=== PATIENT | female | born 1945 | race Caucasian/White ===

== ENCOUNTER → 2023-07-25 14:19 | Outpatient (REF) | payer MEDICARE, OTHER, SELFPAY | LOC: HWRAD 14:19 | PROVIDERS: ATTENDING PHYSICIAN Internal Medicine Hematology & Oncology; FAMILY PHYSICIAN Physician Assistant | DX: C49.22 Malignant neoplasm of connective and soft tissue of left lower limb, including hip (principal); C78.00 Secondary malignant neoplasm of unspecified lung | CPT/HCPCS: 71250 ==

== ENCOUNTER → 2023-08-01 11:51 | Outpatient (REF) | payer MEDICARE, OTHER, SELFPAY ==
[2023-08-01 13:29] LABS: % Basophils 0.6 % (0-2); % Eosinophils 4.7 % (0-6); % Immature Granulocytes 0.6 % (0-0.5); % Lymphocytes 18.2 % (20.5-51.1); % Monocytes 7.3 % (1.7-9.3); % Neutrophils 68.6 % (42.2-75.2); Absolute Basophils 0.1 10^3/uL (0-0.2); Absolute Eosinophils 0.4 10^3/uL (0-0.7); Absolute Immature Granulocytes 0.1 10^3/uL (0-0.05); Absolute Lymphocytes 1.7 10^3/uL (1.2-3.4); Absolute Monocytes 0.7 10^3/uL (0.1-0.6); Absolute Neutrophils 6.4 10^3/uL (1.4-6.5); Hemoglobin 12.4 g/dL (12.0-16.0); Mean Corp Hgb Conc. 31.8 g/dL (33.0-37.0); Mean Corpuscular Hgb 29.7 pg (27.0-31.0); Mean Corpuscular Volume 93.3 fL (81.0-99.0); Mean Platelet Volume 13.8 fL (7.4-10.4); Nucleated Red Blood Cells % 0 %; Platelet Count 186 10^3/uL (130-400); Red Blood Cell Count 4.18 10^6/uL (4.20-5.40); Red Cell Dist. Width 14.4 % (11.5-14.5); White Blood Cell Count 9.4 10^3/uL (4.8-10.8)
[2023-08-01 13:35] LABS: ALT (SGPT) 18 U/L (0-35); AST (SGOT) 20 U/L (14-36); Albumin 3.5 g/dl (3.5-5.0); Alkaline Phosphatase 116 U/L (38-126); Blood Urea Nitrogen 14 mg/dl (7-17); Calcium 9.4 mg/dl (8.4-10.2); Carbon Dioxide 30 mmol/L (22-30); Chloride 104 mmol/L (98-107); Glucose 109 mg/dl (70-99); Potassium 4.5 mmol/L (3.5-5.1); Sodium 135 mmol/L (135-145); Total Bilirubin 0.3 mg/dl (0.2-1.3); Total Protein 6.2 g/dl (6.3-8.2); eGFR > 60.00
[2023-08-03 15:11] LABS: Magnesium 2.1 mg/dl (1.6-2.3)
== END ==
LOC: REG 11:51
PROVIDERS: ATTENDING PHYSICIAN Internal Medicine Hematology & Oncology; FAMILY PHYSICIAN Physician Assistant
DX: C49.22 Malignant neoplasm of connective and soft tissue of left lower limb, including hip (principal); C78.00 Secondary malignant neoplasm of unspecified lung
CPT/HCPCS: 36415; 80053; 83735; 85025

== ENCOUNTER → 2023-08-08 12:20 | Outpatient (REF) | payer MEDICARE, OTHER, SELFPAY ==
[2023-08-08 13:22] LABS: % Basophils 0.6 % (0-2); % Eosinophils 2.9 % (0-6); % Immature Granulocytes 0.5 % (0-0.5); % Lymphocytes 20.3 % (20.5-51.1); % Monocytes 4.2 % (1.7-9.3); % Neutrophils 71.5 % (42.2-75.2); Absolute Basophils 0.1 10^3/uL (0-0.2); Absolute Eosinophils 0.3 10^3/uL (0-0.7); Absolute Lymphocytes 1.8 10^3/uL (1.2-3.4); Absolute Monocytes 0.4 10^3/uL (0.1-0.6); Absolute Neutrophils 6.2 10^3/uL (1.4-6.5); Hematocrit 37.4 % (37.0-47.0); Hemoglobin 12.3 g/dL (12.0-16.0); Mean Corp Hgb Conc. 32.9 g/dL (33.0-37.0); Mean Corpuscular Hgb 29.5 pg (27.0-31.0); Mean Corpuscular Volume 89.7 fL (81.0-99.0); Mean Platelet Volume 13.2 fL (7.4-10.4); Nucleated Red Blood Cells % 0 %; Platelet Count 181 10^3/uL (130-400); Red Blood Cell Count 4.17 10^6/uL (4.20-5.40); Red Cell Dist. Width 14.6 % (11.5-14.5); White Blood Cell Count 8.6 10^3/uL (4.8-10.8)
[2023-08-08 13:48] LABS: ALT (SGPT) 23 U/L (0-35); AST (SGOT) 29 U/L (14-36); Albumin 3.6 g/dl (3.5-5.0); Alkaline Phosphatase 115 U/L (38-126); Blood Urea Nitrogen 13 mg/dl (7-17); Calcium 9.3 mg/dl (8.4-10.2); Carbon Dioxide 28 mmol/L (22-30); Chloride 103 mmol/L (98-107); Glucose 100 mg/dl (70-99); Potassium 3.9 mmol/L (3.5-5.1); Sodium 134 mmol/L (135-145); Total Bilirubin 0.5 mg/dl (0.2-1.3); Total Protein 6.3 g/dl (6.3-8.2); eGFR > 60.00
== END ==
LOC: REG 12:20
PROVIDERS: ATTENDING PHYSICIAN Internal Medicine Hematology & Oncology
DX: C49.22 Malignant neoplasm of connective and soft tissue of left lower limb, including hip (principal); C78.00 Secondary malignant neoplasm of unspecified lung
CPT/HCPCS: 36415; 80053; 85025; 93005

== ENCOUNTER → 2023-08-15 08:20 | Outpatient (REF) | payer MEDICARE, OTHER, SELFPAY ==
[2023-08-15 09:07] LABS: Hematocrit 35.6 % (37.0-47.0); Hemoglobin 11.8 g/dL (12.0-16.0); Mean Corp Hgb Conc. 33.1 g/dL (33.0-37.0); Mean Corpuscular Hgb 29.6 pg (27.0-31.0); Mean Corpuscular Volume 89.4 fL (81.0-99.0); Mean Platelet Volume 13.3 fL (7.4-10.4); Platelet Count 172 10^3/uL (130-400); Red Blood Cell Count 3.98 10^6/uL (4.20-5.40); Red Cell Dist. Width 15.5 % (11.5-14.5); White Blood Cell Count 35.1 10^3/uL (4.8-10.8)
[2023-08-15 10:40] LABS: Absolute Neutrophils -Man Diff 23.8 10^3/uL (1.4-6.5); Atypical Lymphocytes 1 %; Band Neutrophils 21 % (0-3); Eosinophils 1 % (0-6); Lymphocytes 12 % (20-51); Metamyelocytes 9 % (-); Monocytes 5 % (2-9); Myelocytes 4 % (-); Nucleated Red Blood Cells 1 (-); Platelets Checked Yes; Segmented Neutrophils 47 % (42-75)
[2023-08-15 10:41] LABS: Normal RBC Morphology Yes; Total Cells Counted 100
[2023-08-15 11:27] LABS: ALT (SGPT) 30 U/L (0-35); AST (SGOT) 42 U/L (14-36); Albumin 3.1 g/dl (3.5-5.0); Alkaline Phosphatase 209 U/L (38-126); Blood Urea Nitrogen 11 mg/dl (7-17); Calcium 9.7 mg/dl (8.4-10.2); Carbon Dioxide 29 mmol/L (22-30); Chloride 100 mmol/L (98-107); Glucose 125 mg/dl (70-99); Potassium 3.1 mmol/L (3.5-5.1); Sodium 139 mmol/L (135-145); Total Bilirubin 0.5 mg/dl (0.2-1.3); Total Protein 5.8 g/dl (6.3-8.2); eGFR > 60.00
== END ==
LOC: REG 08:20
PROVIDERS: ATTENDING PHYSICIAN Internal Medicine Hematology & Oncology; FAMILY PHYSICIAN Physician Assistant
DX: C49.22 Malignant neoplasm of connective and soft tissue of left lower limb, including hip (principal); C78.00 Secondary malignant neoplasm of unspecified lung
CPT/HCPCS: 36415; 80053; 85025

== ENCOUNTER → 2023-08-16 10:29 | Outpatient (REF) | payer MEDICARE, OTHER, SELFPAY | LOC: HWRAD 10:29 | PROVIDERS: ATTENDING PHYSICIAN Internal Medicine Hematology & Oncology; FAMILY PHYSICIAN Physician Assistant | DX: I26.99 Other pulmonary embolism without acute cor pulmonale (principal); C49.22 Malignant neoplasm of connective and soft tissue of left lower limb, including hip; C78.00 Secondary malignant neoplasm of unspecified lung | CPT/HCPCS: 71275; Q9967 ==

== ENCOUNTER → 2023-08-22 11:50 | Outpatient (REF) | payer MEDICARE, OTHER, SELFPAY ==
[2023-08-22 12:57] LABS: % Basophils 0.5 % (0-2); % Eosinophils 0.1 % (0-6); % Immature Granulocytes 5.8 % (0-0.5); % Lymphocytes 7.8 % (20.5-51.1); % Monocytes 2.9 % (1.7-9.3); % Neutrophils 82.9 % (42.2-75.2); Absolute Basophils 0.1 10^3/uL (0-0.2); Absolute Immature Granulocytes 1.7 10^3/uL (0-0.05); Absolute Lymphocytes 2.3 10^3/uL (1.2-3.4); Absolute Monocytes 0.8 10^3/uL (0.1-0.6); Absolute Neutrophils 24.3 10^3/uL (1.4-6.5); Hemoglobin 12.1 g/dL (12.0-16.0); Mean Corp Hgb Conc. 33.6 g/dL (33.0-37.0); Mean Corpuscular Hgb 30.6 pg (27.0-31.0); Mean Corpuscular Volume 91.1 fL (81.0-99.0); Nucleated Red Blood Cells % 0.2 %; Red Blood Cell Count 3.95 10^6/uL (4.20-5.40); Red Cell Dist. Width 17.2 % (11.5-14.5); White Blood Cell Count 29.2 10^3/uL (4.8-10.8)
[2023-08-22 13:31] LABS: ALT (SGPT) 21 U/L (0-35); AST (SGOT) 25 U/L (14-36); Albumin 3.7 g/dl (3.5-5.0); Alkaline Phosphatase 199 U/L (38-126); Blood Urea Nitrogen 16 mg/dl (7-17); Calcium 9.6 mg/dl (8.4-10.2); Carbon Dioxide 27 mmol/L (22-30); Chloride 100 mmol/L (98-107); Glucose 93 mg/dl (70-99); Potassium 3.6 mmol/L (3.5-5.1); Sodium 138 mmol/L (135-145); Total Bilirubin 0.3 mg/dl (0.2-1.3); Total Protein 6.4 g/dl (6.3-8.2); eGFR > 60.00
[2023-08-22 13:40] LABS: Mean Platelet Volume 12.8 fL (7.4-10.4); Platelet Count 116 10^3/uL (130-400)
== END ==
LOC: REG 11:50
PROVIDERS: ATTENDING PHYSICIAN Internal Medicine Hematology & Oncology; FAMILY PHYSICIAN Physician Assistant
DX: C49.22 Malignant neoplasm of connective and soft tissue of left lower limb, including hip (principal); C78.00 Secondary malignant neoplasm of unspecified lung
CPT/HCPCS: 36415; 80053; 85025

== ENCOUNTER → 2023-08-29 12:12 | Outpatient (REF) | payer MEDICARE, OTHER, SELFPAY ==
[2023-08-29 13:17] LABS: % Basophils 1.5 % (0-2); % Eosinophils 0.4 % (0-6); % Immature Granulocytes 1.3 % (0-0.5); % Lymphocytes 14.9 % (20.5-51.1); % Monocytes 3.8 % (1.7-9.3); % Neutrophils 78.1 % (42.2-75.2); Absolute Basophils 0.1 10^3/uL (0-0.2); Absolute Immature Granulocytes 0.1 10^3/uL (0-0.05); Absolute Lymphocytes 1.4 10^3/uL (1.2-3.4); Absolute Monocytes 0.4 10^3/uL (0.1-0.6); Absolute Neutrophils 7.2 10^3/uL (1.4-6.5); Hematocrit 34.1 % (37.0-47.0); Hemoglobin 11.1 g/dL (12.0-16.0); Mean Corp Hgb Conc. 32.6 g/dL (33.0-37.0); Mean Corpuscular Hgb 29.6 pg (27.0-31.0); Mean Corpuscular Volume 90.9 fL (81.0-99.0); Mean Platelet Volume 12.6 fL (7.4-10.4); Nucleated Red Blood Cells % 0 %; Platelet Count 356 10^3/uL (130-400); Red Blood Cell Count 3.75 10^6/uL (4.20-5.40); Red Cell Dist. Width 17.3 % (11.5-14.5); White Blood Cell Count 9.3 10^3/uL (4.8-10.8)
[2023-08-29 13:39] LABS: ALT (SGPT) 22 U/L (0-35); AST (SGOT) 27 U/L (14-36); Albumin 3.5 g/dl (3.5-5.0); Alkaline Phosphatase 123 U/L (38-126); Blood Urea Nitrogen 17 mg/dl (7-17); Calcium 9.6 mg/dl (8.4-10.2); Carbon Dioxide 29 mmol/L (22-30); Chloride 104 mmol/L (98-107); Glucose 110 mg/dl (70-99); Potassium 4.4 mmol/L (3.5-5.1); Sodium 136 mmol/L (135-145); Total Bilirubin 0.2 mg/dl (0.2-1.3); eGFR > 60.00
== END ==
LOC: REG 12:12
PROVIDERS: ATTENDING PHYSICIAN Internal Medicine Hematology & Oncology; FAMILY PHYSICIAN Physician Assistant
DX: C49.22 Malignant neoplasm of connective and soft tissue of left lower limb, including hip (principal); C78.00 Secondary malignant neoplasm of unspecified lung
CPT/HCPCS: 36415; 80053; 85025

== ENCOUNTER → 2023-09-05 12:05 | Outpatient (REF) | payer MEDICARE, OTHER, SELFPAY ==
[2023-09-05 14:22] LABS: % Eosinophils 1.4 % (0-6); % Immature Granulocytes 0.6 % (0-0.5); % Lymphocytes 18.3 % (20.5-51.1); % Monocytes 3.9 % (1.7-9.3); % Neutrophils 74.8 % (42.2-75.2); Absolute Basophils 0.1 10^3/uL (0-0.2); Absolute Eosinophils 0.1 10^3/uL (0-0.7); Absolute Immature Granulocytes 0.1 10^3/uL (0-0.05); Absolute Lymphocytes 1.5 10^3/uL (1.2-3.4); Absolute Monocytes 0.3 10^3/uL (0.1-0.6); Absolute Neutrophils 6.2 10^3/uL (1.4-6.5); Hematocrit 34.1 % (37.0-47.0); Hemoglobin 11.1 g/dL (12.0-16.0); Mean Corp Hgb Conc. 32.6 g/dL (33.0-37.0); Mean Corpuscular Hgb 29.8 pg (27.0-31.0); Mean Corpuscular Volume 91.4 fL (81.0-99.0); Mean Platelet Volume 12.7 fL (7.4-10.4); Nucleated Red Blood Cells % 0 %; Platelet Count 304 10^3/uL (130-400); Red Blood Cell Count 3.73 10^6/uL (4.20-5.40); Red Cell Dist. Width 17.2 % (11.5-14.5); White Blood Cell Count 8.3 10^3/uL (4.8-10.8)
[2023-09-05 14:35] LABS: ALT (SGPT) 25 U/L (0-35); AST (SGOT) 24 U/L (14-36); Albumin 3.6 g/dl (3.5-5.0); Alkaline Phosphatase 118 U/L (38-126); Blood Urea Nitrogen 13 mg/dl (7-17); Calcium 9.7 mg/dl (8.4-10.2); Carbon Dioxide 27 mmol/L (22-30); Chloride 103 mmol/L (98-107); Glucose 102 mg/dl (70-99); Sodium 136 mmol/L (135-145); Total Bilirubin 0.3 mg/dl (0.2-1.3); Total Protein 6.2 g/dl (6.3-8.2); eGFR > 60.00
== END ==
LOC: REG 12:05
PROVIDERS: ATTENDING PHYSICIAN Internal Medicine Hematology & Oncology
DX: C49.22 Malignant neoplasm of connective and soft tissue of left lower limb, including hip (principal); C78.00 Secondary malignant neoplasm of unspecified lung
CPT/HCPCS: 36415; 80053; 85025

== ENCOUNTER → 2023-09-13 13:03 | Outpatient (REF) | payer MEDICARE, OTHER, SELFPAY ==
[2023-09-13 14:44] LABS: % Basophils 1.5 % (0-2); % Immature Granulocytes 0.5 % (0-0.5); % Lymphocytes 20.6 % (20.5-51.1); % Monocytes 9.1 % (1.7-9.3); % Neutrophils 67.3 % (42.2-75.2); Absolute Basophils 0.1 10^3/uL (0-0.2); Absolute Eosinophils 0.1 10^3/uL (0-0.7); Absolute Lymphocytes 1.6 10^3/uL (1.2-3.4); Absolute Monocytes 0.7 10^3/uL (0.1-0.6); Absolute Neutrophils 5.4 10^3/uL (1.4-6.5); Hematocrit 36.7 % (37.0-47.0); Hemoglobin 11.8 g/dL (12.0-16.0); Mean Corp Hgb Conc. 32.2 g/dL (33.0-37.0); Mean Corpuscular Hgb 29.4 pg (27.0-31.0); Mean Corpuscular Volume 91.5 fL (81.0-99.0); Nucleated Red Blood Cells % 0 %; Platelet Count 247 10^3/uL (130-400); Red Blood Cell Count 4.01 10^6/uL (4.20-5.40); Red Cell Dist. Width 17.1 % (11.5-14.5)
[2023-09-13 15:19] LABS: ALT (SGPT) 22 U/L (0-35); AST (SGOT) 26 U/L (14-36); Albumin 3.9 g/dl (3.5-5.0); Alkaline Phosphatase 112 U/L (38-126); Blood Urea Nitrogen 14 mg/dl (7-17); Carbon Dioxide 25 mmol/L (22-30); Chloride 104 mmol/L (98-107); Glucose 93 mg/dl (70-99); Iron 71 ug/dl (37-170); Potassium 4.1 mmol/L (3.5-5.1); Sodium 135 mmol/L (135-145); Total Bilirubin 0.3 mg/dl (0.2-1.3); Total Protein 6.5 g/dl (6.3-8.2); eGFR > 60.00
[2023-09-13 15:28] LABS: Percent Saturation 21 % (20-50); Total Iron Binding Capacity 329 ug/dl (265-497)
[2023-09-13 15:44] LABS: TSH Reflex To Free T4 1.72 uIU/ml (0.47-4.68)
[2023-09-13 15:48] LABS: Ferritin 23.8 ng/ml (11.1-264.0)
[2023-09-13 16:19] LABS: Folate > 20.0 ng/ml (2.76-20); Vitamin B12 787 pg/ml (239-931)
== END ==
LOC: REG 13:03
PROVIDERS: ATTENDING PHYSICIAN Internal Medicine Hematology & Oncology; FAMILY PHYSICIAN Physician Assistant
DX: C49.22 Malignant neoplasm of connective and soft tissue of left lower limb, including hip (principal); C78.00 Secondary malignant neoplasm of unspecified lung; R11.2 Nausea with vomiting, unspecified; D51.9 Vitamin B12 deficiency anemia, unspecified; R53.82 Chronic fatigue, unspecified
CPT/HCPCS: 36415; 80053; 82607; 82728; 82746; 83540; 83550; 84443; 85025

== ENCOUNTER → 2023-09-14 12:58 | Outpatient (REF) | payer MEDICARE, OTHER, SELFPAY | LOC: RAD 12:58 | PROVIDERS: ATTENDING PHYSICIAN Internal Medicine Hematology & Oncology; FAMILY PHYSICIAN Physician Assistant | DX: I26.99 Other pulmonary embolism without acute cor pulmonale (principal); C49.22 Malignant neoplasm of connective and soft tissue of left lower limb, including hip; C78.00 Secondary malignant neoplasm of unspecified lung; R11.2 Nausea with vomiting, unspecified | CPT/HCPCS: 71275; Q9967 ==

== ENCOUNTER → 2023-09-20 12:26 | Outpatient (REF) | payer MEDICARE, OTHER, SELFPAY ==
[2023-09-20 13:29] LABS: % Basophils 0.9 % (0-2); % Eosinophils 0.9 % (0-6); % Immature Granulocytes 0.6 % (0-0.5); % Lymphocytes 16.3 % (20.5-51.1); % Monocytes 2.9 % (1.7-9.3); % Neutrophils 78.4 % (42.2-75.2); Absolute Basophils 0.1 10^3/uL (0-0.2); Absolute Eosinophils 0.1 10^3/uL (0-0.7); Absolute Immature Granulocytes 0.1 10^3/uL (0-0.05); Absolute Lymphocytes 1.6 10^3/uL (1.2-3.4); Absolute Monocytes 0.3 10^3/uL (0.1-0.6); Absolute Neutrophils 7.7 10^3/uL (1.4-6.5); Hematocrit 35.1 % (37.0-47.0); Hemoglobin 11.5 g/dL (12.0-16.0); Mean Corp Hgb Conc. 32.8 g/dL (33.0-37.0); Mean Corpuscular Hgb 29.6 pg (27.0-31.0); Mean Corpuscular Volume 90.2 fL (81.0-99.0); Nucleated Red Blood Cells % 0 %; Platelet Count 220 10^3/uL (130-400); Red Blood Cell Count 3.89 10^6/uL (4.20-5.40); Red Cell Dist. Width 16.6 % (11.5-14.5); White Blood Cell Count 9.8 10^3/uL (4.8-10.8)
[2023-09-20 14:07] LABS: ALT (SGPT) 23 U/L (0-35); AST (SGOT) 27 U/L (14-36); Albumin 3.8 g/dl (3.5-5.0); Alkaline Phosphatase 93 U/L (38-126); Blood Urea Nitrogen 14 mg/dl (7-17); Calcium 10.2 mg/dl (8.4-10.2); Carbon Dioxide 28 mmol/L (22-30); Chloride 103 mmol/L (98-107); Glucose 117 mg/dl (70-99); Potassium 4.1 mmol/L (3.5-5.1); Sodium 135 mmol/L (135-145); Total Bilirubin 0.4 mg/dl (0.2-1.3); Total Protein 6.3 g/dl (6.3-8.2); eGFR > 60.00
== END ==
LOC: REG 12:26
PROVIDERS: ATTENDING PHYSICIAN Internal Medicine Hematology & Oncology
DX: C49.22 Malignant neoplasm of connective and soft tissue of left lower limb, including hip (principal); C78.00 Secondary malignant neoplasm of unspecified lung
CPT/HCPCS: 36415; 80053; 85025

== ENCOUNTER → 2023-09-28 09:55 | Outpatient (REF) | payer MEDICARE, OTHER, SELFPAY | LOC: RAD 09:55 | PROVIDERS: ATTENDING PHYSICIAN Internal Medicine Hematology & Oncology; FAMILY PHYSICIAN Physician Assistant | DX: C49.22 Malignant neoplasm of connective and soft tissue of left lower limb, including hip (principal); C78.00 Secondary malignant neoplasm of unspecified lung; R11.2 Nausea with vomiting, unspecified | CPT/HCPCS: 71260; 74177; Q9967 ==

== ENCOUNTER → 2023-09-29 13:45 | Outpatient (REF) | payer MEDICARE, OTHER, SELFPAY | LOC: RAD 13:45 | PROVIDERS: ATTENDING PHYSICIAN Internal Medicine Hematology & Oncology; FAMILY PHYSICIAN Physician Assistant | DX: C49.22 Malignant neoplasm of connective and soft tissue of left lower limb, including hip (principal); C78.00 Secondary malignant neoplasm of unspecified lung; R11.2 Nausea with vomiting, unspecified | CPT/HCPCS: 73701; Q9967 ==

== ENCOUNTER → 2023-10-03 15:54 | Outpatient (REF) | payer MEDICARE, OTHER, SELFPAY ==
[2023-10-03 16:52] LABS: % Immature Granulocytes 0.6 % (0-0.5); % Lymphocytes 23.1 % (20.5-51.1); % Monocytes 7.9 % (1.7-9.3); % Neutrophils 66.4 % (42.2-75.2); Absolute Basophils 0.1 10^3/uL (0-0.2); Absolute Eosinophils 0.1 10^3/uL (0-0.7); Absolute Lymphocytes 1.6 10^3/uL (1.2-3.4); Absolute Monocytes 0.5 10^3/uL (0.1-0.6); Absolute Neutrophils 4.5 10^3/uL (1.4-6.5); Hematocrit 35.6 % (37.0-47.0); Hemoglobin 11.4 g/dL (12.0-16.0); Mean Corpuscular Hgb 29.2 pg (27.0-31.0); Mean Platelet Volume 12.5 fL (7.4-10.4); Nucleated Red Blood Cells % 0 %; Platelet Count 277 10^3/uL (130-400); Red Blood Cell Count 3.91 10^6/uL (4.20-5.40); Red Cell Dist. Width 17.1 % (11.5-14.5); White Blood Cell Count 6.7 10^3/uL (4.8-10.8)
== END ==
LOC: REG 15:54
PROVIDERS: ATTENDING PHYSICIAN Internal Medicine Hematology & Oncology; FAMILY PHYSICIAN Physician Assistant
DX: C49.22 Malignant neoplasm of connective and soft tissue of left lower limb, including hip (principal); C78.00 Secondary malignant neoplasm of unspecified lung
CPT/HCPCS: 36415; 85025

== ENCOUNTER → 2023-10-05 15:11 | Outpatient (REF) | payer MEDICARE, OTHER, SELFPAY ==
[2023-10-05 15:42] LABS: ALT (SGPT) 24 U/L (0-35); AST (SGOT) 26 U/L (14-36); Albumin 3.8 g/dl (3.5-5.0); Alkaline Phosphatase 106 U/L (38-126); Blood Urea Nitrogen 14 mg/dl (7-17); Calcium 9.9 mg/dl (8.4-10.2); Carbon Dioxide 29 mmol/L (22-30); Chloride 104 mmol/L (98-107); Glucose 90 mg/dl (70-99); Magnesium 2.1 mg/dl (1.6-2.3); Potassium 4.3 mmol/L (3.5-5.1); Sodium 135 mmol/L (135-145); Total Bilirubin 0.2 mg/dl (0.2-1.3); Total Protein 6.5 g/dl (6.3-8.2); eGFR > 60.00
== END ==
LOC: OIDL 15:11
PROVIDERS: ATTENDING PHYSICIAN Nurse Practitioner Adult Health
DX: C49.22 Malignant neoplasm of connective and soft tissue of left lower limb, including hip (principal)
CPT/HCPCS: 80053; 83735

== ENCOUNTER → 2023-10-11 12:52 | Outpatient (REF) | payer MEDICARE, OTHER, SELFPAY ==
[2023-10-11 14:12] LABS: % Eosinophils 0.4 % (0-6); % Lymphocytes 17.5 % (20.5-51.1); % Monocytes 2.5 % (1.7-9.3); % Neutrophils 77.6 % (42.2-75.2); Absolute Basophils 0.1 10^3/uL (0-0.2); Absolute Immature Granulocytes 0.1 10^3/uL (0-0.05); Absolute Lymphocytes 1.7 10^3/uL (1.2-3.4); Absolute Monocytes 0.3 10^3/uL (0.1-0.6); Absolute Neutrophils 7.7 10^3/uL (1.4-6.5); Hematocrit 36.3 % (37.0-47.0); Mean Corp Hgb Conc. 33.1 g/dL (33.0-37.0); Mean Corpuscular Hgb 29.9 pg (27.0-31.0); Mean Corpuscular Volume 90.3 fL (81.0-99.0); Mean Platelet Volume 13.2 fL (7.4-10.4); Nucleated Red Blood Cells % 0 %; Platelet Count 232 10^3/uL (130-400); Red Blood Cell Count 4.02 10^6/uL (4.20-5.40); Red Cell Dist. Width 16.5 % (11.5-14.5); White Blood Cell Count 9.9 10^3/uL (4.8-10.8)
[2023-10-11 14:44] LABS: ALT (SGPT) 27 U/L (0-35); AST (SGOT) 29 U/L (14-36); Albumin 4.1 g/dl (3.5-5.0); Alkaline Phosphatase 108 U/L (38-126); Blood Urea Nitrogen 12 mg/dl (7-17); Carbon Dioxide 28 mmol/L (22-30); Chloride 103 mmol/L (98-107); Glucose 94 mg/dl (70-99); Potassium 3.8 mmol/L (3.5-5.1); Sodium 135 mmol/L (135-145); Total Bilirubin 0.3 mg/dl (0.2-1.3); Total Protein 6.7 g/dl (6.3-8.2); eGFR > 60.00
== END ==
LOC: REG 12:52
PROVIDERS: ATTENDING PHYSICIAN Nurse Practitioner Adult Health; FAMILY PHYSICIAN Internal Medicine Hematology & Oncology
DX: C49.22 Malignant neoplasm of connective and soft tissue of left lower limb, including hip (principal); C78.00 Secondary malignant neoplasm of unspecified lung; R11.2 Nausea with vomiting, unspecified
CPT/HCPCS: 36415; 80053; 85025; 93005

== ENCOUNTER → 2023-10-17 14:52 | Outpatient (REF) | payer MEDICARE, OTHER, SELFPAY ==
[2023-10-17 15:38] LABS: % Basophils 1.3 % (0-2); % Eosinophils 1.3 % (0-6); % Immature Granulocytes 0.3 % (0-0.5); % Monocytes 3.3 % (1.7-9.3); % Neutrophils 70.8 % (42.2-75.2); Absolute Basophils 0.1 10^3/uL (0-0.2); Absolute Eosinophils 0.1 10^3/uL (0-0.7); Absolute Lymphocytes 1.4 10^3/uL (1.2-3.4); Absolute Monocytes 0.2 10^3/uL (0.1-0.6); Absolute Neutrophils 4.3 10^3/uL (1.4-6.5); Hematocrit 34.7 % (37.0-47.0); Hemoglobin 11.3 g/dL (12.0-16.0); Mean Corp Hgb Conc. 32.6 g/dL (33.0-37.0); Mean Corpuscular Hgb 29.6 pg (27.0-31.0); Mean Corpuscular Volume 90.8 fL (81.0-99.0); Mean Platelet Volume 13.3 fL (7.4-10.4); Nucleated Red Blood Cells % 0 %; Platelet Count 201 10^3/uL (130-400); Red Blood Cell Count 3.82 10^6/uL (4.20-5.40); Red Cell Dist. Width 16.9 % (11.5-14.5)
[2023-10-17 16:10] LABS: ALT (SGPT) 36 U/L (0-35); AST (SGOT) 36 U/L (14-36); Albumin 3.6 g/dl (3.5-5.0); Alkaline Phosphatase 90 U/L (38-126); Blood Urea Nitrogen 17 mg/dl (7-17); Calcium 10.1 mg/dl (8.4-10.2); Carbon Dioxide 30 mmol/L (22-30); Chloride 102 mmol/L (98-107); Glucose 117 mg/dl (70-99); Potassium 3.9 mmol/L (3.5-5.1); Sodium 135 mmol/L (135-145); Total Bilirubin 0.3 mg/dl (0.2-1.3); Total Protein 6.1 g/dl (6.3-8.2); eGFR > 60.00
== END ==
LOC: REG 14:52
PROVIDERS: ATTENDING PHYSICIAN Internal Medicine Hematology & Oncology; FAMILY PHYSICIAN Physician Assistant
DX: C49.22 Malignant neoplasm of connective and soft tissue of left lower limb, including hip (principal); C78.00 Secondary malignant neoplasm of unspecified lung; R11.2 Nausea with vomiting, unspecified
CPT/HCPCS: 36415; 80053; 85025

== ENCOUNTER → 2023-10-25 11:57 | Outpatient (REF) | payer MEDICARE, OTHER, SELFPAY ==
[2023-10-25 13:23] LABS: % Basophils 0.8 % (0-2); % Eosinophils 0.9 % (0-6); % Immature Granulocytes 0.5 % (0-0.5); % Monocytes 7.8 % (1.7-9.3); Absolute Basophils 0.1 10^3/uL (0-0.2); Absolute Eosinophils 0.1 10^3/uL (0-0.7); Absolute Lymphocytes 1.5 10^3/uL (1.2-3.4); Absolute Monocytes 0.6 10^3/uL (0.1-0.6); Absolute Neutrophils 5.5 10^3/uL (1.4-6.5); Hematocrit 36.3 % (37.0-47.0); Hemoglobin 11.8 g/dL (12.0-16.0); Mean Corp Hgb Conc. 32.5 g/dL (33.0-37.0); Mean Corpuscular Hgb 29.3 pg (27.0-31.0); Mean Corpuscular Volume 90.1 fL (81.0-99.0); Mean Platelet Volume 13.1 fL (7.4-10.4); Nucleated Red Blood Cells % 0 %; Platelet Count 256 10^3/uL (130-400); Red Blood Cell Count 4.03 10^6/uL (4.20-5.40); Red Cell Dist. Width 17.2 % (11.5-14.5); White Blood Cell Count 7.7 10^3/uL (4.8-10.8)
[2023-10-25 13:36] LABS: ALT (SGPT) 25 U/L (0-35); AST (SGOT) 28 U/L (14-36); Albumin 3.9 g/dl (3.5-5.0); Alkaline Phosphatase 108 U/L (38-126); Blood Urea Nitrogen 14 mg/dl (7-17); Calcium 10.1 mg/dl (8.4-10.2); Carbon Dioxide 24 mmol/L (22-30); Chloride 105 mmol/L (98-107); Glucose 97 mg/dl (70-99); Sodium 136 mmol/L (135-145); Total Bilirubin 0.3 mg/dl (0.2-1.3); Total Protein 6.5 g/dl (6.3-8.2); eGFR > 60.00
== END ==
LOC: REG 11:57
PROVIDERS: ATTENDING PHYSICIAN Internal Medicine Hematology & Oncology; FAMILY PHYSICIAN Physician Assistant
DX: C49.22 Malignant neoplasm of connective and soft tissue of left lower limb, including hip (principal); C78.00 Secondary malignant neoplasm of unspecified lung
CPT/HCPCS: 36415; 80053; 85025

== ENCOUNTER → 2023-11-01 13:02 | Outpatient (REF) | payer MEDICARE, OTHER, SELFPAY ==
[2023-11-01 14:01] LABS: % Eosinophils 0.4 % (0-6); % Lymphocytes 16.6 % (20.5-51.1); % Monocytes 2.9 % (1.7-9.3); % Neutrophils 77.1 % (42.2-75.2); Absolute Basophils 0.1 10^3/uL (0-0.2); Absolute Immature Granulocytes 0.2 10^3/uL (0-0.05); Absolute Lymphocytes 1.5 10^3/uL (1.2-3.4); Absolute Monocytes 0.3 10^3/uL (0.1-0.6); Absolute Neutrophils 7.1 10^3/uL (1.4-6.5); Hematocrit 36.7 % (37.0-47.0); Hemoglobin 11.4 g/dL (12.0-16.0); Mean Corp Hgb Conc. 31.1 g/dL (33.0-37.0); Mean Corpuscular Hgb 28.6 pg (27.0-31.0); Mean Platelet Volume 13.3 fL (7.4-10.4); Nucleated Red Blood Cells % 0 %; Platelet Count 227 10^3/uL (130-400); Red Blood Cell Count 3.99 10^6/uL (4.20-5.40); Red Cell Dist. Width 16.9 % (11.5-14.5); White Blood Cell Count 9.2 10^3/uL (4.8-10.8)
[2023-11-01 14:35] LABS: ALT (SGPT) 26 U/L (0-35); AST (SGOT) 29 U/L (14-36); Albumin 3.5 g/dl (3.5-5.0); Alkaline Phosphatase 95 U/L (38-126); Blood Urea Nitrogen 13 mg/dl (7-17); Calcium 9.7 mg/dl (8.4-10.2); Carbon Dioxide 27 mmol/L (22-30); Chloride 105 mmol/L (98-107); Glucose 116 mg/dl (70-99); Potassium 3.8 mmol/L (3.5-5.1); Sodium 139 mmol/L (135-145); Total Bilirubin 0.2 mg/dl (0.2-1.3); eGFR > 60.00
== END ==
LOC: REG 13:02
PROVIDERS: ATTENDING PHYSICIAN Internal Medicine Hematology & Oncology; FAMILY PHYSICIAN Physician Assistant
DX: C49.22 Malignant neoplasm of connective and soft tissue of left lower limb, including hip (principal); C78.00 Secondary malignant neoplasm of unspecified lung
CPT/HCPCS: 36415; 80053; 85025

== ENCOUNTER → 2023-11-08 11:52 | Outpatient (REF) | payer MEDICARE, OTHER, SELFPAY ==
[2023-11-08 13:17] LABS: % Basophils 1.3 % (0-2); % Eosinophils 1.1 % (0-6); % Immature Granulocytes 1.1 % (0-0.5); % Lymphocytes 26.7 % (20.5-51.1); % Monocytes 4.8 % (1.7-9.3); Absolute Basophils 0.1 10^3/uL (0-0.2); Absolute Eosinophils 0.1 10^3/uL (0-0.7); Absolute Immature Granulocytes 0.1 10^3/uL (0-0.05); Absolute Lymphocytes 1.5 10^3/uL (1.2-3.4); Absolute Monocytes 0.3 10^3/uL (0.1-0.6); Absolute Neutrophils 3.6 10^3/uL (1.4-6.5); Hematocrit 35.6 % (37.0-47.0); Hemoglobin 11.1 g/dL (12.0-16.0); Mean Corp Hgb Conc. 31.2 g/dL (33.0-37.0); Mean Corpuscular Hgb 29.2 pg (27.0-31.0); Mean Corpuscular Volume 93.7 fL (81.0-99.0); Mean Platelet Volume 13.4 fL (7.4-10.4); Nucleated Red Blood Cells % 0 %; Platelet Count 226 10^3/uL (130-400); Red Cell Dist. Width 17.2 % (11.5-14.5); White Blood Cell Count 5.5 10^3/uL (4.8-10.8)
[2023-11-08 15:13] LABS: ALT (SGPT) 25 U/L (0-35); AST (SGOT) 27 U/L (14-36); Albumin 3.5 g/dl (3.5-5.0); Alkaline Phosphatase 82 U/L (38-126); Blood Urea Nitrogen 13 mg/dl (7-17); Calcium 9.7 mg/dl (8.4-10.2); Carbon Dioxide 26 mmol/L (22-30); Chloride 105 mmol/L (98-107); Glucose 91 mg/dl (70-99); Potassium 4.1 mmol/L (3.5-5.1); Sodium 137 mmol/L (135-145); Total Bilirubin 0.3 mg/dl (0.2-1.3); Total Protein 5.9 g/dl (6.3-8.2); eGFR > 60.00
== END ==
LOC: REG 11:52
PROVIDERS: ATTENDING PHYSICIAN Internal Medicine Hematology & Oncology; FAMILY PHYSICIAN Physician Assistant
DX: C49.22 Malignant neoplasm of connective and soft tissue of left lower limb, including hip (principal); C78.00 Secondary malignant neoplasm of unspecified lung
CPT/HCPCS: 36415; 80053; 85025

== ENCOUNTER → 2023-11-10 12:26 | Outpatient (REF) | payer MEDICARE, OTHER, SELFPAY | LOC: RAD 12:26 | PROVIDERS: ATTENDING PHYSICIAN Internal Medicine Hematology & Oncology; FAMILY PHYSICIAN Physician Assistant | DX: R11.2 Nausea with vomiting, unspecified (principal); C78.00 Secondary malignant neoplasm of unspecified lung; C49.22 Malignant neoplasm of connective and soft tissue of left lower limb, including hip | CPT/HCPCS: 71260; 73701; 74177; Q9967 ==

== ENCOUNTER → 2023-11-15 10:40 | Outpatient (REF) | payer MEDICARE, OTHER, SELFPAY ==
[2023-11-15 12:48] LABS: % Eosinophils 0.5 % (0-6); % Immature Granulocytes 0.5 % (0-0.5); % Lymphocytes 20.7 % (20.5-51.1); % Monocytes 8.3 % (1.7-9.3); Absolute Basophils 0.1 10^3/uL (0-0.2); Absolute Lymphocytes 1.6 10^3/uL (1.2-3.4); Absolute Monocytes 0.7 10^3/uL (0.1-0.6); Absolute Neutrophils 5.4 10^3/uL (1.4-6.5); Hematocrit 38.9 % (37.0-47.0); Hemoglobin 12.4 g/dL (12.0-16.0); Mean Corp Hgb Conc. 31.9 g/dL (33.0-37.0); Mean Corpuscular Hgb 28.6 pg (27.0-31.0); Mean Corpuscular Volume 89.8 fL (81.0-99.0); Mean Platelet Volume 12.4 fL (7.4-10.4); Nucleated Red Blood Cells % 0 %; Platelet Count 271 10^3/uL (130-400); Red Blood Cell Count 4.33 10^6/uL (4.20-5.40); Red Cell Dist. Width 17.4 % (11.5-14.5); White Blood Cell Count 7.8 10^3/uL (4.8-10.8)
[2023-11-15 13:59] LABS: ALT (SGPT) 24 U/L (0-35); AST (SGOT) 27 U/L (14-36); Albumin 4.2 g/dl (3.5-5.0); Alkaline Phosphatase 113 U/L (38-126); Blood Urea Nitrogen 13 mg/dl (7-17); Calcium 10.3 mg/dl (8.4-10.2); Carbon Dioxide 21 mmol/L (22-30); Chloride 106 mmol/L (98-107); Glucose 106 mg/dl (70-99); Potassium 4.3 mmol/L (3.5-5.1); Sodium 138 mmol/L (135-145); Total Bilirubin 0.4 mg/dl (0.2-1.3); Total Protein 6.9 g/dl (6.3-8.2); eGFR > 60.00
== END ==
LOC: REG 10:40
PROVIDERS: ATTENDING PHYSICIAN Internal Medicine Hematology & Oncology
DX: C49.22 Malignant neoplasm of connective and soft tissue of left lower limb, including hip (principal); C78.00 Secondary malignant neoplasm of unspecified lung
CPT/HCPCS: 36415; 80053; 85025

== ENCOUNTER → 2023-11-22 12:04 | Outpatient (REF) | payer MEDICARE, OTHER, SELFPAY ==
[2023-11-22 13:12] LABS: % Basophils 0.9 % (0-2); % Eosinophils 1.1 % (0-6); % Immature Granulocytes 0.5 % (0-0.5); % Lymphocytes 15.8 % (20.5-51.1); % Monocytes 5.9 % (1.7-9.3); % Neutrophils 75.8 % (42.2-75.2); Absolute Basophils 0.1 10^3/uL (0-0.2); Absolute Eosinophils 0.1 10^3/uL (0-0.7); Absolute Immature Granulocytes 0.1 10^3/uL (0-0.05); Absolute Lymphocytes 1.6 10^3/uL (1.2-3.4); Absolute Monocytes 0.6 10^3/uL (0.1-0.6); Absolute Neutrophils 7.7 10^3/uL (1.4-6.5); Hematocrit 38.9 % (37.0-47.0); Hemoglobin 12.1 g/dL (12.0-16.0); Mean Corp Hgb Conc. 31.1 g/dL (33.0-37.0); Mean Corpuscular Hgb 28.4 pg (27.0-31.0); Mean Corpuscular Volume 91.3 fL (81.0-99.0); Mean Platelet Volume 13.7 fL (7.4-10.4); Nucleated Red Blood Cells % 0 %; Platelet Count 226 10^3/uL (130-400); Red Blood Cell Count 4.26 10^6/uL (4.20-5.40); Red Cell Dist. Width 17.3 % (11.5-14.5); White Blood Cell Count 10.1 10^3/uL (4.8-10.8)
[2023-11-22 13:39] LABS: ALT (SGPT) 18 U/L (0-35); AST (SGOT) 23 U/L (14-36); Albumin 3.8 g/dl (3.5-5.0); Alkaline Phosphatase 112 U/L (38-126); Blood Urea Nitrogen 16 mg/dl (7-17); Carbon Dioxide 26 mmol/L (22-30); Chloride 105 mmol/L (98-107); Glucose 97 mg/dl (70-99); Potassium 4.3 mmol/L (3.5-5.1); Sodium 138 mmol/L (135-145); Total Bilirubin 0.3 mg/dl (0.2-1.3); Total Protein 6.5 g/dl (6.3-8.2); eGFR > 60.00
== END ==
LOC: REG 12:04
PROVIDERS: ATTENDING PHYSICIAN Internal Medicine Hematology & Oncology; FAMILY PHYSICIAN Physician Assistant
DX: C49.22 Malignant neoplasm of connective and soft tissue of left lower limb, including hip (principal); C78.00 Secondary malignant neoplasm of unspecified lung
CPT/HCPCS: 36415; 80053; 85025

== ENCOUNTER → 2023-11-29 11:37 | Outpatient (REF) | payer MEDICARE, OTHER, SELFPAY ==
[2023-11-29 12:33] LABS: % Basophils 0.7 % (0-2); % Eosinophils 1.9 % (0-6); % Immature Granulocytes 0.3 % (0-0.5); % Lymphocytes 15.9 % (20.5-51.1); % Monocytes 4.5 % (1.7-9.3); % Neutrophils 76.7 % (42.2-75.2); Absolute Basophils 0.1 10^3/uL (0-0.2); Absolute Eosinophils 0.1 10^3/uL (0-0.7); Absolute Lymphocytes 1.2 10^3/uL (1.2-3.4); Absolute Monocytes 0.3 10^3/uL (0.1-0.6); Absolute Neutrophils 5.7 10^3/uL (1.4-6.5); Hematocrit 35.3 % (37.0-47.0); Hemoglobin 11.7 g/dL (12.0-16.0); Mean Corp Hgb Conc. 33.1 g/dL (33.0-37.0); Mean Corpuscular Hgb 29.2 pg (27.0-31.0); Mean Platelet Volume 13.6 fL (7.4-10.4); Nucleated Red Blood Cells % 0 %; Platelet Count 189 10^3/uL (130-400); Red Blood Cell Count 4.01 10^6/uL (4.20-5.40); Red Cell Dist. Width 17.1 % (11.5-14.5); White Blood Cell Count 7.5 10^3/uL (4.8-10.8)
[2023-11-29 13:31] LABS: ALT (SGPT) 44 U/L (0-35); AST (SGOT) 58 U/L (14-36); Albumin 3.5 g/dl (3.5-5.0); Alkaline Phosphatase 131 U/L (38-126); Blood Urea Nitrogen 13 mg/dl (7-17); Calcium 9.9 mg/dl (8.4-10.2); Carbon Dioxide 28 mmol/L (22-30); Chloride 103 mmol/L (98-107); Glucose 114 mg/dl (70-99); Potassium 3.8 mmol/L (3.5-5.1); Sodium 138 mmol/L (135-145); Total Bilirubin 0.3 mg/dl (0.2-1.3); Total Protein 6.4 g/dl (6.3-8.2); eGFR > 60.00
== END ==
LOC: REG 11:37
PROVIDERS: ATTENDING PHYSICIAN Internal Medicine Hematology & Oncology; FAMILY PHYSICIAN Physician Assistant
DX: C49.22 Malignant neoplasm of connective and soft tissue of left lower limb, including hip (principal); C78.00 Secondary malignant neoplasm of unspecified lung
CPT/HCPCS: 36415; 80053; 85025

== ENCOUNTER → 2023-12-06 13:30 | Outpatient (REF) | payer MEDICARE, OTHER, SELFPAY ==
[2023-12-06 14:40] LABS: % Basophils 0.6 % (0-2); % Eosinophils 2.8 % (0-6); % Immature Granulocytes 0.4 % (0-0.5); % Lymphocytes 18.8 % (20.5-51.1); % Neutrophils 70.4 % (42.2-75.2); Absolute Basophils 0.1 10^3/uL (0-0.2); Absolute Eosinophils 0.2 10^3/uL (0-0.7); Absolute Lymphocytes 1.5 10^3/uL (1.2-3.4); Absolute Monocytes 0.6 10^3/uL (0.1-0.6); Absolute Neutrophils 5.5 10^3/uL (1.4-6.5); Hematocrit 35.4 % (37.0-47.0); Hemoglobin 11.4 g/dL (12.0-16.0); Mean Corp Hgb Conc. 32.2 g/dL (33.0-37.0); Mean Corpuscular Volume 90.1 fL (81.0-99.0); Mean Platelet Volume 12.7 fL (7.4-10.4); Nucleated Red Blood Cells % 0 %; Platelet Count 257 10^3/uL (130-400); Red Blood Cell Count 3.93 10^6/uL (4.20-5.40); Red Cell Dist. Width 18.1 % (11.5-14.5); White Blood Cell Count 7.8 10^3/uL (4.8-10.8)
[2023-12-06 14:58] LABS: ALT (SGPT) 57 U/L (0-35); AST (SGOT) 49 U/L (14-36); Albumin 3.7 g/dl (3.5-5.0); Alkaline Phosphatase 118 U/L (38-126); Blood Urea Nitrogen 19 mg/dl (7-17); Calcium 10.4 mg/dl (8.4-10.2); Carbon Dioxide 27 mmol/L (22-30); Chloride 103 mmol/L (98-107); Glucose 118 mg/dl (70-99); Potassium 4.1 mmol/L (3.5-5.1); Sodium 137 mmol/L (135-145); Total Bilirubin 0.3 mg/dl (0.2-1.3); Total Protein 6.3 g/dl (6.3-8.2); eGFR > 60.00
== END ==
LOC: REG 13:30
PROVIDERS: ATTENDING PHYSICIAN Internal Medicine Hematology & Oncology; FAMILY PHYSICIAN Physician Assistant
DX: C49.22 Malignant neoplasm of connective and soft tissue of left lower limb, including hip (principal); C78.00 Secondary malignant neoplasm of unspecified lung
CPT/HCPCS: 36415; 80053; 85025

== ENCOUNTER → 2023-12-13 11:47 | Outpatient (REF) | payer MEDICARE, OTHER, SELFPAY ==
[2023-12-13 12:27] LABS: % Basophils 0.9 % (0-2); % Eosinophils 2.5 % (0-6); % Immature Granulocytes 0.2 % (0-0.5); % Lymphocytes 18.3 % (20.5-51.1); % Monocytes 8.1 % (1.7-9.3); Absolute Basophils 0.1 10^3/uL (0-0.2); Absolute Eosinophils 0.2 10^3/uL (0-0.7); Absolute Lymphocytes 1.5 10^3/uL (1.2-3.4); Absolute Monocytes 0.7 10^3/uL (0.1-0.6); Absolute Neutrophils 5.7 10^3/uL (1.4-6.5); Hematocrit 38.9 % (37.0-47.0); Hemoglobin 12.3 g/dL (12.0-16.0); Mean Corp Hgb Conc. 31.6 g/dL (33.0-37.0); Mean Corpuscular Hgb 28.9 pg (27.0-31.0); Mean Corpuscular Volume 91.5 fL (81.0-99.0); Mean Platelet Volume 12.6 fL (7.4-10.4); Nucleated Red Blood Cells % 0 %; Platelet Count 315 10^3/uL (130-400); Red Blood Cell Count 4.25 10^6/uL (4.20-5.40); Red Cell Dist. Width 18.6 % (11.5-14.5); White Blood Cell Count 8.1 10^3/uL (4.8-10.8)
[2023-12-13 12:57] LABS: ALT (SGPT) 29 U/L (0-35); AST (SGOT) 28 U/L (14-36); Albumin 4.1 g/dl (3.5-5.0); Alkaline Phosphatase 131 U/L (38-126); Blood Urea Nitrogen 13 mg/dl (7-17); Calcium 10.6 mg/dl (8.4-10.2); Carbon Dioxide 25 mmol/L (22-30); Chloride 106 mmol/L (98-107); Glucose 103 mg/dl (70-99); Potassium 4.1 mmol/L (3.5-5.1); Sodium 136 mmol/L (135-145); Total Bilirubin 0.4 mg/dl (0.2-1.3); Total Protein 6.7 g/dl (6.3-8.2); eGFR > 60.00
== END ==
LOC: REG 11:47
PROVIDERS: ATTENDING PHYSICIAN Internal Medicine Hematology & Oncology; FAMILY PHYSICIAN Physician Assistant
DX: C49.22 Malignant neoplasm of connective and soft tissue of left lower limb, including hip (principal); C78.00 Secondary malignant neoplasm of unspecified lung
CPT/HCPCS: 36415; 80053; 85025

== ENCOUNTER → 2023-12-20 14:10 | Outpatient (REF) | payer MEDICARE, OTHER, SELFPAY ==
[2023-12-20 15:28] LABS: % Basophils 0.6 % (0-2); % Eosinophils 0.6 % (0-6); % Immature Granulocytes 0.4 % (0-0.5); % Lymphocytes 10.2 % (20.5-51.1); % Monocytes 4.6 % (1.7-9.3); % Neutrophils 83.6 % (42.2-75.2); Absolute Basophils 0.1 10^3/uL (0-0.2); Absolute Eosinophils 0.1 10^3/uL (0-0.7); Absolute Lymphocytes 1.1 10^3/uL (1.2-3.4); Absolute Monocytes 0.5 10^3/uL (0.1-0.6); Hematocrit 39.7 % (37.0-47.0); Hemoglobin 12.6 g/dL (12.0-16.0); Mean Corp Hgb Conc. 31.7 g/dL (33.0-37.0); Mean Corpuscular Volume 91.5 fL (81.0-99.0); Nucleated Red Blood Cells % 0 %; Platelet Count 209 10^3/uL (130-400); Red Blood Cell Count 4.34 10^6/uL (4.20-5.40); White Blood Cell Count 10.8 10^3/uL (4.8-10.8)
[2023-12-20 16:07] LABS: ALT (SGPT) 27 U/L (0-35); AST (SGOT) 32 U/L (14-36); Albumin 4.1 g/dl (3.5-5.0); Alkaline Phosphatase 113 U/L (38-126); Blood Urea Nitrogen 18 mg/dl (7-17); Calcium 10.4 mg/dl (8.4-10.2); Carbon Dioxide 26 mmol/L (22-30); Chloride 103 mmol/L (98-107); Glucose 109 mg/dl (70-99); Potassium 4.1 mmol/L (3.5-5.1); Sodium 136 mmol/L (135-145); Total Bilirubin 0.4 mg/dl (0.2-1.3); Total Protein 6.8 g/dl (6.3-8.2); eGFR > 60.00
== END ==
LOC: REG 14:10
PROVIDERS: ATTENDING PHYSICIAN Internal Medicine Hematology & Oncology; FAMILY PHYSICIAN Physician Assistant
DX: C49.22 Malignant neoplasm of connective and soft tissue of left lower limb, including hip (principal); C78.00 Secondary malignant neoplasm of unspecified lung
CPT/HCPCS: 36415; 80053; 85025

== ENCOUNTER → 2023-12-26 13:07 | Outpatient (REF) | payer MEDICARE, OTHER, SELFPAY ==
[2023-12-26 14:39] LABS: % Basophils 0.2 % (0-2); % Eosinophils 0.1 % (0-6); % Immature Granulocytes 0.4 % (0-0.5); % Lymphocytes 7.9 % (20.5-51.1); % Neutrophils 90.4 % (42.2-75.2); Absolute Immature Granulocytes 0.1 10^3/uL (0-0.05); Absolute Lymphocytes 1.1 10^3/uL (1.2-3.4); Absolute Monocytes 0.1 10^3/uL (0.1-0.6); Absolute Neutrophils 12.1 10^3/uL (1.4-6.5); Hematocrit 37.1 % (37.0-47.0); Hemoglobin 12.1 g/dL (12.0-16.0); Mean Corp Hgb Conc. 32.6 g/dL (33.0-37.0); Mean Corpuscular Hgb 28.9 pg (27.0-31.0); Mean Corpuscular Volume 88.5 fL (81.0-99.0); Nucleated Red Blood Cells % 0 %; Platelet Count 87 10^3/uL (130-400); Red Blood Cell Count 4.19 10^6/uL (4.20-5.40); Red Cell Dist. Width 17.8 % (11.5-14.5); White Blood Cell Count 13.4 10^3/uL (4.8-10.8)
[2023-12-26 15:03] LABS: ALT (SGPT) 35 U/L (0-35); AST (SGOT) 34 U/L (14-36); Alkaline Phosphatase 122 U/L (38-126); Blood Urea Nitrogen 15 mg/dl (7-17); Calcium 10.2 mg/dl (8.4-10.2); Carbon Dioxide 28 mmol/L (22-30); Chloride 100 mmol/L (98-107); Glucose 110 mg/dl (70-99); Potassium 4.1 mmol/L (3.5-5.1); Sodium 135 mmol/L (135-145); Total Bilirubin 0.5 mg/dl (0.2-1.3); Total Protein 6.6 g/dl (6.3-8.2); eGFR > 60.00
== END ==
LOC: REG 13:07
PROVIDERS: ATTENDING PHYSICIAN Internal Medicine Hematology & Oncology; FAMILY PHYSICIAN Physician Assistant
DX: C49.22 Malignant neoplasm of connective and soft tissue of left lower limb, including hip (principal); C78.00 Secondary malignant neoplasm of unspecified lung
CPT/HCPCS: 36415; 80053; 85025

== ENCOUNTER → 2024-01-03 12:18 | Outpatient (REF) | payer MEDICARE, OTHER, SELFPAY ==
[2024-01-03 13:23] LABS: % Basophils 0.2 % (0-2); % Eosinophils 0.5 % (0-6); % Immature Granulocytes 0.5 % (0-0.5); % Lymphocytes 7.3 % (20.5-51.1); % Monocytes 3.5 % (1.7-9.3); Absolute Eosinophils 0.1 10^3/uL (0-0.7); Absolute Immature Granulocytes 0.1 10^3/uL (0-0.05); Absolute Lymphocytes 0.9 10^3/uL (1.2-3.4); Absolute Monocytes 0.5 10^3/uL (0.1-0.6); Absolute Neutrophils 11.3 10^3/uL (1.4-6.5); Hematocrit 36.6 % (37.0-47.0); Hemoglobin 11.9 g/dL (12.0-16.0); Mean Corp Hgb Conc. 32.5 g/dL (33.0-37.0); Mean Corpuscular Hgb 28.7 pg (27.0-31.0); Mean Corpuscular Volume 88.2 fL (81.0-99.0); Nucleated Red Blood Cells % 0 %; Red Blood Cell Count 4.15 10^6/uL (4.20-5.40); White Blood Cell Count 12.9 10^3/uL (4.8-10.8)
[2024-01-03 13:26] LABS: Mean Platelet Volume 12.7 fL (7.4-10.4); Platelet Count 175 10^3/uL (130-400)
[2024-01-03 14:07] LABS: ALT (SGPT) 26 U/L (0-35); AST (SGOT) 27 U/L (14-36); Albumin 3.8 g/dl (3.5-5.0); Alkaline Phosphatase 140 U/L (38-126); Blood Urea Nitrogen 16 mg/dl (7-17); Calcium 10.2 mg/dl (8.4-10.2); Carbon Dioxide 25 mmol/L (22-30); Chloride 102 mmol/L (98-107); Glucose 108 mg/dl (70-99); Potassium 4.2 mmol/L (3.5-5.1); Sodium 135 mmol/L (135-145); Total Bilirubin 0.3 mg/dl (0.2-1.3); Total Protein 6.5 g/dl (6.3-8.2); eGFR > 60.00
== END ==
LOC: REG 12:18
PROVIDERS: ATTENDING PHYSICIAN Internal Medicine Hematology & Oncology; REFERRING PHYSICIAN Physician Assistant
DX: C49.22 Malignant neoplasm of connective and soft tissue of left lower limb, including hip (principal); C78.00 Secondary malignant neoplasm of unspecified lung
CPT/HCPCS: 36415; 80053; 85025

== ENCOUNTER → 2024-01-09 14:17 | Outpatient (REF) | payer MEDICARE, OTHER, SELFPAY ==
[2024-01-09 16:24] LABS: % Basophils 0.2 % (0-2); % Eosinophils 0.2 % (0-6); % Immature Granulocytes 0.6 % (0-0.5); Absolute Immature Granulocytes 0.1 10^3/uL (0-0.05); Absolute Lymphocytes 0.7 10^3/uL (1.2-3.4); Absolute Monocytes 0.1 10^3/uL (0.1-0.6); Absolute Neutrophils 8.5 10^3/uL (1.4-6.5); Hemoglobin 11.6 g/dL (12.0-16.0); Mean Corp Hgb Conc. 33.1 g/dL (33.0-37.0); Mean Corpuscular Hgb 30.1 pg (27.0-31.0); Mean Corpuscular Volume 90.9 fL (81.0-99.0); Mean Platelet Volume 12.6 fL (7.4-10.4); Nucleated Red Blood Cells % 0 %; Platelet Count 259 10^3/uL (130-400); Red Blood Cell Count 3.85 10^6/uL (4.20-5.40); Red Cell Dist. Width 18.7 % (11.5-14.5); White Blood Cell Count 9.4 10^3/uL (4.8-10.8)
[2024-01-09 16:37] LABS: ALT (SGPT) 38 U/L (0-35); AST (SGOT) 33 U/L (14-36); Albumin 3.7 g/dl (3.5-5.0); Alkaline Phosphatase 122 U/L (38-126); Blood Urea Nitrogen 18 mg/dl (7-17); Calcium 10.2 mg/dl (8.4-10.2); Carbon Dioxide 28 mmol/L (22-30); Chloride 100 mmol/L (98-107); Glucose 130 mg/dl (70-99); Potassium 4.2 mmol/L (3.5-5.1); Sodium 134 mmol/L (135-145); Total Bilirubin 0.3 mg/dl (0.2-1.3); Total Protein 6.3 g/dl (6.3-8.2); eGFR > 60.00
== END ==
LOC: RAD 14:17
PROVIDERS: ATTENDING PHYSICIAN Nurse Practitioner Adult Health; FAMILY PHYSICIAN Physician Assistant; REFERRING PHYSICIAN Internal Medicine Hematology & Oncology
DX: C49.22 Malignant neoplasm of connective and soft tissue of left lower limb, including hip (principal); C78.00 Secondary malignant neoplasm of unspecified lung; R11.2 Nausea with vomiting, unspecified; I26.99 Other pulmonary embolism without acute cor pulmonale
CPT/HCPCS: 36415; 80053; 85025; 93971

== ENCOUNTER → 2024-01-31 13:34 | Outpatient (REF) | payer MEDICARE, OTHER, SELFPAY ==
[2024-01-31 14:36] LABS: % Basophils 0.7 % (0-2); % Eosinophils 2.3 % (0-6); % Immature Granulocytes 0.4 % (0-0.5); % Lymphocytes 16.7 % (20.5-51.1); % Monocytes 7.6 % (1.7-9.3); % Neutrophils 72.3 % (42.2-75.2); Absolute Basophils 0.1 10^3/uL (0-0.2); Absolute Eosinophils 0.2 10^3/uL (0-0.7); Absolute Lymphocytes 1.4 10^3/uL (1.2-3.4); Absolute Monocytes 0.7 10^3/uL (0.1-0.6); Absolute Neutrophils 6.2 10^3/uL (1.4-6.5); Hematocrit 34.4 % (37.0-47.0); Hemoglobin 11.2 g/dL (12.0-16.0); Mean Corp Hgb Conc. 32.6 g/dL (33.0-37.0); Mean Corpuscular Hgb 29.6 pg (27.0-31.0); Mean Corpuscular Volume 90.8 fL (81.0-99.0); Mean Platelet Volume 13.3 fL (7.4-10.4); Nucleated Red Blood Cells % 0 %; Platelet Count 209 10^3/uL (130-400); Red Blood Cell Count 3.79 10^6/uL (4.20-5.40); Red Cell Dist. Width 20.6 % (11.5-14.5); White Blood Cell Count 8.5 10^3/uL (4.8-10.8)
[2024-01-31 15:33] LABS: ALT (SGPT) 26 U/L (0-35); AST (SGOT) 26 U/L (14-36); Albumin 3.8 g/dl (3.5-5.0); Alkaline Phosphatase 123 U/L (38-126); Blood Urea Nitrogen 13 mg/dl (7-17); Calcium 10.4 mg/dl (8.4-10.2); Carbon Dioxide 27 mmol/L (22-30); Chloride 100 mmol/L (98-107); Glucose 92 mg/dl (70-99); Potassium 4.1 mmol/L (3.5-5.1); Sodium 134 mmol/L (135-145); Total Bilirubin 0.3 mg/dl (0.2-1.3); Total Protein 6.3 g/dl (6.3-8.2); eGFR > 60.00
== END ==
LOC: REG 13:34
PROVIDERS: ATTENDING PHYSICIAN Internal Medicine Hematology & Oncology; FAMILY PHYSICIAN Physician Assistant
DX: C49.22 Malignant neoplasm of connective and soft tissue of left lower limb, including hip (principal); C78.00 Secondary malignant neoplasm of unspecified lung; R11.2 Nausea with vomiting, unspecified
CPT/HCPCS: 36415; 80053; 85025

== ENCOUNTER → 2024-02-06 15:25 | Outpatient (REF) | payer MEDICARE, OTHER, SELFPAY ==
[2024-02-06 17:10] LABS: % Basophils 0.2 % (0-2); % Eosinophils 0.1 % (0-6); % Immature Granulocytes 0.6 % (0-0.5); % Lymphocytes 6.9 % (20.5-51.1); % Monocytes 1.5 % (1.7-9.3); % Neutrophils 90.7 % (42.2-75.2); Absolute Immature Granulocytes 0.1 10^3/uL (0-0.05); Absolute Lymphocytes 0.6 10^3/uL (1.2-3.4); Absolute Monocytes 0.1 10^3/uL (0.1-0.6); Absolute Neutrophils 7.4 10^3/uL (1.4-6.5); Hematocrit 34.3 % (37.0-47.0); Hemoglobin 11.3 g/dL (12.0-16.0); Mean Corp Hgb Conc. 32.9 g/dL (33.0-37.0); Mean Corpuscular Hgb 29.9 pg (27.0-31.0); Mean Corpuscular Volume 90.7 fL (81.0-99.0); Mean Platelet Volume 12.9 fL (7.4-10.4); Nucleated Red Blood Cells % 0.2 %; Platelet Count 228 10^3/uL (130-400); Red Blood Cell Count 3.78 10^6/uL (4.20-5.40); Red Cell Dist. Width 19.7 % (11.5-14.5); White Blood Cell Count 8.1 10^3/uL (4.8-10.8)
[2024-02-06 17:29] LABS: ALT (SGPT) 25 U/L (0-35); AST (SGOT) 30 U/L (14-36); Albumin 3.7 g/dl (3.5-5.0); Alkaline Phosphatase 112 U/L (38-126); Blood Urea Nitrogen 18 mg/dl (7-17); Calcium 10.5 mg/dl (8.4-10.2); Glucose 127 mg/dl (70-99); Total Bilirubin 0.3 mg/dl (0.2-1.3); Total Protein 6.3 g/dl (6.3-8.2)
[2024-02-06 17:47] LABS: Carbon Dioxide 27 mmol/L (22-30); Chloride 99 mmol/L (98-107); Potassium 4.2 mmol/L (3.5-5.1); Sodium 134 mmol/L (135-145); eGFR > 60.00
== END ==
LOC: REG 15:25
PROVIDERS: ATTENDING PHYSICIAN Internal Medicine Hematology & Oncology; FAMILY PHYSICIAN Physician Assistant
DX: C49.22 Malignant neoplasm of connective and soft tissue of left lower limb, including hip (principal); C78.00 Secondary malignant neoplasm of unspecified lung; R11.2 Nausea with vomiting, unspecified
CPT/HCPCS: 36415; 80053; 85025

== ENCOUNTER 2024-02-14 16:41 | Inpatient (IN) | payer MEDICARE, OTHER, SELFPAY ==
--- NOTE | 2024-02-14 11:42 | VATNOTE ---
Pt's port accessed in outpatient lab for lab draw, pt states she is going to ER after OP lab. Biopatch applied and pt escorted to ED registration. Triage nurse made aware of pt's central access.
[2024-02-14 11:48] VITALS: BP 132/98
[2024-02-14 12:59] VITALS: BMI 37.7
--- NOTE | 2024-02-14 13:10 | EDRN ---
Received patient on stretcher with c/o increased pain and swelling of her left leg. Patient with known DVT in her left leg. Patient is on Eliquis and denies missing any doses of her Eliquis. Denies c/o SOB and chest pain.
--- NOTE | 2024-02-14 14:55 | ED.GENMED ---
History of Present Illness
General
Chief Complaint: DVT/Possible Blood Clot
Source: patient
Exam Limitations: none
Time Seen by Provider: 02/14/24 13:31
Nursing documentation reviewed up to this point in time: agreed with
History of Present Illness
History of Present Illness:
Patient to ED with complaint of left thigh pain. States she had an US on 01/10 which showed an extensive occlusive DVT of left femoral thru calf veins. Common femoral vein was patent. SHe was placed on Eliquis and reports compliance iwth
medication. Over the past week she has noted increasing pain to her left thigh. Sent to ED today for repeat US. 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 Follow with [facility]. States her current treatment is chemo every other
week. She is due for her next treatment on . Had outpatient labs here today Denies any chestpain/pressure. Reports chronic mild MILLS, unchanged/
Past History
Past History
ED Past Medical History: Cancer (spindle cell carcinoma), HTN, Hypercholesterolemia, Valvular disease (Mitral regurgitation, deviated septum) and Other (Congenital sick sinus syndrome, low back pain)
ED Past Surgical History: Appendectomy, Cardiac (Pacemaker), Gynecological (History of hysterectomy in 2002 lumpectomy of the breast 1963 and tubal ligation in 1983), Tonsilectomy and Other (Deviated septum surgery in 1985, pacemaker placed)
Social History
Tobacco: Non-smoker
Alcohol: None
Personal:
Living: with family
Employment: Retired
Family History
Family History: CAD (Mother with late onset coronary artery disease/CABG and CVA.); Negative Early CAD
Review of Systems
Review of Systems
Allergies reviewed?: Yes
All Other Systems: ROS reviewed and negative except as documented in HPI and ROS
Constitutional: Reports no symptoms
EENT: Reports no symptoms
Respiratory: Reports no symptoms
Cardiac: Reports no symptoms
ABD/GI: Reports no symptoms
: Reports no symptoms
Musculoskeletal: Reports other (left thigh pain)
Skin: Reports no symptoms
Neurological: Reports no symptoms
Psychiatric: Reports no symptoms
Phy Exam
General Physical Exam
General Presentation: well appearing and no apparent distress
General age: appears stated age
General Skin: warm and dry
General Habitus: normal
Cardiovascular Exam
Cardiovascular Exam: regular rate/rhythm
Pulmonary Exam
Pulmonary Exam: lungs clear and no respiratory distress
Gastrointestinal Exam
Gastrointestinal Exam: non tender and soft
Musculoskeletal Exam
Musculoskeletal Exam: full ROM, neuro vasc intact and other (Pain and swelling to left thigh)
Skin Exam
Skin Exam: normal color, warm/dry and no rash
Psychiatric Exam
Psychiatric Exam: normal mood/affect
Course
Orders/Labs/Results
Orders:
Orders
02/14/24 Breakfast
Regular
At Your Request: Limited Participation
02/14/24 11:55
Periph Venous Lwr Ext Left US [US Periph Venous LOWER Ext LT] Urgent
Comment: known DVT - on Eliquis
Reason For Exam: increasing pain and swelling
02/14/24 14:38
Heparin 7,500 units IV NOW STA
Nursing to Place Non Medication Order As Directed
Physician Order: PTT 6 hours after initial start of Heparin infusion
Above order entered?: Yes
02/14/24 14:45
Heparin 42531 Units/250 ml 25,000 units in 250 ml IV PER PROTOCOL
Weight to be used for heparin protocol in kilograms (kg):: 93.3
Protocol:: DVT/PE
PTT Goal Range to be used:: PTT 73 to 111 seconds
Order type:: Initial
INITIAL Infusion Dose (UNITS/KG/hr) & then follow protocol:: 18 units/kg/hr
Infusion Dose in UNITS/hr & then follow protocol (UNITS/hr):: 1,700
INFUSION RATE in mL/hr & then follow protocol (mL/hr):: 17
For DVT/PE algorithm, re-bolus for low PTT?: Yes
PTT less than or equal to 64 seconds:: Re-bolus 80 units/kg (max 10,000units). Increase by 400 units/hr
(+ 4mL/hr)
PTT 64.1 to 72.9 seconds:: Re-bolus 40 units/kg (max 5,000 units). Increase by 200 units/hr
(+ 2mL/hr)
PTT 73 to 111 seconds:: Target Range. No change in rate.
PTT 111.1 to 130.9 seconds:: Decrease rate by 200 units/hr (- 2 mL/hr)
PTT 131 to 199.9 seconds:: HOLD for 1 hr. Then decrease by 300 units/hr (- 3mL/hr)
PTT greater than or equal to 200 seconds:: HOLD for 2 hrs & Notify Provider. Then decrease by 400 units/hr
(- 4mL/hr)
Lab follow-up:: Each change, PTT q6h until 2 consecutive are therapeutic. Then
PTT daily.
02/14/24 15:18
PTT Urgent
Comment: Obtain baseline before beginning heparin infusion if not already collected
Prothrombin Time Urgent
02/14/24 15:22
Heparin 7,500 units IV PRN PRN
02/14/24 15:23
Heparin 3,700 units IV PRN PRN
02/14/24 16:00
Admit/Transfer Patient As Directed
Co-Sign Provider:
Level of Care: Inpatient admission
Assign to:: Telemetry
Physician / Group: Huber Hodges
Diagnosis: LLE DVT
Reason for Telemetry: Arrhythmia
Date to Stop Telemetry: 02/17/24
Time to Stop Telemetry: 11:00
Reason for Hospitalization: heparin drip
Expected length of stay greater than two midnights?: Yes
ELOS- Estimated Length of Stay in days: 3
I certify the patient meets the requirements for IP care: Yes
ONCOLOGY CONSULT Routine
Consulting Provider: Zoya Grayson
Was physician already notified: Yes
Vascular Surgery Consult Routine
Consulting Provider: Braulio Mccray III
Was physician already notified: Yes
02/14/24 16:01
PRN Pain Medication Management As Directed
May give lesser potent ordered pain med per pt: Yes
preference::
Protocol:: Medication orders for pain may be administered in a
manner that supports deferring to patient preference
when the pt is:
- Requesting an ordered lesser potent pain medication.
Least to most potent pain medications are defined
as: acetaminophen < NSAID < tramadol < opioids
(morphine, oxycodone, hydromorphone).
- Requesting a lesser dose of the same medication IF
ORDERED.
- Requesting a less intrusive route of administration
if both routes are prescribed by the provider (PO <
IV).
02/14/24 16:04
Code Status As Directed
Resuscitation Status: Full Code
02/14/24 16:49
Oxycodone [Roxicodone] 10 mg PO Q4HPRN PRN
Oxycodone [Roxicodone] 5 mg PO Q4HPRN PRN
02/14/24 18:19
Acetaminophen [Tylenol] 650 mg PO Q6HPRN PRN
Ondansetron Injectable [Zofran] 4 mg IV Q6HPRN PRN
02/14/24 18:19
Case Management Consult Once
Case Management Consult: Discharge Planning
Comment: Pricing for Lovenox 100mg SC Q12h
Heparin Protocol- PTT Orders As Directed
PTT per Heparin protocol: -Obtain CBC and baseline PTT - if not already collected.
-Obtain PTT 6 hours from start of infusion. Then, every 6 hours until 2 consecutive
PTT's are therapeutic. Then, PTT Daily.
-With each rate change, obtain PTT every 6 hours until 2 consecutive PTT's are
therapeutic. Then, PTT Daily.
Notify MD As Directed
Notify physician if: PTT is greater than or equal to 200.
Vital Signs As Directed
Frequency: Per unit guidelines
02/14/24 20:00
Docusate Sodium [Colace] 100 mg PO BID
Oxybutynin Chloride [Ditropan] 5 mg PO BID
Polyethylene Glycol Powder [Miralax] 17 grams PO BID
Sennosides [Senokot] 17.2 mg PO BID
02/14/24 22:00
Amlodipine [Norvasc] 5 mg PO HS
Olmesartan Medoxomil [Benicar] 40 mg PO HS
Pantoprazole [Protonix] 40 mg PO HS
Sertraline HCl [Zoloft] 50 mg PO HS
02/14/24 22:16
PTT Urgent
02/15/24 07:22
Basic Metabolic Panel IN AM
Complete Blood Count/No Diff IN AM
02/15/24 08:00
Dexamethasone [Decadron] 2 mg PO DAILY
02/16/24 06:00
Complete Blood Count/No Diff Q2D
Comment: notify provider: Platelet count < 130,000 or decrease by 50% from baseline
02/17/24 11:00
DC Protocol for Telemetry ONCE
02/18/24 06:00
Complete Blood Count/No Diff Q2D
Comment: notify provider: Platelet count < 130,000 or decrease by 50% from baseline
02/20/24 06:00
Complete Blood Count/No Diff Q2D
Comment: notify provider: Platelet count < 130,000 or decrease by 50% from baseline
02/22/24 06:00
Complete Blood Count/No Diff Q2D
Comment: notify provider: Platelet count < 130,000 or decrease by 50% from baseline
02/24/24 06:00
Complete Blood Count/No Diff Q2D
Comment: notify provider: Platelet count < 130,000 or decrease by 50% from baseline
02/26/24 06:00
Complete Blood Count/No Diff Q2D
Comment: notify provider: Platelet count < 130,000 or decrease by 50% from baseline
02/28/24 06:00
Complete Blood Count/No Diff Q2D
Comment: notify provider: Platelet count < 130,000 or decrease by 50% from baseline
03/01/24 06:00
Complete Blood Count/No Diff Q2D
Comment: notify provider: Platelet count < 130,000 or decrease by 50% from baseline
Abnormal Lab Results
02/14/24
15:18
PT 16.6 H Sec
(11.4-14.6)
APTT 109.1 H Sec
(23.4-35.0)
Vital Signs
Initial and Last Documented VS:
Initial Vital Signs
Temp Pulse Resp BP Pulse Ox
98.1 F 84 20 132/98 93
02/14/24 11:48 02/14/24 11:48 02/14/24 11:48 02/14/24 11:48 02/14/24 11:48
Last Documented Vital Signs
Temp Pulse Resp BP Pulse Ox
98.2 F 78 16 141/62 95
02/15/24 15:00 02/15/24 15:00 02/15/24 15:00 02/15/24 15:00 02/15/24 15:00
*Radiology
Radiology exam reviewed: radiology read reviewed
*Critical Care Note
Total Time (30-74mins, 75-104mins- exclusive of procedures): Not Applicable
Update Note
Update Note:
Increasing left thigh pain and swellingRepeat US today reveals now patent left popliteal vein however despite compliance with Eliqui BID new occlusive thrombus left common femoral and visualized profunda femoris vein now seen. Occlusive thrombus
left peroneal vein. Case discussed with Dr. Grayson and will admit to hospitalist.
ED Attending Note
-
Portions of this chart may have been created with voice recognition software.� Occasional wrong word or��sound alike� substitutions may have occurred due to the inherent limitations of voice recognition software.
Discharge Plan
Departure
Patient Disposition: Admit
Date of Disposition: 02/14/24
Time of Disposition: 15:05
Presentation/result/management discussed w/ accepting MD/DO: Hospitalist
Condition: Fair
Covid-19: Not Applicable
Discharge Problem:
DVT of lower extremity (deep venous thrombosis)
Interventions
Interventions:
*General Assessment Last Done: 02/14/24 12:59
*Neglect/Abuse Screening Last Done: 02/14/24 12:59
ED- Fall Risk Assessment Last Done: 02/14/24 12:59
*Nursing Disposition Last Done: 02/14/24 18:15
ED- Cardiac Assessment Last Done: 02/14/24 12:59
ED- Pulmonary Assessment Last Done: 02/14/24 12:59
ED-Peripheral Vascular Assessment Last Done: 02/14/24 12:59
ED-Skin Assessment Last Done: 02/14/24 12:59
Discharge Date and Time
Discharge Date/Time: 02/14/24 18:10
--- NOTE | 2024-02-14 15:28 | HPS.HSE ---
Addendum entered and electronically signed by Huber Hodges MD 02/14/24 16:29:
78-year-old female with a past medical history of spindle cell carcinoma status post resection currently on chemo, recently diagnosed left proximal DVT on Eliquis, and benign essential hypertension presents with worsening left thigh/groin pain for 3
weeks despite taking her Eliquis twice a day. Left lower extremity ultrasound shows new occlusive thrombus in the left common femoral vein. She has a mass in the left groin from her spindle cell carcinoma, likely causing compression.
Hold Eliquis, treat with IV heparin drip, consult vascular surgery, consult oncology.
Patient also reports constipation. Will order aggressive bowel regimen.
I have personally seen and examined the patient, and agree with the plan of care as documented by Nicol Richardson PA-C.
Advance care planning discussed, patient is a full code.
All other issues as outlined by the advanced care practitioner.
Original Note:
Family Physician
-
Family Physician: Nadia Liu
Chief Complaint
-
Persistent Left Lower Ext Pain and Swelling
History of Present Illness
Pt is a 78 yo F with PMH spindle cell sarcoma p/w LLE pain x 5 weeks. Pt underwent resection and radiation of L popliteal mass in 2021. However, a quarter-sized mass located on L medial thigh appeared in late 2022. Pt receives chemotherapy per Dr.
[place] every other week with last dose 2 weeks ago (due for treatment on 02/15). Chemotherapy has been inconsistent d/t adverse effects. 5 weeks ago she was started on Eliquis for a LLE DVT. Over the last week she has developed increased pain in
her left thigh and was instructed to report to ED for further evaluation and treatment. Ultrasound in the emergency department shows new occlusive thrombus in the left common femoral vein. Patient reports compliance with Eliquis. Hospitalist group
was asked to evaluate the patient for admission to the hospital.
Medical History
Past Medical History
Past Medical History: Reports Other
Additional Past Medical History:
Spindle Cell Sarcoma
Essential Hypertension
GERD
Anxiety/Depression
Overactive Bladder
Symptomatic Bradycardia s/p Permanent Pacemaker
Past Surgical History: Reports Other
Additional Past Surgical History:
Left Lower Ext Sarcoma Resection
Appendectomy
Hysterectomy
Left Breast Lumpectomy
Left Knee Meniscus
Social History
Tobacco: Non-smoker
Alcohol: None
Family History
Family History: Not pertinent
Allergies / Home Medications
Allergies reflects when Allergies were last updated in [facility].
Home Medications with original date entered in [facility]
Allergy/Medication List:
Allergies
Allergy/AdvReac Type Severity Reaction Status Date / Time
doxorubicin [From Doxil] Allergy Unknown Verified 02/14/24 11:50
erythromycin base Allergy Nausea Verified 02/14/24 11:49
vitamin E (d-alpha Allergy Hives Verified 02/14/24 11:49
tocopherol)
[vitamin E]
Home Medications
sertraline 50 mg tablet 50 mg PO HS 03/18/11
amlodipine 5 mg tablet 5 mg PO HS 12/29/21
olmesartan 40 mg tablet 40 mg PO HS 11/12/22
oxybutynin chloride 10 mg tablet,extended release 24 hr 10 mg PO HS 11/12/22
acetaminophen 325 mg tablet (Tylenol) 650 mg PO Q6HPRN PRN mild pain 02/14/24
apixaban 5 mg tablet (Eliquis) 5 mg PO BID 02/14/24
dexamethasone 2 mg tablet 2 mg PO DAILY 02/14/24
docusate sodium 100 mg capsule (Colace) 100 mg PO DAILYPRN PRN constipation 02/14/24
omeprazole 20 mg tablet,delayed release 20 mg PO HS 02/14/24
oxycodone 5 mg tablet 5 mg PO Q6HPRN PRN severe pains 02/14/24
polyethylene glycol 3350 17 gram oral powder packet (Miralax) 17 g PO DAILYPRN PRN constipation 02/14/24
sennosides 8.6 mg tablet (senna) 8.6 mg PO DAILYPRN PRN constipation 02/14/24
Review of Systems
-
A 12 point ROS was completed and negative except as noted: Yes
Constitutional: Denies Fever or Chills
Respiratory: Denies Cough or Trouble Breathing
Cardiac: Denies Chest Pain or Palpitations
Abdomen/GI: Reports Constipated; Denies Abdominal Pain, Nausea or Vomiting
Physical Exam
Vital Signs
Vital Signs
Temp Pulse Resp BP Pulse Ox
98.1 F 84 20 132/98 93
02/14/24 11:48 02/14/24 11:48 02/14/24 11:48 02/14/24 11:48 02/14/24 11:48
Physical Exam
General: Comfortable and Conversant
HEENT: Anicteric and Moist mucous membranes
Respiratory: Clear and Non Labored Respirations
Cardiac: S1/S2 and Regular Rhythm
GI: Soft and Non Tender
Rectal: Deferred by Provider
Musculoskeletal: No Clubbing, No Cyanosis, Edema, Left Lower Extremity and Other (Quarter sized mass noted on inner left thigh which is non-tender to palpation)
Skin: Warm, Dry and Other (Mild erythema left medical thigh )
Neuro: Awake, Alert, Oriented and Nonfocal/grossly intact
Laboratory Results
-
Laboratory Tests
02/14/24
11:14
WBC 10.8
Hgb 12.0
Hct 35.3 L
Plt Count 221
Left Lower Extremity Peripheral Vascular Ultrasound:
Occlusive thrombus is seen within the left common femoral vein which is new from previous ultrasound of January 09, 2024.
Data Reviewed
-
Ultrasound: Report Reviewed by me
Lab Data: Labs Reviewed by me
Old Records: Reviewed
Impression/Plan
-
Persistent/Worsening Left Lower Extremity DVT, failed outpatient Eliquis, also suspect vein compression due to left thigh sarcoma
-Consult Hematology and Vascular Surgery
-Continue heparin drip
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
-Currently receives chemotherapy every other week
-Last treatment ~Feb 01
Essential Hypertension
-Continue amlodipine and olmesartan
GERD
-Continue Protonix
Anxiety/Depression
-Continue sertraline
Overactive Bladder
-Cotinue Oxybutynin
Hx Symptomatic Bradycardia s/p Permanent Pacemaker
Code Status: Full Code
[2024-02-14 15:40] LABS: INR 1.36; PT 16.6 Sec (11.4-14.6)
[2024-02-14 15:42] LABS: APTT 109.1 Sec (23.4-35.0)
[2024-02-14] MEDS: HEPARIN 7500 UNITS IV (15:47)
[2024-02-14] MEDS: HEPARIN 25000 UNITS/250 ML IV (15:56)
[2024-02-14 16:00] VITALS: BP 142/73
[2024-02-14] MEDS: ROXICODONE 10 MG PO ×2 (16:59→21:00)
--- NOTE | 2024-02-14 18:12 | EDRN ---
Patient taken to room 4171- on stretcher with Heparin drip infusing at 1700 units/HR on monitor. Patient stated that the pain in her left leg is beginning to improve.
--- NOTE | 2024-02-14 18:30 | PTCARENOTE ---
pt arrives at 1820. stand by assistance provided to get to hospital bed. pt with R chest wall port accessed with heparin infusing at 1700 units an hour without issue. Pt aaox3 with stable vitals. dinner ordered, oriented to unit, placed on units
auger operator. pt with no pressing concerns at the moment. Gina RN at bedside with pt working on admission. care plan continues to be followed.
--- NOTE | 2024-02-14 18:31 | W.PN.UPDATE ---
Update Note
Progress Note Update
Contacted by emergency room. Left lower extremity DVT diagnosed in December. Started on anticoagulation. Now consulted for worsening/progression of left lower extremity DVT while on anticoagulation-now with common femoral vein involvement not present
on venous duplex in December. History of left lower extremity sarcoma with known groin mass. I have asked that they obtain updated cross-sectional imaging with CT venogram of the abdomen, pelvis and left lower extremity to the knee so that we can
evaluate for the presence of any iliac vein involvement and more thoroughly evaluate the groin for possible compressive effect given history of cancer and left groin mass adjacent to the common femoral vein seen on prior imaging.
We will council back to leave any additional recommendations based on imaging
Anticoagulation
Hematology/oncology consult
Call with any questions or concerns
Braulio Mccray III, MD
[facility] Vascular Surgery
[phone] (ndqr)
[2024-02-14 18:40] VITALS: BP 158/69; BMI 34.9
[2024-02-14] MEDS: ZOLOFT 50 MG PO (21:00)
[2024-02-14] MEDS: NORVASC 5 MG PO (21:00)
[2024-02-14] MEDS: BENICAR 40 MG PO (21:00)
[2024-02-14] MEDS: PROTONIX 40 MG PO (21:00)
[2024-02-14] MEDS: COLACE 100 MG PO (21:01)
[2024-02-14] MEDS: MIRALAX 17 GRAMS PO (21:01)
[2024-02-14] MEDS: SENOKOT 17.2 MG PO (21:01)
[2024-02-14] MEDS: DITROPAN 5 MG PO (21:01)
[2024-02-14] MEDS: NSS 500 IV (21:10)
[2024-02-14 22:50] VITALS: BP 144/64
[2024-02-14 23:02] LABS: APTT > 200 Sec (23.4-35.0)
[2024-02-15 03:45] VITALS: BP 123/59
[2024-02-15] MEDS: ROXICODONE 10 MG PO (05:55)
--- NOTE | 2024-02-15 07:25 | CON.ONC ---
Impression
Impression
Left Lower Extremity DVT, failed outpatient Eliquis, also suspect vein compression due to left thigh sarcoma
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
Plan
Plan
Patient was transitioned from Eliquis to IV heparin as inpatient because of malignancy related venous obstruction and progressive DVT in the left lower extremity.
Unfortunately, there may not be any anticoagulation that is effective in this scenario because of the mass itself causing vascular blockage.
Patient was evaluated by vascular surgery and a CT venogram of the abdomen/pelvis and lower extremity was ordered. Await head imaging to assess vascular patency.
With that said, because she was on Eliquis and had worsening swelling and worsening documentation of DVT by Doppler ultrasound, patient was started on IV heparin and I think a reasonable option would be to transition her to Lovenox 1 mg/kg SQ Q12 as
an alternative to outpatient anticoagulation therapy. I have not started that yet awaiting the above imaging.
Regarding treatment of her spindle cell sarcoma, she may require a fourth line systemic therapy as presumably gemcitabine has not been effective in controlling her disease with a new palpable mass and progressive thrombosis.
She has follow-up with Dr. Grayson on 02/[address] Grayson will review oncologic treatment plans.
Patient History
History of Present Illness
CC: Persistent Left Lower Ext Pain and Swelling
HPI: 78 yo F currently being treated for a left thigh spindle cell sarcoma initially diagnosed 11/23/2021. Patient was initially treated with surgical resection at [facility] and has had a variety of local treatments including radiation and
has been on palliative chemotherapy with Doxil (stopped 2*intolerance), [place]aven (stopped secondary to disease progression), and has been on gemcitabine since 11/23/2023. Patient was diagnosed 5 weeks ago with a left lower extremity DVT and started on
Eliquis anticoagulation. Patient presents now with increasing pain in her left thigh and Doppler ultrasound in the emergency is a for new occlusive thrombus in left common femoral vein. Patient describes compliance with Eliquis. Patient was
admitted for Eliquis failure and started on IV heparin drip. She denies chest pain or shortness of breath. Her leg swelling has been painful and she notices a new small lesion about 2 cm in her medial left thigh. This presumably represents a new
area of sarcoma progressing on gemcitabine.
Past-Medical/Surgical History
Past Medical History:
Spindle Cell Sarcoma
Essential Hypertension
GERD
Anxiety/Depression
Overactive Bladder
Symptomatic Bradycardia s/p Permanent Pacemaker
Left lower extremity DVT, 01/09/2024
Past Surgical History:
Left Lower Ext Sarcoma Resection, 2021
Appendectomy
Hysterectomy
Left Breast Lumpectomy
Left Knee Meniscus
Social History
Patient denies ever using tobacco.
Current alcohol user. Patient reports an average of <1 drinks per week.
Denies any illicit drug use.
Patient has not had any occupational exposure.
Marital Status: Patient is with 4 children.
Family History: sister - colon cancer
Patient Medication
�Medication �Instructions �Recorded �Confirmed �Last Taken �Type
sertraline 50 mg tablet 50 mg PO HS 03/18/11 02/14/24 02/13/24 History
amlodipine 5 mg tablet 5 mg PO HS 12/29/21 02/14/24 02/13/24 History
olmesartan 40 mg tablet 40 mg PO HS 11/12/22 02/14/24 02/13/24 History
oxybutynin chloride 10 mg 10 mg PO HS 11/12/22 02/14/24 02/13/24 History
tablet,extended release 24 hr
acetaminophen 325 mg tablet 650 mg PO Q6HPRN PRN mild pain 02/14/24 02/14/24 02/13/24 History
(Tylenol)
apixaban 5 mg tablet (Eliquis) 5 mg PO BID 02/14/24 02/14/24 02/14/24 History
dexamethasone 2 mg tablet 2 mg PO DAILY 02/14/24 02/14/24 02/14/24 History
docusate sodium 100 mg capsule 100 mg PO DAILYPRN PRN constipation 02/14/24 02/14/24 02/13/24 History
(Colace)
omeprazole 20 mg tablet,delayed 20 mg PO HS 02/14/24 02/14/24 02/13/24 History
release
oxycodone 5 mg tablet 5 mg PO Q6HPRN PRN severe pains 02/14/24 02/14/24 02/14/24 History
polyethylene glycol 3350 17 gram 17 g PO DAILYPRN PRN constipation 02/14/24 02/14/24 02/13/24 History
oral powder packet (Miralax)
sennosides 8.6 mg tablet (senna) 8.6 mg PO DAILYPRN PRN constipation 02/14/24 02/14/24 02/13/24 History
Active Medications
Generic Name Dose Route Start Last Admin
Trade Name Freq PRN Reason Stop Dose Admin
Acetaminophen 650 mg 02/14/24 18:19
Acetaminophen 325 Mg Tablet PO 03/13/24 18:18
Q6HPRN PRN
mild pain
Amlodipine Besylate 5 mg 02/14/24 22:00 02/14/24 21:00
Amlodipine 5 Mg Tablet PO 03/13/24 21:59 5 mg
HS MIKALA Administration
Dexamethasone 2 mg 02/15/24 08:00
Dexamethasone 2 Mg Tablet PO 03/14/24 07:59
DAILY MIKALA
Docusate Sodium 100 mg 02/14/24 20:00 02/14/24 21:01
Docusate Sodium 100 Mg Capsule PO 03/13/24 19:59 100 mg
BID MIKALA Administration
Heparin Sodium 7,500 units 02/14/24 15:22
Heparin 80 Units/Kg Iv Rebolus IV 03/13/24 15:21
PRN PRN
PTT < OR = 64 seconds
Heparin Sodium 3,700 units 02/14/24 15:23
Heparin 40 Units/Kg Iv Rebolus IV 03/13/24 15:22
PRN PRN
PTT = 64.1 to 72.9 seconds
Heparin Sodium 25,000 units in 250 mls @ 0 mls/hr 02/14/24 14:45 02/14/24 15:56
Heparin 88836 Units/250 Ml IV 250 mls
PER PROTOCOL MIKALA Administration
Protocol
Per Protocol
Sodium Chloride 500 mls @ 10 mls/hr 02/14/24 21:00 02/14/24 21:10
Nss IV 500 mls
.Q24H MIKALA Administration
Olmesartan 40 mg 02/14/24 22:00 02/14/24 21:00
Olmesartan 20 Mg Tablet PO 03/13/24 21:59 40 mg
HS MIKALA Administration
Ondansetron HCl 4 mg 02/14/24 18:19
Ondansetron 4 Mg/2 Ml Vial IV 03/13/24 18:18
Q6HPRN PRN
NAUSEA/VOMITING
Oxybutynin Chloride 5 mg 02/14/24 20:00 02/14/24 21:01
Oxybutynin 5 Mg Tablet PO 03/13/24 19:59 5 mg
BID MIKALA Administration
Oxycodone HCl 5 mg 02/14/24 16:49
Oxycodone 5 Mg Regular Release Tablet PO 02/28/24 16:48
Q4HPRN PRN
moderate pain
Oxycodone HCl 10 mg 02/14/24 16:49 02/15/24 05:55
Oxycodone 10 Mg Regular Release Tablet PO 02/28/24 16:48 10 mg
Q4HPRN PRN Administration
severe pain
Pantoprazole Sodium 40 mg 02/14/24 22:00 02/14/24 21:00
Pantoprazole 40 Mg Delayed Release Tablet PO 03/13/24 21:59 40 mg
HS MIKALA Administration
Polyethylene Glycol 17 grams 02/14/24 20:00 02/14/24 21:01
Polyethylene Glycol Powder 17 Grams Packet PO 03/13/24 19:59 17 grams
BID MIKALA Administration
Sennosides 17.2 mg 02/14/24 20:00 02/14/24 21:01
Sennosides (Senokot) 8.6 Mg Tablet PO 03/13/24 19:59 17.2 mg
BID MIKALA Administration
Sertraline HCl 50 mg 02/14/24 22:00 02/14/24 21:00
Sertraline 50 Mg Tablet PO 03/13/24 21:59 50 mg
HS MIKALA Administration
Sodium Chloride 0 flush 02/14/24 17:00
Sodium Chloride 0.9% (Flush) Syringe IV 03/13/24 16:59
PER PROTOCOL MIKALA
Physical Exam
-
General: Well Developed, Well Nourished and No Apparent Distress
HEENT: Negative Jaundice
Cardiology: Normal Sinus Rhythm, S1 and S2
Pulmonary: Clear
GI: Soft
Musculoskeletal: Edema, Left Lower Extrem and Other (2 cm left medial thigh mass)
Neurology: Non Focal
Psych: Calm
Vital Signs
Vital Signs
Temp Pulse Resp BP Pulse Ox
98.3 F 83 18 123/59 93
02/15/24 03:45 02/15/24 03:45 02/15/24 03:45 02/15/24 03:45 02/15/24 03:45
[2024-02-15 07:44] LABS: APTT 91.2 Sec (23.4-35.0); Hematocrit 34.1 % (37.0-47.0); Hemoglobin 11.2 g/dL (12.0-16.0); Mean Corp Hgb Conc. 32.8 g/dL (33.0-37.0); Mean Corpuscular Hgb 30.4 pg (27.0-31.0); Mean Corpuscular Volume 92.4 fL (81.0-99.0); Mean Platelet Volume 12.2 fL (7.4-10.4); Platelet Count 213 10^3/uL (130-400); Red Blood Cell Count 3.69 10^6/uL (4.20-5.40); Red Cell Dist. Width 19.4 % (11.5-14.5); White Blood Cell Count 8.9 10^3/uL (4.8-10.8)
[2024-02-15 07:55] VITALS: BP 155/78
[2024-02-15] MEDS: MIRALAX 17 GRAMS PO ×2 (08:24→20:14)
[2024-02-15] MEDS: SENOKOT 17.2 MG PO ×2 (08:27→20:11)
[2024-02-15] MEDS: DITROPAN 5 MG PO ×2 (08:27→20:11)
[2024-02-15] MEDS: COLACE 100 MG PO ×2 (08:28→20:10)
[2024-02-15] MEDS: DECADRON 2 MG PO (08:28)
[2024-02-15 08:39] LABS: Blood Urea Nitrogen 12 mg/dl (7-17); Calcium 10.1 mg/dl (8.4-10.2); Carbon Dioxide 27 mmol/L (22-30); Chloride 104 mmol/L (98-107); Estimated Creatinine Clearance 86 ml/min; Glucose 94 mg/dl (70-99); Potassium 4.1 mmol/L (3.5-5.1); Sodium 141 mmol/L (135-145); eGFR > 60.00
--- NOTE | 2024-02-15 09:13 | W.PN.HOSP.TC ---
Today's Communication/Plan
-
Transition to subcu Lovenox, therapeutic dose
Assessment / Plan
Assessment / Plan
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
for 3 weeks despite taking her Eliquis twice a day. Left lower extremity ultrasound shows new occlusive thrombus in the left common femoral vein. She has a mass in the left groin from her spindle cell carcinoma, likely causing compression.
Persistent/Worsening Left Lower Extremity DVT, failed outpatient Eliquis, also suspect vein compression due to left thigh sarcoma
-Appreciate vascular surgery input, no vascular intervention can be done
-Appreciate hematology input
-Change IV heparin drip to therapeutic subcu Lovenox
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
-Currently receives chemotherapy every other week
-Last treatment ~Feb 01
Constipation
-Increase laxatives
Essential Hypertension
-Continue amlodipine and olmesartan
GERD
-Continue Protonix
Anxiety/Depression
-Continue sertraline
Overactive Bladder
-Cotinue Oxybutynin
Hx Symptomatic Bradycardia s/p Permanent Pacemaker
DVT prophylaxis�IV heparin drip changing to therapeutic subcu Lovenox
Full code
Total time spent to see the patient on the floor, examine the patient, review data and lab results, discuss treatment plan with patient, nursing staff around 50 minutes.
Physical Exam
General: Obese, no acute distress
HEENT: Normocephalic, Atraumatic, EOMI, MMM
Respiratory: Clear to Auscultation bilaterally
Cardiac: Normal S1/S2, Regular Rate and Rhythm
GI: Soft, Nontender, Nondistended, Normal Bowel Sounds
Extremities: No Clubbing, Cyanosis
Severe left lower extremity edema
Anticipated Discharge: Within 24 hours
Subjective/Interval History
-
Date of Service: February 15, 2024
Continues to have severe left thigh and groin pain. No fever, no vomiting.
Objective Data
-
Labs:
Laboratory Results
02/14/24 02/15/24 02/15/24
22:16 07:22 14:20
WBC 8.9
Hgb 11.2 L
Hct 34.1 L
Plt Count 213
APTT > 200 H* 91.2 H Pending
Sodium 141
Potassium 4.1
Chloride 104
Carbon Dioxide 27
BUN 12
Creatinine 0.6
Glucose 94
Calcium 10.1
Vital Signs:
Vital Signs
Temp Pulse Resp BP Pulse Ox
97.6 F 77 20 155/78 93
02/15/24 07:55 02/15/24 07:55 02/15/24 07:55 02/15/24 07:55 02/15/24 03:45
I&O
02/14/24 02/15/24 02/16/24
06:59 06:59 06:59
Intake Total 480 / 480
Balance 480 / 480
[2024-02-15 11:00] VITALS: BP 121/63
[2024-02-15] MEDS: HEPARIN 25000 UNITS/250 ML IV (11:12)
[2024-02-15] MEDS: DILAUDID 1 MG IV (11:45)
--- NOTE | 2024-02-15 14:08 | W.PN.UPDATE ---
Update Note
Progress Note Update
Seen and evaluated. 78-year-old female with history of spindle cell sarcoma in the left thigh s/p resection a couple years ago and also adjuvant radiation therapy. Now asked to evaluate regarding concern for left lower extremity DVT. She had
diagnosis of DVT 01/09/2024. There was concern on the current scan dated 02/14/2024 that there was progression to the left common femoral vein thrombus. Patient notes swelling in her left thigh and calf. Pain and discomfort as a result. She is not
currently wrapped with any compressive dressings. On exam/she is awake and alert. She is in no acute distress. Breathing is unlabored. Left thigh and calf with moderate edema. Compartments remain soft however. Foot is warm. No phlegmasia.
Easily palpable pedal pulses bilaterally.
CT scan images reviewed.
Plan/ Patient has compression of her common femoral vein and femoral vein from large sarcomatous mass. Nothing really can offer from a vascular surgical perspective (stenting these veins would result in compression of the stents). The management
here is treatment of the compressive tumor. Would aggressively wrap her left lower extremity from foot to thigh with elastic bandages to help diminish swelling. I will sign off. Please call with questions.
--- NOTE | 2024-02-15 14:44 | CM ---
CM received consult for cost of Lovenox, 100mg SC Q12h, per ambulatory orders, cost for 30 days is $170.34
Patient seen bedside, initial assessment completed. Patient resides in a two story home, one step to enter, with her cat. Patient has a walker and cane at home, reports [facility] in past, denies SNF history. Patient confirms PCP Nadia Liu, pharmacy
[facility] in [place], confirms prescription coverage. CM discussed cost of Lovenox, patient reports she is not able to afford that, TT to Hospitalist with update. Patient denies food, housing/utility, transportation insecurities at home. CM will
continue to follow for all discharge planning needs.
Plan; home no needs, watch for VN needs.
[2024-02-15 15:00] VITALS: BP 141/62
[2024-02-15 15:16] LABS: APTT 88.7 Sec (23.4-35.0)
--- NOTE | 2024-02-15 16:09 | CON.VAS ---
Consultation
Consultation Request
Performing Provider: Felipe
Reason for Consultation: DVT
Medical History
-
Chief Complaint: DVT
History of Present Illness:
78-year-old female with history of spindle cell sarcoma in the left thigh s/p resection a couple years ago and also adjuvant radiation therapy. Now asked to evaluate regarding concern for left lower extremity DVT. She had diagnosis of DVT
01/09/2024. There was concern on the current scan dated 02/14/2024 that there was progression to the left common femoral vein thrombus. Patient notes swelling in her left thigh and calf. Pain and discomfort as a result. She is not currently
wrapped with any compressive dressings. On exam/she is awake and alert. She is in no acute distress. Breathing is unlabored. Left thigh and calf with moderate edema. Compartments remain soft however. Foot is warm. No phlegmasia. Easily
palpable pedal pulses bilaterally.
CT scan images reviewed.
Past Medical History
Past Medical History: Other (Spindle Cell Sarcoma, Essential Hypertension, GERD, Anxiety/Depression, Overactive Bladder, Symptomatic Bradycardia s/p Permanent Pacemaker)
Past Surgical History: Other (Left Lower Ext Sarcoma Resection, Appendectomy, Hysterectomy, Left Breast Lumpectomy, Left Knee Meniscus)
Social History
Tobacco: Non-Smoker
Alcohol: None
Family History
Family History: Reviewed & Not Pertinent
Allergies / Home Medications
Allergy/AdvReac Type Severity Reaction Status Date / Time
doxorubicin [From Doxil] Allergy Unknown Verified 02/14/24 11:50
erythromycin base Allergy Nausea Verified 02/14/24 11:49
vitamin E (d-alpha Allergy Hives Verified 02/14/24 11:49
tocopherol)
[vitamin E]
�Medication �Instructions �Recorded �Confirmed �Type
sertraline 50 mg tablet 50 mg PO HS 03/18/11 02/14/24 History
amlodipine 5 mg tablet 5 mg PO HS 12/29/21 02/14/24 History
olmesartan 40 mg tablet 40 mg PO HS 11/12/22 02/14/24 History
oxybutynin chloride 10 mg 10 mg PO HS 11/12/22 02/14/24 History
tablet,extended release 24 hr
acetaminophen 325 mg tablet 650 mg PO Q6HPRN PRN mild pain 02/14/24 02/14/24 History
(Tylenol)
apixaban 5 mg tablet (Eliquis) 5 mg PO BID 02/14/24 02/14/24 History
dexamethasone 2 mg tablet 2 mg PO DAILY 02/14/24 02/14/24 History
docusate sodium 100 mg capsule 100 mg PO DAILYPRN PRN constipation 02/14/24 02/14/24 History
(Colace)
omeprazole 20 mg tablet,delayed 20 mg PO HS 02/14/24 02/14/24 History
release
oxycodone 5 mg tablet 5 mg PO Q6HPRN PRN severe pains 02/14/24 02/14/24 History
polyethylene glycol 3350 17 gram 17 g PO DAILYPRN PRN constipation 02/14/24 02/14/24 History
oral powder packet (Miralax)
sennosides 8.6 mg tablet (senna) 8.6 mg PO DAILYPRN PRN constipation 02/14/24 02/14/24 History
Review of Systems
-
History Source: Patient
All other systems: Negative unless noted
Constitutional: Reports No Symptoms
EENT: Reports No Symptoms
Respiratory: Reports No Symptoms
Abdomen/GI: Reports No Symptoms
: Reports No Symptoms
Musculoskeletal: Reports Muscle Pain, Muscle Stiffness and Edema
Neurological: Reports No Symptoms
Endocrine: Reports No Symptoms
Physical Exam
Vital Signs
Temp Pulse Resp BP Pulse Ox
98.2 F 78 16 141/62 95
02/15/24 15:00 02/15/24 15:00 02/15/24 15:00 02/15/24 15:00 02/15/24 15:00
Lab Results
02/15/24 07:22
02/15/24 07:22
Physical Exam
General: No Apparent Distress
HEENT: Normocephalic and Atraumatic
Respiratory: Non Labored Respirations
Cardiac: Negative JVD
GI: Soft and Non Tender
Musculoskeletal: No Clubbing, No Cyanosis and Edema (Compartments soft)
Skin: Warm
Neuro: Awake, Alert and Oriented
Psych: Calm
Pulses: Bilateral Femoral: +2, Bilateral Popliteal: +2 and Bilateral Dorsalis Pedis: +2
Assessment / Plan
-
Plan/ Patient has compression of her common femoral vein and femoral vein from large sarcomatous mass. Nothing really can offer from a vascular surgical perspective (stenting these veins would result in compression of the stents). The management
here is treatment of the compressive tumor. Would aggressively wrap her left lower extremity from foot to thigh with elastic bandages to help diminish swelling. I will sign off. Please call with questions.
[2024-02-15] MEDS: ROXICODONE 15 MG PO (16:14)
[2024-02-15] MEDS: DUPHALAC/CHRONULAC 20 GRAMS PO ×2 (16:14→20:11)
[2024-02-15 19:49] VITALS: BP 157/80
[2024-02-15] MEDS: LOVENOX 90 MG SC (20:11)
--- NOTE | 2024-02-15 22:00 | FALL ---
Description of Fall:
Pt found on floor by RN and tech. Pt found to be sitting on her bottom. Pt states she was trying to put her jacket on and 'tripped'. Pt AAOX3, ambulatory at baseline. Pt helped up off the floor into chair. Pt did not hit head, feel dizzy or loose
consciousness at the time of fall. BP 160/81, HR 95, Temp 98.1, O2 96%. DATA SUPPORT ANALYST (Jonelle Flores) contacted about fall. Jonelle Flores NP at bedside and made aware of anticoagulation meds perviously administered by this RN.
Injuries Noted:
Pt complains of right wrist/hand pain, as well as right knee pain.
Action Taken:
Bed alarm applied.
Name of Provider Notified: Jonelle Flores NP
[2024-02-15 22:17] VITALS: BP 160/81
--- NOTE | 2024-02-15 22:40 | W.PN.UPDATE ---
Update Note
Progress Note Update
RN notified SANDBLASTER SUPERVISOR, patient noted to be sitting on the floor. Patient seen and evaluated. Patient is AAOX3. Stated She was trying to put the jacket on and lost balance, but she gently sat down on the floor holding onto the bed. Reported she used her
Right hand and right knee to help support to get up and is little tender. Denies hitting her head. no cuts, bruises or swelling noted. stable vitals at present.
[2024-02-15] MEDS: NSS IV (23:08)
[2024-02-15] MEDS: BENICAR 40 MG PO (23:23)
[2024-02-15] MEDS: PROTONIX 40 MG PO (23:24)
[2024-02-15] MEDS: NORVASC 5 MG PO (23:24)
[2024-02-15] MEDS: ZOLOFT 50 MG PO (23:24)
[2024-02-16 03:49] VITALS: BP 143/88
[2024-02-16 07:00] VITALS: BP 170/84
[2024-02-16 08:18] LABS: Hematocrit 36.1 % (37.0-47.0); Hemoglobin 11.9 g/dL (12.0-16.0); Mean Corpuscular Hgb 30.7 pg (27.0-31.0); Mean Platelet Volume 12.5 fL (7.4-10.4); Platelet Count 251 10^3/uL (130-400); Red Blood Cell Count 3.88 10^6/uL (4.20-5.40); Red Cell Dist. Width 19.8 % (11.5-14.5); White Blood Cell Count 11.7 10^3/uL (4.8-10.8)
[2024-02-16] MEDS: COLACE PO ×2 (08:46→20:30)
[2024-02-16] MEDS: MIRALAX PO (08:48)
[2024-02-16] MEDS: ROXICODONE 10 MG PO ×3 (08:49→23:40)
[2024-02-16] MEDS: DITROPAN 5 MG PO ×2 (08:49→20:24)
[2024-02-16] MEDS: DECADRON 2 MG PO (08:50)
[2024-02-16] MEDS: LOVENOX 90 MG SC ×2 (08:52→20:22)
[2024-02-16] MEDS: DUPHALAC/CHRONULAC PO (08:57)
[2024-02-16] MEDS: SENOKOT PO (08:57)
--- NOTE | 2024-02-16 10:29 | VNURNOTE ---
Home health liaison met with patient and daughter to discuss resuming VN services. Patient is agreeable. Referral sent through [facility]
[2024-02-16 11:00] VITALS: BP 115/52
--- NOTE | 2024-02-16 11:53 | W.PN.ONC2 ---
Today's Communication / Plan
-
Therapeutic enoxaparin at discharge
Close Outpatient follow-up with Dr. Grayson upon discharge
Impression
Impression
Left Lower Extremity DVT, failed outpatient Eliquis, also suspect vein compression due to left thigh sarcoma
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
Plan
Plan
Patient was transitioned from Eliquis to IV heparin as inpatient because of malignancy related venous obstruction and progressive DVT in the left lower extremity.
Unfortunately, there may not be any anticoagulation that is effective in this scenario because of the mass itself causing vascular blockage.
Patient was evaluated by vascular surgery -no role for vascular intervention
transition to Lovenox 1 mg/kg SQ Q12 as an alternative to outpatient anticoagulation therapy
Regarding treatment of her spindle cell sarcoma, she may require a fourth line systemic therapy as presumably gemcitabine has not been effective in controlling her disease with a new palpable mass and progressive thrombosis.
She has follow-up with Dr. Grayson on 02/[address] Grayson will review oncologic treatment plans.
Subjective/Objective
Chief Complaint
No new complaints
Subjective
Loss of balance requiring patient to sit on the floor overnight. Denies injury
Vital Signs:
Vital Signs
Temp Pulse Resp BP Pulse Ox
97.7 F 94 18 170/84 95
02/16/24 07:00 02/16/24 07:00 02/16/24 07:00 02/16/24 07:00 02/16/24 07:00
Lab Results:
Laboratory Data
WBC 11.7 10^3/uL (4.8-10.8) H 02/16/24 08:10
Hgb 11.9 g/dL (12.0-16.0) L 02/16/24 08:10
Plt Count 251 10^3/uL (130-400) 02/16/24 08:10
PT 16.6 Sec (11.4-14.6) H 02/14/24 15:18
INR 1.36 02/14/24 15:18
APTT 88.7 Sec (23.4-35.0) H 02/15/24 14:47
eGFR > 60.00 02/15/24 07:22
Physical Exam
General: No Apparent Distress
HEENT: Normocephalic and Atraumatic, anicteric
Respiratory: Non Labored Respirations
Cardiac: S1, S2
GI: Soft and Non Tender
Neuro: Awake, Alert and Oriented
Psych: Calm
Review of Systems
Review of Systems
Review of systems notable for subjective, otherwise negative
--- NOTE | 2024-02-16 12:45 | CM ---
CM placed call to patients pharmacy, unable to provide cost of Lovenox unless script sent over, pharmacist provided CM with prescription information on file as not on file in Hospital (ID# [id number], Group# [id number], PCM: [id number], BIN: [id number]) [facility] [employer] phone: [phone]. Placed call to [facility], informed cost of medication through prescription plan is $170.34.
Patient seen bedside with daughter, discussed cost of Lovenox ($170), patient and daughter agreeable to discharge on mediation, TT to Hospitalist and nurse with update. IMM reviewed, signed, placed in chart. Patient reports she is [facility] with [facility],
update to [facility] nurse on patient discharge plan. CM will continue to follow for all discharge planning needs.
Plan; home with [facility].
--- NOTE | 2024-02-16 14:22 | W.PN.HOSP.TC ---
Today's Communication/Plan
-
Discharge tomorrow
Assessment / Plan
Assessment / Plan
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
for 3 weeks despite taking her Eliquis twice a day. Left lower extremity ultrasound shows new occlusive thrombus in the left common femoral vein. She has a mass in the left groin from her spindle cell carcinoma, likely causing compression.
Persistent/Worsening Left Lower Extremity DVT, failed outpatient Eliquis, also suspect vein compression due to left thigh sarcoma
-Appreciate vascular surgery input, no vascular intervention can be done
-Appreciate hematology input
-Status post IV heparin drip, continue therapeutic subcu Lovenox
-Lovenox teaching today, plan for discharge tomorrow
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
-Currently receives chemotherapy every other week
-Last treatment ~Feb 01
Constipation
-Resolved on laxatives
Essential Hypertension
-Continue amlodipine and olmesartan
GERD
-Continue Protonix
Anxiety/Depression
-Continue sertraline
Overactive Bladder
-Cotinue Oxybutynin
Hx Symptomatic Bradycardia s/p Permanent Pacemaker
DVT prophylaxis� therapeutic subcu Lovenox
Full code
Total time spent to see the patient on the floor, examine the patient, review data and lab results, discuss treatment plan with patient, nursing staff around 51 minutes.
Physical Exam
General: Obese, no acute distress
HEENT: Normocephalic, Atraumatic, EOMI, MMM
Respiratory: Clear to Auscultation bilaterally
Cardiac: Normal S1/S2, Regular Rate and Rhythm
GI: Soft, Nontender, Nondistended, Normal Bowel Sounds
Extremities: No Clubbing, Cyanosis
Severe left lower extremity edema
Anticipated Discharge: Within 24 hours
Subjective/Interval History
-
Date of Service: February 16, 2024
Overnight events noted. Patient had a fall, denies head injury. She has had multiple bowel movements. No fever. No vomiting.
Objective Data
-
Labs:
Laboratory Results
02/16/24
08:10
WBC 11.7 H
Hgb 11.9 L
Hct 36.1 L
Plt Count 251
Vital Signs:
Vital Signs
Temp Pulse Resp BP Pulse Ox
98.0 F 84 18 115/52 92
02/16/24 11:00 02/16/24 11:00 02/16/24 11:00 02/16/24 11:00 02/16/24 11:00
I&O
02/15/24 02/16/24 02/17/24
06:59 06:59 06:59
Intake Total 480 / 480
Balance 480 / 480
[2024-02-16 15:41] VITALS: BP 124/61
[2024-02-16 19:30] VITALS: BP 172/80
--- NOTE | 2024-02-16 20:45 | PTCARENOTE ---
Provided pt with verbal education and demonstration on proper SQ Lovenox administration, including site prep and alteration. Pt verbally expressed understanding. Pt agrees to try and administer Lovenox herself during next scheduled dose.
[2024-02-16] MEDS: NORVASC 5 MG PO (23:33)
[2024-02-16] MEDS: BENICAR 40 MG PO (23:33)
[2024-02-16] MEDS: ZOLOFT 50 MG PO (23:35)
[2024-02-16] MEDS: PROTONIX 40 MG PO (23:35)
[2024-02-16 23:49] VITALS: BP 155/74
[2024-02-17 03:30] VITALS: BP 154/67
[2024-02-17 07:35] VITALS: BP 136/59
--- NOTE | 2024-02-17 07:55 | VNURNOTE ---
Chart reviewed. Patient is current with [facility] nursing and PT. CM aware. Resumption referral in [facility].
--- NOTE | 2024-02-17 08:33 | W.PN.HOSP.TC ---
Today's Communication/Plan
-
Discharge today
Assessment / Plan
Assessment / Plan
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
for 3 weeks despite taking her Eliquis twice a day. Left lower extremity ultrasound shows new occlusive thrombus in the left common femoral vein. She has a mass in the left groin from her spindle cell carcinoma, likely causing compression.
Persistent/Worsening Left Lower Extremity DVT, failed outpatient Eliquis, also suspect vein compression due to left thigh sarcoma
-Appreciate vascular surgery input, no vascular intervention can be done
-Appreciate hematology input
-Status post IV heparin drip, continue therapeutic subcu Lovenox
-Patient has been provided Lovenox teaching, medically stable for discharge on therapeutic Lovenox
-Follow-up with oncology/Dr. Grayson in the office 02/28
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
-Currently receives chemotherapy every other week
-Last treatment ~Feb 01
-Chest CT obtained today to determine staging for next steps in outpatient therapy
Constipation
-Resolved on laxatives
Essential Hypertension
-Continue amlodipine and olmesartan
GERD
-Continue Protonix
Anxiety/Depression
-Continue sertraline
Overactive Bladder
-Cotinue Oxybutynin
Hx Symptomatic Bradycardia s/p Permanent Pacemaker
DVT prophylaxis� therapeutic subcu Lovenox
Full code
Physical Exam
General: Obese, no acute distress
HEENT: Normocephalic, Atraumatic, EOMI, MMM
Respiratory: Clear to Auscultation bilaterally
Cardiac: Normal S1/S2, Regular Rate and Rhythm
GI: Soft, Nontender, Nondistended, Normal Bowel Sounds
Extremities: No Clubbing, Cyanosis
Severe left lower extremity edema
Anticipated Discharge: Today
Subjective/Interval History
-
Date of Service: February 17, 2024
Patient continues to have left lower extremity pain. No fever, no vomiting.
Objective Data
-
Vital Signs:
Vital Signs
Temp Pulse Resp BP Pulse Ox
97.8 F 72 17 136/59 94
02/17/24 07:35 02/17/24 07:35 02/17/24 07:35 02/17/24 07:35 02/17/24 07:35
I&O
02/16/24 02/17/24 02/18/24
06:59 06:59 06:59
Intake Total 800 / 800
Balance 800 / 800
--- NOTE | 2024-02-17 08:51 | W.PN.ONC2 ---
Today's Communication / Plan
-
CT chest to complete staging to determine next steps in OP therapy
Therapeutic enoxaparin
Close OP follow up will be arranged upon discharge
Impression
Impression
Left Lower Extremity DVT, failed outpatient Eliquis, also suspect vein compression due to left thigh sarcoma
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
Plan
Plan
Eliquis failure in the setting of compressive component to LLE related to disease.
Unfortunately, there may not be any anticoagulation that is effective in this scenario because of the mass itself causing vascular blockage.
Patient was evaluated by vascular surgery -no role for vascular intervention
Lovenox 1 mg/kg SQ Q12 as an alternative to outpatient anticoagulation therapy
Regarding treatment of her spindle cell sarcoma, she may require a fourth line systemic therapy as presumably gemcitabine has not been effective in controlling her disease with a new palpable mass and progressive thrombosis.
>50% of visit was spent on education, counseling, and coordination of care
Subjective/Objective
Chief Complaint
denies bleeding
Subjective
no new complaints
Vital Signs:
Vital Signs
Temp Pulse Resp BP Pulse Ox
97.8 F 72 17 136/59 94
02/17/24 07:35 02/17/24 07:35 02/17/24 07:35 02/17/24 07:35 02/17/24 07:35
Lab Results:
Laboratory Data
WBC 11.7 10^3/uL (4.8-10.8) H 02/16/24 08:10
Hgb 11.9 g/dL (12.0-16.0) L 02/16/24 08:10
Plt Count 251 10^3/uL (130-400) 02/16/24 08:10
PT 16.6 Sec (11.4-14.6) H 02/14/24 15:18
INR 1.36 02/14/24 15:18
APTT 88.7 Sec (23.4-35.0) H 02/15/24 14:47
eGFR > 60.00 02/15/24 07:22
Physical Exam
General: No Apparent Distress
HEENT: Normocephalic and Atraumatic, anicteric
Respiratory: Non Labored Respirations
Cardiac: S1, S2
GI: Soft and Non Tender
Neuro: Awake, Alert and Oriented
Psych: Calm
Review of Systems
Review of Systems
ROS notable for subjective, otherwise negative
Orders
Orders
Orders From Last 24 Hours
02/17/24 08:50
CT Chest With Iv Contrast Routine
CT Lower Ext W/iv Cont Lt Routine
[2024-02-17] MEDS: LOVENOX 90 MG SC (08:53)
[2024-02-17] MEDS: DITROPAN 5 MG PO (08:53)
[2024-02-17] MEDS: DECADRON 2 MG PO (08:53)
[2024-02-17] MEDS: COLACE PO (08:56)
[2024-02-17] MEDS: ROXICODONE 10 MG PO ×2 (09:04→13:39)
[2024-02-17 11:15] VITALS: BP 129/77
--- NOTE | 2024-02-17 11:28 | W.DCSUMMARY ---
Discharge Summary
Discharge Data
Date of Admission: 02/14/24
Date of Discharge: 02/17/24
-
Pending Results: No
Hospital Course
Discharge diagnosis:
Persistent/Worsening Left Lower Extremity deep vein thrombosis, failed outpatient Eliquis
Probable left thigh vein compression due to left thigh sarcoma
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
Constipation
Benign essential hypertension
Gastroesophageal reflux disease
Anxiety/depression
Overactive bladder
History of symptomatic bradycardia status post pacemaker
Consults: Oncology, vascular surgery
CT abd/pelvis:
1). There is compression and encasement of the left common femoral and superficial femoral veins at the left groin but no thrombus in these vessels.
2). 18 cm known malignancy in the posterior medial left thigh is increased in size when compared with the prior study
3). There is a new 4 cm low-density soft tissue mass consistent with malignancy in the posterolateral left thigh
4). 3 cm low-density mass in the subcutaneous tissues of the anteromedial left thigh consistent with malignancy is increased in size when compared with the prior study
5). 6 cm lobulated low-density mass in the left inguinal region encasing the superficial femoral and common femoral veins is increased in size when compared with the prior study.
6). Presumed metastasis at the right lung base have slightly increased in size when compared with the prior study
7). Cholelithiasis
8). 13 cm stable cystic mass in the posterior pelvis
9). Multilevel lumbar degenerative disc disease
Chest CT:
Several bilateral pulmonary nodules,suspicious for metastatic disease again seen, many of which are slightly smaller in size/volume.
Hospital course:
78-year-old female with a past medical history of spindle cell carcinoma status post resection currently on chemo, recently diagnosed left proximal DVT on Eliquis, and benign essential hypertension was admitted for worsening proximal left lower
extremity DVT despite taking her Eliquis twice a day. Patient was treated with IV heparin drip. She was seen in conjunction with vascular surgery. Patient's spindle cell carcinoma of the left thigh is causing compression on her proximal left
lower extremity veins. No vascular intervention was able to be done. She was transitioned from IV heparin drip to therapeutic Lovenox.
Patient was seen in conjunction with oncology. Unfortunately, there may not be any anticoagulation that is effective in this scenario because of the mass itself is causing vascular blockage. Oncology recommends discharge on therapeutic Lovenox.
Lovenox teaching was provided. Patient's multiple conditions have been optimized. She needs to follow-up with her usual oncologist, Dr. Grayson, in the office on 02/29/2024, and her primary care doctor in 1 week.
Disposition: Home with home care
Discharge planning: Required 40 minutes
Discharge Plan
-
Patient Disposition: Home with Home Care
Discharge Diagnosis/Procedures: Worsening left lower extremity deep vein thrombosis failing Eliquis, spindle cell sarcoma of the left thigh
Condition: Fair
Diet: Regular
Activity: As tolerated
Activity Restrictions/Additional Instructions:
Please keep your appointment with your oncologist/Dr. Grayson, and follow-up with your primary care doctor in 1 week.
Referrals:
Nadia iLu PA-C [Family Provider] - in one week
Zoya Grayson MD [Active] - in two weeks
Prescriptions:
New
enoxaparin 100 mg/mL Syringe
90 mg SC Q12H 30 Days Qty: 60 0RF
Continued
sertraline 50 MG tablet
50 mg PO HS
amlodipine 5 mg Tablet
5 mg PO HS
oxybutynin chloride 10 mg Tablet Extended Release 24hr
10 mg PO HS
olmesartan 40 mg Tablet
40 mg PO HS
acetaminophen [Tylenol] 325 mg Tablet
650 mg PO Q6HPRN PRN (Reason: mild pain)
dexamethasone 2 mg Tablet
2 mg PO DAILY
oxycodone 5 mg Tablet
5 mg PO Q6HPRN PRN (Reason: severe pains)
omeprazole 20 mg Tablet,Delayed Release (Dr/Ec)
20 mg PO HS
Changed
sennosides [senna] 8.6 mg Tablet
8.6 mg PO DAILY Qty: 0 0RF
polyethylene glycol 3350 [Miralax] 17 gram Powder In Packet
17 g PO DAILY Qty: 0 0RF
docusate sodium [Colace] 100 mg Capsule
100 mg PO DAILY Qty: 0 0RF
Discontinued
Eliquis 5 mg Tablet
5 mg PO BID
Discharge Orders:
Discharge Patient (As Directed); Ordered 02/17/24
Ordered By: Huber Hodges
Discharge Date and Time
Discharge Date/Time: 02/17/24 14:56
Print Language: JAPANESE
--- NOTE | 2024-02-17 14:33 | CM ---
CM reviewed chart, patient for discharge today. CM will update [facility] on discharge status. CM will continue to follow for all discharge planning needs.
Plan; home with [facility]
== END 2024-02-17 14:56 | disposition home health service (06) | DRG 543 ==
LOC: 4 WEST ACU 16:41
PROVIDERS: Nurse Practitioner; Physician Assistant Medical; ADMITTING PHYSICIAN Family Medicine; EMERGENCY PHYSICIAN Emergency Medicine; FAMILY PHYSICIAN Physician Assistant; OTHER PHYSICIAN Internal Medicine Hematology & Oncology; OTHER PHYSICIAN Surgery Vascular Surgery
DX: C49.22 Malignant neoplasm of connective and soft tissue of left lower limb, including hip (principal); I82.412 Acute embolism and thrombosis of left femoral vein; K59.00 Constipation, unspecified; I10 Essential (primary) hypertension; K21.9 Gastro-esophageal reflux disease without esophagitis; F41.9 Anxiety disorder, unspecified; F32.A Depression, unspecified; N32.81 Overactive bladder
CPT/HCPCS: 36415; 71260; 74177; 80048; 85025; 85027; 85610; 85730; 93971; 96374; 96376; 99285; Q9967

== ENCOUNTER → 2024-02-23 13:39 | Outpatient (REF) | payer MEDICARE, OTHER, SELFPAY ==
[2024-02-23 12:13] LABS: % Basophils 0.7 % (0-2); % Eosinophils 2.2 % (0-6); % Immature Granulocytes 0.6 % (0-0.5); % Lymphocytes 9.3 % (20.5-51.1); % Monocytes 6.4 % (1.7-9.3); % Neutrophils 80.8 % (42.2-75.2); Absolute Basophils 0.1 10^3/uL (0-0.2); Absolute Eosinophils 0.2 10^3/uL (0-0.7); Absolute Immature Granulocytes 0.1 10^3/uL (0-0.05); Absolute Lymphocytes 0.9 10^3/uL (1.2-3.4); Absolute Monocytes 0.6 10^3/uL (0.1-0.6); Absolute Neutrophils 7.8 10^3/uL (1.4-6.5); Mean Corp Hgb Conc. 31.6 g/dL (33.0-37.0); Mean Corpuscular Hgb 30.2 pg (27.0-31.0); Mean Corpuscular Volume 95.5 fL (81.0-99.0); Mean Platelet Volume 13.2 fL (7.4-10.4); Platelet Count 270 10^3/uL (130-400); Red Blood Cell Count 3.98 10^6/uL (4.20-5.40); Red Cell Dist. Width 19.2 % (11.5-14.5); White Blood Cell Count 9.6 10^3/uL (4.8-10.8)
[2024-02-23 12:45] LABS: ALT (SGPT) 29 U/L (0-35); AST (SGOT) 28 U/L (14-36); Albumin 3.7 g/dl (3.5-5.0); Alkaline Phosphatase 128 U/L (38-126); Blood Urea Nitrogen 15 mg/dl (7-17); Calcium 10.2 mg/dl (8.4-10.2); Carbon Dioxide 27 mmol/L (22-30); Chloride 101 mmol/L (98-107); Glucose 115 mg/dl (70-99); Sodium 139 mmol/L (135-145); Total Bilirubin 0.4 mg/dl (0.2-1.3); Total Protein 6.2 g/dl (6.3-8.2); eGFR > 60.00
== END ==
LOC: OIDL 13:39
PROVIDERS: ATTENDING PHYSICIAN Internal Medicine Hematology & Oncology
DX: C49.22 Malignant neoplasm of connective and soft tissue of left lower limb, including hip (principal)
CPT/HCPCS: 80053; 85025

== ENCOUNTER 2024-04-28 15:28 | Inpatient (IN) | payer MEDICARE, OTHER, SELFPAY ==
[2024-04-28] VITALS (8 sets, daily range): BP systolic 141–171; BP diastolic 62–87; BMI 35.6; BMI 36.1
--- NOTE | 2024-04-28 12:55 | ED.GENMED ---
History of Present Illness
General
Chief Complaint: Breathing Problem
Source: patient
Exam Limitations: none
Time Seen by Provider: 04/28/24 12:53
Nursing documentation reviewed up to this point in time: agreed with
History of Present Illness
History of Present Illness:
The patient is a very pleasant 78-year-old female with a past medical history of left lower extremity sarcoma with extensive venous thrombosis of left lower extremity. Patient reports that she had been on Eliquis, then switched to subcutaneous
Lovenox, and again, is currently just on Eliquis. Patient presents with acute right-sided pain in her chest and back. Patient reports she noticed the pain about 3 days ago. Patient reports that she became short of breath yesterday. Patient
reports that the pain and shortness of breath have been constant since then. The pain is worse when she pushes against her right breast as well as when she takes a deep breath. Patient denies fever. She reports ongoing cough. The patient arrives
with a pulse ox of 88% on room air. Patient reports this is unusual, as she does not normally use oxygen.
Past History
Past History
ED Past Medical History: Cancer (spindle cell carcinoma of left lower extremity), HTN, Hypercholesterolemia, Valvular disease (Mitral regurgitation, deviated septum) and Other (Congenital sick sinus syndrome, low back pain, DVT left lower extremity)
ED Past Surgical History: Appendectomy, Cardiac (Pacemaker), Gynecological (History of hysterectomy in 2002 lumpectomy of the breast 1963 and tubal ligation in 1983), Tonsilectomy and Other (Deviated septum surgery in 1985, pacemaker placed)
Social History
Tobacco: Non-smoker
Alcohol: None
Drug: None
Personal:
Living: with family
Employment: Retired
Family History
Family History: CAD (Mother with late onset coronary artery disease/CABG and CVA.); Negative Early CAD
Review of Systems
Review of Systems
Allergies reviewed?: Yes
All Other Systems: ROS reviewed and negative except as documented in HPI and ROS
Constitutional: Reports fatigue
EENT: Reports no symptoms
Respiratory: Reports cough and trouble breathing
Cardiac: Reports no symptoms
ABD/GI: Reports no symptoms
: Reports no symptoms
Musculoskeletal: Reports muscle stiffness, edema (Ongoing edema and pain of left lower extremity) and back pain
Skin: Reports no symptoms
Neurological: Reports no symptoms
Endocrine: Reports no symptoms
Hematologic/Lymphatic: Reports no symptoms
Psychiatric: Reports no symptoms
Phy Exam
Physical Exam
Physical Exam:
Physical Exam
General: Patient appears mildly tachypneic and pale
Neck: supple.
Heart: s1/s2 regular rate and rhythm, no murmur. equal radial pulses.
Lungs: Decreased breath sounds bilaterally with expiratory wheeze that is mild. Mild tachypnea
Abdomen: normal bowel sounds. not tender. no CVAT
Neuro: alert and oriented. no focal neurological deficits
Skin: no rash
Psychiatric: well kept. interactive and cooperative
Extremities: Very firm and tender tender left lower extremity on palpation. Mild diffuse erythema of left lower leg. Cap refill of bilateral feet and toes.
Scores
Heart Failure Risk
Heart Failure Risk Score: Not Applicable
Course
Orders/Labs/Results
Orders:
Orders
04/28/24 12:53
EKG [Electrocardiogram (*1)] Urgent
Reason for Study: Shortness of Breath
EKG- Treatment ONCE
04/28/24 12:56
Complete Blood Count/With Diff Urgent
Comprehensive Metabolic Panel Urgent
PTT Urgent
Prothrombin Time Urgent
04/28/24 13:09
CT Chest Pe Study Urgent
Comment:
Reason For Exam: R sided CP
04/28/24 14:53
Morphine Sulfate 4 mg IV NOW STA
Abnormal Lab Results
04/28/24
12:56
RBC 3.79 L 10^6/uL
(4.20-5.40)
Hgb 11.6 L g/dL
(12.0-16.0)
Hct 35.4 L %
(37.0-47.0)
MCHC 32.8 L g/dL
(33.0-37.0)
RDW 15.0 H %
(11.5-14.5)
MPV 12.5 H fL
(7.4-10.4)
Absolute Lymphs (auto) 0.9 L 10^3/uL
(1.2-3.4)
Absolute Monos (auto) 0.7 H 10^3/uL
(0.1-0.6)
Neutrophils % 78.5 H %
(42.2-75.2)
Lymphocytes % 11.0 L %
(20.5-51.1)
Carbon Dioxide 31 H mmol/L
(22-30)
BUN 6 L mg/dl
(7-17)
Glucose 110 H mg/dl
(70-99)
04/28/24 12:56
04/28/24 12:56
Vital Signs
Initial and Last Documented VS:
Initial Vital Signs
Pulse Resp Pulse Ox
89 62 97
04/28/24 12:45 04/28/24 12:45 04/28/24 12:45
Last Documented Vital Signs
Temp Pulse Resp BP Pulse Ox
97.6 F 89 22 164/64 96
04/28/24 12:46 04/28/24 14:30 04/28/24 14:30 04/28/24 14:09 04/28/24 14:30
MDM/Problems Addressed
Differential Diagnosis Includes:
Acute pulmonary embolism, pneumonia, pleural effusion
MDM/Problems Addressed:
Patient presents with acute right sided chest and back pain
Chronic conditions affecting care: Cancer
Acute Exacerbation and/or Progression of Chronic Illness: Cancer
*Radiology
Radiology exam reviewed: radiology read reviewed
*Pulse Oximetry
Patient hypoxic: yes
Comment: 88% on room air
*EKG
Interpreted by ED Provider?: Yes
Interpretation: normal
Comparison EKG: no changes
Rate: normal
Rhythm: sinus
Jackson: normal axis
Interval: normal interval
QRS Pattern: normal QRS
Ischemia: no ischemia
*[facility] Interpretation
Rate: normal
Interpretation: normal
Rhythm: sinus
*Critical Care Note
Total Time (30-74mins, 75-104mins- exclusive of procedures): 32 min
comment:
32 minutes critical care given to patient including reviewing her CT as well as its report, reviewing her lab work, EKG, reviewing her previous hospital records and counseling the patient and her family
Data Reviewed
Review of Other/Old Records Reveals: Progress Notes (Oncology progress note reviewed from 01/2024 discussing that patient has ongoing thrombosis of left lower extremity due to compressive nature of sarcoma in left lower extremity and that patient was
transition from Eliquis to Lovenox.)
Source: patient and family (Daughter who is at the bedside)
ED Attending Note
-
Portions of this chart may have been created with voice recognition software.� Occasional wrong word or��sound alike� substitutions may have occurred due to the inherent limitations of voice recognition software.
Discharge Plan
Departure
Patient Disposition: Admit
Date of Disposition: 04/28/24
Time of Disposition: 13:48
Admit to: Med/Surg
Presentation/result/management discussed w/ accepting MD/DO: Hospitalist
Patient with high blood pressure during this ER visit?: Yes
Condition: Fair
Covid-19: Not Applicable
Discharge Problem:
Acute large right pleural effusion, Acute hypoxic respiratory failure
Prescriptions:
No Action
sertraline 50 MG tablet
50 mg PO HS
Patient Comments:
04/29/24- patient on a taper dose to start 75mg daily then 100mg daily but has not started
amlodipine 5 mg Tablet
5 mg PO HS
oxybutynin chloride 10 mg Tablet Extended Release 24hr
10 mg PO HS
olmesartan 40 mg Tablet
40 mg PO HS
oxycodone 5 mg Tablet
5 mg PO Q6HPRN PRN (Reason: break though pains)
sennosides [senna] 8.6 mg Tablet
8.6 mg PO DAILY Qty: 0 0RF
polyethylene glycol 3350 [Miralax] 17 gram Powder In Packet
17 g PO DAILY Qty: 0 0RF
docusate sodium [Colace] 100 mg Capsule
100 mg PO DAILY Qty: 0 0RF
Eliquis 5 mg Tablet
5 mg PO BID
morphine 15 mg Tablet Extended Release
15 mg PO G89PPLH PRN (Reason: severe pain)
gabapentin 300 mg Capsule
600 mg PO HS
ondansetron HCl [Zofran] 8 mg Tablet
8 mg PO Q8HPRN PRN (Reason: nausea)
Referrals:
Nadia Liu PA-C [Family Provider] -
Interventions
Interventions:
*Risk Screen - Suicide Last Done: 04/28/24 13:01
*General Assessment Last Done: 04/28/24 13:01
*Neglect/Abuse Screening Last Done: 04/28/24 13:01
*ED COVID-19 Vaccine History Last Done: 04/28/24 13:01
ED- Cardiac Assessment Last Done: 04/28/24 13:10
Discharge Date and Time
Print Language: CITIZEN OF [place]
[2024-04-28 13:07] LABS: % Basophils 0.6 % (0-2); % Eosinophils 1.1 % (0-6); % Immature Granulocytes 0.3 % (0-0.5); % Monocytes 8.5 % (1.7-9.3); % Neutrophils 78.5 % (42.2-75.2); Absolute Basophils 0.1 10^3/uL (0-0.2); Absolute Eosinophils 0.1 10^3/uL (0-0.7); Absolute Lymphocytes 0.9 10^3/uL (1.2-3.4); Absolute Monocytes 0.7 10^3/uL (0.1-0.6); Absolute Neutrophils 6.2 10^3/uL (1.4-6.5); Hematocrit 35.4 % (37.0-47.0); Hemoglobin 11.6 g/dL (12.0-16.0); Mean Corp Hgb Conc. 32.8 g/dL (33.0-37.0); Mean Corpuscular Hgb 30.6 pg (27.0-31.0); Mean Corpuscular Volume 93.4 fL (81.0-99.0); Mean Platelet Volume 12.5 fL (7.4-10.4); Nucleated Red Blood Cells % 0 %; Platelet Count 200 10^3/uL (130-400); Red Blood Cell Count 3.79 10^6/uL (4.20-5.40); White Blood Cell Count 7.9 10^3/uL (4.8-10.8)
[2024-04-28 13:17] LABS: APTT 32.1 Sec (23.4-35.0); INR 1.09; PT 14.4 Sec (11.4-14.6)
[2024-04-28 13:22] LABS: ALT (SGPT) 12 U/L (0-35); AST (SGOT) 17 U/L (14-36); Albumin 3.6 g/dl (3.5-5.0); Alkaline Phosphatase 115 U/L (38-126); Blood Urea Nitrogen 6 mg/dl (7-17); Calcium 10.1 mg/dl (8.4-10.2); Carbon Dioxide 31 mmol/L (22-30); Chloride 101 mmol/L (98-107); Estimated Creatinine Clearance 87 ml/min; Glucose 110 mg/dl (70-99); Potassium 3.6 mmol/L (3.5-5.1); Sodium 139 mmol/L (135-145); Total Bilirubin 0.3 mg/dl (0.2-1.3); Total Protein 6.3 g/dl (6.3-8.2); eGFR > 60.00
[2024-04-28] MEDS: MORPHINE SULFATE 4 MG IV (15:07)
--- NOTE | 2024-04-28 15:11 | HPS.HSE ---
Family Physician
-
Family Physician: Nadia Liu
Chief Complaint
-
POx as low as 88 on RA, SoB, Rt sided CP
History of Present Illness
HPI
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
- noticed the pain about 3 days ago
- associated short of breath
- the pain and shortness of breath have been constant since then.
- worse when she pushes against her right breast as well as when she takes a deep breath.
- on going cough
- POx on arrival 88% on RA
- Not on home O2
ROS
denies fever
Medical History
Past Medical History
Past Medical History: Reports Other
Additional Past Medical History:
Spindle Cell Sarcoma
Essential Hypertension
GERD
Anxiety/Depression
Overactive Bladder
Symptomatic Bradycardia s/p Permanent Pacemaker
Past Surgical History: Reports Other
Additional Past Surgical History:
Left Lower Ext Sarcoma Resection
Appendectomy
Hysterectomy
Left Breast Lumpectomy
Left Knee Meniscus
Social History
Tobacco: Non-smoker
Alcohol: None
Family History
Family History: Not pertinent
Allergies / Home Medications
Allergies reflects when Allergies were last updated in [employer].
Home Medications with original date entered in [employer]
Allergy/Medication List:
Allergies
Allergy/AdvReac Type Severity Reaction Status Date / Time
doxorubicin [From Doxil] Allergy Unknown Verified 02/14/24 11:50
erythromycin base Allergy Nausea Verified 02/14/24 11:49
vitamin E (d-alpha Allergy Hives Verified 02/14/24 11:49
tocopherol)
[vitamin E]
Home Medications
sertraline 50 mg tablet 50 mg PO HS 03/18/11
amlodipine 5 mg tablet 5 mg PO HS 12/29/21
olmesartan 40 mg tablet 40 mg PO HS 11/12/22
oxybutynin chloride 10 mg tablet,extended release 24 hr 10 mg PO HS 11/12/22
acetaminophen 325 mg tablet (Tylenol) 650 mg PO Q6HPRN PRN mild pain 02/14/24
apixaban 5 mg tablet (Eliquis) 5 mg PO BID 02/14/24
dexamethasone 2 mg tablet 2 mg PO DAILY 02/14/24
docusate sodium 100 mg capsule (Colace) 100 mg PO DAILYPRN PRN constipation 02/14/24
omeprazole 20 mg tablet,delayed release 20 mg PO HS 02/14/24
oxycodone 5 mg tablet 5 mg PO Q6HPRN PRN severe pains 02/14/24
polyethylene glycol 3350 17 gram oral powder packet (Miralax) 17 g PO DAILYPRN PRN constipation 02/14/24
sennosides 8.6 mg tablet (senna) 8.6 mg PO DAILYPRN PRN constipation 02/14/24
Review of Systems
-
A 12 point ROS was completed and negative except as noted: Yes
Constitutional: Denies Fever or Chills
EENT: Reports No Symptoms
Respiratory: Reports Cough and Trouble Breathing
Cardiac: Reports Chest Pain (Rt sided )
Abdomen/GI: Reports Constipated; Denies Abdominal Pain, Nausea or Vomiting
: Reports No Symptoms
Musculoskeletal: Reports No Symptoms
Skin: Reports No Symptoms
Neurological: Reports No Symptoms
Endocrine: Reports No Symptoms
Hematologic/Lymphatic: Reports No Symptoms
Psych: Reports No Symptoms
Physical Exam
Vital Signs
Vital Signs
Temp Pulse Resp BP Pulse Ox
97.6 F 89 22 164/64 96
04/28/24 12:46 04/28/24 14:30 04/28/24 14:30 04/28/24 14:09 04/28/24 14:30
Physical Exam
General: Comfortable and Conversant
HEENT: Anicteric and Moist mucous membranes
Respiratory: Clear and Non Labored Respirations
Cardiac: S1/S2 and Regular Rhythm
GI: Soft and Non Tender
Rectal: Deferred by Provider
Musculoskeletal: No Clubbing, No Cyanosis, Edema, Left Lower Extremity and Other (Quarter sized mass noted on inner left thigh which is non-tender to palpation)
Skin: Warm, Dry and Other (Mild erythema left medical thigh )
Neuro: Awake, Alert, Oriented and Nonfocal/grossly intact
Psych: Calm
Laboratory Results
-
04/28/24 12:56
04/28/24 12:56
Laboratory Results
PT 14.4 Sec (11.4-14.6) 04/28/24 12:56
INR 1.09 04/28/24 12:56
APTT 32.1 Sec (23.4-35.0) 04/28/24 12:56
Total Bilirubin 0.3 mg/dl (0.2-1.3) 04/28/24 12:56
AST 17 U/L (14-36) 04/28/24 12:56
ALT 12 U/L (0-35) 04/28/24 12:56
Alkaline Phosphatase 115 U/L (38-126) 04/28/24 12:56
Data Reviewed
-
CT Scan: Report Reviewed by me
Medical Tests (Nuc Med, Echo, EKG etc): Report Reviewed by me
Lab Data: Labs Reviewed by me
Old Records: Reviewed
Impression/Plan
-
Reviewed VS: Afebrile RR mid 20s POX 98 on 2L HR 90 BP 165/65
Laboratory Tests
02/23/24 04/28/24
11:43 12:56
WBC 7.9
Hgb 12.0 11.6 L
Carbon Dioxide 27 31 H
BUN 6 L
eGFR > 60.00
CTC PE study
1. No CTA evidence for an acute pulmonary thromboembolism.
2. New large malignant right pleural effusion with a large amount of malignant pleural metastatic disease with greatest involvement of the apex, base, and medial aspect of the right hemithorax. Significant progression compared to the chest CT from
02/17/2024.
3. Right anterior pericardial metastatic lymphadenopathy.
Last hospitalist admission:
Date of Admission: 02/14/24 - Date of Discharge: 02/17/24
DC DXs
Persistent/Worsening Left Lower Extremity deep vein thrombosis, failed outpatient Eliquis
Probable left thigh vein compression due to left thigh sarcoma
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
Constipation
Benign essential hypertension
Gastroesophageal reflux disease
Anxiety/depression
Overactive bladder
HX symptomatic bradycardia status post pacemaker
ASSESSMENT & PLAN
New large symptomatic malignant Rt. pleural effusion with acute hypoxic RI on 2 L NC O2
Significant progression of malignant pleural metastatic disease the right hemithorax
NEG CTC for acute PTE
Right anterior pericardial metastatic LAD
- IR consulted evaluation Rt sided thoracentesis - Dxtic and Rxtic
Persistent/Worsening Left Lower Extremity DVT
- Of note: Unfortunately, there may not be any AC that is effective in this scenario because of the mass itself causing vascular blockage.
- Per vascular surgery consult on last admission - no vascular intervention can be done
- on Eliquis per DC summary as of 02/17/24 and confirmed by patient
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 Grayson)
Per oncologic consultation on last admission in January:
- Currently receives chemotherapy every other week: -Last treatment Feb 01
- Regarding treatment of her spindle cell sarcoma further fourth line systemic therapy as presumably gemcitabine has not been effective in controlling her disease with a new palpable mass and progressive thrombosis.
- Oncologist consulted
Constipation
- c/w [employer]
Essential Hypertension
- c/w amlodipine and olmesartan
Anxiety/Depression
- c/w sertraline
Overactive Bladder
- c/w Oxybutynin
Hx Symptomatic Bradycardia s/p Permanent Pacemaker
DVT Px:
Code: Full
IP TLM
[2024-04-28 18:11] LABS: LDH 204 U/L (120-246)
--- NOTE | 2024-04-28 18:11 | PTCARENOTE ---
Received pt from ER via stretcher, accompanied by ER staff. Pt AAO x3, COSTA , weak; unable to stand to transfer to bed; pt assisted to bed with staff x3. VSS. Telemetry:NSR. Pt with (+) edema BLE. On nc 2 lpm- pulse ox 96%, pt with (+)
MILLS/orthopnea; c/o 'ribs feel tight' with deep breath. Abd obese, soft, non-tender; matt PO. Incont urine; pt requesting Purewick catheter d/t SOB/'I can't stand'. Proper use of Purewick explained to pt; Pt encouraged to attempt use of BSC with
assistance/bedpan. Afebrile; warm and dry; Lt lower leg reddened. Resting in bed at present, no c/o. Will continue to monitor.
[2024-04-28] MEDS: ELIQUIS 5 MG PO (19:39)
[2024-04-28] MEDS: ROXICODONE 5 MG PO (19:39)
[2024-04-28] MEDS: DITROPAN 5 MG PO (19:41)
[2024-04-28 21:08] LABS: Hematocrit 33.8 % (37.0-47.0)
[2024-04-28] MEDS: BENICAR 40 MG PO (21:13)
[2024-04-28] MEDS: NEURONTIN 600 MG PO (21:13)
[2024-04-28] MEDS: MS CONTIN (EXTENDED RELEASE) 15 MG PO (21:13)
[2024-04-28] MEDS: NORVASC 5 MG PO (21:14)
[2024-04-28] MEDS: ZOLOFT 50 MG PO (21:14)
[2024-04-29] VITALS (8 sets, daily range): BP systolic 75–154; BP diastolic 56–72; BMI 34.6
[2024-04-29 04:58] LABS: Hematocrit 33.7 % (37.0-47.0); Hemoglobin 10.7 g/dL (12.0-16.0); Mean Corp Hgb Conc. 31.8 g/dL (33.0-37.0); Mean Corpuscular Hgb 30.1 pg (27.0-31.0); Mean Corpuscular Volume 94.7 fL (81.0-99.0); Mean Platelet Volume 12.3 fL (7.4-10.4); Platelet Count 197 10^3/uL (130-400); Red Blood Cell Count 3.56 10^6/uL (4.20-5.40); Red Cell Dist. Width 15.3 % (11.5-14.5); White Blood Cell Count 6.9 10^3/uL (4.8-10.8)
[2024-04-29 05:19] LABS: Blood Urea Nitrogen 6 mg/dl (7-17); Calcium 9.6 mg/dl (8.4-10.2); Carbon Dioxide 31 mmol/L (22-30); Chloride 103 mmol/L (98-107); Estimated Creatinine Clearance 88 ml/min; Glucose 108 mg/dl (70-99); Sodium 140 mmol/L (135-145); eGFR > 60.00
--- NOTE | 2024-04-29 08:00 | W.PN.HOSP.TC ---
Addendum entered and electronically signed by Sol Bar MD 04/29/24 13:19:
I saw and evaluated the patient independently. I reviewed the resident�s note and agree with findings and plan as documented by Dr. Reagan.
GENERAL: well developed, well nourished, obese female in no apparent distress
HEENT:NC/AT O2 NC in place (does not wear at home)
HEART: regular rate and rhythm, +S1, +S2
LUNGS : clear to auscultation bilaterally
ABDOM: soft, nontender, nondistended, + bowel sounds
EXT: no cyanosis, clubbing--left leg swollen compared to right--firm area/nodule left upper inner thigh
NEUROLOGIC: grossly intact
New large symptomatic right pleural effusion causing acute hypoxemic respiratory insufficiency requiring supplemental O2-- CT showed right pleural effusion, negative for acute PTE-- Also showed significant progression of malignant pleural metastatic
disease of R hemithorax, right anterior pericardial metastatic lymphadenopathy-- S/p R thoracentesis 04/29- removal of 1050mL straw colored fluid. Labs, cytology, culture pending--review of d/c summary from last admission indicates metastatic
disease (pt either in denial or doesn't know)
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 Grayson)--on 4th line treatment--await onc
Persistent/Worsening Left Lower Extremity DVT --was discharged on SQ lovenox last admission--now on Eliquis- Of note: Unfortunately, there may not be any AC that is effective in this scenario because of the mass itself causing vascular blockage- Per
vascular surgery consult on last admission - no vascular intervention can be done
Chronic anemia, likely anemia of chronic disease- Hgb 11.6 on admission, appears at baseline- No signs of acute blood loss or ongoing bleeding/bruising
Constipation- Continue home bowel regimen
Essential Hypertension- Continue home amlodipine and olmesartan
Anxiety/Depression- Continue home sertraline
Overactive Bladder- Continue home Oxybutynin
Hx Symptomatic Bradycardia s/p Permanent Pacemaker
Code status: full (confirmed with patient 04/29)
DVT proph-- Eliquis BID
Original Note:
Today's Communication/Plan
-
s/p thoracentesis today- labs/cytology/culture pending; oncology consulted
Assessment / Plan
Assessment / Plan
78yo F with PMH spindle cell sarcoma, persistent LLE DVT, htn, anxiety/depression who presented to ED 04/28/24 for right 'rib pain' and shortness of breath.
New large symptomatic right pleural effusion
Hypoxemic respiratory insufficiency requiring supplemental O2 at 2L NC
- CT showed right pleural effusion, negative for acute PTE. 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
- S/p R thoracentesis 04/29- removal of 1050mL straw colored fluid. Labs, cytology, culture pending.
- Symptomatic improvement s/p thoracentesis
- Patient unaware of possible metastatic pleural involvement, though she does know her lungs are closely monitored given her existing cancer. Await cytology results and consider deferring discussion of diagnosis/prognosis to oncology. Oncology
consulted.
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 Grayson)
Per oncologic consultation on last admission in January:
- Currently receives chemotherapy every other week: -Last treatment Feb 01
- Regarding treatment of her spindle cell sarcoma further fourth line systemic therapy as presumably gemcitabine has not been effective in controlling her disease with a new palpable mass and progressive thrombosis.
- Oncologist consulted
Persistent/Worsening Left Lower Extremity DVT
- Of note: Unfortunately, there may not be any AC that is effective in this scenario because of the mass itself causing vascular blockage.
- Per vascular surgery consult on last admission - no vascular intervention can be done
- Continue eliquis BID
Chronic anemia, likely anemia of chronic disease
- Hgb 11.6 on admission, appears at baseline
- No signs of acute blood loss or ongoing bleeding/bruising
Constipation
- Continue home bowel regimen
Essential Hypertension
- Continue home amlodipine and olmesartan
Anxiety/Depression
- Continue home sertraline
Overactive Bladder
- Continue home Oxybutynin
Hx Symptomatic Bradycardia s/p Permanent Pacemaker
Code status: full (confirmed with patient 04/29)
Has living will, advanced directive at home. CM consulted. Says her 4 children would be MCM if needed.
VTE ppx: Eliquis BID
Diet: 2g Na, cholesterol lowering
Dispo planning: TBD
Anticipated Discharge: > 48 hours
Subjective/Interval History
-
Date of Service: April 29, 2024
No acute events overnight. Continues to report 'right rib pain' that is worse with moving and deep breaths, improved with morphine and oxycodone. Endorses shortness of breath, left leg swelling and tenderness. Denies lightheadedness, dizziness,
chest pain/pressure, nausea, vomiting, abdominal pain, diarrhea. Reports chronic constipation, last BM yesterday AM, no black or bloody stools. Tolerating PO diet. Has not ambulated yet today.
Objective Data
-
Labs:
Laboratory Results
04/28/24 04/29/24
20:59 04:28
WBC 6.9
Hgb 10.7 L
Hct 33.8 L 33.7 L
Plt Count 197
Sodium 140
Potassium 4.0
Chloride 103
Carbon Dioxide 31 H
BUN 6 L
Creatinine 0.6
Glucose 108 H
Calcium 9.6
Vital Signs:
Vital Signs
Temp Pulse Resp BP Pulse Ox
98.4 F 71 16 132/64 91
04/29/24 03:55 04/29/24 03:55 04/29/24 03:55 04/29/24 03:55 04/29/24 03:55
I&O
04/28/24 04/29/24 04/30/24
06:59 06:59 06:59
Intake Total 480 / 480
Balance 480 / 480
Review of Systems
-
History Source: Patient (see subjective)
Physical Exam
-
General: Well Developed, Well Nourished, No Apparent Distress, Comfortable, Conversant and Obese
HEENT: Normocephalic, Atraumatic and Anicteric
Respiratory: Clear to Auscultation (left), Non Labored Respirations and Decreased Breath Sounds (right)
Cardiac: Regular Rhythm and S1/S2
GI: Soft, Nontender, Nondistended and Normal Bowel Sounds
Musculoskeletal: Edema, Left Lower Extrem (L lower leg 2+ pitting edema, L thigh palpable mass and warm/tender secondary to DVT)
Skin: Warm, Dry and Other (no trauma or visible deformity to R ribs in area of pain)
Neuro: Awake, Alert, Oriented, AO x 3 and Nonfocal/Grossly Intact
Psych: Calm and Intact Judgement/Insight
Data Reviewed
-
CT Scan: Image personally visualized and interpreted and Report Reviewed by me
Labs: Labs Reviewed by me
[2024-04-29] MEDS: ROXICODONE 5 MG PO ×3 (08:43→22:37)
[2024-04-29] MEDS: DITROPAN 5 MG PO ×2 (08:45→20:11)
[2024-04-29] MEDS: ELIQUIS 5 MG PO ×2 (08:45→20:11)
[2024-04-29] MEDS: COLACE 100 MG PO (08:45)
[2024-04-29] MEDS: MIRALAX 17 GRAMS PO (08:45)
[2024-04-29] MEDS: SENOKOT 8.6 MG PO (08:45)
[2024-04-29] MEDS: MS CONTIN (EXTENDED RELEASE) 15 MG PO ×2 (09:13→20:13)
--- NOTE | 2024-04-29 09:40 | CON.ONC ---
Impression
Impression
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
Plan
Plan
eleanor malignant pleural effusion-- thoracentesis with consideration early for palliative pleural catheter drainage given chemorefractory state-- completion radiation therapy as outpatient when stable for progression of left thigh mass and
consideration of vascular stent if no response--- Follow-up during hospitalization
Patient History
History of Present Illness
New R lower chesrt/flank pain
78-year-old white female with history of left lower extremity spindle cell sarcoma diagnosed 12/29/2021 subsequently underwent excision revealing a dedifferentiated liposarcoma salvage Doxil chemotherapy initiated July 26, 2023 based on his
recommendation though she developed severe allergic reaction and was switched to Eribulin/Gemcitabine with subsequent surveillance scans noting slow progression of both the pulmonary as well as her recurrent leg sarcoma.
Notes progressive pleuritic type chest pain occurring over the prior 72 hours note uncontrolled by her immediate release to her chronic analgesia she uses for leg prompting evaluation in the ER for which a CT scan noted a large right pleural
effusion with Grace of her multiple pleural-based apical and mid lower lobe lesions from prior imaging She normally does not use oxygen though supplemental oxygen was initiated as room air pulse oximetry measured oxygen saturation 88%.
Past-Medical/Surgical History
RUTH; sick sinus syndrome status postcardiac pacemaker placement; essential hypertension;
Patient Medication
�Medication �Instructions �Recorded �Confirmed �Last Taken �Type
sertraline 50 mg tablet 50 mg PO HS 03/18/11 04/28/24 04/27/24 22:00 History
50 mg
amlodipine 5 mg tablet 5 mg PO HS 12/29/21 04/28/24 04/27/24 22:00 History
olmesartan 40 mg tablet 40 mg PO HS 11/12/22 04/28/24 04/27/24 22:00 History
oxybutynin chloride 10 mg 10 mg PO HS 11/12/22 04/28/24 04/27/24 22:00 History
tablet,extended release 24 hr
oxycodone 5 mg tablet 5 mg PO Q6HPRN PRN break though 02/14/24 04/28/24 02/14/24 History
pains
docusate sodium 100 mg capsule 100 mg PO DAILY #0 caps 02/17/24 04/28/24 04/27/24 11:00 Rx
(Colace)
polyethylene glycol 3350 17 gram 17 g PO DAILY #0 ea 02/17/24 04/28/24 02/13/24 Rx
oral powder packet (Miralax)
sennosides 8.6 mg tablet (senna) 8.6 mg PO DAILY #0 tabs 02/17/24 04/28/24 04/27/24 08:00 Rx
apixaban 5 mg tablet (Eliquis) 5 mg PO BID 04/28/24 04/28/24 04/27/24 19:00 History
gabapentin 300 mg capsule 600 mg PO HS 04/28/24 04/28/24 04/27/24 22:00 History
morphine 15 mg tablet,extended 15 mg PO [id number] PRN severe pain 04/28/24 04/28/24 3 Days Ago History
release ~04/25/24
ondansetron HCl 8 mg tablet 8 mg PO Q8HPRN PRN nausea 04/28/24 04/28/24 Unknown History
Active Medications
Generic Name Dose Route Start Last Admin
Trade Name Freq PRN Reason Stop Dose Admin
Amlodipine Besylate 5 mg 04/28/24 22:00 04/28/24 21:14
Amlodipine 5 Mg Tablet PO 05/26/24 21:59 5 mg
HS MIKALA Administration
Apixaban 5 mg 04/28/24 20:00 04/29/24 08:45
Apixaban (Eliquis) 5 Mg Tablet PO 05/26/24 19:59 5 mg
BID MIKALA Administration
Bisacodyl 10 mg 04/28/24 16:25
Bisacodyl 10 Mg Rectal Suppository RECTAL 05/26/24 16:24
[id number] PRN
constipation
Docusate Sodium 100 mg 04/29/24 08:00 04/29/24 08:45
Docusate Sodium 100 Mg Capsule PO 05/27/24 07:59 100 mg
DAILY MIKALA Administration
Gabapentin 600 mg 04/28/24 22:00 04/28/24 21:13
Gabapentin 300 Mg Capsule PO 05/26/24 21:59 600 mg
HS MIKALA Administration
Heparin Sodium (Porcine) 500 unit 04/29/24 08:00
Heparin Flush Pf (100 Unit/Ml) 5 Ml Syringe IV 05/27/24 07:59
PER PROTOCOL MIKALA
Morphine Sulfate 15 mg 04/28/24 18:00 04/29/24 09:13
Morphine 15 Mg Extended Release Tablet PO 05/12/24 17:59 15 mg
[id number] PRN Administration
severe pain
Olmesartan 40 mg 04/28/24 22:00 04/28/24 21:13
Olmesartan 20 Mg Tablet PO 05/26/24 21:59 40 mg
HS MIKALA Administration
Ondansetron HCl 8 mg 04/28/24 16:47
Ondansetron 4 Mg Tablet PO 05/26/24 16:46
Q8HPRN PRN
nausea
Oxybutynin Chloride 5 mg 04/28/24 20:00 04/29/24 08:45
Oxybutynin 5 Mg Tablet PO 05/26/24 19:59 5 mg
BID MIKALA Administration
Oxycodone HCl 5 mg 04/28/24 16:25 04/29/24 08:43
Oxycodone 5 Mg Regular Release Tablet PO 05/12/24 16:24 5 mg
Q6HPRN PRN Administration
break though pains
Polyethylene Glycol 17 grams 04/29/24 08:00 04/29/24 08:45
Polyethylene Glycol Powder 17 Grams Packet PO 05/27/24 07:59 17 grams
DAILY MIKALA Administration
Senna/Docusate Sodium 1 tablet 04/28/24 16:25
Docusate W/Senna (Misa-Colace) Tablet PO 05/26/24 16:24
BIDPRN PRN
constipation
Sennosides 8.6 mg 04/29/24 08:00 04/29/24 08:45
Sennosides (Senokot) 8.6 Mg Tablet PO 05/27/24 07:59 8.6 mg
DAILY MIKALA Administration
Sertraline HCl 50 mg 04/28/24 22:00 04/28/24 21:14
Sertraline 50 Mg Tablet PO 05/26/24 21:59 50 mg
HS MIKALA Administration
Sodium Chloride 0 flush 04/28/24 17:00
Sodium Chloride 0.9% (Flush) Syringe IV 05/26/24 16:59
PER PROTOCOL MIKALA
Review of Systems
-
History Source: Patient
All Other Systems: Reviewed and Negative (Other than as per HPI)
Physical Exam
-
General: Comfortable and Appears Chronically Ill
HEENT: Moist Mucous Membranes
Cardiology: Normal Sinus Rhythm
Pulmonary: Rhonchi
GI: Soft and Normal Bowel Sounds
Musculoskeletal: Edema, Left Lower Extrem (Approximately twice the size of the right lower extremity)
Neurology: Non Focal
Psych: Calm and Intact Judgement/Insight
Labs
Lab Results
WBC 6.9 10^3/uL (4.8-10.8) 04/29/24 04:28
RBC 3.56 10^6/uL (4.20-5.40) L 04/29/24 04:28
Hgb 10.7 g/dL (12.0-16.0) L 04/29/24 04:28
Hct 33.7 % (37.0-47.0) L 04/29/24 04:28
MCV 94.7 fL (81.0-99.0) 04/29/24 04:28
MCH 30.1 pg (27.0-31.0) 04/29/24 04:28
MCHC 31.8 g/dL (33.0-37.0) L 04/29/24 04:28
RDW 15.3 % (11.5-14.5) H 04/29/24 04:28
Plt Count 197 10^3/uL (130-400) 04/29/24 04:28
MPV 12.3 fL (7.4-10.4) H 04/29/24 04:28
Abs Immat Gran (auto) 0.0 10^3/uL (0-0.05) 04/28/24 12:56
Absolute Neuts (auto) 6.2 10^3/uL (1.4-6.5) 04/28/24 12:56
Absolute Lymphs (auto) 0.9 10^3/uL (1.2-3.4) L 04/28/24 12:56
Absolute Monos (auto) 0.7 10^3/uL (0.1-0.6) H 04/28/24 12:56
Absolute Eos (auto) 0.1 10^3/uL (0-0.7) 04/28/24 12:56
Absolute Basos (auto) 0.1 10^3/uL (0-0.2) 04/28/24 12:56
Immature Gran % 0.3 % (0-0.5) 04/28/24 12:56
Neutrophils % 78.5 % (42.2-75.2) H 04/28/24 12:56
Lymphocytes % 11.0 % (20.5-51.1) L 04/28/24 12:56
Monocytes % 8.5 % (1.7-9.3) 04/28/24 12:56
Eosinophils % 1.1 % (0-6) 04/28/24 12:56
Basophils % 0.6 % (0-2) 04/28/24 12:56
Creatinine 0.6 mg/dL (0.6-1.0) 04/29/24 04:28
Vital Signs
Vital Signs
Temp Pulse Resp BP Pulse Ox
98.8 F 78 20 137/62 93
04/29/24 07:55 04/29/24 07:55 04/29/24 07:55 04/29/24 07:55 04/29/24 07:55
[2024-04-29 11:06] LABS: Body Fluid pH 7.45
[2024-04-29 11:25] LABS: Body Fluid Amylase < 30 U/L; Body Fluid Glucose 115 mg/dl; Body Fluid LDH 115 U/L; Body Fluid Protein 3.6 g/dl; Body Fluid Triglycerides 35 mg/dl
[2024-04-29 11:39] LABS: Body Fluid WBC 506 /CUMM
[2024-04-29 11:40] LABS: Body Fluid Mononuclear 80.8 %; Body Fluid Polymorphonuclear 19.2 %
[2024-04-29 11:59] LABS: Body Fluid Second Tech AP
--- NOTE | 2024-04-29 12:33 | PTCARENOTE ---
Patient returned from right sided thoracentesis - vital signs stable. States she has no SOB or other symptoms. Patient states pain in right flank area and back is better. No bleeding from site.
--- NOTE | 2024-04-29 14:16 | CM ---
Addendum entered by Loyda Krishnan 04/29/24 14:17:
AD info provided to pt.
Original Note:
CM following re: d/c planning.
CM met with pt and adult children at bedside.
Pt reports she resides alone.
She uses a walker, has raised toilet seats and hospital bed.
She is current with [facility].
Her PCP is Nadia MURCIA) and pharmacy is [facility] [place].
Pt plans to return home and agrees to resume services with [facility].
[2024-04-29] MEDS: BENICAR 40 MG PO (20:11)
[2024-04-29] MEDS: NORVASC 5 MG PO (20:11)
[2024-04-29] MEDS: NEURONTIN 600 MG PO (20:11)
[2024-04-29] MEDS: ZOLOFT 50 MG PO (20:12)
[2024-04-30 03:52] VITALS: BP 123/55
[2024-04-30 06:00] VITALS: BMI 34.6
[2024-04-30 07:15] VITALS: BP 129/52
--- NOTE | 2024-04-30 07:53 | W.PN.HOSP.TC ---
Today's Communication/Plan
-
repeat imaging to assess pleural effusion reaccumulation; cytology and culture pending; oncology following
Assessment / Plan
Assessment / Plan
78yo F with PMH spindle cell sarcoma, persistent LLE DVT, htn, anxiety/depression who presented to ED 04/28/24 for right 'rib pain' and shortness of breath.
New large symptomatic right pleural effusion
Hypoxemic respiratory insufficiency requiring supplemental O2 at 2L NC
- CT showed right pleural effusion, negative for acute PTE. 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
- S/p R thoracentesis 04/29- removal of 1050mL straw colored fluid. Cytology, culture pending.
- Pleural prot/serum prot > 0.5 --> exudative pleural effusion
- Temporary symptomatic improvement s/p thoracentesis ... though symptoms returned within 24 hours.
- Oncology consulted, appreciate recs- considering palliative pleural cath. Based on my discussion with patient, she is unaware of possible metastatic pleural involvement on CT imaging, though she does know her lungs are closely monitored given her
existing cancer and knows we are awaiting cytology results from thoracentesis. Defer discussion of diagnosis/prognosis to oncology.
- Given return of symptoms, consider repeat chest imaging to assess for fluid reaccumulation.
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
Persistent/Worsening Left Lower Extremity DVT
- Oncology following, appreciate recs. Previously was on chemotherapy, now completing radiation therapy outpatient for LLE mass.
- Of note: Unfortunately, there may not be any AC that is effective in this scenario because of the mass itself causing vascular blockage.
- Per vascular surgery consult on last admission - no vascular intervention can be done
- Continue eliquis BID
Chronic anemia, likely anemia of chronic disease
- Hgb 11.6 on admission, appears at baseline
- No signs of acute blood loss or ongoing bleeding/bruising
Constipation
- Continue home bowel regimen
Essential Hypertension
- Continue home amlodipine and olmesartan
Anxiety/Depression
- Continue home sertraline
Overactive Bladder
- Continue home Oxybutynin
Hx Symptomatic Bradycardia s/p Permanent Pacemaker
Code status: full (confirmed with patient 04/29)
Has living will, advanced directive at home. CM consulted. Says her 4 children would be MCM if needed.
VTE ppx: Eliquis BID
Diet: 2g Na, cholesterol lowering
Dispo planning: TBD
Anticipated Discharge: > 48 hours
Subjective/Interval History
-
Date of Service: April 30, 2024
No acute events overnight. Her 'right rib pain' was improved yesterday following thoracentesis and removal of 1050mL of fluid; however her pain has returned today. It is worse with moving and taking deep breaths, slightly improved with morphine.
Reports her legs are the same- baseline for several months has been left leg swelling and tenderness. Denies lightheadedness, dizziness, chest pain, nausea, vomiting, abdominal pain, diarrhea, constipation. Last BM 2 days ago, no black or bloody
stools. Tolerating PO diet.
Objective Data
-
Labs:
Laboratory Results
04/29/24 04:28
04/29/24 04:28
PT 14.4 Sec (11.4-14.6) 04/28/24 12:56
INR 1.09 04/28/24 12:56
APTT 32.1 Sec (23.4-35.0) 04/28/24 12:56
AST 17 U/L (14-36) 04/28/24 12:56
ALT 12 U/L (0-35) 04/28/24 12:56
Microbiology Results - Entire Visit
04/29/24 10:43 Pleural Fluid Gram Stain - Preliminary
Other lab results - Last 24 hours
04/29/24 Range/Units
10:43
Fluid pH 7.45
Fluid WBC 506 /CUMM
Fluid Mononuclear Cell 80.8 %
Fl Polymorphonucl Cell 19.2 %
Fluid Other Cells Not Reportable
Fluid Diff Path Review Not Reportable
Fluid Glucose 115 mg/dl
Fluid Total Protein 3.6 g/dl
Fluid LDH 115 U/L
Fluid Amylase < 30 U/L
Fluid Triglycerides 35 mg/dl
Vital Signs:
Vital Signs
Temp Pulse Resp BP Pulse Ox
98.6 F 88 20 123/55 92
04/30/24 03:52 04/30/24 03:52 04/30/24 03:52 04/30/24 03:52 04/30/24 03:52
I&O
04/29/24 04/30/24 05/01/24
06:59 06:59 06:59
Intake Total 480 / 480 1080 / 1080
Balance 480 / 480 1080 / 1080
Review of Systems
-
History Source: Patient (see subjective)
Physical Exam
-
General: Well Developed, Well Nourished, No Apparent Distress, Comfortable, Conversant and Obese
HEENT: Normocephalic, Atraumatic, Anicteric and Oxygen (2L NC)
Respiratory: Clear to Auscultation (left), Non Labored Respirations and Decreased Breath Sounds (right)
Cardiac: Regular Rhythm and S1/S2
GI: Soft, Nontender, Nondistended and Normal Bowel Sounds
Musculoskeletal: Edema, Left Lower Extrem (L lower leg 2+ pitting edema, L thigh palpable mass and warm/tender secondary to DVT)
Skin: Warm, Dry and Other (no trauma or visible deformity to R ribs in area of pain)
Neuro: Awake, Alert, Oriented, AO x 3 and Nonfocal/Grossly Intact
Psych: Calm and Intact Judgement/Insight
Data Reviewed
-
CT Scan: Image personally visualized and interpreted and Report Reviewed by me
Labs: Labs Reviewed by me
[2024-04-30] MEDS: MIRALAX 17 GRAMS PO (08:17)
[2024-04-30] MEDS: ELIQUIS 5 MG PO ×2 (08:18→20:09)
[2024-04-30] MEDS: SENOKOT 8.6 MG PO (08:18)
[2024-04-30] MEDS: COLACE 100 MG PO (08:18)
[2024-04-30] MEDS: MS CONTIN (EXTENDED RELEASE) 15 MG PO (08:19)
[2024-04-30] MEDS: DITROPAN 5 MG PO ×2 (08:19→20:08)
--- NOTE | 2024-04-30 09:13 | VNURNOTE ---
Chart reviewed. Patient is current with [facility] nursing, PT, OT. Will continue to follow hospital course and DC plans.
--- NOTE | 2024-04-30 10:57 | W.PN.ONC ---
Today's Communication / Plan
-
She is having a little more pain today than she did prior to the thoracentesis. I have increased her MS Contin, as well as the interval for her oxycodone. We did discuss a possible Pleurx catheter, she does not wish to make a decision regarding
that at this point.
Impression
Impression
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
Plan
Plan
eleanor malignant pleural effusion-- thoracentesis with consideration early for palliative pleural catheter drainage given chemorefractory state-- completion radiation therapy as outpatient when stable for progression of left thigh mass and
consideration of vascular stent if no response--- Follow-up during hospitalization
Subjective/Objective
Subjective/Objective
A little more pain today than yesterday. Otherwise no new complaints.
Physical examination is unchanged.
Vital Signs:
Vital Signs
Temp Pulse Resp BP Pulse Ox
99.2 F 82 20 129/52 92
04/30/24 07:15 04/30/24 07:15 04/30/24 07:15 04/30/24 07:15 04/30/24 08:15
Lab Results:
Laboratory Data
WBC 6.9 10^3/uL (4.8-10.8) 04/29/24 04:28
Hgb 10.7 g/dL (12.0-16.0) L 04/29/24 04:28
Plt Count 197 10^3/uL (130-400) 04/29/24 04:28
PT 14.4 Sec (11.4-14.6) 04/28/24 12:56
INR 1.09 04/28/24 12:56
APTT 32.1 Sec (23.4-35.0) 04/28/24 12:56
eGFR > 60.00 04/29/24 04:28
Orders
Orders
Orders From Last 24 Hours
04/30/24 10:57
Morphine Sulfate Extended Rel. [Ms Contin (Extended Release)] 30 mg PO Q12
04/30/24 10:57
Oxycodone [Roxicodone] 5 mg PO Q4HPRN PRN
[2024-04-30 11:28] VITALS: BP 137/48
--- NOTE | 2024-04-30 11:59 | W.PN.UPDATE ---
Update Note
Progress Note Update
I saw and evaluated the patient. I reviewed the resident�s note and agree with findings and plan as documented in the resident�s note.
Patient complains of right-sided posterior chest pain and shortness of breath.
Gen: NAD, AAOx3.
Eyes: EOMI, PERRLA, no scleral icterus.
Neck: supple.
CV: RRR, +S1/S2, no m/r/g.
Resp: Decreased breath sounds in the right base, no rales, wheezes, or rhonchi.
Abd: +BS, soft, NT, ND
Skin: No rashes.
Neuro: CN 2-12 intact, non-focal.
Psych: Normal mood and affect.
Acute hypoxemic respiratory insufficiency due to new large symptomatic right pleural effusion:
-currently on 2L NC O2
-CT chest showed right pleural effusion, no acute PTE. 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
-s/p R thoracentesis 04/29 with removal of 1050cc of exudative fluid. Cytology, culture pending.
-temporary symptomatic improvement s/p thoracentesis, though symptoms returned within 24 hours.
-onc following, defer discussion of diagnosis/prognosis to oncology.
-Given return of symptoms, repeat CT chest
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
Persistent/Worsening Left Lower Extremity DVT
-Onc following
-Previously was on chemotherapy, now completing radiation therapy outpatient for LLE mass
-Of note: Unfortunately, there may not be any AC that is effective in this scenario because of the mass itself causing vascular blockage.
-Per vascular surgery consult on last admission, no vascular intervention can be done
-Continue Eliquis
Other problems:
Anemia of chronic disease, trend Hb
Constipation: cont bowel regimen
Essential Hypertension: cont Norvasc/ARB
Anxiety/Depression: cont sertraline
Obesity due to excess calories
Overactive Bladder: Oxybutynin
h/o Symptomatic Bradycardia s/p Permanent Pacemaker
FULL/Eliquis
--- NOTE | 2024-04-30 13:05 | CM ---
Patient seen at bedside. Patient stated that she has had [facility] in the past and would like them again. CM will continue to follow for discharge planning needs.
Plan home with [facility] vs SNF
[2024-04-30] MEDS: ROXICODONE 5 MG PO (15:26)
[2024-04-30 15:39] VITALS: BP 120/48
[2024-04-30 19:50] VITALS: BP 118/55
[2024-04-30] MEDS: BENICAR 40 MG PO (20:08)
[2024-04-30] MEDS: MS CONTIN (EXTENDED RELEASE) 30 MG PO (20:08)
[2024-04-30] MEDS: NEURONTIN 600 MG PO (20:08)
[2024-04-30] MEDS: ZOLOFT 50 MG PO (20:09)
[2024-04-30] MEDS: NORVASC 5 MG PO (20:09)
[2024-04-30 23:55] VITALS: BP 99/53
[2024-05-01 03:50] VITALS: BP 109/44
[2024-05-01] MEDS: ROXICODONE 5 MG PO (03:58)
[2024-05-01 05:32] LABS: Hematocrit 33.5 % (37.0-47.0); Hemoglobin 10.6 g/dL (12.0-16.0); Mean Corp Hgb Conc. 31.6 g/dL (33.0-37.0); Mean Corpuscular Hgb 30.7 pg (27.0-31.0); Mean Corpuscular Volume 97.1 fL (81.0-99.0); Mean Platelet Volume 12.5 fL (7.4-10.4); Platelet Count 190 10^3/uL (130-400); Red Blood Cell Count 3.45 10^6/uL (4.20-5.40); Red Cell Dist. Width 15.2 % (11.5-14.5)
[2024-05-01 06:00] VITALS: BMI 34.6
[2024-05-01 06:01] LABS: Blood Urea Nitrogen 14 mg/dl (7-17); Calcium 9.7 mg/dl (8.4-10.2); Carbon Dioxide 30 mmol/L (22-30); Chloride 96 mmol/L (98-107); Estimated Creatinine Clearance 74 ml/min; Glucose 113 mg/dl (70-99); Potassium 4.5 mmol/L (3.5-5.1); Sodium 133 mmol/L (135-145); eGFR > 60.00
[2024-05-01 07:45] VITALS: BP 97/66
--- NOTE | 2024-05-01 08:36 | W.PN.HOSP.TC ---
Today's Communication/Plan
-
adjust morphine dose; cytology and culture pending; oncology following
Assessment / Plan
Assessment / Plan
78yo F with PMH spindle cell sarcoma, persistent LLE DVT, htn, anxiety/depression who presented to ED 04/28/24 for right 'rib pain' and shortness of breath.
New large symptomatic right pleural effusion
Hypoxemic respiratory insufficiency requiring supplemental O2 at 2L [place]
- CT showed right pleural effusion, negative for acute PTE. 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
- S/p R thoracentesis 04/29- removal of 1050mL straw colored fluid. Cytology, culture pending.
- Pleural prot/serum prot > 0.5 --> exudative pleural effusion
- Temporary symptomatic improvement s/p thoracentesis ... though symptoms returned within 24 hours.
- Oncology consulted, appreciate recs- considering palliative pleural cath. Based on my discussion with patient, she is unaware of possible metastatic pleural involvement on CT imaging, though she does know her lungs are closely monitored given her
existing cancer and knows we are awaiting cytology results from thoracentesis. Defer discussion of diagnosis/prognosis to oncology.
- Repeat chest CT 04/30 showed presence of pleural effusion though improved from admission
- Pain adequately controlled. Reviewed with nursing. Due to concern for weakness/lethargy after 30mg morphine, will decrease dose to 15mg. Discussed with patient that dose is being decreased and if she is in pain, she should use call dave for prn.
She is agreeable.
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
Persistent/Worsening Left Lower Extremity DVT
- Oncology following, appreciate recs. Previously was on chemotherapy, now completing radiation therapy outpatient for LLE mass.
- Of note: Unfortunately, there may not be any AC that is effective in this scenario because of the mass itself causing vascular blockage.
- Per vascular surgery consult on last admission - no vascular intervention can be done
- Continue eliquis BID
Chronic anemia, likely anemia of chronic disease
- Hgb 11.6 on admission, appears at baseline
- No signs of acute blood loss or ongoing bleeding/bruising
Constipation
- Continue home bowel regimen
- No BM this hospitalization- will add dulcolax suppository today
Essential Hypertension- Continue home amlodipine and olmesartan
Anxiety/Depression- Continue home sertraline
Overactive Bladder- Continue home Oxybutynin
Hx Symptomatic Bradycardia s/p Permanent Pacemaker
Code status: full (confirmed with patient 04/29)
Has living will, advanced directive at home. CM consulted. Says her 4 children would be MCM if needed.
VTE ppx: Eliquis BID
Diet: 2g Na, cholesterol lowering
Dispo planning: TBD, pending PT/OT eval
Anticipated Discharge: 24 - 48 hours
Subjective/Interval History
-
Date of Service: May 01, 2024
No acute events overnight. Continues to report 'right rib pain.' No other complaints. Denies lightheadedness, dizziness, chest pain, shortness of breath, nausea, vomiting, abdominal pain, diarrhea, constipation. Tolerating PO diet. Has been OOB to
bedside commode, felt very weak.
Objective Data
-
Labs:
Laboratory Results
05/01/24
05:09
WBC 8.0
Hgb 10.6 L
Hct 33.5 L
Plt Count 190
Sodium 133 L
Potassium 4.5
Chloride 96 L
Carbon Dioxide 30
BUN 14
Creatinine 0.7
Glucose 113 H
Calcium 9.7
04/29/24 10:43 Pleural Fluid Body Fluid Culture - Preliminary
No Growth After 18-24 Hours
04/29/24 10:43 Pleural Fluid Gram Stain - Preliminary
Vital Signs:
Vital Signs
Temp Pulse Resp BP Pulse Ox
97.7 F 75 18 97/66 91
05/01/24 07:45 05/01/24 07:45 05/01/24 07:45 05/01/24 07:45 05/01/24 07:45
I&O
04/30/24 05/01/24 05/02/24
06:59 06:59 06:59
Intake Total 1080 / 1080 960 / 960
Balance 1080 / 1080 960 / 960
Review of Systems
-
History Source: Patient (see subjective)
Physical Exam
-
General: Well Developed, Well Nourished, No Apparent Distress, Comfortable, Conversant and Obese
HEENT: Normocephalic, Atraumatic, Anicteric and Oxygen (2L NC)
Respiratory: Clear to Auscultation and Non Labored Respirations
Cardiac: Regular Rhythm and S1/S2
GI: Soft, Nontender, Nondistended and Normal Bowel Sounds
Musculoskeletal: Edema, Left Lower Extrem (L lower leg 2+ pitting edema, L thigh palpable mass and warm/tender secondary to DVT)
Skin: Warm and Dry
Neuro: Awake, Alert, Oriented, AO x 3 and Nonfocal/Grossly Intact
Psych: Calm and Intact Judgement/Insight
Data Reviewed
-
CT Scan: Image personally visualized and interpreted and Report Reviewed by me
Labs: Labs Reviewed by me
[2024-05-01] MEDS: MIRALAX 17 GRAMS PO (09:24)
[2024-05-01] MEDS: DITROPAN 5 MG PO ×2 (09:24→19:43)
[2024-05-01] MEDS: ELIQUIS 5 MG PO ×2 (09:24→19:43)
[2024-05-01] MEDS: SENOKOT 8.6 MG PO (09:24)
[2024-05-01] MEDS: COLACE 100 MG PO (09:24)
[2024-05-01] MEDS: DULCOLAX 10 MG RECTAL (09:26)
[2024-05-01] MEDS: MS CONTIN (EXTENDED RELEASE) PO (09:29)
[2024-05-01] MEDS: MS CONTIN (EXTENDED RELEASE) 15 MG PO ×2 (09:30→19:43)
--- NOTE | 2024-05-01 10:22 | CM ---
Patient seen at bedside. Patient on 1 liter O2 at this time. Per [facility] patient is for new patient visit with Palliative care. CM will continue to follow for discharge planning needs.
Plan; home with [facility]; watch for home O2 and functional needs.
--- NOTE | 2024-05-01 10:29 | W.PN.UPDATE ---
Update Note
Progress Note Update
I saw and evaluated the patient. I reviewed the resident�s note and agree with findings and plan as documented in the resident�s note.
Patient complains of right-sided lateral and posterior chest pain. Denies shortness of breath.
Gen: remains NAD, AAOx3.
Eyes: EOMI, PERRLA, no scleral icterus.
Neck: supple.
CV: remains RRR, +S1/S2, no m/r/g.
Resp: CTAB anteriorly, no rales, wheezes, or rhonchi.
Abd: +BS, soft, NT, ND
Skin: No rashes.
Neuro: CN 2-12 intact, non-focal.
Psych: Normal mood and affect.
CT chest 04/30/24: Improved moderate right pleural effusion. Pleural-based right-sided pulmonary masses suggestive of metastatic disease. Stable. Mild right lower lobe consolidation probably atelectasis. Pneumonia not excluded. Improved.
Acute hypoxemic respiratory insufficiency due to new large symptomatic right pleural effusion:
-currently on 2L [place] O2
-initial CT chest showed right pleural effusion, no acute PTE. 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
-s/p R thoracentesis 04/29 with removal of 1050cc of exudative fluid. Cytology pending, culture NGTD.
-temporary symptomatic improvement s/p thoracentesis, though symptoms returned within 24 hours.
-repeat CT chest above, R pleural effusion not worsened.
-pain control
-onc following, defer discussion of diagnosis/prognosis to oncology.
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
Persistent/Worsening Left Lower Extremity DVT
-Onc following
-Previously was on chemotherapy, now completing radiation therapy outpatient for LLE mass
-Of note: Unfortunately, there may not be any AC that is effective in this scenario because of the mass itself causing vascular blockage.
-Per vascular surgery consult on last admission, no vascular intervention can be done
-Continue Eliquis
Other problems:
Anemia of chronic disease, trend Hb
Constipation: cont bowel regimen
Essential Hypertension: cont Norvasc with holding parameters, stop Olmesartan
Anxiety/Depression: cont sertraline
Obesity due to excess calories
Overactive Bladder: Oxybutynin
h/o Symptomatic Bradycardia s/p Permanent Pacemaker
Hyponatremia, mild
FULL/Eliquis
--- NOTE | 2024-05-01 11:01 | W.PN.ONC ---
Today's Communication / Plan
-
cytology pending s/p thoracentesis, most certainly malignant
supplemental O2
pain mgmt, opioids were increased 04/30/24
Bowel regimen
Discussed goals of care - wants to continue cancer treatment
Resume palliative RT after discharge
Oral Votrient (oral targeted therapy) to start once she completes radiation
Impression
Impression
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
lung mets, pleural effusion, s/p thoracentesis [id number], 04/29/24
Pain
Plan
Plan
cytology pending s/p thoracentesis, most certainly malignant
supplemental O2
pain mgmt, opioids were increased 04/30/24
Bowel regimen - senna, colace, miralax
Discussed goals of care - wants to continue cancer treatment
Resume palliative RT after discharge
Oral Votrient (oral targeted therapy) to start once she completes radiation
Subjective/Objective
Subjective/Objective
c/o discomfort in right chest, feels increased pain meds helping slightly
c/o constipation, prune juice on breakfast tray remains untouched
Vital Signs:
Vital Signs
Temp Pulse Resp BP Pulse Ox
97.7 F 75 18 97/66 91
05/01/24 07:45 05/01/24 07:45 05/01/24 07:45 05/01/24 07:45 05/01/24 08:50
Lab Results:
Laboratory Data
WBC 8.0 10^3/uL (4.8-10.8) 05/01/24 05:09
Hgb 10.6 g/dL (12.0-16.0) L 05/01/24 05:09
Plt Count 190 10^3/uL (130-400) 05/01/24 05:09
PT 14.4 Sec (11.4-14.6) 04/28/24 12:56
INR 1.09 04/28/24 12:56
APTT 32.1 Sec (23.4-35.0) 04/28/24 12:56
eGFR > 60.00 05/01/24 05:09
[2024-05-01 11:42] VITALS: BP 95/44
[2024-05-01 15:07] VITALS: BP 120/50
[2024-05-01 15:33] VITALS: BP 119/52; BP 120/50; PULSE 80; PULSE 82; O2SAT 94
[2024-05-01] MEDS: NEURONTIN 600 MG PO (19:43)
[2024-05-01] MEDS: NORVASC 5 MG PO (19:43)
[2024-05-01] MEDS: ZOLOFT 50 MG PO (19:43)
[2024-05-01 23:00] VITALS: BP 120/65
[2024-05-02] VITALS (7 sets, daily range): BP systolic 91–149; BP diastolic 51–77; PULSE 94–95; O2SAT 85–92; BMI 34.2
[2024-05-02 06:31] LABS: Hematocrit 33.2 % (37.0-47.0); Hemoglobin 10.4 g/dL (12.0-16.0); Mean Corp Hgb Conc. 31.3 g/dL (33.0-37.0); Mean Corpuscular Hgb 29.8 pg (27.0-31.0); Mean Corpuscular Volume 95.1 fL (81.0-99.0); Mean Platelet Volume 12.8 fL (7.4-10.4); Platelet Count 194 10^3/uL (130-400); Red Blood Cell Count 3.49 10^6/uL (4.20-5.40)
[2024-05-02 06:50] LABS: Blood Urea Nitrogen 21 mg/dl (7-17); Carbon Dioxide 31 mmol/L (22-30); Chloride 94 mmol/L (98-107); Estimated Creatinine Clearance 57 ml/min; Glucose 112 mg/dl (70-99); Potassium 4.9 mmol/L (3.5-5.1); Sodium 131 mmol/L (135-145); eGFR > 60.00
[2024-05-02] MEDS: LIDOCAINE 4% PATCH 1 PATCH TOPICAL (08:27)
[2024-05-02] MEDS: MS CONTIN (EXTENDED RELEASE) 15 MG PO ×2 (08:28→21:36)
[2024-05-02] MEDS: COLACE 100 MG PO (08:28)
[2024-05-02] MEDS: ELIQUIS 5 MG PO ×2 (08:28→21:35)
[2024-05-02] MEDS: DITROPAN 5 MG PO ×2 (08:28→21:35)
[2024-05-02] MEDS: MIRALAX 17 GRAMS PO (08:28)
[2024-05-02] MEDS: SENOKOT 8.6 MG PO (08:29)
[2024-05-02] MEDS: ROXICODONE 5 MG PO (08:33)
--- NOTE | 2024-05-02 09:38 | W.PN.HOSP.TC ---
Today's Communication/Plan
-
cytology and culture pending; oncology following; O2 eval
Assessment / Plan
Assessment / Plan
78yo F with PMH spindle cell sarcoma, persistent LLE DVT, htn, anxiety/depression who presented to ED 04/28/24 for right 'rib pain' and shortness of breath.
New large symptomatic right pleural effusion
Hypoxemic respiratory insufficiency requiring supplemental O2 at 2L NC
- CT showed right pleural effusion, negative for acute PTE. 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
- S/p R thoracentesis 04/29- removal of 1050mL straw colored fluid. Cytology pending. Culture: NG at 48h, final results pending.
- Pleural prot/serum prot > 0.5 --> exudative pleural effusion
- Temporary symptomatic improvement s/p thoracentesis ... though symptoms returned within 24 hours.
- Oncology consulted, appreciate recs- considering palliative pleural cath. Defer discussion of diagnosis/prognosis to oncology. Patient desires continuing cancer treatment outpatient.
- Repeat chest CT 04/30 showed presence of pleural effusion though improved from admission
- Pain adequately controlled. Continnue morphine ER 15mg. Discussed with patient that dose is being decreased and if she is in pain, she should use call dave for prn.
- Still requiring oxygen at 2L NC. Home O2 eval
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
Persistent/Worsening Left Lower Extremity DVT
- Oncology following, appreciate recs. Previously was on chemotherapy, now completing radiation therapy outpatient for LLE mass.
- Of note: Unfortunately, there may not be any AC that is effective in this scenario because of the mass itself causing vascular blockage.
- Per vascular surgery consult on last admission - no vascular intervention can be done
- Continue eliquis BID
Chronic anemia, likely anemia of chronic disease
- Hgb 11.6 on admission, appears at baseline
- No signs of acute blood loss or ongoing bleeding/bruising
Constipation
- Continue home bowel regimen
- No BM this hospitalization- will add M/M enema today
Essential Hypertension
- Continue home amlodipine with hold parameters; hold olmesartan
Anxiety/Depression- Continue home sertraline
Overactive Bladder- Continue home Oxybutynin
Hx Symptomatic Bradycardia s/p Permanent Pacemaker
Obesity due to excess calories
Hyponatremia mild
Code status: full (confirmed with patient 04/29)
Has living will, advanced directive at home. CM consulted. Says her 4 children would be MCM if needed.
VTE ppx: Eliquis BID
Diet: 2g Na, cholesterol lowering
Dispo planning: SNF, CM following
Anticipated Discharge: 24 - 48 hours
Subjective/Interval History
-
Date of Service: May 02, 2024
No acute events overnight. Continues to report right side/rib pain. Pain well controlled throughout day yesterday despite lowering dose of morphine from 30 to 15. Complaining of constipation. Denies lightheadedness, dizziness, chest pain, shortness
of breath, nausea. Tolerating PO diet. OOB to bathroom, feels weak.
Objective Data
-
Labs:
Laboratory Results
05/02/24
05:59
WBC 9.0
Hgb 10.4 L
Hct 33.2 L
Plt Count 194
Sodium 131 L
Potassium 4.9
Chloride 94 L
Carbon Dioxide 31 H
BUN 21 H
Creatinine 0.9
Glucose 112 H
Calcium 10.0
04/29/24 10:43 Pleural Fluid Body Fluid Culture - Preliminary
No Growth After 48 Hours
04/29/24 10:43 Pleural Fluid Gram Stain - Preliminary
Vital Signs:
Vital Signs
Temp Pulse Resp BP Pulse Ox
98 F 80 16 91/60 95
05/02/24 07:35 05/02/24 07:35 05/02/24 07:35 05/02/24 07:35 05/02/24 07:35
I&O
05/01/24 05/02/24 05/03/24
06:59 06:59 06:59
Intake Total 960 / 960 840 / 840
Balance 960 / 960 840 / 840
Review of Systems
-
History Source: Patient (see subjective)
Physical Exam
-
General: Well Developed, Well Nourished, No Apparent Distress, Comfortable, Conversant and Obese
HEENT: Normocephalic, Atraumatic, Anicteric and Oxygen (2L NC)
Respiratory: Clear to Auscultation and Non Labored Respirations
Cardiac: Regular Rhythm and S1/S2
GI: Soft, Nontender, Nondistended and Normal Bowel Sounds
Musculoskeletal: Edema, Left Lower Extrem (L lower leg 2+ pitting edema, L thigh palpable mass and warm/tender secondary to DVT)
Skin: Warm and Dry
Neuro: Awake, Alert, Oriented, AO x 3 and Nonfocal/Grossly Intact
Psych: Calm and Intact Judgement/Insight
Data Reviewed
-
CT Scan: Image personally visualized and interpreted and Report Reviewed by me
Labs: Labs Reviewed by me
--- NOTE | 2024-05-02 10:57 | W.PN.UPDATE ---
Update Note
Progress Note Update
I saw and evaluated the patient. I reviewed the resident�s note and agree with findings and plan as documented in the resident�s note.
Currently denies shortness of breath.
Gen: Continues to remain NAD, AAOx3.
Eyes: EOMI, PERRLA, no scleral icterus.
Neck: supple.
CV: Continues to remain RRR, +S1/S2, no m/r/g.
Resp: CTAB anteriorly, no rales, wheezes, or rhonchi.
Abd: +BS, soft, NT, ND
Skin: No rashes.
Neuro: CN 2-12 intact, non-focal.
Psych: Normal mood and affect.
CT chest 04/30/24: Improved moderate right pleural effusion. Pleural-based right-sided pulmonary masses suggestive of metastatic disease. Stable. Mild right lower lobe consolidation probably atelectasis. Pneumonia not excluded. Improved.
Acute hypoxemic respiratory insufficiency due to new large symptomatic right pleural effusion:
-currently on 2L NC O2
-initial CT chest showed right pleural effusion, no acute PTE. 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
-s/p R thoracentesis 04/29 with removal of 1050cc of exudative fluid. Cytology pending, culture NGTD.
-temporary symptomatic improvement s/p thoracentesis, though symptoms returned within 24 hours.
-repeat CT chest above, R pleural effusion not worsened.
-pain control
-onc following, appreciate goals of care conversation. Patient wants to continue cancer directed therapy at this time. Patient to have palliative radiation therapy after discharge followed by oral Votrient.
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
Persistent/Worsening Left Lower Extremity DVT
-Onc following
-Previously was on chemotherapy, now completing radiation therapy outpatient for LLE mass
-Of note: Unfortunately, there may not be any AC that is effective in this scenario because of the mass itself causing vascular blockage.
-Per vascular surgery consult on last admission, no vascular intervention can be done
-Continue Eliquis
Essential Hypertension:
-Olmesartan/Norvasc now stopped with hypotension
-Reports of varying blood pressures depending on which arm the blood pressure check. Will check manual blood pressures and if the pressures are different between the 2 upper extremities patient will need a CTA chest abdomen and pelvis
-If hypotension persists will also check echocardiogram
Other problems:
Anemia of chronic disease, trend Hb
Constipation: cont bowel regimen
Anxiety/Depression: cont sertraline
Obesity due to excess calories
Overactive Bladder: Oxybutynin
h/o Symptomatic Bradycardia s/p Permanent Pacemaker
Hyponatremia, mild
FULL/Eliquis
--- NOTE | 2024-05-02 11:09 | W.CON.PAL ---
Consultation
-
Date/Time Consultation Requested: 05/02/24
Date/Time Consultation Performed: 05/02/24
Requesting Provider: Cassie
Performing Provider: Becca Paris
Reason for Consult: Goals of Care Discussion
Reason for Admission
Illness Course/HPI
78 year old F with history of left lower extremity spindle cell sarcoma diagnosed 12/29/2021 s/p excision. Pathology + for dedifferentiated liposarcoma. Found this year to have recurrence of sarcoma as well as mets to pleura/lungs s/p salvage chemo
07/26/2023. Subsequent surveillance scans noting slow progression of both pulmonary mets as well as her sarcoma.
Admitted with complaints of progressive pleuritic type chest pain x3 days uncontrolled by her pain medications. Upon admission, CT scan with large right pleural effusion with new [address] also showed significant progression of malignant
pleural metastatic disease of R hemithorax and right anterior pericardial metastatic lymphadenopathy. Underwent thoracentesis 04/29 with relief of pain. Previously dx with vascular compression due to LLE mass, known DVT and imaging this admission
shows persistent/worsening of DVT. Per vascular, AC would not be effective for this.
Oncology following - considering palliative pleural drain placement. Patient wishes to continue with her oncology treatment, currently undergoing radiation to LLE mass with plans to start targeted oral therapy thereafter.
Pain per chart review seems well managed with MS Contin 15mg BID and 5mg oxycodone PRN.
Was planned to see outpatient palliative on Tuesday after discharge, now planned for SNF and family requesting consult inpatient.
Pain & Symptom Assessment
[place] Symptom Scale 0=none, 10=worst
Pain: 0
Drowsy: 2
Shortness of Breath: 2
Objective Data
-
Objective Data:
Vital Signs
Temp Pulse Resp BP Pulse Ox
98 F 80 16 91/60 95
05/02/24 07:35 05/02/24 07:35 05/02/24 07:35 05/02/24 07:35 05/02/24 07:35
Laboratory Results
05/02/24 05:59
05/02/24 05:59
PT 14.4 Sec (11.4-14.6) 04/28/24 12:56
INR 1.09 04/28/24 12:56
APTT 32.1 Sec (23.4-35.0) 04/28/24 12:56
Total Protein Cancelled 04/28/24 16:25
Albumin 3.6 g/dl (3.5-5.0) 04/28/24 12:56
Palliative Performance Scale
Palliative Performance Scale:
PPS Level Ambulation Activity & Evidence of Disease Self Care Intake Conscious Level
100% Full Normal Activity & Work; Full Intake Full
No Evidence of Disease
90% Full Normal Activity & Work; Full Normal Full
Some Evidence of Disease
80% Full Normal Activity with Effort Full Normal or Full
Some Evidence of Disease Reduced
70% Reduced Unable Normal Job/Work Full Normal or Full
Significant Disease Reduced
60% Reduced Unable Hobby/Housework Occasional Normal or Full or Confusion
Significant Disease Assistance Reduced
50% Mainly Sit/Lie Unable to do Any Work Considerable Normal or Full or Confusion
Extensive Disease Assistance Req'd Reduced
40% Mainly in Bed Unable to do Most Activity Mainly Assistance Normal or Full or Drowsy;
Extensive Disease Reduced +/- Confusion
30% Totally Bed Unable to do Any Activity Total Care Normal or Full or Drowsy;
Bound Extensive Disease Reduced +/- Confusion
20% Totally Bed Bound Unable to do Any Activity Total Care Minimal to Full or Drowsy;
Extensive Disease Sips +/- Confusion
10% Totally Bed Bound Unable to do Any Activity Total Care Mouth Care Drowsy or Coma;
Extensive Disease Only +/- Confusion
0%
PPS Score Level:
Palliative Performance Score Response
Palliative Performance Score Response: 60%
Physical Exam
-
General: Comfortable, Conversant and Appears Chronically Ill
HEENT: Normocephalic
Respiratory: Clear to Auscultation
Cardiac: Regular Rhythm
Peripheral Vascular: No Edema
GI: Soft, Nondistended and Normal Bowel Sounds
Skin: Warm
Neuro: Awake and Alert
Psych: Confused
Assessment / Plan
-
Assessment/Plan:
78 year old F with spindle cell sarcoma LLE with recurrence and mets to lung/pleura admitted with pleuritic chest pain and found to have large pleural effusion, likely malignant.
- planned to see palliative as an outpatient on Tuesday but now planning for SNF so family requested consult
- patient seen at bedside with no family present. Appears slightly confused. Denies complaints, states pain is well controlled on current regimen.
- confirmed that she plans to continue with LLE radiation and then oral targeted therapy afterwards.
- prior to hospital was living alone, states her children stepped up to help with things around the house etc but was independent with ADLs, i ADLs.
- spoke with daughter Cassia as she was the daughter who called our office this AM to request inpatient consult. Many questions about next steps. Discussed plan foe SNF and hopeful eventual transfer back home. She is aware that family should call us
when she gets back home so we can follow up outpatient with her. Family frustrated feeling like they arent getting any answers to anything and they cant be in the hospital with patient all the time. They are aware she wishes to continue with
treatment but also understand she has terminal cancer that is growing and is now having set backs due to hospitalization. Discussed hospice as an option at any time, and explained if she does end up bouncing back to the hospital from rehab that it
would be a continued conversation about next steps. Currently plan is to finish 6 more sessions of radiation likely after SNF, then start oral targeter therapy pending how she does in the coming weeks.
- family has our contact info and will let us know when patient gets home from SNF or if she comes back to the hospital
- pain is well controlled on current regimen, would continue.
Care Reviewed
Data Reviewed
Radiology procedure: Image Reviewed
Medical Tests: I reviewed
Reviewed with: Patient, Family and Physician
--- NOTE | 2024-05-02 11:21 | CM ---
Patient seen at bedside and patient confirmed she wanted to go to a SNF. CM sent referrals to local SNF options via all scripts and await responses. CM spoke with patient daughter at her request and confirmed above. Patient daughter will look at
[email or web address] and await responses re available beds. CM will continue to follow for discharge planning needs.
Plan; SNF referrals sent; pending responses
--- NOTE | 2024-05-02 14:24 | PTCARENOTE ---
Addendum entered by Deborah Kimball RN 05/02/24 17:30:
Small amount of liquid stool from enema. Patient given dulcolax suppository.
Original Note:
Patient given Miralax, Sennakot and Colace this am without result. Patient states she has not had a BM since 04/28. Milk and molasses enema given - awaiting results from enema.
[2024-05-02] MEDS: DULCOLAX 10 MG RECTAL (17:26)
[2024-05-02] MEDS: ZOLOFT 50 MG PO (21:35)
[2024-05-02] MEDS: DESENEX/MITRAZOL/ZEASORB 1 APPLIC TOPICAL (21:35)
[2024-05-02] MEDS: NEURONTIN 600 MG PO (21:35)
[2024-05-03 06:06] LABS: Hematocrit 31.7 % (37.0-47.0); Hemoglobin 10.3 g/dL (12.0-16.0); Mean Corp Hgb Conc. 32.5 g/dL (33.0-37.0); Mean Corpuscular Hgb 30.5 pg (27.0-31.0); Mean Corpuscular Volume 93.8 fL (81.0-99.0); Mean Platelet Volume 12.8 fL (7.4-10.4); Platelet Count 194 10^3/uL (130-400); Red Blood Cell Count 3.38 10^6/uL (4.20-5.40); Red Cell Dist. Width 14.9 % (11.5-14.5); White Blood Cell Count 10.3 10^3/uL (4.8-10.8)
[2024-05-03 06:19] VITALS: BP 126/60
--- NOTE | 2024-05-03 06:22 | PTCARENOTE ---
Patient sating high 80's - low 90's on 3LNC with HOB elevated and patient encouraged to deep breathe in through nose and out through mouth. Patient complains of mild SOB. Oxygen increased to 5LNC, sating 94%. Patient states feeling a little better.
Will continue to monitor.
[2024-05-03 06:28] LABS: Blood Urea Nitrogen 19 mg/dl (7-17); Carbon Dioxide 31 mmol/L (22-30); Chloride 93 mmol/L (98-107); Estimated Creatinine Clearance 64 ml/min; Glucose 119 mg/dl (70-99); Potassium 5.2 mmol/L (3.5-5.1); Sodium 130 mmol/L (135-145); eGFR > 60.00
[2024-05-03 07:35] VITALS: BP 121/51
[2024-05-03] MEDS: DESENEX/MITRAZOL/ZEASORB 1 APPLIC TOPICAL ×2 (09:49→21:14)
[2024-05-03] MEDS: DITROPAN 5 MG PO ×2 (09:49→21:14)
[2024-05-03] MEDS: ELIQUIS 5 MG PO ×2 (09:49→21:14)
[2024-05-03] MEDS: SENOKOT 8.6 MG PO (09:49)
[2024-05-03] MEDS: COLACE 100 MG PO (09:49)
[2024-05-03] MEDS: MIRALAX 17 GRAMS PO (09:57)
[2024-05-03] MEDS: LIDOCAINE 4% PATCH 1 PATCH TOPICAL (09:57)
--- NOTE | 2024-05-03 10:04 | W.PN.ONC2 ---
Today's Communication / Plan
-
f/u thora cytology
continue pain regimen
bowel regimen
OP follow up with Dr. Grayson 05/23 and radiation oncology upon discharge
Impression
Impression
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
lung mets, pleural effusion, s/p thoracentesis [id number], 04/29/24
Pain
Plan
Plan
cytology pending s/p thoracentesis, most certainly malignant
supplemental O2
pain mgmt, opioids were increased 04/30/24
Bowel regimen - senna, colace, miralax
Goals restorative to continue cancer treatments
Resume palliative RT after discharge
Oral Votrient (oral targeted therapy) to start once she completes radiation
Subjective/Objective
Subjective
off unit -not seen or examined
chart reviewed
Vital Signs:
Vital Signs
Temp Pulse Resp BP Pulse Ox
98.1 F 94 20 121/51 93
05/03/24 07:35 05/03/24 07:35 05/03/24 07:35 05/03/24 07:35 05/03/24 07:35
Lab Results:
Laboratory Data
WBC 10.3 10^3/uL (4.8-10.8) 05/03/24 05:49
Hgb 10.3 g/dL (12.0-16.0) L 05/03/24 05:49
Plt Count 194 10^3/uL (130-400) 05/03/24 05:49
PT 14.4 Sec (11.4-14.6) 04/28/24 12:56
INR 1.09 04/28/24 12:56
APTT 32.1 Sec (23.4-35.0) 04/28/24 12:56
eGFR > 60.00 05/03/24 05:49
--- NOTE | 2024-05-03 10:20 | PTCARENOTE ---
"patient sleepy this am, can barely keep eyes open unless constantly talking to her. remains on O2 at 5l/min nasal cannula. vitals noted. mortgage sales manager in to see patient and told nurse she was not like this yesterday. Dr Matthews and Dr Gan"Tez(resident) made aware. Dr Matthews in to see patient and orders noted for Pulmonary consult and CXR. plan of care on going."
--- NOTE | 2024-05-03 10:24 | W.PN.HOSP.TC ---
Today's Communication/Plan
-
chest xray, consult pulm
Assessment / Plan
Assessment / Plan
78yo F with PMH spindle cell sarcoma, persistent LLE DVT, htn, anxiety/depression who presented to ED 04/28/24 for right 'rib pain' and shortness of breath.
New large symptomatic right pleural effusion
Hypoxemic respiratory insufficiency requiring supplemental O2 at 2L NC
- CT showed right pleural effusion, negative for acute PTE. 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
- S/p R thoracentesis 04/29- removal of 1050mL straw colored fluid. Cytology pending. Culture: NG at 72h, final results pending.
- Pleural prot/serum prot > 0.5 --> exudative pleural effusion
- Temporary symptomatic improvement s/p thoracentesis ... though symptoms returned within 24 hours.
- Oncology consulted, appreciate recs- considering palliative pleural cath. Defer discussion of diagnosis/prognosis to oncology. Patient desires continuing cancer treatment outpatient.
- Repeat chest CT 04/30 showed presence of pleural effusion though improved from admission
- Pain adequately controlled. Continue morphine ER 15mg standing, and oxycodone 5mg prn for breakthrough. Continue lidocaine patch.
- Still requiring oxygen- increased to 5L this AM. Will get chest xray, consult pulmonology.
- Given history of chemotherapy agents, echo obtained 05/02- LVEF 65-70%, stage 1 diastolic dysfunction, mild-mod TR
- Patient was scheduled to have new patient appointment with palliative tomorrow; however, she is planning to be discharged to SNF not home. Palliative consulted inpatient, appreciate recs. Patient to follow up with oncology and palliative care
outpatient.
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
Persistent/Worsening Left Lower Extremity DVT
- Oncology following, appreciate recs. Previously was on chemotherapy, now completing radiation therapy outpatient for LLE mass.
- Of note: Unfortunately, there may not be any AC that is effective in this scenario because of the mass itself causing vascular blockage.
- Per vascular surgery consult on last admission - no vascular intervention can be done
- Continue eliquis BID
Chronic anemia, likely anemia of chronic disease
- Hgb 11.6 on admission, appears at baseline
- No signs of acute blood loss or ongoing bleeding/bruising
Constipation- resolved
- Continue bowel regimen
Essential Hypertension
- Home omlesartan and amlodipine held, BPs normotensive.
Anxiety/Depression- Continue home sertraline
Overactive Bladder- Continue home Oxybutynin
Hx Symptomatic Bradycardia s/p Permanent Pacemaker
Obesity due to excess calories
Hyponatremia mild
Code status: full (confirmed with patient 04/29)
Has living will, advanced directive at home. CM consulted. Says her 4 children would be MCM if needed.
VTE ppx: Eliquis BID
Diet: 2g Na, cholesterol lowering
Dispo planning: SNF, CM following
Anticipated Discharge: 24 - 48 hours
Subjective/Interval History
-
Date of Service: May 03, 2024
No acute events overnight. This AM up to 5L NC. When I saw her, she was sleeping comfortably easily awoken with verbal stimuli. Says her rib pain and shortness of breath are a little better. Complains of ache in neck from sleep position. Denies
headaches, lightheadedness, dizziness, chest pain, shortness of breath, nausea, vomiting, diarrhea, constipation. Last BM yesterday, no black or bloody stools. Tolerating PO. OOB with assistance.
Objective Data
-
Labs:
Laboratory Results
05/03/24
05:49
WBC 10.3
Hgb 10.3 L
Hct 31.7 L
Plt Count 194
Sodium 130 L
Potassium 5.2 H
Chloride 93 L
Carbon Dioxide 31 H
BUN 19 H
Creatinine 0.8
Glucose 119 H
Calcium 10.0
Vital Signs:
Vital Signs
Temp Pulse Resp BP Pulse Ox
98.1 F 94 20 121/51 93
05/03/24 07:35 05/03/24 07:35 05/03/24 07:35 05/03/24 07:35 05/03/24 07:35
I&O
05/02/24 05/03/24 05/04/24
06:59 06:59 06:59
Intake Total 840 / 840 480 / 480
Balance 840 / 840 480 / 480
Review of Systems
-
History Source: Patient (see subjective)
Physical Exam
-
General: Well Developed, Well Nourished, No Apparent Distress, Comfortable, Conversant and Obese
HEENT: Normocephalic, Atraumatic, Anicteric and Oxygen (5L NC)
Respiratory: Clear to Auscultation (anterior lung johnson) and Non Labored Respirations
Cardiac: Regular Rhythm and S1/S2
GI: Soft, Nontender, Nondistended and Normal Bowel Sounds
Musculoskeletal: Edema, Left Lower Extrem (L lower leg 2+ pitting edema, L thigh palpable mass and warm/tender secondary to DVT)
Skin: Warm and Dry
Neuro: Awake, Alert, Oriented, AO x 3 and Nonfocal/Grossly Intact
Psych: Calm and Intact Judgement/Insight
Data Reviewed
-
CT Scan: Image personally visualized and interpreted and Report Reviewed by me
Medical Tests (Nuc Med, Echo etc): Report Reviewed by me
Labs: Labs Reviewed by me
--- NOTE | 2024-05-03 10:39 | W.PN.UPDATE ---
Update Note
Progress Note Update
I saw and evaluated the patient. I reviewed the resident�s note and agree with findings and plan as documented in the resident�s note.
At the time of my exam the patient was awake but she was chewing on food. Did not offer any new complaints. Nursing had concerns about decreased level of consciousness/alertness this morning.
Gen: NAD, Awake and alert, NCAT
Eyes: EOMI, PERRLA, no scleral icterus.
Neck: supple.
CV: remains RRR, +S1/S2, no m/r/g.
Resp: remains CTAB anteriorly, no rales, wheezes, or rhonchi.
Abd: +BS, soft, NT, ND
Skin: No rashes.
Neuro: CN 2-12 intact, non-focal.
Psych: Normal mood and affect.
CT chest 04/30/24: Improved moderate right pleural effusion. Pleural-based right-sided pulmonary masses suggestive of metastatic disease. Stable. Mild right lower lobe consolidation probably atelectasis. Pneumonia not excluded. Improved.
Echo: Normal LV size and function with no regional wall motion abnormalities.
LVEF is 65-70% by visual estimation.
Stage I diastolic dysfunction suggestive of abnormal relaxation.
Normal right ventricular size and function.
Mild to moderate tricuspid regurgitation.
Estimated pulmonary artery pressure of 47 mmHg, assuming a right atrial
pressure of 3 mmHg.
Compared to prior from 02/03/2023, there is new mild to moderate TR and elevated
estimated PASP of 47 mmHg, previously top normal.
Acute hypoxemic respiratory insufficiency due to new large symptomatic right pleural effusion:
-currently on 5L NC O2 (up from 2L NC O2 prior)
-initial CT chest showed right pleural effusion, no acute PE. 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
-s/p R thoracentesis 04/29 with removal of 1050cc of exudative fluid. Cytology pending, culture NGTD.
-temporary symptomatic improvement s/p thoracentesis, though symptoms returned within 24 hours.
-repeat CT chest above, R pleural effusion not worsened.
-hold narcotic this AM with likely acute toxic encephalopathy due to narcotics
-c/s pulm
-check CXR and VBG
-Echo above, notable for worsening pulm HTN
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
Persistent/Worsening Left Lower Extremity DVT
-Onc following
-Previously was on chemotherapy, now completing radiation therapy outpatient for LLE mass
-Of note: Unfortunately, there may not be any AC that is effective in this scenario because of the mass itself causing vascular blockage.
-Per vascular surgery consult on last admission, no vascular intervention can be done
-Continue Eliquis
-onc following, appreciate goals of care conversation. Patient wants to continue cancer directed therapy at this time. Patient to have palliative radiation therapy after discharge followed by oral Votrient.
Essential Hypertension:
-Olmesartan/Norvasc now stopped with hypotension
-note, manual blood pressures in both arms on 05/02/24 were similar
Other problems:
Anemia of chronic disease, trend Hb
Constipation: cont bowel regimen
Anxiety/Depression: cont sertraline
Obesity due to excess calories
Overactive Bladder: Oxybutynin
h/o Symptomatic Bradycardia s/p Permanent Pacemaker
Hyponatremia, mild
Hyperkalemia: start Lokelma
FULL/Eliquis
Total time spent on today's encounter was 50 minutes which included time spent in counseling the patient/family regarding diagnosis and treatment plan as listed above, goals of care, and symptom management. Case was discussed with nursing staff,
specialists, and care coordinators/case management. All labs and imaging personally reviewed by me. Remainder the time spent in detailed review of previous records, lab data, imaging, and other medical provider documentation.
[2024-05-03 11:00] LABS: Venous Blood Gas B.E. 3.3 mmol/L (-4 to +4); Venous Blood Gas HCO3 30.7 mmol/L (22-27); Venous Blood Gas O2 Sat % 96.2 %; Venous Blood Gas pCO2 61 mmHg (35-48); Venous Blood Gas pH 7.31 (7.32-7.43); Venous Blood Gas pO2 70 mmHg (30-50)
[2024-05-03] MEDS: MS CONTIN (EXTENDED RELEASE) PO (11:05)
--- NOTE | 2024-05-03 11:59 | CON.PUL ---
Consultation
Consultation Request
Date/Time Consultation Requested: 05/03/2024-12 noon
Date/Time Consultation Performed: 05/03/2020 4-12 noon
Requesting Provider: Hospitalist
Performing Provider: Dr. Schroeder
Reason for Consultation: pleural effusion
Medical History
-
Chief Complaint: Shortness of breath
History of Present Illness:
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
status post drainage-pulmonary consulted for pleural effusion 05/03/2024.. Nursing reports somnolence. The patient is easily arousable. Atrovent questions appropriately. Improved after thoracentesis, however, complains of shortness of breath, no
chest pain, pleurisy, chest congestion, productive cough, abdominal pain, nausea, or weakness.
Past Medical History
Past Medical History: None (Left lower extremity spindle cell sarcoma 12/2021 excision/chemotherapy. Metastatic disease to lungs, pleura. Hypertension. GERD. Depression. Bradycardia/permanent pacemaker. Appendectomy. Hysterectomy. Left breast
lumpectomy. Left knee meniscus surgery.)
Social History
Tobacco: Non-smoker
Alcohol: None
Living: With Family
Occupational Exposures: No known asbestos exposure
Environmental Exposures: No known tuberculosis exposure
Family History
Family History: Reviewed & Not Pertinent
Allergies / Home Medications
Allergies
Allergy/AdvReac Type Severity Reaction Status Date / Time
doxorubicin [From Doxil] Allergy Unknown Verified 02/14/24 11:50
erythromycin base Allergy Nausea Verified 02/14/24 11:49
vitamin E (d-alpha Allergy Hives Verified 02/14/24 11:49
tocopherol)
[vitamin E]
Home Medications
�Medication �Instructions �Recorded �Confirmed �Last Taken �Type
sertraline 50 mg tablet 50 mg PO HS Depression 03/18/11 04/28/24 04/27/24 22:00 History
50 mg
amlodipine 5 mg tablet 5 mg PO HS Blood Pressure 12/29/21 04/28/24 04/27/24 22:00 History
olmesartan 40 mg tablet 40 mg PO HS Blood Pressure 11/12/22 04/28/24 04/27/24 22:00 History
oxybutynin chloride 10 mg 10 mg PO HS Urinary Issue 11/12/22 04/28/24 04/27/24 22:00 History
tablet,extended release 24 hr
oxycodone 5 mg tablet 5 mg PO Q6HPRN PRN break though 02/14/24 04/28/24 02/14/24 History
pains
docusate sodium 100 mg capsule 100 mg PO DAILY #0 caps 02/17/24 04/28/24 04/27/24 11:00 Rx
(Colace)
polyethylene glycol 3350 17 gram 17 g PO DAILY #0 ea 02/17/24 04/28/24 02/13/24 Rx
oral powder packet (Miralax)
sennosides 8.6 mg tablet (senna) 8.6 mg PO DAILY #0 tabs 02/17/24 04/28/24 04/27/24 08:00 Rx
apixaban 5 mg tablet (Eliquis) 5 mg PO BID Blood Clot 04/28/24 04/28/24 04/27/24 19:00 History
Prevention/Tx
gabapentin 300 mg capsule 600 mg PO HS Neurological Condition 04/28/24 04/28/24 04/27/24 22:00 History
morphine 15 mg tablet,extended 15 mg PO [id number] PRN severe pain 04/28/24 04/28/24 3 Days Ago History
release ~04/25/24
ondansetron HCl 8 mg tablet 8 mg PO Q8HPRN PRN nausea 04/28/24 04/28/24 Unknown History
Review of Systems
-
Unable to Obtain full review of systems at this time due to: Other (Per HPI)
Vitals / Labs / Diagnostic Testing
Vital Signs
Temp Pulse Resp BP Pulse Ox
98.1 F 94 20 121/51 93
05/03/24 07:35 05/03/24 07:35 05/03/24 07:35 05/03/24 07:35 05/03/24 07:35
Lab Data
05/03/24 05:49
05/03/24 05:49
Microbiology
04/29/24 10:43 Pleural Fluid Body Fluid Culture - Final
No Growth After 72 Hours
04/29/24 10:43 Pleural Fluid Gram Stain - Final
Diagnostic Testing:
Physical Exam
-
Exam:
Well-nourished and well-developed in no apparent distress
HEENT-atraumatic, normocephalic
Neck-supple, no JVD, no bruit
Heart-regular rate and rhythm-no murmurs, rubs or gallops
Chest with diminished breath sounds on the right as well as left base with few crackles
Abdomen-soft, nontender, nondistended, no hepatosplenomegaly
Extremities-no cyanosis, clubbing, trace lower extremity edema
Integument-intact, no rashes, lesions or ecchymosis
Neurology-alert and oriented, nonfocal motor and sensory exam
Assessment
-
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
status post drainage-pulmonary consulted for pleural effusion 05/03/2024.
Right pleural effusion-large and symptomatic
Status post thoracentesis 04/29/24--1 L straw-colored fluid, cytology pending
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
Hypercapnia
[id number]-nhgzkeofot 10.3
Hyponatremia
Hyperglycemia
Conditions present prior to admission:
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
Metastatic disease to lungs, pleura.
Hypertension.
GERD.
Depression.
Bradycardia/permanent pacemaker.
Appendectomy. Hysterectomy. Left breast lumpectomy. Left knee meniscus surgery.
Plan
Respiratory decompensation, likely due to fairly rapidly reaccumulating malignant pleural effusion.
Supplement oxygen as needed.
VBG with evidence for hypercapnia-nursing reports some somnolence.
BiPAP as needed.
Nebulizers if needed.
Aspiration precautions
Fairly rapid reaccumulation of pleural fluid
Recommend chest tube and eventual pleurodesis or conversion to Pleurx catheter I then Dr. Schroeder contacted interventional radiology place consult.
Follow hemoglobin.
Transfuse if needed
Oncology following-correspondence reviewed.
DVT prophylaxis-on Eliquis
Nutrition
Bedside range of motion/physical therapy
Reviewed with nursing, and primary team
Diagnostic data:
Chest x-ray 04/29/2024-no pneumothorax following right thoracentesis
CT chest 02/17/2024-severe bilateral pulmonary nodules suspicious for metastatic disease
CT chest 04/28/2024-no evidence for pulm embolism, new large malignant right pleural effusion with large amount of malignant pleural metastatic disease
CT chest 04/30/2024-improved moderate right pleural effusion, pleural-based right-sided pulmonary mass suggesting metastatic disease, mild right lower lobe consolidation
Thoracentesis 04/29/24--1050 mL straw-colored pleural fluid
Echocardiogram 05/02/2024-EF 65-70%, PA systolic 47
Data Reviewed
-
EKG: Report reviewed by me
Radiology: Image personally visualized and interpreted and Report reviewed by me
CT Scan: Image personally visualized and interpreted and Report reviewed by me
Ultrasound: Report reviewed by me
Medical Tests (Nuc Med, Echo etc): Report reviewed by me
Labs: Labs reviewed by me
Old Records: Reviewed
Total Time Spent with Patient (in minutes): 65
[2024-05-03 14:00] VITALS: BP 115/55; BP_SYST 89
--- NOTE | 2024-05-03 14:58 | CM ---
Patient seen at bedside earlier today sleepier than yesterday, nursing updated. Patient accepted to several SNF options but patient not medically appropriate at this time for transfer. Per nursing she updated patient daughter of above. CM will
continue to follow for discharge planning needs.
Plan; SNF pending medical treatment plan
[2024-05-03 15:40] VITALS: BP 147/60
--- NOTE | 2024-05-03 16:21 | PTCARENOTE ---
received from [facility], transferred to bed. Right Chest tube to drainage bridge toll collector with serosanguineous fluid, connected to suction at -20 cm. dressing dry and intact, vitals noted. POX 93% on 5liters. daughter at bedside. plan of care ongoing.
[2024-05-03] MEDS: LOKELMA 10 GRAM PO ×2 (17:25→21:14)
[2024-05-03] MEDS: ZOLOFT 50 MG PO (21:14)
[2024-05-03] MEDS: NEURONTIN 600 MG PO (21:14)
[2024-05-03] MEDS: OFIRMEV 100 IV (22:46)
[2024-05-03 23:19] VITALS: BP 149/66
[2024-05-04] MEDS: LOKELMA 10 GRAM PO ×3 (06:16→18:40)
[2024-05-04 07:36] LABS: Hematocrit 34.6 % (37.0-47.0); Hemoglobin 10.9 g/dL (12.0-16.0); Mean Corp Hgb Conc. 31.5 g/dL (33.0-37.0); Mean Corpuscular Hgb 30.4 pg (27.0-31.0); Mean Corpuscular Volume 96.6 fL (81.0-99.0); Mean Platelet Volume 13.3 fL (7.4-10.4); Platelet Count 201 10^3/uL (130-400); Red Blood Cell Count 3.58 10^6/uL (4.20-5.40); Red Cell Dist. Width 14.6 % (11.5-14.5); White Blood Cell Count 8.5 10^3/uL (4.8-10.8)
[2024-05-04 07:45] VITALS: BP 128/58
[2024-05-04 08:33] LABS: Blood Urea Nitrogen 13 mg/dl (7-17); Carbon Dioxide 29 mmol/L (22-30); Chloride 97 mmol/L (98-107); Estimated Creatinine Clearance 86 ml/min; Glucose 104 mg/dl (70-99); Potassium 4.7 mmol/L (3.5-5.1); Sodium 132 mmol/L (135-145); eGFR > 60.00
--- NOTE | 2024-05-04 08:58 | W.PN.HOSP.TC ---
Today's Communication/Plan
-
await pulm recs; reassess for discharge to SNF when appropriate
Assessment / Plan
Assessment / Plan
78yo F with PMH spindle cell sarcoma, persistent LLE DVT, htn, anxiety/depression who presented to ED 04/28/24 for right 'rib pain' and shortness of breath.
New large symptomatic right pleural effusion
Hypoxemic respiratory insufficiency requiring supplemental O2 at 2L NC
- CT showed right pleural effusion, negative for acute PTE. 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
- S/p R thoracentesis 04/29- removal of 1050mL straw colored fluid. Cytology pending. Culture: no growth after 72 hours (final result)
- Pleural prot/serum prot > 0.5 --> exudative pleural effusion. Suspect malignant effusion.
- Temporary symptomatic improvement s/p thoracentesis ... though symptoms returned within 24 hours.
- Oncology consulted, appreciate recs. Defer discussion of diagnosis/prognosis to oncology. Patient desires continuing cancer treatment outpatient- she will discuss with oncologist at next appointment regarding options. She is aware discharge to SNF
may delay appointment/treatment.
- Repeat chest CT 04/30 showed presence of pleural effusion though improved from admission
- Oxygen requirements increased to 5L 05/03.
- Pulm and IR consulted, appreciate recs. S/p chest tube insertion 05/03- 1325 mL output so far (125mL since 1800 yesterday). Defer to pulm on duration of chest tube.
- Given history of chemotherapy agents, echo obtained 05/02- LVEF 65-70%, stage 1 diastolic dysfunction, mild-mod TR
- Palliative consulted inpatient, appreciate recs. Patient to follow up with oncology and palliative care outpatient.
- Pain adequately controlled. Morphine ER 15mg and oxycodone 5mg held yesterday given concerns for sedation. Continue lidocaine patch, add standing tylenol.
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
Persistent/Worsening Left Lower Extremity DVT
- Oncology following, appreciate recs. Previously was on chemotherapy, now completing radiation therapy outpatient for LLE mass.
- Of note: Unfortunately, there may not be any AC that is effective in this scenario because of the mass itself causing vascular blockage.
- Per vascular surgery consult on last admission - no vascular intervention can be done
- Continue eliquis BID
Chronic anemia, likely anemia of chronic disease
- Hgb 11.6 on admission, appears at baseline
- No signs of acute blood loss or ongoing bleeding/bruising
Constipation- resolved
- Continue bowel regimen
Essential Hypertension
- Home omlesartan and amlodipine held, BPs normotensive.
Anxiety/Depression- Continue home sertraline
Overactive Bladder- Continue home Oxybutynin
Hx Symptomatic Bradycardia s/p Permanent Pacemaker
Obesity due to excess calories
Hyponatremia mild
Code status: full (confirmed with patient 04/29)
Has living will, advanced directive at home. CM consulted. Says her 4 children would be MCM if needed.
VTE ppx: Eliquis BID
Diet: 2g Na, cholesterol lowering
Dispo planning: SNF, CM following
Anticipated Discharge: 24 - 48 hours
Subjective/Interval History
-
Date of Service: May 04, 2024
No acute events overnight. Says she is tired. Reports right sided rib pain, slightly improved compared to yesterday. Denies lightheadedness, dizziness, chest pain, shortness of breath, nausea, vomiting, abdominal pain, diarrhea, constipation. Last
BM 05/02, no black or bloody stool. Tolerating PO diet. OOB with assistance.
Objective Data
-
Labs:
Laboratory Results
05/04/24
06:31
WBC 8.5
Hgb 10.9 L
Hct 34.6 L
Plt Count 201
Sodium 132 L
Potassium 4.7
Chloride 97 L
Carbon Dioxide 29
BUN 13
Creatinine 0.6
Glucose 104 H
Calcium 10.0
Vital Signs:
Vital Signs
Temp Pulse Resp BP Pulse Ox
97.9 F 85 20 128/58 94
05/04/24 07:45 05/04/24 07:45 05/04/24 07:45 05/04/24 07:45 05/04/24 07:45
I&O
05/03/24 05/04/24 05/05/24
06:59 06:59 06:59
Intake Total 480 / 480 240 / 240
Output Total 1300 / 1300
Balance 480 / 480 -1060 / -1060
Review of Systems
-
History Source: Patient (see subjective)
Physical Exam
-
General: Well Developed, Well Nourished, No Apparent Distress, Comfortable, Conversant and Obese
HEENT: Normocephalic, Atraumatic, Anicteric and Oxygen (5L NC)
Respiratory: Clear to Auscultation (anterior lung johnson), Non Labored Respirations and Chest Tubes (bloody/straw colored fluid; 1325mL total (125mL from 1800 yesterday to 0800 today))
Cardiac: Regular Rhythm and S1/S2
GI: Soft, Nontender, Nondistended and Normal Bowel Sounds
Musculoskeletal: Edema, Left Lower Extrem (L lower leg 2+ pitting edema, L thigh palpable mass and warm/tender secondary to DVT)
Skin: Warm and Dry
Neuro: Awake, Alert, Oriented (oriented to person, knows she is in hospital unsure which one, knows season/month/year) and Nonfocal/Grossly Intact
Psych: Calm and Intact Judgement/Insight
Data Reviewed
-
Diagnostic Radiology: Image personally visualized and interpreted and Report Reviewed by me
CT Scan: Image personally visualized and interpreted and Report Reviewed by me
Medical Tests (Nuc Med, Echo etc): Report Reviewed by me
Labs: Labs Reviewed by me
--- NOTE | 2024-05-04 09:39 | W.PN.ONC2 ---
Today's Communication / Plan
-
f/u thora cytology
continue pain regimen
bowel regimen
Daughter at bedside provided with updates
OP follow up with Dr. Grayson 05/23 and radiation oncology upon discharge
Impression
Impression
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
lung mets, pleural effusion, s/p thoracentesis [id number], 04/29/24
Pain
Plan
Plan
cytology pending s/p thoracentesis, chest tube
supplemental O2
pain mgmt, opioids were increased 04/30/24
Bowel regimen - senna, colace, miralax
Goals restorative to continue cancer treatments
Resume palliative RT after discharge
Oral Votrient (oral targeted therapy) to start once she completes radiation
Subjective/Objective
Subjective
no new complaints
Vital Signs:
Vital Signs
Temp Pulse Resp BP Pulse Ox
97.9 F 85 20 128/58 94
05/04/24 07:45 05/04/24 07:45 05/04/24 07:45 05/04/24 07:45 05/04/24 07:45
Lab Results:
Laboratory Data
WBC 8.5 10^3/uL (4.8-10.8) 05/04/24 06:31
Hgb 10.9 g/dL (12.0-16.0) L 05/04/24 06:31
Plt Count 201 10^3/uL (130-400) 05/04/24 06:31
PT 14.4 Sec (11.4-14.6) 04/28/24 12:56
INR 1.09 04/28/24 12:56
APTT 32.1 Sec (23.4-35.0) 04/28/24 12:56
eGFR > 60.00 05/04/24 06:31
[2024-05-04] MEDS: COLACE PO (09:45)
--- NOTE | 2024-05-04 10:05 | W.PN.UPDATE ---
Update Note
Progress Note Update
I saw and evaluated the patient. I reviewed the resident�s note and agree with findings and plan as documented in the resident�s note.
No new complaints.
Gen: NAD, Awake and alert, NCAT
Eyes: EOMI, PERRLA, no scleral icterus.
Neck: supple.
CV: Continues to remain RRR, +S1/S2, no m/r/g.
Resp: Continues to CTAB anteriorly, no rales, wheezes, or rhonchi.
Skin: No rashes.
Neuro: Remains CN 2-12 intact, non-focal.
Psych: Normal mood and affect.
CT chest 04/30/24: Improved moderate right pleural effusion. Pleural-based right-sided pulmonary masses suggestive of metastatic disease. Stable. Mild right lower lobe consolidation probably atelectasis. Pneumonia not excluded. Improved.
Echo: Normal LV size and function with no regional wall motion abnormalities.
LVEF is 65-70% by visual estimation.
Stage I diastolic dysfunction suggestive of abnormal relaxation.
Normal right ventricular size and function.
Mild to moderate tricuspid regurgitation.
Estimated pulmonary artery pressure of 47 mmHg, assuming a right atrial
pressure of 3 mmHg.
Compared to prior from 02/03/2023, there is new mild to moderate TR and elevated
estimated PASP of 47 mmHg, previously top normal.
Acute hypoxemic respiratory failure due to new large symptomatic right pleural effusion:
-initial CT chest showed right pleural effusion, no acute PE. 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
-s/p R thoracentesis 04/29 with removal of 1050cc of exudative fluid. Cytology pending, culture NGTD.
-temporary symptomatic improvement s/p thoracentesis, though symptoms returned within 24 hours.
-repeat CT chest 04/30/24 above, R pleural effusion not worsened.
-Echo above, notable for worsening pulm HTN
-on 05/03/24 pt with worsening hypoxemia (was requiring 5L NC O2). CXR showed Large right pleural effusion, significantly increased in volume compared with the previous examination. Chest tube placed 05/03/24.
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
Persistent/Worsening Left Lower Extremity DVT
-Onc following
-Previously was on chemotherapy, now completing radiation therapy outpatient for LLE mass
-Of note: Unfortunately, there may not be any AC that is effective in this scenario because of the mass itself causing vascular blockage.
-Per vascular surgery consult on last admission, no vascular intervention can be done
-Continue Eliquis
-onc following, appreciate goals of care conversation. Patient wants to continue cancer directed therapy at this time. Patient to have palliative radiation therapy after discharge followed by oral Votrient.
Acute toxic encephalopathy:
-Continue to hold long-acting morphine
Essential Hypertension:
-Olmesartan/Norvasc now stopped with prior hypotension
-note, manual blood pressures in both arms on 05/02/24 were similar
Other problems:
Anemia of chronic disease: Hb stable
Constipation: cont bowel regimen
Anxiety/Depression: cont sertraline
Obesity due to excess calories
Overactive Bladder: Oxybutynin
h/o Symptomatic Bradycardia s/p Permanent Pacemaker
Hyponatremia, mild
Hyperkalemia: resolved with Lokelma
Patient's son and daughter updated at bedside.
FULL/Eliquis
Total time spent on today's encounter was 51 minutes which included time spent in counseling the patient/family regarding diagnosis and treatment plan as listed above, goals of care, and symptom management. Case was discussed with nursing staff,
specialists, and care coordinators/case management. All labs and imaging personally reviewed by me. Remainder the time spent in detailed review of previous records, lab data, imaging, and other medical provider documentation.
--- NOTE | 2024-05-04 10:12 | W.PN.PUL.V3 ---
Today's Communication / Plan
-
.
Monitor chest tube output.
Likely convert to Pleurx catheter.
Pleural fluid cytology pending.
BiPAP as needed
Assessment
-
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
status post drainage-pulmonary consulted for pleural effusion 05/03/2024.
Right pleural effusion-large and symptomatic
Status post thoracentesis 04/29/24--1 L straw-colored fluid, cytology pending
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
Hypercapnia
Ylxatf-hzvqkezzkq-wxrntcifap 10.3
Hyponatremia
Hyperglycemia
Conditions present prior to admission:
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
Metastatic disease to lungs, pleura.
Hypertension.
GERD.
Depression.
Bradycardia/permanent pacemaker.
Appendectomy. Hysterectomy. Left breast lumpectomy. Left knee meniscus surgery.
Plan
Respiratory decompensation, likely due to fairly rapidly reaccumulating malignant pleural effusion.
Supplement oxygen as needed.
VBG with evidence for hypercapnia-nursing reports some somnolence.
BiPAP as needed-has not needed yet
Nebulizers if needed.
Aspiration precautions.
Follow chest x-ray
Fairly rapid reaccumulation of pleural fluid
Chest tube placed 05/03/24-
Monitor chest tube output-drained 1300 mL
Pleural fluid cytology pending
Follow chest x-ray.
Complete drainage.
Suspect malignant and would benefit from Pleurx catheter
Follow hemoglobin.
Transfuse if needed
Oncology following-correspondence reviewed-outpatient follow-up with Dr. Grayson
DVT prophylaxis-on Eliquis
Nutrition
Bedside range of motion/physical therapy
Reviewed with nursing, and primary team
Diagnostic data:
Chest x-ray 04/29/2024-no pneumothorax following right thoracentesis
CT chest 02/17/2024-severe bilateral pulmonary nodules suspicious for metastatic disease
CT chest 04/28/2024-no evidence for pulm embolism, new large malignant right pleural effusion with large amount of malignant pleural metastatic disease
CT chest 04/30/2024-improved moderate right pleural effusion, pleural-based right-sided pulmonary mass suggesting metastatic disease, mild right lower lobe consolidation
Thoracentesis 04/29/24--1050 mL straw-colored pleural fluid
Echocardiogram 05/02/2024-EF 65-70%, PA systolic 47
Subjective Data
-
Date of Service:
Date of Service: May 04, 2024
Chief Complaint: Pulmonary Follow Up and Dyspnea Follow Up
Subjective:
. No increased respiratory distress
Review of Systems
General: Other ( per HPI)
Objective Data
Data Reviewed
Vital Signs / I&O:
Vital Signs
Temp Pulse Resp BP Pulse Ox
97.9 F 85 20 128/58 94
05/04/24 07:45 05/04/24 07:45 05/04/24 07:45 05/04/24 07:45 05/04/24 07:45
Intake and Output
05/03/24 05/04/24 05/05/24
06:59 06:59 06:59
Intake Total 480 / 480 240 / 240
Output Total 1300 / 1300
Balance 480 / 480 -1060 / -1060
SaO2: 94
Nasal Cannula flow liters per minute: 5
Physical Exam
General: Respiratory Distress (n) and Comfortable
HEENT: Anicteric and Moist Mucous Membranes
Cardiovascular: Regular Rhythm
Respiratory: Crackles, Rhonchi, Non-Labored Respirations, Accessory Resp Muscle Use (n) and Stridor
GI: Soft, Non Distended and Non Tender
Neurology: Awake, Alert and No Motor Deficits
Skin: Warm, Good Color, Cyanosis (n) and Jaundice (n)
Labs/Micro/Reports
Lab Data
05/04/24 06:31
05/04/24 06:31
Microbiology
04/29/24 10:43 Pleural Fluid Body Fluid Culture - Final
No Growth After 72 Hours
04/29/24 10:43 Pleural Fluid Gram Stain - Final
[2024-05-04] MEDS: MIRALAX PO (10:19)
[2024-05-04] MEDS: SENOKOT PO (10:22)
[2024-05-04] MEDS: DITROPAN 5 MG PO ×2 (10:22→21:16)
[2024-05-04] MEDS: ELIQUIS 5 MG PO ×2 (10:22→21:16)
[2024-05-04] MEDS: DESENEX/MITRAZOL/ZEASORB 1 APPLIC TOPICAL ×2 (10:23→21:14)
[2024-05-04] MEDS: LIDOCAINE 4% PATCH 1 PATCH TOPICAL (10:23)
[2024-05-04] MEDS: TYLENOL 650 MG PO ×3 (10:44→23:45)
--- NOTE | 2024-05-04 11:20 | CM ---
Addendum entered by Connie Blake 05/04/24 12:00:
Patient daughter asking about notary, reviewed with her recommendation from Andrea that patient use someone who is more familiar with patient situation and family planning to call friend who is a notary. CM will continue to follow for discharge
planning needs.
Original Note:
Patient seen at bedside with therapy also present. Patient now with chest tube. Per physician patient not for discharge at this time. Patient for SNF placement when medically appropriate, SNF options to be reviewed by daughter Leydi and updated
clinical referral will be needed. CM will continue to follow for discharge planning needs.
Plan; SNF when medically appropriate; palliative care has been consulted.
[2024-05-04 11:36] VITALS: BP 138/66; PULSE 88; PULSE 89; O2SAT 93; O2SAT 94
[2024-05-04 12:53] VITALS: BMI 34.2
[2024-05-04] MEDS: TYLENOL PO ×2 (13:08→21:16)
--- NOTE | 2024-05-04 13:08 | W.PN.PAL2 ---
Today's Communication
-
chest tube placed yesterday for respiratory distress 2/2 reaccumulating pleural effusion, pain meds on hold 2/2 delirium
Assessment / Plan
-
Assessment/Plan:
78 year old F with recurrent/metastatic liposarcoma of LLE on treatment.
- with recurrent effusion and chest tube placed overnight. Pulm following with plans for possible pleurodesis vs pleurx drain placement.
- patient still wishes to continue with cancer treatment, family understands prognosis.
- monitor progress through the weekend - may need to revisit goals depending on medical status. Very appropriate for hospice.
Reason for Admission
Illness Course/HPI
78 year old F with history of left lower extremity spindle cell sarcoma diagnosed 12/29/2021 s/p excision. Pathology + for dedifferentiated liposarcoma. Found this year to have recurrence of sarcoma as well as mets to pleura/lungs s/p salvage chemo
07/26/2023. Subsequent surveillance scans noting slow progression of both pulmonary mets as well as her sarcoma.
Admitted with complaints of progressive pleuritic type chest pain x3 days uncontrolled by her pain medications. Upon admission, CT scan with large right pleural effusion with new [address] also showed significant progression of malignant
pleural metastatic disease of R hemithorax and right anterior pericardial metastatic lymphadenopathy. Underwent thoracentesis 04/29 with relief of pain. Previously dx with vascular compression due to LLE mass, known DVT and imaging this admission
shows persistent/worsening of DVT. Per vascular, AC would not be effective for this.
Oncology following - considering palliative pleural drain placement. Patient wishes to continue with her oncology treatment, currently undergoing radiation to LLE mass with plans to start targeted oral therapy thereafter.
Objective Data
-
Objective Data:
Vital Signs
Temp Pulse Resp BP Pulse Ox
97.9 F 85 20 128/58 94
05/04/24 07:45 05/04/24 07:45 05/04/24 07:45 05/04/24 07:45 05/04/24 10:12
Laboratory Results
05/04/24 06:31
05/04/24 06:31
PT 14.4 Sec (11.4-14.6) 04/28/24 12:56
INR 1.09 04/28/24 12:56
APTT 32.1 Sec (23.4-35.0) 04/28/24 12:56
Total Protein Cancelled 04/28/24 16:25
Albumin 3.6 g/dl (3.5-5.0) 04/28/24 12:56
Palliative Performance Scale
Palliative Performance Scale:
PPS Level Ambulation Activity & Evidence of Disease Self Care Intake Conscious Level
100% Full Normal Activity & Work; Full Intake Full
No Evidence of Disease
90% Full Normal Activity & Work; Full Normal Full
Some Evidence of Disease
80% Full Normal Activity with Effort Full Normal or Full
Some Evidence of Disease Reduced
70% Reduced Unable Normal Job/Work Full Normal or Full
Significant Disease Reduced
60% Reduced Unable Hobby/Housework Occasional Normal or Full or Confusion
Significant Disease Assistance Reduced
50% Mainly Sit/Lie Unable to do Any Work Considerable Normal or Full or Confusion
Extensive Disease Assistance Req'd Reduced
40% Mainly in Bed Unable to do Most Activity Mainly Assistance Normal or Full or Drowsy;
Extensive Disease Reduced +/- Confusion
30% Totally Bed Unable to do Any Activity Total Care Normal or Full or Drowsy;
Bound Extensive Disease Reduced +/- Confusion
20% Totally Bed Bound Unable to do Any Activity Total Care Minimal to Full or Drowsy;
Extensive Disease Sips +/- Confusion
10% Totally Bed Bound Unable to do Any Activity Total Care Mouth Care Drowsy or Coma;
Extensive Disease Only +/- Confusion
0%
PPS Score Level:
Physical Exam
-
General: Comfortable and Appears Chronically Ill
HEENT: Normocephalic
Respiratory: Clear to Auscultation and Other (chest tube in place)
Care Reviewed
Data Reviewed
Radiology procedure: Image Reviewed
Medical Tests: I reviewed
Reviewed with: Patient
[2024-05-04] MEDS: ROXICODONE 5 MG PO (14:43)
[2024-05-04 15:24] VITALS: BP 147/57
[2024-05-04] MEDS: NEURONTIN 600 MG PO (21:15)
[2024-05-04] MEDS: ZOLOFT 50 MG PO (21:16)
[2024-05-04 23:38] VITALS: BP 154/67
[2024-05-05] MEDS: TYLENOL 650 MG PO ×3 (05:35→21:37)
[2024-05-05] MEDS: LOKELMA 10 GRAM PO (05:35)
[2024-05-05 06:00] VITALS: BMI 34.0
[2024-05-05 06:16] LABS: Hematocrit 31.9 % (37.0-47.0); Hemoglobin 10.6 g/dL (12.0-16.0); Mean Corp Hgb Conc. 33.2 g/dL (33.0-37.0); Mean Corpuscular Hgb 30.7 pg (27.0-31.0); Mean Corpuscular Volume 92.5 fL (81.0-99.0); Mean Platelet Volume 12.3 fL (7.4-10.4); Platelet Count 215 10^3/uL (130-400); Red Blood Cell Count 3.45 10^6/uL (4.20-5.40); Red Cell Dist. Width 14.6 % (11.5-14.5); White Blood Cell Count 8.6 10^3/uL (4.8-10.8)
[2024-05-05 07:40] VITALS: BP 155/81
[2024-05-05 07:54] LABS: Blood Urea Nitrogen 10 mg/dl (7-17); Calcium 10.1 mg/dl (8.4-10.2); Carbon Dioxide 30 mmol/L (22-30); Chloride 98 mmol/L (98-107); Estimated Creatinine Clearance 85 ml/min; Glucose 113 mg/dl (70-99); Sodium 135 mmol/L (135-145); eGFR > 60.00
--- NOTE | 2024-05-05 08:52 | W.PN.HOSP.TC ---
Today's Communication/Plan
-
see bold
Assessment / Plan
Assessment / Plan
Gen: NAD, Awake and alert, NCAT
Eyes: EOMI, PERRLA, no scleral icterus.
Neck: supple.
CV: RRR, +S1/S2, no m/r/g.
Resp: CTAB anteriorly, no rales, wheezes, or rhonchi.
Skin: No rashes.
Neuro: CN 2-12 intact, non-focal.
Psych: Normal mood and affect.
CT chest 04/30/24: Improved moderate right pleural effusion. Pleural-based right-sided pulmonary masses suggestive of metastatic disease. Stable. Mild right lower lobe consolidation probably atelectasis. Pneumonia not excluded. Improved.
Echo: Normal LV size and function with no regional wall motion abnormalities.
LVEF is 65-70% by visual estimation.
Stage I diastolic dysfunction suggestive of abnormal relaxation.
Normal right ventricular size and function.
Mild to moderate tricuspid regurgitation.
Estimated pulmonary artery pressure of 47 mmHg, assuming a right atrial
pressure of 3 mmHg.
Compared to prior from 02/03/2023, there is new mild to moderate TR and elevated
estimated PASP of 47 mmHg, previously top normal.
Acute hypoxemic respiratory failure due to new large symptomatic right pleural effusion:
-initial CT chest showed right pleural effusion, no acute PE. 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
-s/p R thoracentesis 04/29 with removal of 1050cc of exudative fluid. Cytology pending, culture NGTD.
-temporary symptomatic improvement s/p thoracentesis, though symptoms returned within 24 hours.
-repeat CT chest 04/30/24 above, R pleural effusion not worsened.
-Echo above, notable for worsening pulm HTN
-on 05/03/24 pt with worsening hypoxemia (was requiring 5L NC O2). CXR showed Large right pleural effusion, significantly increased in volume compared with the previous examination. Chest tube placed 05/03/24. 50cc output overnight.
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
Persistent/Worsening Left Lower Extremity DVT
-Onc following
-Previously was on chemotherapy, now completing radiation therapy outpatient for LLE mass
-Of note: Unfortunately, there may not be any AC that is effective in this scenario because of the mass itself causing vascular blockage.
-Per vascular surgery consult on last admission, no vascular intervention can be done
-Continue Eliquis
-onc following, appreciate goals of care conversation. Patient wants to continue cancer directed therapy at this time. Patient to have palliative radiation therapy after discharge followed by oral Votrient.
-seen by palliative care
Acute toxic encephalopathy:
-was likely due to long-acting morphine which was stopped, now resolved
-will try short acting IV morphine for pain control today.
Essential Hypertension:
-Olmesartan/Norvasc now stopped with prior hypotension
-note, manual blood pressures in both arms on 05/02/24 were similar
Other problems:
Anemia of chronic disease: Hb stable
Constipation: cont bowel regimen
Anxiety/Depression: cont sertraline
Obesity due to excess calories
Overactive Bladder: Oxybutynin
h/o Symptomatic Bradycardia s/p Permanent Pacemaker
Hyponatremia, mild
Hyperkalemia: resolved with Lokelma
FULL/Eliquis
Anticipated Discharge: > 48 hours
Subjective/Interval History
-
Date of Service: May 05, 2024
Denies shortness of breath. Complains of right lower rib pain.
Objective Data
-
Labs:
Laboratory Results
05/05/24
06:09
WBC 8.6
Hgb 10.6 L
Hct 31.9 L
Plt Count 215
Sodium 135
Potassium 4.0
Chloride 98
Carbon Dioxide 30
BUN 10
Creatinine 0.5 L
Glucose 113 H
Calcium 10.1
Vital Signs:
Vital Signs
Temp Pulse Resp BP Pulse Ox
98.2 F 90 16 154/67 94
05/04/24 23:38 05/04/24 23:38 05/04/24 23:38 05/04/24 23:38 05/04/24 23:38
I&O
05/04/24 05/05/24 05/06/24
06:59 06:59 06:59
Intake Total 240 / 240 840 / 840
Output Total 1300 / 1300 140 / 140
Balance -1060 / -1060 700 / 700
--- NOTE | 2024-05-05 09:10 | W.PN.PUL3 ---
Today's Communication / Plan
-
Monitor chest tube output and keep at negative suction at [id number]
Urgent CXR to assess right hemithorax - if right-sided opacification still ongoing then check CT chest tomorrow morning
Follow-up pleural fluid cytology + culture
Likely will benefit from Pleurx catheter
BiPAP as needed
Re-check VBG tomorrow AM to assess stability of pH nand pCO2
Pulmonary service will continue to follow along while she remains hospitalized
Assessment
-
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
status post drainage-pulmonary consulted for pleural effusion 05/03/2024.
Impression:
Right pleural effusion-large and symptomatic
Status post thoracentesis 04/29/24--1 L straw-colored fluid, cytology pending; Cx show NGTD
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
Acute on chronic respiratory failure
Wrurac-auscjsfhex-smfgdousoi 10.3
Hyponatremia
Hyperglycemia
Conditions present prior to admission:
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
Metastatic disease to lungs, pleura.
Hypertension.
GERD.
Depression.
Bradycardia/permanent pacemaker.
Appendectomy. Hysterectomy. Left breast lumpectomy. Left knee meniscus surgery.
Plan
Respiratory decompensation, likely due to fairly rapidly reaccumulating malignant pleural effusion.
Supplement oxygen to keep SpO2 >90-94%
VBG with evidence for hypercapnia-nursing reports some somnolence, however none today (05/05/2024)
BiPAP as needed-has not needed yet
Nebulizers if needed.
Aspiration precautions.
Follow chest x-ray --> re-check CXR today (05/05) given chest tube has stopped draining --> will likely need CT chest to assess position of chest tube tip
Check AM VBG to assess stability of pCO2 and pH
Fairly rapid reaccumulation of pleural fluid
Chest tube placed 05/03/24-
Monitor chest tube output ---> output stopped this AM (05/05), and I went to bedside with the RN and I clamped the chest tube, and then stripped the tubing connected to the Pleur-evac, clearing the chest tube tubing however there still was no
drainage once I reconnected everything to suction. Recheck CXR now and if opacification is still ongoing with right hemithorax then check CT chest tomorrow morning
Pleural fluid cytology pending
Follow up pleural fluid Cx (NGTD)
Suspect malignant and would benefit from Pleurx catheter
Follow hemoglobin.
Transfuse if needed to keep Hb>7
Oncology following-correspondence reviewed-outpatient follow-up with Dr. Grayson
DVT prophylaxis-on Eliquis
Nutrition
Bedside range of motion/physical therapy
Reviewed with nursing, and primary team
Pulmonary service will continue to follow along
Diagnostic data:
Chest x-ray 04/29/2024-no pneumothorax following right thoracentesis
CT chest 02/17/2024-severe bilateral pulmonary nodules suspicious for metastatic disease
CT chest 04/28/2024-no evidence for pulm embolism, new large malignant right pleural effusion with large amount of malignant pleural metastatic disease
CT chest 04/30/2024-improved moderate right pleural effusion, pleural-based right-sided pulmonary mass suggesting metastatic disease, mild right lower lobe consolidation
Thoracentesis 04/29/24--1050 mL straw-colored pleural fluid
Echocardiogram 05/02/2024-EF 65-70%, PA systolic 47
Total time spent today was 36 minutes for this encounter. Time includes reviewing laboratory test/imaging results, reviewing pertinent medical records, obtaining and reviewing medical history, performing an appropriate exam, ordering medications,
tests and procedures. Time also includes documentation of this encounter, coordinating patient care and communicating with other healthcare professionals. Total time does not include separately billed tests performed on this date of service.
Subjective Data
-
Date of Service:
Date of Service: May 05, 2024
Chief Complaint: Pulmonary Follow Up and Dyspnea Follow Up
Subjective:
Patient was seen and evaluated today at bedside. Chest tube has not been draining today. Currently on 5 L/min saturating 96%. She denies shortness of breath, chest pain, nausea, fevers or chills. I spoke with her son, Rd Waddell, and answered
all of his questions.
Review of Systems
General: Other (Negative unless mentioned above)
Objective Data
Data Reviewed
Vital Signs / I&O / Oxygen:
Vital Signs
Temp Pulse Resp BP Pulse Ox
97.9 F 91 16 155/81 92
05/05/24 07:40 05/05/24 07:40 05/05/24 07:40 05/05/24 07:40 05/05/24 09:40
Intake and Output
05/04/24 05/05/24 05/06/24
06:59 06:59 06:59
Intake Total 240 / 240 840 / 840
Output Total 1300 / 1300 140 / 140
Balance -1060 / -1060 700 / 700
SaO2 92
Nasal Cannula flow liters per 5
minute
Physical Exam
General: Respiratory Distress (n), Comfortable, Chills (negative) and Sweats (negative)
HEENT: Normocephalic, Anicteric and Moist Mucous Membranes
Cardiovascular: S1-S2 and Peripheral Edema (negative)
Respiratory: Wheeze (negative), Crackles (Right lower lobe-right middle lung field), Rhonchi (negative), Non-Labored Respirations, Accessory Resp Muscle Use (n), Stridor and Chest Tube (right posterior hemithorax)
GI: Soft, Non Distended and Non Tender
Neurology: Awake, Alert and Tremors (negative)
Skin: Warm, Dry, Cyanosis (n) and Jaundice (n)
Labs/Micro/Reports
Lab Data
05/05/24 06:09
05/05/24 06:09
Microbiology
04/29/24 10:43 Pleural Fluid Body Fluid Culture - Final
No Growth After 72 Hours
04/29/24 10:43 Pleural Fluid Gram Stain - Final
[2024-05-05] MEDS: COLACE 100 MG PO (09:40)
[2024-05-05] MEDS: ELIQUIS 5 MG PO ×2 (09:40→21:37)
[2024-05-05] MEDS: SENOKOT 8.6 MG PO (09:40)
[2024-05-05] MEDS: DITROPAN 5 MG PO ×2 (09:40→21:37)
[2024-05-05] MEDS: LIDOCAINE 4% PATCH 1 PATCH TOPICAL (09:40)
[2024-05-05] MEDS: MIRALAX PO (09:41)
[2024-05-05] MEDS: DESENEX/MITRAZOL/ZEASORB 1 APPLIC TOPICAL ×2 (09:41→21:38)
[2024-05-05] MEDS: MORPHINE SULFATE 2 MG IV ×2 (10:28→16:37)
[2024-05-05 15:30] VITALS: BP 149/60
[2024-05-05] MEDS: TYLENOL PO (17:37)
[2024-05-05] MEDS: ZOLOFT 50 MG PO (21:37)
[2024-05-05] MEDS: NEURONTIN 600 MG PO (21:37)
[2024-05-05 23:45] VITALS: BP 171/84
[2024-05-06 02:19] VITALS: BP 164/77
[2024-05-06] MEDS: MORPHINE SULFATE 2 MG IV ×5 (03:09→22:20)
[2024-05-06] MEDS: TYLENOL 650 MG PO ×2 (05:36→13:12)
[2024-05-06 06:06] LABS: Venous Blood Gas B.E. 7.9 mmol/L (-4 to +4); Venous Blood Gas HCO3 33.7 mmol/L (22-27); Venous Blood Gas pCO2 52 mmHg (35-48); Venous Blood Gas pH 7.42 (7.32-7.43); Venous Blood Gas pO2 97 mmHg (30-50)
[2024-05-06 07:40] VITALS: BP 170/83
[2024-05-06] MEDS: LIDOCAINE 4% PATCH 1 PATCH TOPICAL (08:22)
[2024-05-06] MEDS: DITROPAN 5 MG PO ×2 (08:26→20:58)
[2024-05-06] MEDS: COLACE 100 MG PO (08:26)
[2024-05-06] MEDS: ELIQUIS 5 MG PO ×2 (08:26→20:57)
[2024-05-06] MEDS: SENOKOT 8.6 MG PO (08:26)
[2024-05-06] MEDS: DESENEX/MITRAZOL/ZEASORB 1 APPLIC TOPICAL ×2 (08:28→20:58)
[2024-05-06] MEDS: MIRALAX PO (08:28)
--- NOTE | 2024-05-06 09:42 | W.PN.PUL3 ---
Today's Communication / Plan
-
Start tpA/dornase instillation today
Monitor chest tube output and keep at negative suction at [id number]
Follow-up pleural fluid cytology + culture
Likely will benefit from Pleurx catheter
BiPAP as needed
Pulmonary service will continue to follow along while she remains hospitalized
Assessment
-
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
status post drainage-pulmonary consulted for pleural effusion 05/03/2024.
Impression:
Right pleural effusion-large and symptomatic
Status post thoracentesis 04/29/24--1 L straw-colored fluid, cytology pending; Cx show NGTD
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
Acute on chronic respiratory failure
Jfdvuj-tlildwbgug-glqqljeaiq 10.3
Hyponatremia
Hyperglycemia
Conditions present prior to admission:
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
Metastatic disease to lungs, pleura.
Hypertension.
GERD.
Depression.
Bradycardia/permanent pacemaker.
Appendectomy. Hysterectomy. Left breast lumpectomy. Left knee meniscus surgery.
Plan
Respiratory decompensation, likely due to fairly rapidly reaccumulating malignant pleural effusion.
Supplement oxygen to keep SpO2 >90-94%
VBG with evidence for hypercapnia-nursing reports some somnolence, however not somnolence since 05/05/2024
BiPAP as needed-has not needed yet
Nebulizers if needed.
Aspiration precautions.
Follow chest x-ray --> re-check CXR on 05/05/2024 given chest tube has stopped draining --> CT chest obtained today (05/06/2024) showing increased size of moderate right-sided pleural effusion with appropriately positioned right-sided chest tube
within the posterior pleural space with prominent pleural nodules which likely represent pleural metastasis
ABG checked morning of 05/06/2024 showing stable hypercapnia with pH 7.42, pCO2 52
Fairly rapid reaccumulation of pleural fluid
Chest tube placed 05/03/24
Monitor chest tube output ---> output stopped AM of 05/05, and Dr. Ruiz went to bedside with the RN and clamped the chest tube, and then stripped the tubing connected to the Pleur-evac, clearing the chest tube tubing however there still was no
drainage once I reconnected everything to suction. CT chest on 05/06/2024 shows appropriately positioned chest tube
I discussed the CT chest findings and the absence of chest tube output with interventional radiology and we have agreed to start tpA/dornase --> will give 2 doses today and then will likely continue for total of 6 doses unless chest tube output
dramatically improves
Pleural fluid cytology pending
Follow up pleural fluid Cx (NGTD)
Suspect malignant and would benefit from Pleurx catheter
Follow hemoglobin.
Transfuse if needed to keep Hb>7
Oncology following-correspondence reviewed-outpatient follow-up with Dr. Grayson
DVT prophylaxis-on Eliquis
Nutrition
Bedside range of motion/physical therapy
Reviewed with nursing, and primary team
Pulmonary service will continue to follow along
Diagnostic data:
Chest x-ray 04/29/2024-no pneumothorax following right thoracentesis
CT chest 02/17/2024-severe bilateral pulmonary nodules suspicious for metastatic disease
CT chest 04/28/2024-no evidence for pulm embolism, new large malignant right pleural effusion with large amount of malignant pleural metastatic disease
CT chest 04/30/2024-improved moderate right pleural effusion, pleural-based right-sided pulmonary mass suggesting metastatic disease, mild right lower lobe consolidation
CT Chest 05/06/2024:
There is slightly increased size of the moderate right-sided pleural effusion when compared with prior CT chest. The right-sided chest tube appears to be situated within the posterior pleural space. There is associated tear total collapse of the
right lower lobe with right middle and right upper lobe atelectasis. There are numerous prominent pleural nodules which are unchanged and appearance and likely represent pleural metastasis.
Thoracentesis 04/29/24--1050 mL straw-colored pleural fluid
Echocardiogram 05/02/2024-EF 65-70%, PA systolic 47
Total time spent today was 38 minutes for this encounter. Time includes reviewing laboratory test/imaging results, reviewing pertinent medical records, obtaining and reviewing medical history, performing an appropriate exam, ordering medications,
tests and procedures. Time also includes documentation of this encounter, coordinating patient care and communicating with other healthcare professionals. Total time does not include separately billed tests performed on this date of service.
Subjective Data
-
Date of Service:
Date of Service: May 06, 2024
Chief Complaint: Pulmonary Follow Up and Dyspnea Follow Up
Subjective:
Patient was seen and evaluated today at bedside. Currently on 5 L/min. Chest tube still not draining, with 5 cc drained last 24 hours. Patient has no chest pain, SOB at rest, nausea, vomiting, fevers or chills.
Review of Systems
General: Other (Negative unless mentioned above)
Objective Data
Data Reviewed
Vital Signs / I&O / Oxygen:
Vital Signs
Temp Pulse Resp BP Pulse Ox
98.3 F 84 20 170/83 93
05/06/24 07:40 05/06/24 07:40 05/06/24 07:40 05/06/24 07:40 05/06/24 07:40
Intake and Output
05/05/24 05/06/24 05/07/24
06:59 06:59 06:59
Intake Total 840 / 840 900 / 900
Output Total 140 / 140 5 / 5
Balance 700 / 700 895 / 895
SaO2 93
Nasal Cannula flow liters per 5
minute
Physical Exam
General: Respiratory Distress (n), Comfortable, Chills (negative) and Sweats (negative)
HEENT: Normocephalic, Anicteric and Moist Mucous Membranes
Cardiovascular: S1-S2 and Peripheral Edema (negative)
Respiratory: Wheeze (negative), Crackles (Right lower lobe-right middle lung field), Rhonchi (negative), Non-Labored Respirations, Accessory Resp Muscle Use (n), Stridor (negative) and Chest Tube (right posterior hemithorax with no air leak)
GI: Soft, Non Distended, Non Tender and Normal Bowel Sounds
Neurology: Awake, Alert and Tremors (negative)
Skin: Warm, Dry, Cyanosis (n) and Jaundice (n)
Labs/Micro/Reports
Lab Data
05/05/24 06:09
05/05/24 06:09
--- NOTE | 2024-05-06 10:39 | W.PN.HOSP.TC ---
Today's Communication/Plan
-
see bold
Assessment / Plan
Assessment / Plan
Gen: Remains NAD, Awake and alert, NCAT
Eyes: EOMI, PERRLA, no scleral icterus.
Neck: supple.
CV: Remains RRR, +S1/S2, no m/r/g.
Resp: Remains CTAB anteriorly, no rales, wheezes, or rhonchi.
Skin: No rashes.
Neuro: CN 2-12 intact, non-focal.
Psych: Normal mood and affect.
CT chest 04/30/24: Improved moderate right pleural effusion. Pleural-based right-sided pulmonary masses suggestive of metastatic disease. Stable. Mild right lower lobe consolidation probably atelectasis. Pneumonia not excluded. Improved.
CT chest 05/06/24AM: There is slightly increased size of the moderate right-sided pleural effusion when compared with prior CT chest. The right-sided chest tube appears to be situated within the posterior pleural space. There is associated near
total collapse of the right lower lobe with right middle and right upper lobe atelectasis. There are numerous prominent pleural nodules which are unchanged and appearance and likely represent pleural metastasis.
Echo: Normal LV size and function with no regional wall motion abnormalities.
LVEF is 65-70% by visual estimation.
Stage I diastolic dysfunction suggestive of abnormal relaxation.
Normal right ventricular size and function.
Mild to moderate tricuspid regurgitation.
Estimated pulmonary artery pressure of 47 mmHg, assuming a right atrial
pressure of 3 mmHg.
Compared to prior from 02/03/2023, there is new mild to moderate TR and elevated
estimated PASP of 47 mmHg, previously top normal.
Acute hypoxemic respiratory failure due to new large symptomatic right pleural effusion:
-initial CT chest showed right pleural effusion, no acute PE. 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
-s/p R thoracentesis 04/29 with removal of 1050cc of exudative fluid. Cytology pending, culture NGTD.
-temporary symptomatic improvement s/p thoracentesis, though symptoms returned within 24 hours.
-repeat CT chest 04/30/24 above, R pleural effusion not worsened.
-Echo above, notable for worsening pulm HTN
-on 05/03/24 pt with worsening hypoxemia (was requiring 5L NC O2). CXR showed Large right pleural effusion, significantly increased in volume compared with the previous examination. Chest tube placed 05/03/24.
-CT chest 05/06/24AM above
-As per discussion with pulmonary chest tube stopped draining and there is blood in the chest tube. Will receive tPA/dornase today
-currently on 5L NC O2
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
Persistent/Worsening Left Lower Extremity DVT
-Onc following
-Previously was on chemotherapy, now completing radiation therapy outpatient for LLE mass
-Of note: Unfortunately, there may not be any AC that is effective in this scenario because of the mass itself causing vascular blockage.
-Per vascular surgery consult on last admission, no vascular intervention can be done
-Continue Eliquis
-onc following, appreciate goals of care conversation. Patient wants to continue cancer directed therapy at this time. Patient to have palliative radiation therapy after discharge followed by oral Votrient.
-seen by palliative care
Acute toxic encephalopathy:
-was likely due to long-acting morphine which was stopped, now resolved
-cont short acting IV morphine for pain control today.
Essential Hypertension:
-Olmesartan/Norvasc now stopped with prior hypotension
-note, manual blood pressures in both arms on 05/02/24 were similar
Other problems:
Anemia of chronic disease: Hb stable
Constipation: cont bowel regimen
Anxiety/Depression: cont sertraline
Obesity due to excess calories
Overactive Bladder: Oxybutynin
h/o Symptomatic Bradycardia s/p Permanent Pacemaker
Hyponatremia, mild
Hyperkalemia: resolved with Lokelma
Two of the pt's daughter's updated at bedside.
FULL/Eliquis
Patient's prognosis is extremely poor and she is hospice appropriate.
Anticipated Discharge: > 48 hours
Subjective/Interval History
-
Date of Service: May 06, 2024
No new complaints.
Objective Data
-
Vital Signs:
Vital Signs
Temp Pulse Resp BP Pulse Ox
98.3 F 84 20 170/83 93
05/06/24 07:40 05/06/24 07:40 05/06/24 07:40 05/06/24 07:40 05/06/24 07:40
I&O
05/05/24 05/06/24 05/07/24
06:59 06:59 06:59
Intake Total 840 / 840 900 / 900
Output Total 140 / 140 5 / 5
Balance 700 / 700 895 / 895
--- NOTE | 2024-05-06 11:55 | W.SUR.POST ---
Surgical Immediate Post Op
Note
Date of procedure: 05/06/2024
Pre Op Diagnosis: Loculated pleural effusion
Post Op Diagnosis: Same as above
Procedure Performed: tPA/dornase chest tube lytic instillation
Primary Surgeon/proceduralist: Dr. Ruiz
Secondary Surgeons: N/A
Anesthesia: N/A
Estimated Blood Loss: N/A
Fluids: N/A
Drains/Shunts: N/A
Specimens/Cultures: N/A
Doppler/Duplex/Angio (Y/N): N/A
Complications: No immediate complications
Operative Findings: Date of Procedure:
Operative Findings: After verbal consent obtained, patient was positioned into recumbent position so that I could access the chest tube. Chest tube was clamped, and sterile technique was employed including: hand washing, sterile gloves, mask and
gown. Chest tube tubing was disconnected so that I could access opening, and normal saline 0.9% was flushed into chest tube without resistance. 10mg of tPA and 5mg of dornase were instilled without incident, and flushed with 10cc of NS 0.9% after
each instillation. Alcohol wipes were used to wipe down the catheter tips and the chest tube tubing site before and after each instillation to maximize sterility. Chest tube was then clamped and is to remain off suction for 120 minutes, at which
point the chest tube should be unclamped and then placed back onto suction at -[id number] (unless specified otherwise by provider). Bedside RN assisted with procedure. Patient tolerated procedure without any immediate complications, and I answered
all of her questions.
[2024-05-06] MEDS: NSS 25 ML INTRAPLEUR ×2 (12:30→18:52)
[2024-05-06] MEDS: PULMOZYME 50 MG INTRAPLEUR ×2 (12:30→18:51)
[2024-05-06] MEDS: PULMOZYME 50 ML INTRAPLEUR ×2 (12:30→18:51)
[2024-05-06] MEDS: CATHFLO/ACTIVASE 50 ML INTRAPLEUR ×2 (12:31→18:51)
[2024-05-06] MEDS: CATHFLO/ACTIVASE 50 MG INTRAPLEUR ×2 (12:31→18:51)
--- NOTE | 2024-05-06 13:37 | W.PN.ONC ---
Today's Communication / Plan
-
chest tube - management as per pulmonary
DVT - vascular compression - eliquis
cont supportive care
Impression
Impression
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
lung mets, pleural effusion, s/p thoracentesis [id number], 04/29/24 - w/ reaccumulation - chest tube placed 05/03
Pain
Plan
Plan
cytology pending s/p thoracentesis
chest tube as per pulmonary
DVT - on eliquis
supplemental O2
pain mgmt, opioids were increased 04/30/24
Bowel regimen - senna, colace, miralax
Goals restorative to continue cancer treatments
Resume palliative RT after discharge
Oral Votrient (oral targeted therapy) to start once she completes radiation
Subjective/Objective
Subjective/Objective
denies SOB at rest, denies pain
Vital Signs:
Vital Signs
Temp Pulse Resp BP Pulse Ox
98.3 F 84 20 170/83 93
05/06/24 07:40 05/06/24 07:40 05/06/24 07:40 05/06/24 07:40 05/06/24 09:30
Lab Results:
Laboratory Data
WBC 8.6 10^3/uL (4.8-10.8) 05/05/24 06:09
Hgb 10.6 g/dL (12.0-16.0) L 05/05/24 06:09
Plt Count 215 10^3/uL (130-400) 05/05/24 06:09
PT 14.4 Sec (11.4-14.6) 04/28/24 12:56
INR 1.09 04/28/24 12:56
APTT 32.1 Sec (23.4-35.0) 04/28/24 12:56
eGFR > 60.00 05/05/24 06:09
[2024-05-06 15:34] VITALS: BP 162/79
[2024-05-06] MEDS: TYLENOL PO (17:53)
--- NOTE | 2024-05-06 19:05 | W.SUR.POST ---
Surgical Immediate Post Op
Note
Date of procedure: 05/06/2024
Pre Op Diagnosis: Loculated pleural effusion
Post Op Diagnosis: Same as above
Procedure Performed: tPA/dornase chest tube lytic instillation
Medications instilled: 10mg tPA + 5mg dornase
Primary Surgeon/proceduralist: Dr. Ruiz
Secondary Surgeons: N/A
Anesthesia: N/A
Estimated Blood Loss: N/A
Fluids: N/A
Drains/Shunts: N/A
Specimens/Cultures: N/A
Doppler/Duplex/Angio (Y/N): N/A
Complications: No immediate complications
Operative Findings: Date of Procedure:
Operative Findings: After verbal consent obtained, patient was positioned into recumbent position so that I could access the chest tube. Chest tube was clamped, and sterile technique was employed including: hand washing, sterile gloves, mask and
gown. Chest tube tubing was disconnected so that I could access opening, and normal saline 0.9% was flushed into chest tube without resistance. 10mg of tPA and 5mg of dornase were instilled without incident, and flushed with 10cc of NS 0.9% after
each instillation. Alcohol wipes were used to wipe down the catheter tips and the chest tube tubing site before and after each instillation to maximize sterility. Chest tube was then clamped and is to remain off suction for 120 minutes, at which
point the chest tube should be unclamped and then placed back onto suction at -[id number] (unless specified otherwise by provider). Bedside RN assisted with procedure. Patient tolerated procedure without any immediate complications, and I answered
all of her questions.
[2024-05-06] MEDS: NEURONTIN 600 MG PO (20:57)
[2024-05-06] MEDS: ZOLOFT 50 MG PO (20:57)
--- NOTE | 2024-05-06 21:30 | PTCARENOTE ---
Chest Tube unclamped and reconnected to -20cm suction as per order. Chest tube site is clean and covered with gauze and ABD. No crepitus noted. Chest tube is draining bloody fluid with a noted total of 250cc 25minutes into reconnection to suction.
Dr Ruiz notified of the color and amount of drainage. Will continue to monitor and notify Dr Ruiz if output increases to >500 in 4 hours.
[2024-05-06 23:32] VITALS: BP 153/74
--- NOTE | 2024-05-07 00:42 | PTCARENOTE ---
Chest tube drained a total of 550cc bloody drainage. Dr Ruiz notified. Pt denies any chest pain or shortness of breath. Will continue to closely monitor for any complaints of chest/shoulder pain and shortness of breath. Will continue to keep
Chest Tube at -20cm suction as per Dr Ruiz.
[2024-05-07] MEDS: TYLENOL PO (01:07)
[2024-05-07] MEDS: TYLENOL 650 MG PO ×3 (05:17→17:48)
[2024-05-07 07:30] VITALS: BP 154/84
[2024-05-07] MEDS: LIDOCAINE 4% PATCH 1 PATCH TOPICAL (08:34)
[2024-05-07] MEDS: MORPHINE SULFATE 2 MG IV ×3 (08:35→21:20)
[2024-05-07] MEDS: DITROPAN 5 MG PO ×2 (08:35→21:18)
[2024-05-07] MEDS: SENOKOT 8.6 MG PO (08:35)
[2024-05-07] MEDS: ELIQUIS 5 MG PO ×2 (08:35→21:19)
[2024-05-07] MEDS: MIRALAX 17 GRAMS PO (08:35)
[2024-05-07] MEDS: COLACE 100 MG PO (08:35)
[2024-05-07] MEDS: DESENEX/MITRAZOL/ZEASORB 1 APPLIC TOPICAL ×2 (08:36→21:17)
--- NOTE | 2024-05-07 09:26 | W.PN.PUL3 ---
Today's Communication / Plan
-
s/p lytic therapy with 750 output overnight, continue drainage
Repeat CXR improving but not completely resolved
Encouraged OOB to increase output
Eventually if output is not improving, may consider change of tube to tunneled ASEPT
Hold off on further lytics
Wean o2 as tolerated
Assessment
-
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
status post drainage-pulmonary consulted for pleural effusion 05/03/2024.
Impression:
Right pleural effusion-large and symptomatic
Status post thoracentesis 04/29/24--1 L straw-colored fluid, cytology pending; Cx show NGTD
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
Acute on chronic respiratory failure
Lehujw-pzohdxjecg-hthdlwtpex 10.3
Hyponatremia
Hyperglycemia
Conditions present prior to admission:
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
Metastatic disease to lungs, pleura.
Hypertension.
GERD.
Depression.
Bradycardia/permanent pacemaker.
Appendectomy. Hysterectomy. Left breast lumpectomy. Left knee meniscus surgery.
Plan
Respiratory decompensation, likely due to fairly rapidly reaccumulating malignant pleural effusion.
Supplement oxygen to keep SpO2 >90-94%
Maintained on 5 L but could wean this down
VBG with evidence for hypercapnia-nursing reports some somnolence, however not somnolence since 05/05/2024
BiPAP as needed-has not needed yet
Nebulizers if needed.
Aspiration precautions.
Follow chest x-ray --> re-check CXR on 05/05/2024 given chest tube has stopped draining --> CT chest obtained today (05/06/2024) showing increased size of moderate right-sided pleural effusion with appropriately positioned right-sided chest tube
within the posterior pleural space with prominent pleural nodules which likely represent pleural metastasis
ABG checked morning of 05/06/2024 showing stable hypercapnia with pH 7.42, pCO2 52
Fairly rapid reaccumulation of pleural fluid
Chest tube placed 05/03/24
Monitor chest tube output ---> output stopped AM of 05/05, and Dr. Ruiz went to bedside with the RN and clamped the chest tube, and then stripped the tubing connected to the Pleur-evac, clearing the chest tube tubing however there still was no
drainage once I reconnected everything to suction. CT chest on 05/06/2024 shows appropriately positioned chest tube
I discussed the CT chest findings and the absence of chest tube output with interventional radiology and we have agreed to start tpA/dornase
S/P Lytic therapy placement 05/06 x 2, 750 output noted in past 24 hours, continue to monitor
Can hold off on additional doses for now, if her output diminishes further
Repeat CXR appears improved
Pleural fluid cytology 04/30 negative
Pleural fluid Cx--NG >72 hours
Follow hemoglobin.
Transfuse if needed to keep Hb>7
Oncology following-correspondence reviewed-outpatient follow-up with Dr. Grayson
DVT prophylaxis-on Eliquis
Nutrition
Bedside range of motion/physical therapy
Reviewed with nursing, and primary team
OOB important for continued drainage
Pulmonary service will continue to follow along
Diagnostic data:
Chest x-ray 04/29/2024-no pneumothorax following right thoracentesis
CT chest 02/17/2024-severe bilateral pulmonary nodules suspicious for metastatic disease
CT chest 04/28/2024-no evidence for pulm embolism, new large malignant right pleural effusion with large amount of malignant pleural metastatic disease
CT chest 04/30/2024-improved moderate right pleural effusion, pleural-based right-sided pulmonary mass suggesting metastatic disease, mild right lower lobe consolidation
CT Chest 05/06/2024: There is slightly increased size of the moderate right-sided pleural effusion when compared with prior CT chest. The right-sided chest tube appears to be situated within the posterior pleural space. There is associated tear
total collapse of the right lower lobe with right middle and right upper lobe atelectasis. There are numerous prominent pleural nodules which are unchanged and appearance and likely represent pleural metastasis.
Thoracentesis 04/29/24--1050 mL straw-colored pleural fluid
Echocardiogram 05/02/2024-EF 65-70%, PA systolic 47
-----
Total time spent today was 51 minutes for this encounter. Time includes reviewing laboratory test/imaging results, reviewing pertinent medical records, obtaining and reviewing medical history, performing an appropriate exam, ordering medications,
tests and procedures. Time also includes documentation of this encounter, coordinating patient care and communicating with other healthcare professionals. Total time does not include separately billed tests performed on this date of service.
Subjective Data
-
Date of Service:
Date of Service: May 07, 2024
Chief Complaint: Pulmonary Follow Up and Dyspnea Follow Up
Subjective:
No new events ON
Remains on supplemental o2, laying in bed
Chest tube to suction
Objective Data
Data Reviewed
Vital Signs / I&O / Oxygen:
Vital Signs
Temp Pulse Resp BP Pulse Ox
98.1 F 89 18 153/74 96
05/06/24 23:32 05/06/24 23:32 05/06/24 23:32 05/06/24 23:32 05/06/24 23:32
Intake and Output
05/06/24 05/07/24 05/08/24
06:59 06:59 06:59
Intake Total 900 / 900 900 / 900
Output Total 5 / 5 750 / 750
Balance 895 / 895 150 / 150
SaO2 96
Nasal Cannula flow liters per 5
minute
Physical Exam
General: Respiratory Distress (n), Comfortable, Chills (negative) and Sweats (negative)
HEENT: Normocephalic, Anicteric and Moist Mucous Membranes
Cardiovascular: S1-S2, Regular Rhythm and Peripheral Edema (negative)
Respiratory: Wheeze (negative), Crackles (Right lower lobe-right middle lung field), Rhonchi (negative), Non-Labored Respirations, Accessory Resp Muscle Use (n), Stridor (negative) and Chest Tube (right posterior hemithorax with no air leak)
GI: Soft, Non Distended, Non Tender and Normal Bowel Sounds
Neurology: Awake, Alert, Oriented, No Motor Deficits and Tremors (negative)
Skin: Warm, Dry, Cyanosis (n) and Jaundice (n)
Labs/Micro/Reports
Lab Data
05/05/24 06:09
05/05/24 06:09
[2024-05-07] MEDS: ZOFRAN 4 MG IV (09:27)
[2024-05-07] MEDS: CATHFLO/ACTIVASE INTRAPLEUR ×4 (12:17→17:33)
[2024-05-07] MEDS: PULMOZYME INTRAPLEUR ×4 (12:18→17:34)
[2024-05-07] MEDS: NSS INTRAPLEUR ×2 (12:18→17:34)
--- NOTE | 2024-05-07 12:39 | W.PN.ONC ---
Today's Communication / Plan
-
Continue current management. Pain seems reasonably well-controlled when she takes her medications. Eventual resumption of radiation therapy.
Impression
Impression
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
lung mets, pleural effusion, s/p thoracentesis [id number], 04/29/24 - w/ reaccumulation - chest tube placed 05/03
Pain
Plan
Plan
cytology pending s/p thoracentesis
chest tube as per pulmonary
DVT - on eliquis
supplemental O2
pain mgmt, opioids were increased 04/30/24
Bowel regimen - senna, colace, miralax
Goals restorative to continue cancer treatments
Resume palliative RT after discharge
Oral Votrient (oral targeted therapy) to start once she completes radiation
Subjective/Objective
Subjective/Objective
She is somewhat discouraged. She remains weak. She is having some discomfort at the chest tube site.
Vital Signs:
Vital Signs
Temp Pulse Resp BP Pulse Ox
98.1 F 89 18 153/74 96
05/06/24 23:32 05/06/24 23:32 05/06/24 23:32 05/06/24 23:32 05/07/24 09:00
Lab Results:
Laboratory Data
WBC 8.6 10^3/uL (4.8-10.8) 05/05/24 06:09
Hgb 10.6 g/dL (12.0-16.0) L 05/05/24 06:09
Plt Count 215 10^3/uL (130-400) 05/05/24 06:09
PT 14.4 Sec (11.4-14.6) 04/28/24 12:56
INR 1.09 04/28/24 12:56
APTT 32.1 Sec (23.4-35.0) 04/28/24 12:56
eGFR > 60.00 05/05/24 06:09
--- NOTE | 2024-05-07 15:12 | CM ---
Patient seen at bedside with physicians. physician to review options and CM will update SNF if patient and family confirm plan.
[2024-05-07 15:25] VITALS: BP 148/72
[2024-05-07 16:01] VITALS: BP 156/74; PULSE 82; O2SAT 97
--- NOTE | 2024-05-07 16:05 | W.PN.HOSP.TC ---
Addendum entered and electronically signed by Sol Bar MD 05/07/24 17:25:
I saw and evaluated the patient independently. I reviewed the resident�s note and agree with findings and plan as documented by Dr. Christensen.
GENERAL: well developed, well nourished, female in no apparent distress--seems weaker and frailer than when I last saw her on 04/29/24
HEENT: NC/AT--still requiring 5L O2 NC
HEART: regular rate and rhythm, +S1, +S2
LUNGS : decreased BS on right--chest tube with bloody drainage
ABDOM: soft, nontender, nondistended, + bowel sounds
EXT: no cyanosis, clubbing-- left leg with 2-3+ LE edema
NEUROLOGIC: subdued but grossly intact
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
thoracentesis 04/29- removal of 1050mL straw colored fluid, negative for cytology--recurrence requiring chest tube 05/03 with lytic therapy 05/06 --will need PleurX/Asept cath at d/c but concern re: need for lytic therapy, afraid tube may clog
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 Grayson)--on 4th line treatment--apprec onc--pt wants continued therapy to treat (Palliative care indicating the same)--pt much weaker and
will need therapy prior but cannot get at SNF....started hospice conversation with patient as she is on 4th line therapy AND no intervention possible for DVT in left leg due to compression by mass.....plan is for palliative XRT (also can't get at
SNF) followed by oral Votrient
Persistent/Worsening Left Lower Extremity DVT --was discharged on SQ lovenox last admission--now on Eliquis- Of note: Unfortunately, there may not be any AC that is effective in this scenario because of the mass itself causing vascular blockage- Per
vascular surgery consult on last admission - no vascular intervention can be done
Chronic anemia, likely anemia of chronic disease- Hgb 11.6 on admission, appears at baseline- No signs of acute blood loss or ongoing bleeding/bruising
Constipation- Continue home bowel regimen, would increase given chronic pain meds
Essential Hypertension- Continue home amlodipine and olmesartan with parameters
Anxiety/Depression- Continue home sertraline
Overactive Bladder- Continue home Oxybutynin
Hx Symptomatic Bradycardia s/p Permanent Pacemaker
Code status: full (confirmed with patient 04/29)--would strongly consider DNR as if she gets intubated, likely will not come off ventilator....
DVT proph-- Eliquis BID
Original Note:
Today's Communication/Plan
-
Encouraged OOB to increase output in chest tube
Wean oxygen as tolerated
Pulm and oncology continue to follow
Assessment / Plan
Assessment / Plan
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
status post drainage, chest tube in place since 05/03.
CT chest 04/30/24: Improved moderate right pleural effusion. Pleural-based right-sided pulmonary masses suggestive of metastatic disease. Stable. Mild right lower lobe consolidation probably atelectasis. Pneumonia not excluded. Improved.
CT chest 05/06/24AM: There is slightly increased size of the moderate right-sided pleural effusion when compared with prior CT chest. The right-sided chest tube appears to be situated within the posterior pleural space. There is associated near
total collapse of the right lower lobe with right middle and right upper lobe atelectasis. There are numerous prominent pleural nodules which are unchanged and appearance and likely represent pleural metastasis.
#Acute hypoxemic respiratory failure due to large symptomatic right pleural effusion:
-initial CT chest showed right pleural effusion, no acute PE. 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
-s/p R thoracentesis 04/29 with removal of 1050cc of exudative fluid.culture NGTD.
-temporary symptomatic improvement s/p thoracentesis, though symptoms returned within 24 hours.
-repeat CT chest 04/30/24 above, R pleural effusion not worsened.
-Echonotable for worsening pulm HTN
-on 05/03/24 pt with worsening hypoxemia (was requiring 5L NC O2). CXR showed Large right pleural effusion, significantly increased in volume compared with the previous examination. Chest tube placed 05/03/24.
-CT chest 05/06/24AM above
-chest tube stopped draining and there was blood in the chest tube. received tPA/dornase on 05/06/24 (750 output overnight)
-currently on 5L NC O2-keep SpO2> 90
-Cytology: Negative for malignant cells.
Benign mesothelial cells and macrophages in a background of lymphocytes and red blood cells
-OOB important for continued drainage
-Briefly discussed hospice
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
Persistent/Worsening Left Lower Extremity DVT
-Onc following-plan to resume radiation therapy
-Oral Votrient (oral targeted therapy) to start once she completes radiation
-Of note: Unfortunately, there may not be any AC that is effective in this scenario because of the mass itself causing vascular blockage.
-Per vascular surgery consult on last admission, no vascular intervention can be done
-Continue Eliquis
Patient wants to continue cancer directed therapy at this time. Patient to have palliative radiation therapy after discharge followed by oral Votrient.
#Acute toxic encephalopathy:
-was likely due to long-acting morphine which was stopped, now resolved
-cont short acting IV morphine for pain control-
-oxycodone 5 mg every 6 as needed for moderate pain
Essential Hypertension:
-Olmesartan/Norvasc previously stopped with prior hypotension
- will get updated BMP before restarting
Other problems:
Anemia of chronic disease: Hb stable
Constipation: cont bowel regimen
Anxiety/Depression: cont sertraline
Obesity due to excess calories
Overactive Bladder: Oxybutynin
h/o Symptomatic Bradycardia s/p Permanent Pacemaker
Hyponatremia, mild
Hyperkalemia: resolved with Lokelma
FULL/Eliquis
Anticipated Discharge: > 48 hours
Subjective/Interval History
-
Date of Service: May 07, 2024
Interval history: Pain at the chest tube site. Nausea, unable to take p.o. Zofran.
Objective Data
-
Labs:
Laboratory Results
05/07/24
14:50
WBC Pending
Hgb Pending
Hct Pending
Plt Count Pending
Vital Signs:
Vital Signs
Temp Pulse Resp BP Pulse Ox
98.4 F 85 20 148/72 97
05/07/24 15:25 05/07/24 15:25 05/07/24 15:25 05/07/24 15:25 05/07/24 15:25
I&O
05/06/24 05/07/24 05/08/24
06:59 06:59 06:59
Intake Total 900 / 900 900 / 900
Output Total 5 / 5 750 / 750
Balance 895 / 895 150 / 150
Review of Systems
-
History Source: Patient
Abdomen/GI: Reports Abdominal Pain (Near the chest tube site)
Physical Exam
-
General: Comfortable
HEENT: Moist Mucous Membranes
Respiratory: Crackles (Right), Non Labored Respirations and Chest Tubes (Right)
Cardiac: Regular Rhythm
GI: Soft and Nondistended
Skin: Warm and Dry
Neuro: Awake, Alert and Oriented
Psych: Calm
Data Reviewed
-
Diagnostic Radiology: Image personally visualized and interpreted, Discussed with Physician and Discussed with Patient
Labs: Labs Reviewed by me, Discussed with Physician and Discussed with Patient
--- NOTE | 2024-05-07 16:26 | W.PN.PAL2 ---
Today's Communication
-
Palliative care follow up , total floor time 40 mins, call to son yoni as well.
Connie reports that she continues to have pain, although overall it appears that she does get reasonable relief with the morphine. Her total daily morphine equivalent is roughly the same as her prior MScontin 15 BID (total 30mg oral morphine dose),
but with less confusion. She has been constipated, and has nausea today. TPA to pleural cath was effective.
Patient and her son's goals are treatment oriented. She would need snf rehab and then initiation of oncology treatments. They plan to check with her sarcoma specialist dannie. son reports they have the new medicaiton pill bottles at home, just need
permission to start taking from oncologist.
Recommend: adding oral oxycodone 5mg q6 hours PRN for oral pain control, keep iv as backup i fnausea. Increase bowel regimen.
Assessment / Plan
-
Assessment/Plan:
Goals: treatment oriented
Bowels: no bm in 3 days. increase senna/add miralax
nausea: zofran prn
pain: add oxycodone 5mg PRN to trial
Reason for Admission
Illness Course/HPI
78 year old F with history of left lower extremity spindle cell sarcoma diagnosed 12/29/2021 s/p excision. Pathology + for dedifferentiated liposarcoma. Found this year to have recurrence of sarcoma as well as mets to pleura/lungs s/p salvage chemo
07/26/2023. Subsequent surveillance scans noting slow progression of both pulmonary mets as well as her sarcoma.
Admitted with complaints of progressive pleuritic type chest pain x3 days uncontrolled by her pain medications. Upon admission, CT scan with large right pleural effusion with new [address] also showed significant progression of malignant
pleural metastatic disease of R hemithorax and right anterior pericardial metastatic lymphadenopathy. Underwent thoracentesis 04/29 with relief of pain. Previously dx with vascular compression due to LLE mass, known DVT and imaging this admission
shows persistent/worsening of DVT. Per vascular, AC would not be effective for this.
Oncology following - considering palliative pleural drain placement. Patient wishes to continue with her oncology treatment, currently undergoing radiation to LLE mass with plans to start targeted oral therapy thereafter.
Goals of Care Discussion
-
Patient able to participate in discussion at time of visit: Yes
Patient Goals
patients goals are treatment oriented
Pain & Symptom Assessment
[place] Symptom Scale 0=none, 10=worst
Pain: 10
-
Pain severe at present, but per chart review has had good response to morphine IV typically with 50% reduction in pain.
Objective Data
-
Objective Data:
Vital Signs
Temp Pulse Resp BP Pulse Ox
98.4 F 85 20 148/72 97
05/07/24 15:25 05/07/24 15:25 05/07/24 15:25 05/07/24 15:25 05/07/24 15:25
Laboratory Results
05/05/24 06:09
PT 14.4 Sec (11.4-14.6) 04/28/24 12:56
INR 1.09 04/28/24 12:56
APTT 32.1 Sec (23.4-35.0) 04/28/24 12:56
Total Protein Cancelled 04/28/24 16:25
Albumin 3.6 g/dl (3.5-5.0) 04/28/24 12:56
Palliative Performance Scale
Palliative Performance Scale:
PPS Level Ambulation Activity & Evidence of Disease Self Care Intake Conscious Level
100% Full Normal Activity & Work; Full Intake Full
No Evidence of Disease
90% Full Normal Activity & Work; Full Normal Full
Some Evidence of Disease
80% Full Normal Activity with Effort Full Normal or Full
Some Evidence of Disease Reduced
70% Reduced Unable Normal Job/Work Full Normal or Full
Significant Disease Reduced
60% Reduced Unable Hobby/Housework Occasional Normal or Full or Confusion
Significant Disease Assistance Reduced
50% Mainly Sit/Lie Unable to do Any Work Considerable Normal or Full or Confusion
Extensive Disease Assistance Req'd Reduced
40% Mainly in Bed Unable to do Most Activity Mainly Assistance Normal or Full or Drowsy;
Extensive Disease Reduced +/- Confusion
30% Totally Bed Unable to do Any Activity Total Care Normal or Full or Drowsy;
Bound Extensive Disease Reduced +/- Confusion
20% Totally Bed Bound Unable to do Any Activity Total Care Minimal to Full or Drowsy;
Extensive Disease Sips +/- Confusion
10% Totally Bed Bound Unable to do Any Activity Total Care Mouth Care Drowsy or Coma;
Extensive Disease Only +/- Confusion
0%
PPS Score Level:
Physical Exam
-
General: Well Developed, Well Nourished and No Apparent Distress
Neuro: Awake and Alert
Psych: Calm
[2024-05-07 17:57] LABS: % Basophils 0.5 % (0-2); % Eosinophils 2.7 % (0-6); % Immature Granulocytes 0.3 % (0-0.5); % Lymphocytes 8.1 % (20.5-51.1); % Monocytes 7.5 % (1.7-9.3); % Neutrophils 80.9 % (42.2-75.2); Absolute Eosinophils 0.2 10^3/uL (0-0.7); Absolute Lymphocytes 0.7 10^3/uL (1.2-3.4); Absolute Monocytes 0.7 10^3/uL (0.1-0.6); Absolute Neutrophils 7.1 10^3/uL (1.4-6.5); Hematocrit 35.5 % (37.0-47.0); Hemoglobin 11.2 g/dL (12.0-16.0); Mean Corp Hgb Conc. 31.5 g/dL (33.0-37.0); Mean Corpuscular Hgb 29.7 pg (27.0-31.0); Mean Corpuscular Volume 94.2 fL (81.0-99.0); Mean Platelet Volume 11.9 fL (7.4-10.4); Nucleated Red Blood Cells % 0 %; Platelet Count 274 10^3/uL (130-400); Red Blood Cell Count 3.77 10^6/uL (4.20-5.40); Red Cell Dist. Width 14.8 % (11.5-14.5); White Blood Cell Count 8.8 10^3/uL (4.8-10.8)
[2024-05-07 18:02] LABS: Blood Urea Nitrogen 12 mg/dl (7-17); Calcium 9.9 mg/dl (8.4-10.2); Carbon Dioxide 34 mmol/L (22-30); Chloride 92 mmol/L (98-107); Estimated Creatinine Clearance 85 ml/min; Glucose 127 mg/dl (70-99); Potassium 3.8 mmol/L (3.5-5.1); Sodium 131 mmol/L (135-145); eGFR > 60.00
[2024-05-07] MEDS: NEURONTIN 600 MG PO (21:18)
[2024-05-07] MEDS: ZOLOFT 50 MG PO (21:18)
[2024-05-07 23:49] VITALS: BP 166/73
[2024-05-08] MEDS: TYLENOL 650 MG PO ×4 (00:44→17:15)
[2024-05-08 04:18] LABS: % Basophils 0.6 % (0-2); % Eosinophils 4.7 % (0-6); % Immature Granulocytes 0.4 % (0-0.5); % Lymphocytes 8.7 % (20.5-51.1); % Monocytes 6.2 % (1.7-9.3); % Neutrophils 79.4 % (42.2-75.2); Absolute Basophils 0.1 10^3/uL (0-0.2); Absolute Eosinophils 0.4 10^3/uL (0-0.7); Absolute Lymphocytes 0.7 10^3/uL (1.2-3.4); Absolute Monocytes 0.5 10^3/uL (0.1-0.6); Absolute Neutrophils 6.7 10^3/uL (1.4-6.5); Hematocrit 33.8 % (37.0-47.0); Hemoglobin 10.8 g/dL (12.0-16.0); Mean Corpuscular Hgb 30.3 pg (27.0-31.0); Mean Corpuscular Volume 94.9 fL (81.0-99.0); Mean Platelet Volume 11.6 fL (7.4-10.4); Nucleated Red Blood Cells % 0 %; Platelet Count 277 10^3/uL (130-400); Red Blood Cell Count 3.56 10^6/uL (4.20-5.40); Red Cell Dist. Width 14.7 % (11.5-14.5); White Blood Cell Count 8.4 10^3/uL (4.8-10.8)
[2024-05-08 05:55] LABS: Blood Urea Nitrogen 10 mg/dl (7-17); Calcium 9.6 mg/dl (8.4-10.2); Carbon Dioxide 33 mmol/L (22-30); Chloride 96 mmol/L (98-107); Estimated Creatinine Clearance 85 ml/min; Glucose 118 mg/dl (70-99); Potassium 4.1 mmol/L (3.5-5.1); Sodium 134 mmol/L (135-145); eGFR > 60.00
[2024-05-08 07:45] VITALS: BP 144/74
--- NOTE | 2024-05-08 09:16 | W.PN.PUL3 ---
Today's Communication / Plan
-
Repeat CXR today seems persistent if not worsened, certainly not improving
Remains on 5L, unable to wean further
Consideration for repositioning of chest tube w/ w/o lytic trial again, case discussed with IR
Reviewed with patient importance of postural drainage/body repositions to encouraged more drainage
Could transition chest tube to ASEPT eventually
Pall care following, also may be reasonable to discuss GOC if not improving
Assessment
-
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
status post drainage-pulmonary consulted for pleural effusion 05/03/2024.
Impression:
Right pleural effusion-large and symptomatic
Status post thoracentesis 04/29/24--1 L straw-colored fluid, cytology pending; Cx show NGTD
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
Acute on chronic respiratory failure
[id number] 10.3
Hyponatremia
Hyperglycemia
Conditions present prior to admission:
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
Metastatic disease to lungs, pleura.
Hypertension.
GERD.
Depression.
Bradycardia/permanent pacemaker.
Appendectomy. Hysterectomy. Left breast lumpectomy. Left knee meniscus surgery.
Plan
Respiratory decompensation, likely due to fairly rapidly reaccumulating malignant pleural effusion.
Supplement oxygen to keep SpO2 >90-94%
Maintained on 5 L but could wean this down
VBG with evidence for hypercapnia-nursing reports some somnolence, however not somnolence since 05/05/2024
ABG checked morning of 05/06/2024 showing stable hypercapnia with pH 7.42, pCO2 52
BiPAP as needed-has not needed yet
Nebulizers if needed.
Aspiration precautions.
Recurrent pleural fluid, presumed malignant but cyto negative
Chest tube placed 05/03/24
Pleural fluid cytology 04/30 negative
Pleural fluid Cx--NG >72 hours
Monitor chest tube output ---> output stopped AM of 05/05, CT chest on 05/06/2024 shows appropriately positioned chest tube
S/P Lytic therapy placement 05/06 x 2, 750 output noted in past 24 hours, continue to monitor
Can hold off on additional doses for now, if her output diminishes further
Repeat CXR appears improved
Follow chest x-ray --> re-check CXR on 05/08 seems worsened with new opacities
Consideration for repeat lytic vs tube repositioning, discussed case with IR
If no benefit, may consider changing out chest tube for ASEPT to drain at home
Follow hemoglobin.
Transfuse if needed to keep Hb>7
Oncology following-correspondence reviewed-outpatient follow-up with Dr. Grayson
DVT prophylaxis-on Eliquis
Nutrition
Bedside range of motion/physical therapy
PT/OT ongoing
Reviewed with nursing, and primary team
Pall care following as well
Would not be unreasonable to begin [facility] discussions if this does not improve
Diagnostic data:
Chest x-ray 04/29/2024-no pneumothorax following right thoracentesis
CT chest 02/17/2024-severe bilateral pulmonary nodules suspicious for metastatic disease
CT chest 04/28/2024-no evidence for pulm embolism, new large malignant right pleural effusion with large amount of malignant pleural metastatic disease
CT chest 04/30/2024-improved moderate right pleural effusion, pleural-based right-sided pulmonary mass suggesting metastatic disease, mild right lower lobe consolidation
CT Chest 05/06/2024: There is slightly increased size of the moderate right-sided pleural effusion when compared with prior CT chest. The right-sided chest tube appears to be situated within the posterior pleural space. There is associated tear
total collapse of the right lower lobe with right middle and right upper lobe atelectasis. There are numerous prominent pleural nodules which are unchanged and appearance and likely represent pleural metastasis.
Thoracentesis 04/29/24--1050 mL straw-colored pleural fluid
Echocardiogram 05/02/2024-EF 65-70%, PA systolic 47
-----
Total time spent today was 51 minutes for this encounter. Time includes reviewing laboratory test/imaging results, reviewing pertinent medical records, obtaining and reviewing medical history, performing an appropriate exam, ordering medications,
tests and procedures. Time also includes documentation of this encounter, coordinating patient care and communicating with other healthcare professionals. Total time does not include separately billed tests performed on this date of service.
Subjective Data
-
Date of Service:
Date of Service: May 08, 2024
Chief Complaint: Pulmonary Follow Up and Dyspnea Follow Up
Subjective:
No new complaints, remains unchanged without significant improvement
Remains on 5L NC
Objective Data
Data Reviewed
Vital Signs / I&O / Oxygen:
Vital Signs
Temp Pulse Resp BP Pulse Ox
98.2 F 88 20 144/74 93
05/08/24 07:45 05/08/24 07:45 05/08/24 07:45 05/08/24 07:45 05/08/24 07:45
Intake and Output
05/07/24 05/08/24 05/09/24
06:59 06:59 06:59
Intake Total 900 / 900 480 / 480
Output Total 750 / 750 25 / 25
Balance 150 / 150 455 / 455
SaO2 93
Nasal Cannula flow liters per 5
minute
Physical Exam
General: Respiratory Distress (n), Comfortable, Chills (negative) and Sweats (negative)
HEENT: Normocephalic, Anicteric and Moist Mucous Membranes
Cardiovascular: S1-S2, Regular Rhythm and Peripheral Edema (negative)
Respiratory: Wheeze (negative), Crackles (L sided), Rhonchi (negative), Non-Labored Respirations, Accessory Resp Muscle Use (n), Stridor (negative), Chest Tube (right posterior hemithorax with no air leak) and Other (absent BS on R base to midlung
field)
GI: Soft, Non Distended, Non Tender and Normal Bowel Sounds
Neurology: Awake, Alert, Oriented, No Motor Deficits and Tremors (negative)
Skin: Warm, Dry, Cyanosis (n) and Jaundice (n)
Labs/Micro/Reports
Lab Data
05/08/24 03:58
05/08/24 03:58
[2024-05-08] MEDS: MORPHINE SULFATE 2 MG IV ×2 (09:33→20:16)
[2024-05-08] MEDS: DITROPAN 5 MG PO ×2 (09:34→20:17)
[2024-05-08] MEDS: SENOKOT 8.6 MG PO ×2 (09:34→20:17)
[2024-05-08] MEDS: ELIQUIS 5 MG PO ×2 (09:34→20:18)
[2024-05-08] MEDS: COLACE 100 MG PO (09:34)
[2024-05-08] MEDS: DESENEX/MITRAZOL/ZEASORB 1 APPLIC TOPICAL ×2 (09:35→20:19)
[2024-05-08] MEDS: LIDOCAINE 4% PATCH TOPICAL (09:35)
[2024-05-08] MEDS: MIRALAX 17 GRAMS PO (09:35)
--- NOTE | 2024-05-08 10:54 | W.PN.ONC ---
Today's Communication / Plan
-
Will start Votrient (oral TKI) in hopes of cancer control
RT to resume after discharge if able
Impression
Impression
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
lung mets, pleural effusion, s/p thoracentesis [id number], 04/29/24 - w/ reaccumulation - chest tube placed 05/03
Pain
Plan
Plan
04/30/24 cytology negative
Chest tube mgmt per pulmonary
Original plan was to initiate Votrient after radiation, but with repeated treatment delays, discussed starting Votrient now (studies have shown it's safe to combine Votrient w/ radiation)
She will have her family bring Votrient in from home, order entered
Votrient can cause HTN, electrolye abnormalities, diarrhea, nausea/vomiting, cytopenia, LFT elevations, fatigue, headache, myalgias, cough - will monitor
DVT - on eliquis
supplemental O2
pain mgmt, opioids were increased 04/30/24
Bowel regimen - senna, colace, miralax
Goals restorative to continue cancer treatments
Resume palliative RT after discharge
Subjective/Objective
Subjective/Objective
No new complaints, frustrated by length of stay
Vital Signs:
Vital Signs
Temp Pulse Resp BP Pulse Ox
98.2 F 88 20 144/74 93
05/08/24 07:45 05/08/24 07:45 05/08/24 07:45 05/08/24 07:45 05/08/24 09:30
Lab Results:
Laboratory Data
WBC 8.4 10^3/uL (4.8-10.8) 05/08/24 03:58
Hgb 10.8 g/dL (12.0-16.0) L 05/08/24 03:58
Plt Count 277 10^3/uL (130-400) 05/08/24 03:58
PT 14.4 Sec (11.4-14.6) 04/28/24 12:56
INR 1.09 04/28/24 12:56
APTT 32.1 Sec (23.4-35.0) 04/28/24 12:56
eGFR > 60.00 05/08/24 03:58
--- NOTE | 2024-05-08 11:56 | W.PN.PAL2 ---
Today's Communication
-
Palliative Care follow up visit 10:20-10:50 goals of care conversation
Patient sitting up in chair today, appears comfortable, pain better controlled today. denies nasuea. constipation present, has bowel medications ordered.
Chest tube plan tbd.
Goals: treatment oriented, remains full code. agreeable to outpatient palliative care. she reports she understands that treatments are not-curative, and there will be at time when she needs to focus on comfort, and she is preparing her children for
this as well.
Assessment / Plan
-
Assessment/Plan:
Recommend using oral pain medications more than IV as clinically improving.
plan for chest tube tbd
goals are treatment oriented
agreeable to outpatient palliative care
Reason for Admission
Illness Course/HPI
78 year old F with history of left lower extremity spindle cell sarcoma diagnosed 12/29/2021 s/p excision. Pathology + for dedifferentiated liposarcoma. Found this year to have recurrence of sarcoma as well as mets to pleura/lungs s/p salvage chemo
07/26/2023. Subsequent surveillance scans noting slow progression of both pulmonary mets as well as her sarcoma.
Admitted with complaints of progressive pleuritic type chest pain x3 days uncontrolled by her pain medications. Upon admission, CT scan with large right pleural effusion with new [address] also showed significant progression of malignant
pleural metastatic disease of R hemithorax and right anterior pericardial metastatic lymphadenopathy. Underwent thoracentesis 04/29 with relief of pain. Previously dx with vascular compression due to LLE mass, known DVT and imaging this admission
shows persistent/worsening of DVT. Per vascular, AC would not be effective for this.
Oncology following - considering palliative pleural drain placement. Patient wishes to continue with her oncology treatment, currently undergoing radiation to LLE mass with plans to start targeted oral therapy thereafter.
Goals of Care Discussion
-
Patient able to participate in discussion at time of visit: Yes
Patient Goals
Goals: treatment oriented.
Code status: would want CPR, would not want prolonged intubation. if this happens, reports children are aware she would want to transition to focus soley on comfort.
Pain & Symptom Assessment
-
mild-mod pain symptoms at catheter site.
no nausea today
bowels - no bm.
able to get into chair and do light walking around bed.
Objective Data
-
Objective Data:
Vital Signs
Temp Pulse Resp BP Pulse Ox
98.2 F 88 20 144/74 93
05/08/24 07:45 05/08/24 07:45 05/08/24 07:45 05/08/24 07:45 05/08/24 09:30
Laboratory Results
05/08/24 03:58
05/08/24 03:58
PT 14.4 Sec (11.4-14.6) 04/28/24 12:56
INR 1.09 04/28/24 12:56
APTT 32.1 Sec (23.4-35.0) 04/28/24 12:56
Total Protein Cancelled 04/28/24 16:25
Albumin 3.6 g/dl (3.5-5.0) 04/28/24 12:56
Palliative Performance Scale
Palliative Performance Scale:
PPS Level Ambulation Activity & Evidence of Disease Self Care Intake Conscious Level
100% Full Normal Activity & Work; Full Intake Full
No Evidence of Disease
90% Full Normal Activity & Work; Full Normal Full
Some Evidence of Disease
80% Full Normal Activity with Effort Full Normal or Full
Some Evidence of Disease Reduced
70% Reduced Unable Normal Job/Work Full Normal or Full
Significant Disease Reduced
60% Reduced Unable Hobby/Housework Occasional Normal or Full or Confusion
Significant Disease Assistance Reduced
50% Mainly Sit/Lie Unable to do Any Work Considerable Normal or Full or Confusion
Extensive Disease Assistance Req'd Reduced
40% Mainly in Bed Unable to do Most Activity Mainly Assistance Normal or Full or Drowsy;
Extensive Disease Reduced +/- Confusion
30% Totally Bed Unable to do Any Activity Total Care Normal or Full or Drowsy;
Bound Extensive Disease Reduced +/- Confusion
20% Totally Bed Bound Unable to do Any Activity Total Care Minimal to Full or Drowsy;
Extensive Disease Sips +/- Confusion
10% Totally Bed Bound Unable to do Any Activity Total Care Mouth Care Drowsy or Coma;
Extensive Disease Only +/- Confusion
0%
PPS Score Level:
Palliative Performance Score Response
Palliative Performance Score Response: 50%
Physical Exam
-
General: Well Developed, Well Nourished and No Apparent Distress
Neuro: Awake and Alert
Psych: Calm
[2024-05-08] MEDS: ROXICODONE 5 MG PO (13:10)
--- NOTE | 2024-05-08 14:13 | W.PN.HOSP.TC ---
Addendum entered and electronically signed by Sol Bar MD 05/08/24 19:57:
I saw and evaluated the patient independently. I reviewed the resident�s note and agree with findings and plan as documented by Dr. Christensen.
GENERAL: well developed, well nourished, female in no apparent distress--
HEENT: NC/AT--still requiring 5L O2 NC
HEART: regular rate and rhythm, +S1, +S2
LUNGS : decreased BS on right--chest tube with bloody drainage
ABDOM: soft, nontender, nondistended, + bowel sounds
EXT: no cyanosis, clubbing-- left leg with 2-3+ LE edema
NEUROLOGIC: grossly intact
spoke with daughter Leydi at bedside with pt, team, CM
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
thoracentesis 04/29- removal of 1050mL straw colored fluid, negative for cytology--recurrence requiring chest tube 05/03 with lytic therapy 05/06 --will need PleurX/Asept cath at d/c but concern re: need for lytic therapy, afraid tube may
clog--spoke with pulm, not ready to change to PleurX/Asept--may need IR for drain reposition or more lytics--unclear if pt can improve to point to get PleurX/Asept
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 Grayson)--on 4th line treatment--apprec onc--pt wants continued therapy to treat (Palliative care indicating the same)--cannot get cancer
treatmen at SNF....started hospice conversation with patient as she is on 4th line therapy AND no intervention possible for DVT in left leg due to compression by mass.....plan is for palliative XRT (also can't get at SNF) followed by oral
Votrient--spoke with onc--can start med here in hospital....
Persistent/Worsening Left Lower Extremity DVT --was discharged on SQ lovenox last admission--now on Eliquis- Of note: Unfortunately, there may not be any AC that is effective in this scenario because of the mass itself causing vascular blockage- Per
vascular surgery consult on last admission - no vascular intervention can be done
Chronic anemia, likely anemia of chronic disease- Hgb 11.6 on admission, appears at baseline- No signs of acute blood loss or ongoing bleeding/bruising
Constipation- Continue home bowel regimen, would increase given chronic pain meds
Essential Hypertension- Continue home amlodipine and olmesartan with parameters
Anxiety/Depression- Continue home sertraline
Overactive Bladder- Continue home Oxybutynin
Hx Symptomatic Bradycardia s/p Permanent Pacemaker
Code status: full (confirmed with patient 04/29)--would strongly consider DNR as if she gets intubated, likely will not come off ventilator....
DVT proph-- Eliquis BID
Original Note:
Today's Communication/Plan
-
-continue current mgmt
-coordinate with pulm and onc for plan of care
- resume olmesartan
Assessment / Plan
Assessment / Plan
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
status post drainage, chest tube in place since 05/03 and received tPA/dornase on 05/06/24
CT chest 04/30/24: Improved moderate right pleural effusion. Pleural-based right-sided pulmonary masses suggestive of metastatic disease. Stable. Mild right lower lobe consolidation probably atelectasis. Pneumonia not excluded. Improved.
CT chest 05/06/24AM: There is slightly increased size of the moderate right-sided pleural effusion when compared with prior CT chest. The right-sided chest tube appears to be situated within the posterior pleural space. There is associated near
total collapse of the right lower lobe with right middle and right upper lobe atelectasis. There are numerous prominent pleural nodules which are unchanged and appearance and likely represent pleural metastasis.
#Acute hypoxemic respiratory insufficiency due to large symptomatic right pleural effusion:
-initial CT chest showed right pleural effusion, no acute PE. 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
-s/p R thoracentesis 04/29 with removal of 1050cc of exudative fluid.culture NGTD.
-temporary symptomatic improvement s/p thoracentesis, though symptoms returned within 24 hours.
-repeat CT chest 04/30/24 above, R pleural effusion not worsened.
-Echonotable for worsening pulm HTN
-on 05/03/24 pt with worsening hypoxemia (was requiring 5L NC O2). CXR showed Large right pleural effusion, significantly increased in volume compared with the previous examination. Chest tube placed 05/03/24.
-currently on 5L NC O2-keep SpO2> 90
-Cytology: Negative for malignant cells. Benign mesothelial cells and macrophages in a background of lymphocytes and red blood cells
-Encourage continue out of bed ambulation
-Briefly discussed hospice and treatment options
-Will coordinate with pulmonology and oncology
- repeat CXR unremarkable for any new findings
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
Persistent/Worsening Left Lower Extremity DVT
-Onc following-plan to resume radiation therapy
-Oral Votrient (oral targeted therapy) to start once she completes radiation
-Of note: Unfortunately, there may not be any AC that is effective in this scenario because of the mass itself causing vascular blockage.
-Per vascular surgery consult on last admission, no vascular intervention can be done
-Continue Eliquis
Patient wants to continue cancer directed therapy at this time. Patient to have palliative radiation therapy after discharge followed by oral Votrient.
#Acute toxic encephalopathy:
-was likely due to long-acting morphine which was stopped, now resolved
-cont short acting IV morphine for pain control-
-oxycodone 5 mg every 6 as needed for moderate pain
Essential Hypertension:
-Olmesartan/Norvasc previously stopped with prior hypotension
- resu,me olmesartan today given cont high BP readings
# constipation
- Increase sennakot BID per pallative recs- last BM friday 05/04
Other problems:
Anemia of chronic disease: Hb stable
Constipation: cont bowel regimen
Anxiety/Depression: cont sertraline
Obesity due to excess calories
Overactive Bladder: Oxybutynin
h/o Symptomatic Bradycardia s/p Permanent Pacemaker
Hyponatremia, mild
Hyperkalemia: resolved with Lokelma
FULL/Eliquis
Anticipated Discharge: 24 - 48 hours
Subjective/Interval History
-
Date of Service: May 08, 2024
Interval data: Able to get out of the bed with help, feeling better than yesterday.
Objective Data
-
Labs:
Laboratory Results
05/08/24
03:58
WBC 8.4
Hgb 10.8 L
Hct 33.8 L
Plt Count 277
Sodium 134 L
Potassium 4.1
Chloride 96 L
Carbon Dioxide 33 H
BUN 10
Creatinine 0.5 L
Glucose 118 H
Calcium 9.6
Vital Signs:
Vital Signs
Temp Pulse Resp BP Pulse Ox
98.2 F 88 20 144/74 93
05/08/24 07:45 05/08/24 07:45 05/08/24 07:45 05/08/24 07:45 05/08/24 09:30
I&O
05/07/24 05/08/24 05/09/24
06:59 06:59 06:59
Intake Total 900 / 900 480 / 480
Output Total 750 / 750 25 / 25
Balance 150 / 150 455 / 455
Review of Systems
-
History Source: Patient
Constitutional: Reports No Symptoms
Respiratory: Reports No Symptoms
Cardiac: Reports No Symptoms
Neuro: Reports No Symptoms
Physical Exam
-
General: Appears Chronically Ill and Other (Oxygen via nasal cannula)
Respiratory: Crackles (Right middle and lower lobes) and Chest Tubes (Bloody discharge)
Cardiac: Regular Rhythm
GI: Soft and Nontender
Musculoskeletal: Edema, Right Lower Extrem and Edema, Left Lower Extrem
Neuro: Awake, Alert and Oriented
Psych: Calm
Data Reviewed
-
Diagnostic Radiology: Image personally visualized and interpreted, Discussed with Physician and Discussed with Patient
Labs: Labs Reviewed by me, Discussed with Physician, Discussed with Patient and Discussed with Family
--- NOTE | 2024-05-08 14:56 | CM ---
Patient seen at bedside with physicians and patient daughter Leydi. Patient reviewed with physicians options and plan is for physicians to discuss Chest tube/purex/ascept cath. Physician spoke about hospice vs SNF vs home with therapies. Patient and
daughter confirmed that they would talk to family and await physician discussion. Patient would be interested in [facility] vs [facility]. CM will continue to follow for discharge planning needs.
Plan; TBD; many options pending medical treatment plan
[2024-05-08 15:55] VITALS: BP 129/62
[2024-05-08] MEDS: CATHFLO/ACTIVASE INTRAPLEUR ×4 (17:12→20:19)
[2024-05-08] MEDS: PULMOZYME INTRAPLEUR ×4 (17:13→20:20)
[2024-05-08] MEDS: NSS INTRAPLEUR ×2 (17:13→20:19)
[2024-05-08] MEDS: BENICAR 40 MG PO (17:15)
--- NOTE | 2024-05-08 18:11 | PTCARENOTE ---
Pt yielded 50ml of serosanguineous fluid from right sided chest tube.
[2024-05-08] MEDS: NEURONTIN 600 MG PO (20:17)
[2024-05-08] MEDS: ZOLOFT 50 MG PO (20:18)
[2024-05-08 23:33] VITALS: BP 131/55
[2024-05-09] MEDS: TYLENOL PO ×2 (01:07→11:50)
[2024-05-09] MEDS: ROXICODONE 5 MG PO ×2 (04:48→16:12)
[2024-05-09] MEDS: TYLENOL 650 MG PO ×2 (05:49→17:19)
[2024-05-09 06:25] LABS: Hematocrit 34.4 % (37.0-47.0); Hemoglobin 10.8 g/dL (12.0-16.0); Mean Corp Hgb Conc. 31.4 g/dL (33.0-37.0); Mean Corpuscular Hgb 29.8 pg (27.0-31.0); Mean Corpuscular Volume 94.8 fL (81.0-99.0); Mean Platelet Volume 12.2 fL (7.4-10.4); Platelet Count 283 10^3/uL (130-400); Red Blood Cell Count 3.63 10^6/uL (4.20-5.40); Red Cell Dist. Width 14.8 % (11.5-14.5); White Blood Cell Count 9.2 10^3/uL (4.8-10.8)
--- NOTE | 2024-05-09 06:59 | W.PN.ONC2 ---
Today's Communication / Plan
-
Votrient initiated. Discharge planning. The primary obstacle of her discharge appears to be pulmonary complications from her sarcoma with refractory pleural effusion. Appreciate pulmonary assessment; she may require a change of her CODE STATUS
and goals of care to a more palliative type of approach.
Impression
Impression
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
lung mets, pleural effusion, s/p thoracentesis [id number], 04/29/24 - w/ reaccumulation - chest tube placed 05/03
Pain
Plan
Plan
Votrient started because of prolonged hospitalization and studies have shown it's safe to combine Votrient w/ radiation which should be started post discharge.
Monitor for Votrient side effects including but not limited to HTN, electrolyte abnormalities, diarrhea, nausea/vomiting, cytopenia, LFT elevations, fatigue, headache, myalgias, cough
Recurrent right pleural effusion. Appreciate pulmonary input. It seems that her condition has plateaued and she remains on 5 L O2, unable to wean further. The primary obstacle of her discharge appears to be pulmonary complications from her
sarcoma with refractory pleural effusion. Appreciate pulmonary consultative help, she may require a change of her CODE STATUS and goals of care to a more palliative type of approach.
DVT - on eliquis
pain mgmt, continue opioids were increased 04/30/24 & bowel regimen - senna, colace, miralax
Resume palliative RT after discharge
Subjective/Objective
Chief Complaint
ACS Heme Onc
Subjective
No specific complaints. Votrient was brought in by her daughter last night and has now been started.
Vital Signs:
Vital Signs
Temp Pulse Resp BP Pulse Ox
97.8 F 82 17 131/55 97
05/08/24 23:33 05/08/24 23:33 05/08/24 23:33 05/08/24 23:33 05/08/24 23:33
Lab Results:
Laboratory Data
WBC 9.2 10^3/uL (4.8-10.8) 05/09/24 05:46
Hgb 10.8 g/dL (12.0-16.0) L 05/09/24 05:46
Plt Count 283 10^3/uL (130-400) 05/09/24 05:46
PT 14.4 Sec (11.4-14.6) 04/28/24 12:56
INR 1.09 04/28/24 12:56
APTT 32.1 Sec (23.4-35.0) 04/28/24 12:56
eGFR > 60.00 05/08/24 03:58
[2024-05-09 08:00] VITALS: BP 140/63
[2024-05-09] MEDS: LIDOCAINE 4% PATCH 1 PATCH TOPICAL (08:18)
[2024-05-09] MEDS: MIRALAX 17 GRAMS PO (08:19)
[2024-05-09] MEDS: BENICAR 40 MG PO (08:20)
[2024-05-09] MEDS: DITROPAN 5 MG PO ×2 (08:21→19:56)
[2024-05-09] MEDS: MORPHINE SULFATE 2 MG IV ×3 (08:21→19:57)
[2024-05-09] MEDS: SENOKOT 8.6 MG PO ×2 (08:21→19:56)
[2024-05-09] MEDS: COLACE 100 MG PO (08:21)
[2024-05-09] MEDS: ELIQUIS 5 MG PO ×2 (08:21→19:56)
[2024-05-09] MEDS: DESENEX/MITRAZOL/ZEASORB 1 APPLIC TOPICAL ×2 (08:22→19:56)
[2024-05-09 09:03] LABS: Blood Urea Nitrogen 13 mg/dl (7-17); Calcium 9.6 mg/dl (8.4-10.2); Carbon Dioxide 29 mmol/L (22-30); Chloride 96 mmol/L (98-107); Estimated Creatinine Clearance 85 ml/min; Glucose 101 mg/dl (70-99); Magnesium 1.9 mg/dl (1.6-2.3); Potassium 4.2 mmol/L (3.5-5.1); Sodium 135 mmol/L (135-145); eGFR > 60.00
--- NOTE | 2024-05-09 09:37 | W.PN.PUL3 ---
Today's Communication / Plan
-
IR consult for lytic trial today, observe output next 24 hours
Repeat CXR in AM
Encouraged OOB/IS, wean O2 down as tolerated
Ambulate, PT/OT
Pain control, supportive care
Assessment
-
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
status post drainage-pulmonary consulted for pleural effusion 05/03/2024.
Impression:
Right pleural effusion-large and symptomatic
Status post thoracentesis 04/29/24--1 L straw-colored fluid, cytology pending; Cx show NGTD
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
Acute on chronic respiratory failure
Aejqhp-hljyncqgfe-iepukgnnge 10.3
Hyponatremia
Hyperglycemia
Conditions present prior to admission:
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
Metastatic disease to lungs, pleura.
Hypertension.
GERD.
Depression.
Bradycardia/permanent pacemaker.
Appendectomy. Hysterectomy. Left breast lumpectomy. Left knee meniscus surgery.
Plan
Respiratory decompensation, likely due to fairly rapidly reaccumulating malignant pleural effusion.
Supplement oxygen to keep SpO2 >90-94%
Maintained on 5 L but could wean this down
Encouraged IS, OOB
VBG with evidence for hypercapnia-nursing reports some somnolence, however not somnolence since 05/05/2024
ABG checked morning of 05/06/2024 showing stable hypercapnia with pH 7.42, pCO2 52
BiPAP as needed-has not needed yet
Nebulizers if needed.
Aspiration precautions.
Recurrent pleural fluid, presumed malignant but cyto negative
Chest tube placed 05/03/24
Pleural fluid cytology 04/30 negative
Pleural fluid Cx--NG >72 hours
Monitor chest tube output ---> output stopped AM of 05/05, CT chest on 05/06/2024 shows appropriately positioned chest tube
S/P Lytic therapy placement 05/06 x 2, 750 output noted in past 24 hours, continue to monitor
Can hold off on additional doses for now, if her output diminishes further
Repeat CXR appears improved
Follow chest x-ray --> re-check CXR on 05/08 seems worsened with new opacities
Consideration for repeat lytic vs tube repositioning, discussed case with IR--lytic trial today
Follow hemoglobin.
Transfuse if needed to keep Hb>7
Oncology following-correspondence reviewed-outpatient follow-up with Dr. Grayson
DVT prophylaxis-on Eliquis
Nutrition
Bedside range of motion/physical therapy
PT/OT ongoing
Reviewed with nursing, and primary team
Pall care following as well
Would not be unreasonable to begin GOC discussions if this does not improve
Diagnostic data:
Chest x-ray 04/29/2024-no pneumothorax following right thoracentesis
CT chest 02/17/2024-severe bilateral pulmonary nodules suspicious for metastatic disease
CT chest 04/28/2024-no evidence for pulm embolism, new large malignant right pleural effusion with large amount of malignant pleural metastatic disease
CT chest 04/30/2024-improved moderate right pleural effusion, pleural-based right-sided pulmonary mass suggesting metastatic disease, mild right lower lobe consolidation
CT Chest 05/06/2024: There is slightly increased size of the moderate right-sided pleural effusion when compared with prior CT chest. The right-sided chest tube appears to be situated within the posterior pleural space. There is associated tear
total collapse of the right lower lobe with right middle and right upper lobe atelectasis. There are numerous prominent pleural nodules which are unchanged and appearance and likely represent pleural metastasis.
Thoracentesis 04/29/24--1050 mL straw-colored pleural fluid
Echocardiogram 05/02/2024-EF 65-70%, PA systolic 47
-----
Total time spent today was 51 minutes for this encounter. Time includes reviewing laboratory test/imaging results, reviewing pertinent medical records, obtaining and reviewing medical history, performing an appropriate exam, ordering medications,
tests and procedures. Time also includes documentation of this encounter, coordinating patient care and communicating with other healthcare professionals. Total time does not include separately billed tests performed on this date of service.
Subjective Data
-
Date of Service:
Date of Service: May 09, 2024
Chief Complaint: Pulmonary Follow Up and Dyspnea Follow Up
Subjective:
No acute events ON, remains on 5L NC
No new complaints
Objective Data
Data Reviewed
Vital Signs / I&O / Oxygen:
Vital Signs
Temp Pulse Resp BP Pulse Ox
98.1 F 78 15 140/63 97
05/09/24 08:00 05/09/24 08:00 05/09/24 08:00 05/09/24 08:00 05/09/24 08:00
Intake and Output
05/08/24 05/09/24 05/10/24
06:59 06:59 06:59
Intake Total 480 / 480 900 / 900
Output Total /
Balance 455 / 455 885 / 885
SaO2 97
Nasal Cannula flow liters per 5
minute
Physical Exam
General: Respiratory Distress (n), Comfortable, Chills (negative) and Sweats (negative)
HEENT: Normocephalic, Anicteric and Moist Mucous Membranes
Cardiovascular: S1-S2, Regular Rhythm and Peripheral Edema (negative)
Respiratory: Wheeze (negative), Crackles (L sided), Rhonchi (negative), Non-Labored Respirations, Accessory Resp Muscle Use (n), Stridor (negative), Chest Tube (right posterior hemithorax with no air leak) and Other (absent BS on R base to midlung
field)
GI: Soft, Non Distended, Non Tender and Normal Bowel Sounds
Neurology: Awake, Alert, Oriented, No Motor Deficits and Tremors (negative)
Skin: Warm, Dry, Cyanosis (n) and Jaundice (n)
Labs/Micro/Reports
Lab Data
05/09/24 05:46
05/09/24 05:46
--- NOTE | 2024-05-09 12:10 | PN.IRAD.UPD ---
Update Note - IRAD
- -
TPA 8 MG , DORNASE 5 MG instilled via right chest tube at bedside. Patient tolerated procedure well. Clamped at 11:40. RN notified
[2024-05-09] MEDS: NON-FORMULARY ITEM 2 UNIT PO (12:26)
--- NOTE | 2024-05-09 12:53 | W.PN.PAL2 ---
Today's Communication
-
Met with patient,she reports she is feeling ok, had bm yesterday. .
Received additional tpa today. to start oral cancer treatment.
Pain managed with current meds
Patient's goals are treatment oriented, but she is aware that plan will depend on pleural fluid management.
case reviewed with attending hospitalist team, total floor time 25 min
Assessment / Plan
-
Assessment/Plan:
Pain managed
Constipation improved - had BM yesterday.
plan for chest tube tbd and will impact overall clinical care.
goals are treatment oriented at this time.
agreeable to outpatient palliative care
Reason for Admission
Illness Course/HPI
78 year old F with history of left lower extremity spindle cell sarcoma diagnosed 12/29/2021 s/p excision. Pathology + for dedifferentiated liposarcoma. Found this year to have recurrence of sarcoma as well as mets to pleura/lungs s/p salvage chemo
07/26/2023. Subsequent surveillance scans noting slow progression of both pulmonary mets as well as her sarcoma.
Admitted with complaints of progressive pleuritic type chest pain x3 days uncontrolled by her pain medications. Upon admission, CT scan with large right pleural effusion with new [address] also showed significant progression of malignant
pleural metastatic disease of R hemithorax and right anterior pericardial metastatic lymphadenopathy. Underwent thoracentesis 04/29 with relief of pain. Previously dx with vascular compression due to LLE mass, known DVT and imaging this admission
shows persistent/worsening of DVT. Per vascular, AC would not be effective for this.
Oncology following - considering palliative pleural drain placement. Patient wishes to continue with her oncology treatment, currently undergoing radiation to LLE mass with plans to start targeted oral therapy thereafter.
Goals of Care Discussion
-
Patient able to participate in discussion at time of visit: Yes
Patient Goals
Goals: treatment oriented.
Code status: would want CPR, would not want prolonged intubation. if this happens, reports children are aware she would want to transition to focus soley on comfort.
Objective Data
-
Objective Data:
Vital Signs
Temp Pulse Resp BP Pulse Ox
98.1 F 78 15 140/63 97
05/09/24 08:00 05/09/24 08:00 05/09/24 08:00 05/09/24 08:00 05/09/24 08:00
Laboratory Results
05/09/24 05:46
05/09/24 05:46
PT 14.4 Sec (11.4-14.6) 04/28/24 12:56
INR 1.09 04/28/24 12:56
APTT 32.1 Sec (23.4-35.0) 04/28/24 12:56
Total Protein Cancelled 04/28/24 16:25
Albumin 3.6 g/dl (3.5-5.0) 04/28/24 12:56
Palliative Performance Scale
Palliative Performance Scale:
PPS Level Ambulation Activity & Evidence of Disease Self Care Intake Conscious Level
100% Full Normal Activity & Work; Full Intake Full
No Evidence of Disease
90% Full Normal Activity & Work; Full Normal Full
Some Evidence of Disease
80% Full Normal Activity with Effort Full Normal or Full
Some Evidence of Disease Reduced
70% Reduced Unable Normal Job/Work Full Normal or Full
Significant Disease Reduced
60% Reduced Unable Hobby/Housework Occasional Normal or Full or Confusion
Significant Disease Assistance Reduced
50% Mainly Sit/Lie Unable to do Any Work Considerable Normal or Full or Confusion
Extensive Disease Assistance Req'd Reduced
40% Mainly in Bed Unable to do Most Activity Mainly Assistance Normal or Full or Drowsy;
Extensive Disease Reduced +/- Confusion
30% Totally Bed Unable to do Any Activity Total Care Normal or Full or Drowsy;
Bound Extensive Disease Reduced +/- Confusion
20% Totally Bed Bound Unable to do Any Activity Total Care Minimal to Full or Drowsy;
Extensive Disease Sips +/- Confusion
10% Totally Bed Bound Unable to do Any Activity Total Care Mouth Care Drowsy or Coma;
Extensive Disease Only +/- Confusion
0%
PPS Score Level:
--- NOTE | 2024-05-09 13:07 | W.PN.HOSP.TC ---
Addendum entered and electronically signed by Sol Bar MD 05/09/24 14:43:
I saw and evaluated the patient independently. I reviewed the resident�s note and agree with findings and plan as documented by Dr. Christensen.
GENERAL: well developed, well nourished, female in no apparent distress--
HEENT: NC/AT--still requiring 5L O2 NC
HEART: regular rate and rhythm, +S1, +S2
LUNGS : decreased BS on right--chest tube with bloody drainage
ABDOM: soft, nontender, nondistended, + bowel sounds
EXT: no cyanosis, clubbing-- left leg with 2-3+ LE edema
NEUROLOGIC: grossly intact
spoke with daughter Leydi at bedside with pt, CHRISTOS bradshaw on 05/08/24
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
thoracentesis 04/29- removal of 1050mL straw colored fluid, negative for cytology--recurrence requiring chest tube 05/03 with lytic therapy 05/06 --will need PleurX/Asept cath at d/c but concern re: need for lytic therapy, afraid tube may
clog--spoke with pulm, not ready to change to PleurX/Asept--may need IR for drain reposition or more lytics--unclear if pt can improve to point to get PleurX/Asept--plan for more lytic therapy in chest tube as per pulm
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 Grayson)--on 4th line treatment--apprec onc--pt wants continued therapy to treat (Palliative care indicating the same)--cannot get cancer
treatment at SNF....started hospice conversation with patient as she is on 4th line therapy AND no intervention possible for DVT in left leg due to compression by mass.....plan is for palliative XRT (also can't get at SNF) followed by oral
Votrient--spoke with onc--can start med here in hospital....
Persistent/Worsening Left Lower Extremity DVT --was discharged on SQ lovenox last admission--now on Eliquis- Of note: Unfortunately, there may not be any AC that is effective in this scenario because of the mass itself causing vascular blockage- Per
vascular surgery consult on last admission - no vascular intervention can be done
Chronic anemia, likely anemia of chronic disease- Hgb 11.6 on admission, appears at baseline- No signs of acute blood loss or ongoing bleeding/bruising
Constipation- Continue home bowel regimen, would increase given chronic pain meds
Essential Hypertension- Continue home amlodipine and olmesartan with parameters
Anxiety/Depression- Continue home sertraline
Overactive Bladder- Continue home Oxybutynin
Hx Symptomatic Bradycardia s/p Permanent Pacemaker
Code status: full (confirmed with patient 04/29)--would strongly consider DNR as if she gets intubated, likely will not come off ventilator....
DVT proph-- Eliquis BID
Original Note:
Today's Communication/Plan
-
Started cancer therapy by oncology
Pulm considering another lytic procedure for chest tube
Assessment / Plan
Assessment / Plan
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
status post drainage, chest tube in place since 05/03 and received tPA/dornase on 05/06/[address]
CT chest 04/30/24: Improved moderate right pleural effusion. Pleural-based right-sided pulmonary masses suggestive of metastatic disease. Stable. Mild right lower lobe consolidation probably atelectasis. Pneumonia not excluded. Improved.
CT chest 05/06/24AM: There is slightly increased size of the moderate right-sided pleural effusion when compared with prior CT chest. The right-sided chest tube appears to be situated within the posterior pleural space. There is associated near
total collapse of the right lower lobe with right middle and right upper lobe atelectasis. There are numerous prominent pleural nodules which are unchanged and appearance and likely represent pleural metastasis.
#Acute hypoxemic respiratory insufficiency due to large symptomatic right pleural effusion:
-initial CT chest showed right pleural effusion, no acute PE. 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
-s/p R thoracentesis 04/29 with removal of 1050cc of exudative fluid.culture NGTD.
-temporary symptomatic improvement s/p thoracentesis, though symptoms returned within 24 hours.
-repeat CT chest 04/30/24 above, R pleural effusion not worsened.
-Echonotable for worsening pulm HTN
-on 05/03/24 pt with worsening hypoxemia (was requiring 5L NC O2). CXR showed Large right pleural effusion, significantly increased in volume compared with the previous examination. Chest tube placed 05/03/24.
-currently on 5L NC O2-keep SpO2> 90
-Cytology: Negative for malignant cells. Benign mesothelial cells and macrophages in a background of lymphocytes and red blood cells
-Encourage continue out of bed ambulation
-Briefly discussed hospice and treatment options
-oral TKI by oncology (okay to stop/hold if patient goes to rehab
- repeat CXR 05/09/24:Stable appearance of the right-sided chest tube with increased opacification of the right lower lung which may represent increased right-sided pleural effusion or right basilar atelectasis
-Per pulmonology; patient will need another lytic procedure before consideration for transition to ASEPT
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
Persistent/Worsening Left Lower Extremity DVT
-Started oral TKI
-Of note: Unfortunately, there may not be any AC that is effective in this scenario because of the mass itself causing vascular blockage.
-Per vascular surgery consult on last admission, no vascular intervention can be done
-Continue Eliquis
Patient wants to continue cancer directed therapy at this time. Patient to have palliative radiation therapy after discharge followed by oral Votrient.
#Acute toxic encephalopathy:
-was likely due to long-acting morphine which was stopped, now resolved
-cont short acting IV morphine for pain control-
-oxycodone 5 mg every 6 as needed for moderate pain
Essential Hypertension:
-Olmesartan/Norvasc previously stopped with prior hypotension
- continue olmesartan at this time
# constipation
- Increased sennakot BID per pallative recs
- enema-milk and molasses ordered today
Other problems:
Anemia of chronic disease: Hb stable
Constipation: cont bowel regimen
Anxiety/Depression: cont sertraline
Obesity due to excess calories
Overactive Bladder: Oxybutynin
h/o Symptomatic Bradycardia s/p Permanent Pacemaker
Hyponatremia, mild
Hyperkalemia: resolved with Lokelma
FULL/Eliquis
Anticipated Discharge: 24 - 48 hours
Subjective/Interval History
-
Date of Service: May 09, 2024
Interval history: No new complaints
Objective Data
-
Labs:
Laboratory Results
05/09/24
05:46
WBC 9.2
Hgb 10.8 L
Hct 34.4 L
Plt Count 283
Sodium 135
Potassium 4.2
Chloride 96 L
Carbon Dioxide 29
BUN 13
Creatinine 0.5 L
Glucose 101 H
Calcium 9.6
Vital Signs:
Vital Signs
Temp Pulse Resp BP Pulse Ox
98.1 F 78 15 140/63 97
05/09/24 08:00 05/09/24 08:00 05/09/24 08:00 05/09/24 08:00 05/09/24 08:50
I&O
05/08/24 05/09/24 05/10/24
06:59 06:59 06:59
Intake Total 480 / 480 900 / 900
Output Total
Balance 455 / 455 885 / 885
Review of Systems
-
History Source: Patient
Constitutional: Reports No Symptoms
EENT: Reports No Symptoms Reported
Respiratory: Reports Trouble Breathing
Cardiac: Reports No Symptoms
Abdomen/GI: Reports Abdominal Pain (Near the chest tube and right upper quadrant)
Neuro: Reports No Symptoms
Physical Exam
-
General: Appears Chronically Ill
Respiratory: Crackles (And decreased breath sounds on the right) and Chest Tubes
Cardiac: Regular Rhythm and S1/S2
GI: Soft and Nondistended
Musculoskeletal: Edema, Right Lower Extrem and Edema, Left Lower Extrem
Skin: Warm and Dry
Neuro: Awake, Alert and Oriented
Psych: Calm
Data Reviewed
-
Diagnostic Radiology: Image personally visualized and interpreted and Discussed with Physician
Labs: Labs Reviewed by me, Discussed with Physician and Discussed with Patient
--- NOTE | 2024-05-09 14:32 | CM ---
Patient seen at bedside with physicians. Patient alone, stated daughter to return around 4. Patient agreed to ask if physician would call her daughter to discuss options with the chest tube. CM spoke with patient daughter keira and she indicated
brother would be in room after 4pm. CM updated cnc machine programmer regarding patient family request for call. CM will continue to follow for discharge planning needs.
Plan; SNF vs home with VN pending treatment plan
[2024-05-09 15:25] VITALS: BP 128/63
[2024-05-09 16:09] VITALS: BMI 33.6
[2024-05-09] MEDS: NEURONTIN 600 MG PO (19:56)
[2024-05-09] MEDS: ZOLOFT 50 MG PO (19:56)
[2024-05-09 23:16] VITALS: BP 135/64
[2024-05-10] MEDS: TYLENOL PO (00:31)
[2024-05-10] MEDS: TYLENOL 650 MG PO ×3 (05:18→18:38)
[2024-05-10 05:28] LABS: Hematocrit 33.1 % (37.0-47.0); Hemoglobin 10.3 g/dL (12.0-16.0); Mean Corp Hgb Conc. 31.1 g/dL (33.0-37.0); Mean Corpuscular Volume 96.5 fL (81.0-99.0); Platelet Count 278 10^3/uL (130-400); Red Blood Cell Count 3.43 10^6/uL (4.20-5.40); Red Cell Dist. Width 14.6 % (11.5-14.5); White Blood Cell Count 7.2 10^3/uL (4.8-10.8)
[2024-05-10 06:19] LABS: Blood Urea Nitrogen 12 mg/dl (7-17); Calcium 9.2 mg/dl (8.4-10.2); Carbon Dioxide 33 mmol/L (22-30); Chloride 97 mmol/L (98-107); Estimated Creatinine Clearance 85 ml/min; Glucose 106 mg/dl (70-99); Potassium 3.9 mmol/L (3.5-5.1); Sodium 139 mmol/L (135-145); eGFR > 60.00
[2024-05-10 07:31] VITALS: BP 164/73
[2024-05-10] MEDS: MORPHINE SULFATE 2 MG IV ×3 (08:37→16:47)
[2024-05-10] MEDS: LIDOCAINE 4% PATCH 1 PATCH TOPICAL (08:39)
[2024-05-10] MEDS: BENICAR 40 MG PO (08:40)
[2024-05-10] MEDS: MIRALAX 17 GRAMS PO (08:40)
[2024-05-10] MEDS: DITROPAN 5 MG PO ×2 (08:41→19:57)
[2024-05-10] MEDS: SENOKOT 8.6 MG PO ×2 (08:41→19:56)
[2024-05-10] MEDS: ELIQUIS 5 MG PO ×2 (08:41→19:56)
[2024-05-10] MEDS: COLACE 100 MG PO (08:42)
[2024-05-10] MEDS: DESENEX/MITRAZOL/ZEASORB 1 APPLIC TOPICAL ×2 (08:43→19:51)
--- NOTE | 2024-05-10 09:12 | W.PN.PUL3 ---
Today's Communication / Plan
-
Hypoxemia ongoing, will eventually need aggressive rehab, OOB/IS
Lytic therapy placed 05/09 with marginal output, CXR clear
Can observe another 24 hours, likely to discontinue tomorrow
Discussed case with patient and daughter at bedside, all questions answered
Assessment
-
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
status post drainage-pulmonary consulted for pleural effusion 05/03/2024.
Impression:
Right pleural effusion-large and symptomatic
Status post thoracentesis 04/29/24--1 L straw-colored fluid, cytology pending; Cx show NGTD
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
Acute on chronic respiratory failure
[id number] 10.3
Hyponatremia
Hyperglycemia
Conditions present prior to admission:
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
Metastatic disease to lungs, pleura.
Hypertension.
GERD.
Depression.
Bradycardia/permanent pacemaker.
Appendectomy. Hysterectomy. Left breast lumpectomy. Left knee meniscus surgery.
Plan
Respiratory decompensation, likely due to fairly rapidly reaccumulating malignant pleural effusion.
Supplement oxygen to keep SpO2 >90-94%
Maintained on 5 L but could wean this down
Encouraged IS, OOB
Home O2 eval eventually
VBG with evidence for hypercapnia-nursing reports some somnolence, however not somnolence since 05/05/2024
ABG checked morning of 05/06/2024 showing stable hypercapnia with pH 7.42, pCO2 52
BiPAP as needed-has not needed yet
Nebulizers if needed.
Aspiration precautions.
Recurrent pleural fluid, presumed malignant but cyto negative
Chest tube placed 05/03/24
Pleural fluid cytology 04/30 negative
Pleural fluid Cx--NG >72 hours
Monitor chest tube output ---> output stopped AM of 05/05, CT chest on 05/06/2024 shows appropriately positioned chest tube
S/P Lytic therapy placement 05/06 x 2, 750 output noted in past 24 hours, continue to monitor
Can hold off on additional doses for now, if her output diminishes further
Repeat CXR appears improved
Follow chest x-ray --> re-check CXR on 05/08 seems worsened with new opacities
Consideration for repeat lytic vs tube repositioning, discussed case with IR--lytic placed 05/09/24
Minimal output, <200 mL, repeat CXR appears improved/she has chronic RHD noted
Continue observation another 24 hours, if CXR and output remains clear/low, will plan to discontinue tomorrow
Reviewed plans with patient and daughter
Follow hemoglobin.
Transfuse if needed to keep Hb>7
Oncology following-correspondence reviewed-outpatient follow-up with Dr. Grayson
DVT prophylaxis-on Eliquis
Nutrition
Bedside range of motion/physical therapy
PT/OT ongoing
Reviewed with nursing, and primary team
Pall care following as well
Would not be unreasonable to begin GOC discussions if this does not improve
Diagnostic data:
Chest x-ray 04/29/2024-no pneumothorax following right thoracentesis
CT chest 02/17/2024-severe bilateral pulmonary nodules suspicious for metastatic disease
CT chest 04/28/2024-no evidence for pulm embolism, new large malignant right pleural effusion with large amount of malignant pleural metastatic disease
CT chest 04/30/2024-improved moderate right pleural effusion, pleural-based right-sided pulmonary mass suggesting metastatic disease, mild right lower lobe consolidation
CT Chest 05/06/2024: There is slightly increased size of the moderate right-sided pleural effusion when compared with prior CT chest. The right-sided chest tube appears to be situated within the posterior pleural space. There is associated tear
total collapse of the right lower lobe with right middle and right upper lobe atelectasis. There are numerous prominent pleural nodules which are unchanged and appearance and likely represent pleural metastasis.
Thoracentesis 04/29/24--1050 mL straw-colored pleural fluid
Echocardiogram 05/02/2024-EF 65-70%, PA systolic 47
-----
Total time spent today was 51 minutes for this encounter. Time includes reviewing laboratory test/imaging results, reviewing pertinent medical records, obtaining and reviewing medical history, performing an appropriate exam, ordering medications,
tests and procedures. Time also includes documentation of this encounter, coordinating patient care and communicating with other healthcare professionals. Total time does not include separately billed tests performed on this date of service.
Subjective Data
-
Date of Service:
Date of Service: May 10, 2024
Chief Complaint: Pulmonary Follow Up and Dyspnea Follow Up
Subjective:
no acute events ON, remains on 5L NC
no progress on weaning
daughter at bedside
Objective Data
Data Reviewed
Vital Signs / I&O / Oxygen:
Vital Signs
Temp Pulse Resp BP Pulse Ox
97.6 F 76 20 164/73 97
05/10/24 07:31 05/10/24 07:31 05/10/24 07:31 05/10/24 07:31 05/10/24 07:31
Intake and Output
05/09/24 05/10/24 05/11/24
06:59 06:59 06:59
Intake Total 900 / 900 1500 / 1500
Output Total 15 / 15 140 / 140
Balance 885 / 885 1360 / 1360
SaO2 97
Nasal Cannula flow liters per 5
minute
Physical Exam
General: Respiratory Distress (n), Comfortable, Chills (negative) and Sweats (negative)
HEENT: Normocephalic, Anicteric and Moist Mucous Membranes
Cardiovascular: S1-S2, Regular Rhythm and Peripheral Edema (negative)
Respiratory: Wheeze (negative), Crackles (L sided), Rhonchi (negative), Non-Labored Respirations, Accessory Resp Muscle Use (n), Stridor (negative), Chest Tube (right posterior hemithorax with no air leak) and Other (absent BS on R base to midlung
field)
GI: Soft, Non Distended, Non Tender and Normal Bowel Sounds
Neurology: Awake, Alert, Oriented, No Motor Deficits and Tremors (negative)
Skin: Warm, Dry, Cyanosis (n) and Jaundice (n)
Labs/Micro/Reports
Lab Data
05/10/24 04:53
05/10/24 04:53
--- NOTE | 2024-05-10 09:39 | W.PN.ONC ---
Today's Communication / Plan
-
Titrate pain medication for comfort with a chest tube
Votrient started because of prolonged hospitalization and studies have shown it's safe to combine Votrient w/ radiation
Monitor for Votrient side effects including but not limited to HTN, electrolyte abnormalities, diarrhea, nausea/vomiting, cytopenia, LFT elevations, fatigue, headache, myalgias, cough
Continue current management for recurrent pleural effusion
Continue apixaban
Bowel management protocol
Resume palliative RT after discharge
Impression
Impression
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
lung mets, pleural effusion, s/p thoracentesis [id number], 04/29/24 - w/ reaccumulation - chest tube placed 05/03
Pain
Subjective/Objective
Subjective/Objective
Patient with continued pain
Vital Signs:
Vital Signs
Temp Pulse Resp BP Pulse Ox
97.6 F 76 20 164/73 97
05/10/24 07:31 05/10/24 07:31 05/10/24 07:31 05/10/24 07:31 05/10/24 07:31
No scleral icterus
Regular without murmur
No rales or rhonchi
Lab Results:
Laboratory Data
WBC 7.2 10^3/uL (4.8-10.8) 05/10/24 04:53
Hgb 10.3 g/dL (12.0-16.0) L 05/10/24 04:53
Plt Count 278 10^3/uL (130-400) 05/10/24 04:53
PT 14.4 Sec (11.4-14.6) 04/28/24 12:56
INR 1.09 04/28/24 12:56
APTT 32.1 Sec (23.4-35.0) 04/28/24 12:56
eGFR > 60.00 05/10/24 04:53
[2024-05-10] MEDS: NON-FORMULARY ITEM 1 UNIT PO (10:03)
--- NOTE | 2024-05-10 10:35 | W.PN.HOSP.TC ---
Addendum entered and electronically signed by Sol Bar MD 05/10/24 14:06:
I saw and evaluated the patient independently. I reviewed the resident�s note and agree with findings and plan as documented by Dr. Christensen.
GENERAL: well developed, well nourished, female in no apparent distress--
HEENT: NC/AT--still requiring 5L O2 NC
HEART: regular rate and rhythm, +S1, +S2
LUNGS : decreased BS on right--chest tube with bloody drainage
ABDOM: soft, nontender, nondistended, + bowel sounds
EXT: no cyanosis, clubbing-- left leg with 2-3+ LE edema
NEUROLOGIC: grossly intact
spoke with daughter Leydi at bedside with pt, team on 05/08/24, 05/10
no significant changes--discharge depends on pulm, chest tube, Asept/PleurX etc
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
thoracentesis 04/29- removal of 1050mL straw colored fluid, negative for cytology--recurrence requiring chest tube 05/03 with lytic therapy 05/06 --will need PleurX/Asept cath at d/c but concern re: need for lytic therapy, afraid tube may
clog--spoke with pulm, not ready to change to PleurX/Asept--may need IR for drain reposition or more lytics--unclear if pt can improve to point to get PleurX/Asept--plan for more lytic therapy in chest tube as per pulm
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 Grayson)--on 4th line treatment--apprec onc--pt wants continued therapy to treat (Palliative care indicating the same)--cannot get cancer
treatment at SNF....started hospice conversation with patient as she is on 4th line therapy AND no intervention possible for DVT in left leg due to compression by mass.....plan is for palliative XRT (also can't get at SNF) followed by oral
Votrient--spoke with onc--can start med here in hospital....
Persistent/Worsening Left Lower Extremity DVT --was discharged on SQ lovenox last admission--now on Eliquis- Of note: Unfortunately, there may not be any AC that is effective in this scenario because of the mass itself causing vascular blockage- Per
vascular surgery consult on last admission - no vascular intervention can be done
Chronic anemia, likely anemia of chronic disease- Hgb 11.6 on admission, appears at baseline- No signs of acute blood loss or ongoing bleeding/bruising
Constipation- Continue home bowel regimen, would increase given chronic pain meds
Essential Hypertension- Continue home amlodipine and olmesartan with parameters
Anxiety/Depression- Continue home sertraline
Overactive Bladder- Continue home Oxybutynin
Hx Symptomatic Bradycardia s/p Permanent Pacemaker
Code status: full (confirmed with patient 04/29)--would strongly consider DNR as if she gets intubated, likely will not come off ventilator....
DVT proph-- Eliquis BID
Original Note:
Today's Communication/Plan
-
Continue current management
-Pulm recs pending
Assessment / Plan
Assessment / Plan
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
status post drainage, chest tube in place since 05/03 and received tPA/dornase on 05/06/24
CT chest 04/30/24: Improved moderate right pleural effusion. Pleural-based right-sided pulmonary masses suggestive of metastatic disease. Stable. Mild right lower lobe consolidation probably atelectasis. Pneumonia not excluded. Improved.
CT chest 05/06/24AM: There is slightly increased size of the moderate right-sided pleural effusion when compared with prior CT chest. The right-sided chest tube appears to be situated within the posterior pleural space. There is associated near
total collapse of the right lower lobe with right middle and right upper lobe atelectasis. There are numerous prominent pleural nodules which are unchanged and appearance and likely represent pleural metastasis.
#Acute hypoxemic respiratory insufficiency due to large symptomatic right pleural effusion:
-initial CT chest showed right pleural effusion, no acute PE. 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
-s/p R thoracentesis 04/29 with removal of 1050cc of exudative fluid.culture NGTD.
-temporary symptomatic improvement s/p thoracentesis, though symptoms returned within 24 hours.
-on 05/03/24 pt with worsening hypoxemia (was requiring 5L NC O2). CXR showed Large right pleural effusion, significantly increased in volume compared with the previous examination. Chest tube placed 05/03/24.
-currently on 5L NC O2-keep SpO2> 90
-Cytology: Negative for malignant cells. Benign mesothelial cells and macrophages in a background of lymphocytes and red blood cells
-Encourage continue out of bed ambulation
-Briefly discussed hospice and treatment options
-oral TKI by oncology (okay to stop/hold if patient goes to rehab
- repeat CXR 05/09/24:Stable appearance of the right-sided chest tube with increased opacification of the right lower lung which may represent increased right-sided pleural effusion or right basilar atelectasis
-Repeat lytic therapy with tPA and dornase on 05/09/2024.
-Recent chest tube output 140 mL(increased from 15 mL)
-Pulm eval pending; unclear if patient will need more lytic therapy, consideration for transition to ASEPT.
-Order abdominal x-ray to evaluate abdominal/right lower chest pain
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
Persistent/Worsening Left Lower Extremity DVT
-Continue oral TKI oral TKI-oncology following
-Of note: Unfortunately, there may not be any AC that is effective in this scenario because of the mass itself causing vascular blockage.
-Per vascular surgery consult on last admission, no vascular intervention can be done
-Continue Eliquis
#Acute toxic encephalopathy:
-was likely due to long-acting morphine which was stopped, now resolved
-cont short acting IV morphine for pain control-
-oxycodone 5 mg every 6 as needed for moderate pain
Essential Hypertension:
-Olmesartan/Norvasc previously stopped with prior hypotension
- continue olmesartan at this time
# constipation
-Resolved 2 bowel movements on 05/09/2020
- Increased sennakot BID per pallative recs
Other problems:
Anemia of chronic disease: Hb stable
Constipation: cont bowel regimen
Anxiety/Depression: cont sertraline
Obesity due to excess calories
Overactive Bladder: Oxybutynin
h/o Symptomatic Bradycardia s/p Permanent Pacemaker
Hyponatremia, mild
Hyperkalemia: resolved with Lokelma
FULL/Eliquis
Anticipated Discharge: 24 - 48 hours
Subjective/Interval History
-
Date of Service: May 10, 2024
Interval events: Continues to have right-sided abdominal/chest pain near the chest tube.
Objective Data
-
Labs:
Laboratory Results
05/10/24
04:53
WBC 7.2
Hgb 10.3 L
Hct 33.1 L
Plt Count 278
Sodium 139
Potassium 3.9
Chloride 97 L
Carbon Dioxide 33 H
BUN 12
Creatinine 0.5 L
Glucose 106 H
Calcium 9.2
Vital Signs:
Vital Signs
Temp Pulse Resp BP Pulse Ox
97.6 F 76 20 164/73 97
05/10/24 07:31 05/10/24 07:31 05/10/24 07:31 05/10/24 07:31 05/10/24 07:31
I&O
05/09/24 05/10/24 05/11/24
06:59 06:59 06:59
Intake Total 900 / 900 1500 / 1500
Output Total 140 / 140
Balance 885 / 885 1360 / 1360
Review of Systems
-
History Source: Patient
Constitutional: Reports No Symptoms
EENT: Reports No Symptoms Reported
Respiratory: Reports Trouble Breathing
Cardiac: Reports No Symptoms
Abdomen/GI: Reports Abdominal Pain (Near the chest tube and right upper quadrant)
Neuro: Reports No Symptoms
Physical Exam
-
General: Appears Chronically Ill
Respiratory: Crackles (And decreased breath sounds on the right) and Chest Tubes
Cardiac: Regular Rhythm and S1/S2
GI: Soft, Nondistended and Tender (Right upper quadrant)
Musculoskeletal: Edema, Right Lower Extrem and Edema, Left Lower Extrem
Skin: Warm and Dry
Neuro: Awake, Alert and Oriented
Psych: Calm
Data Reviewed
-
Diagnostic Radiology: Report Reviewed by me and Discussed with Physician
Labs: Labs Reviewed by me, Discussed with Physician and Discussed with Patient
[2024-05-10 10:55] VITALS: BP 160/60
[2024-05-10] MEDS: ROXICODONE 5 MG PO ×2 (14:51→19:56)
--- NOTE | 2024-05-10 14:55 | CM ---
Patient seen at bedside with physicians. Patient stated that she was comfortable, daughter Leydi at bedside and per tt from special education [employer] spoke in person to review mother's care. Patient for possible SNF when medically appropriate. Patient current on
chemo medication but is aware as is daughter that medication will need to be stopped when she transfers to a SNF. CM will continue to follow for discharge planning needs.
Plan; SNF when medically appropriate; will need to send updated clinicals to SNF options when closer to discharge.
[2024-05-10 15:10] VITALS: BP 179/85
[2024-05-10] MEDS: NEURONTIN 600 MG PO (19:55)
[2024-05-10] MEDS: ZOLOFT 50 MG PO (19:57)
[2024-05-10 23:00] VITALS: BP 163/74
[2024-05-11] MEDS: TYLENOL PO ×2 (01:17→06:35)
[2024-05-11] MEDS: MORPHINE SULFATE 2 MG IV ×3 (03:39→20:37)
[2024-05-11 04:06] VITALS: BMI 34.0
[2024-05-11 06:01] LABS: Hemoglobin 10.5 g/dL (12.0-16.0); Mean Corp Hgb Conc. 31.8 g/dL (33.0-37.0); Mean Corpuscular Hgb 30.3 pg (27.0-31.0); Mean Corpuscular Volume 95.4 fL (81.0-99.0); Mean Platelet Volume 12.2 fL (7.4-10.4); Platelet Count 278 10^3/uL (130-400); Red Blood Cell Count 3.46 10^6/uL (4.20-5.40); Red Cell Dist. Width 14.6 % (11.5-14.5); White Blood Cell Count 7.5 10^3/uL (4.8-10.8)
[2024-05-11 06:23] LABS: Blood Urea Nitrogen 9 mg/dl (7-17); Calcium 9.5 mg/dl (8.4-10.2); Carbon Dioxide 35 mmol/L (22-30); Chloride 97 mmol/L (98-107); Estimated Creatinine Clearance 85 ml/min; Glucose 103 mg/dl (70-99); Potassium 4.3 mmol/L (3.5-5.1); Sodium 136 mmol/L (135-145); eGFR > 60.00
[2024-05-11] MEDS: ROXICODONE 5 MG PO ×2 (08:03→13:22)
[2024-05-11 08:04] VITALS: BP 157/75
[2024-05-11] MEDS: BENICAR 40 MG PO (08:05)
[2024-05-11] MEDS: DITROPAN 5 MG PO ×2 (08:05→20:38)
[2024-05-11] MEDS: SENOKOT 8.6 MG PO ×2 (08:05→20:38)
[2024-05-11] MEDS: MIRALAX 17 GRAMS PO (08:05)
[2024-05-11] MEDS: LIDOCAINE 4% PATCH 1 PATCH TOPICAL (08:05)
[2024-05-11] MEDS: DESENEX/MITRAZOL/ZEASORB 1 APPLIC TOPICAL ×2 (08:06→21:01)
[2024-05-11] MEDS: NON-FORMULARY ITEM 400 UNIT PO (08:06)
[2024-05-11] MEDS: ELIQUIS 5 MG PO ×2 (08:06→20:38)
[2024-05-11] MEDS: COLACE 100 MG PO (08:06)
--- NOTE | 2024-05-11 08:41 | W.PN.HOSP.TC ---
Addendum entered and electronically signed by Sol Bar MD 05/11/24 15:39:
I saw and evaluated the patient independently. I reviewed the resident�s note and agree with findings and plan as documented by Dr. Christensen.
GENERAL: well developed, well nourished, female in no apparent distress--
HEENT: NC/AT--still requiring 5L O2 NC
HEART: regular rate and rhythm, +S1, +S2
LUNGS : decreased BS on right--chest tube with bloody drainage
ABDOM: soft, nontender, nondistended, + bowel sounds
EXT: no cyanosis, clubbing-- left leg with 2-3+ LE edema
NEUROLOGIC: grossly intact
spoke with daughter Leydi at bedside with pt, teamCHRISTOS on 05/08/24, 05/10
no significant changes--discharge depends on pulm, chest tube, Asept/PleurX etc
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
thoracentesis 04/29- removal of 1050mL straw colored fluid, negative for cytology--recurrence requiring chest tube 05/03 with lytic therapy 05/06 --will need PleurX/Asept cath at d/c but concern re: need for lytic therapy, afraid tube may
clog--spoke with pulm, not ready to change to PleurX/Asept--may need IR for drain reposition or more lytics--unclear if pt can improve to point to get PleurX/Asept--plan for chest tube as per pulm
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 Grayson)--on 4th line treatment--apprec onc--pt wants continued therapy to treat (Palliative care indicating the same)--cannot get cancer
treatment at SNF....started hospice conversation with patient as she is on 4th line therapy AND no intervention possible for DVT in left leg due to compression by mass.....plan is for palliative XRT (also can't get at SNF) followed by oral
Votrient--spoke with onc--can start med here in hospital....
Persistent/Worsening Left Lower Extremity DVT --was discharged on SQ lovenox last admission--now on Eliquis- Of note: Unfortunately, there may not be any AC that is effective in this scenario because of the mass itself causing vascular blockage- Per
vascular surgery consult on last admission - no vascular intervention can be done
Chronic anemia, likely anemia of chronic disease- Hgb 11.6 on admission, appears at baseline- No signs of acute blood loss or ongoing bleeding/bruising
Constipation- Continue home bowel regimen, would increase given chronic pain meds
Essential Hypertension- Continue home amlodipine and olmesartan with parameters
Anxiety/Depression- Continue home sertraline
Overactive Bladder- Continue home Oxybutynin
Hx Symptomatic Bradycardia s/p Permanent Pacemaker
Code status: full (confirmed with patient 04/29)--would strongly consider DNR as if she gets intubated, likely will not come off ventilator....
DVT proph-- Eliquis BID
Original Note:
Today's Communication/Plan
-
Continue current management
Discharged depends on chest tube and pulm recs
Assessment / Plan
Assessment / Plan
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
status post drainage, chest tube in place since 05/03 and received tPA/dornase on 05/06/[address] chest 04/30/24: Improved moderate right pleural effusion. Pleural-based right-sided pulmonary masses suggestive of metastatic disease. Stable. Mild right lower lobe consolidation probably atelectasis. Pneumonia not excluded. Improved.
CT chest 05/06/24AM: There is slightly increased size of the moderate right-sided pleural effusion when compared with prior CT chest. The right-sided chest tube appears to be situated within the posterior pleural space. There is associated near
total collapse of the right lower lobe with right middle and right upper lobe atelectasis. There are numerous prominent pleural nodules which are unchanged and appearance and likely represent pleural metastasis.
#Acute hypoxemic respiratory failure due to large symptomatic right pleural effusion:
-initial CT chest showed right pleural effusion, no acute PE. 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
-s/p R thoracentesis 04/29 with removal of 1050cc of exudative fluid
-symptoms returned within 24 hours.
-on 05/03/24 pt with worsening hypoxemia (was requiring 5L NC O2). CXR showed Large right pleural effusion, significantly increased in volume compared with the previous examination. Chest tube placed 05/03/24.
-currently on 5L NC O2-keep SpO2> 90
-Cytology: Negative for malignant cells. Benign mesothelial cells and macrophages in a background of lymphocytes and red blood cells
-Encourage continue out of bed ambulation
-repeat CXR 05/09/24:Stable appearance of the right-sided chest tube with increased opacification of the right lower lung which may represent increased right-sided pleural effusion or right basilar atelectasis
-Repeat lytic therapy with tPA and dornase on 05/09/2024.
-Pulm eval pending; unclear if patient will need more lytic therapy, consideration for transition to ASEPT.
-Encourage use of incentive spirometer
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
Persistent/Worsening Left Lower Extremity DVT
-Continue oral TKI -oncology following
-Of note: Unfortunately, there may not be any AC that is effective in this scenario because of the mass itself causing vascular blockage.
-Per vascular surgery consult on last admission, no vascular intervention can be done
-Continue Eliquis
#Acute toxic encephalopathy:
-was likely due to long-acting morphine which was stopped, now resolved
-cont short acting IV morphine for pain control-
-oxycodone 5 mg every 6 as needed for moderate pain
Essential Hypertension:
-Olmesartan/Norvasc previously stopped with prior hypotension
- continue olmesartan at this time
# constipation
-Resolved 2 bowel movements on 05/10/2020
-Increased sennakot BID per pallative recs
-Abdominal x-ray showed adynamic ileus
-Gas-X for bloating ordered
Other problems:
Anemia of chronic disease: Hb stable
Anxiety/Depression: cont sertraline
Obesity due to excess calories
Overactive Bladder: Oxybutynin
h/o Symptomatic Bradycardia s/p Permanent Pacemaker
Hyponatremia, mild
Hyperkalemia: resolved with Lokelma
FULL/Eliquis
Discharge depends on pulm, chest tube, Asept/PleurX etc
Anticipated Discharge: 24 - 48 hours
Subjective/Interval History
-
Date of Service: May 11, 2024
Interval events: Patient reports right-sided abdominal pain and bloating
Objective Data
-
Labs:
Laboratory Results
05/11/24
05:34
WBC 7.5
Hgb 10.5 L
Hct 33.0 L
Plt Count 278
Sodium 136
Potassium 4.3
Chloride 97 L
Carbon Dioxide 35 H
BUN 9
Creatinine 0.5 L
Glucose 103 H
Calcium 9.5
Vital Signs:
Vital Signs
Temp Pulse Resp BP Pulse Ox
98.4 F 82 20 157/75 95
05/11/24 08:04 05/11/24 08:04 05/11/24 08:04 05/11/24 08:04 05/11/24 08:04
I&O
05/10/24 05/11/24 05/12/24
06:59 06:59 06:59
Intake Total 1500 / 1500 480 / 480
Output Total 140 / 140 75 / 75
Balance 1360 / 1360 405 / 405
Review of Systems
-
History Source: Patient
Constitutional: Reports No Symptoms
EENT: Reports No Symptoms Reported
Respiratory: Reports Trouble Breathing
Cardiac: Reports No Symptoms
Abdomen/GI: Reports Abdominal Pain (Near the chest tube and right upper quadrant)
Neuro: Reports No Symptoms
Physical Exam
-
General: Appears Chronically Ill
Respiratory: Crackles (And decreased breath sounds on the right), Other (5 L nasal cannula O2) and Chest Tubes
Cardiac: Regular Rhythm and S1/S2
GI: Soft, Nondistended and Tender (Right upper quadrant)
Musculoskeletal: Edema, Right Lower Extrem and Edema, Left Lower Extrem
Skin: Warm and Dry
Neuro: Awake, Alert and Oriented
Psych: Calm
Data Reviewed
-
Diagnostic Radiology: Image personally visualized and interpreted, Report Reviewed by me, Discussed with Physician and Discussed with Patient
Labs: Labs Reviewed by me, Discussed with Physician and Discussed with Patient
--- NOTE | 2024-05-11 10:49 | PN.CDI ---
CDI
- -
CDI:
Physician Documentation Request
Admit Date: 04/28/24 15:28
Dear Doctor Amparo,
Hospitalist progress notes include a diagnosis of 'Acute hypoxemic respiratory failure (5L O2) '.
Further down in same note it also states 'Acute hypoxemic respiratory insufficiency'
In an attempt to clarify potentially conflicting documentation, please clarify the patient's respiratory status.
Acute hypoxemic respiratory failure
Hypoxia
Other
Additional information for Respiratory Failure:
Recognized criteria for Respiratory Failure (Source: [facility] Apr 2013)
ABGs: (1 or more) Symptoms Please indicate type if known
1. p)2 <60 or RA SPO2 <91% on RA 1. Tachypnea, SOB, dyspnea Hypoxic
2. pCO2 50 and pH <7.35 2. Use of accessory muscles Hypercapnic
3. pO2 decrease of pCO2 increase by 3. Pallor or cyanosis Hypoxic and Hypercapnic
10 mmHg from baseline if known 4. Anxiety or restlessness Unable to determine
5. Unable to speak in full sentences
Supplemental O2 of > 40% (5LPM) Intubation is not required
Use of terms such as suspected, likely, concern for, or probable (associated with a specific diagnosis that is being evaluated, monitored, or treated as if it exists) are acceptable and can be coded in the inpatient setting, when documented at the
time of discharge.
Thank you,
Valarie Rocha RN, BSN
CDI Specialist
tiger text
Please use your independent medical judgment in providing your response.
--- NOTE | 2024-05-11 11:10 | W.PN.PUL3 ---
Today's Communication / Plan
-
Remains on 5L NC, no improvement
CXR showing some return of fluid in fissure but I think tube can be discontinued
Discussed with IR
If fluid reaccumulates, we have discussed ASEPT placement
She needs aggressive rehab to which I feel the chest tube is holding her back
Will observe over the weekend for reaccumulation
Assessment
-
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
status post drainage-pulmonary consulted for pleural effusion 05/03/2024.
Impression:
Right pleural effusion-large and symptomatic
Status post thoracentesis 04/29/24--1 L straw-colored fluid, cytology pending; Cx show NGTD
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
Acute on chronic respiratory failure
[id number] 10.3
Hyponatremia
Hyperglycemia
Conditions present prior to admission:
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
Metastatic disease to lungs, pleura.
Hypertension.
GERD.
Depression.
Bradycardia/permanent pacemaker.
Appendectomy. Hysterectomy. Left breast lumpectomy. Left knee meniscus surgery.
Plan
Respiratory decompensation, likely due to fairly rapidly reaccumulating malignant pleural effusion.
Supplement oxygen to keep SpO2 >90-94%
Maintained on 5 L but could wean this down
Encouraged IS, OOB
Home O2 eval eventually
VBG with evidence for hypercapnia-nursing reports some somnolence, however not somnolence since 05/05/2024
ABG checked morning of 05/06/2024 showing stable hypercapnia with pH 7.42, pCO2 52
BiPAP as needed-has not needed yet
Nebulizers if needed.
Aspiration precautions.
Recurrent pleural fluid, presumed malignant but cyto negative
Chest tube placed 05/03/24
Pleural fluid cytology 04/30 negative
Pleural fluid Cx--NG >72 hours
Monitor chest tube output ---> output stopped AM of 05/05, CT chest on 05/06/2024 shows appropriately positioned chest tube
S/P Lytic therapy placement 05/06 x 2, 750 output noted in past 24 hours, continue to monitor
Can hold off on additional doses for now, if her output diminishes further
Repeat CXR appears improved
Follow chest x-ray --> re-check CXR on 05/08 seems worsened with new opacities
Consideration for repeat lytic vs tube repositioning, discussed case with IR--lytic placed 05/09/24
Minimal output, <200 mL, repeat CXR appears improved/she has chronic RHD noted
Repeat CXR showing fluid in fissure but overall still reduced
We can discontinue tube for now and if fluid reaccumulates plan for ASEPT placement
IR consult for tube discontinuation
She needs aggressive rehab but is likely prohibited due to chest tube
Follow hemoglobin.
Transfuse if needed to keep Hb>7
Oncology following-correspondence reviewed-outpatient follow-up with Dr. Grayson
DVT prophylaxis-on Eliquis
Nutrition
Bedside range of motion/physical therapy
PT/OT ongoing
Reviewed with nursing, and primary team
Pall care following as well
Would not be unreasonable to begin C discussions if this does not improve
Diagnostic data:
Chest x-ray 04/29/2024-no pneumothorax following right thoracentesis
CT chest 02/17/2024-severe bilateral pulmonary nodules suspicious for metastatic disease
CT chest 04/28/2024-no evidence for pulm embolism, new large malignant right pleural effusion with large amount of malignant pleural metastatic disease
CT chest 04/30/2024-improved moderate right pleural effusion, pleural-based right-sided pulmonary mass suggesting metastatic disease, mild right lower lobe consolidation
CT Chest 05/06/2024: There is slightly increased size of the moderate right-sided pleural effusion when compared with prior CT chest. The right-sided chest tube appears to be situated within the posterior pleural space. There is associated tear
total collapse of the right lower lobe with right middle and right upper lobe atelectasis. There are numerous prominent pleural nodules which are unchanged and appearance and likely represent pleural metastasis.
Thoracentesis 04/29/24--1050 mL straw-colored pleural fluid
Echocardiogram 05/02/2024-EF 65-70%, PA systolic 47
-----
Total time spent today was 51 minutes for this encounter. Time includes reviewing laboratory test/imaging results, reviewing pertinent medical records, obtaining and reviewing medical history, performing an appropriate exam, ordering medications,
tests and procedures. Time also includes documentation of this encounter, coordinating patient care and communicating with other healthcare professionals. Total time does not include separately billed tests performed on this date of service.
Subjective Data
-
Date of Service:
Date of Service: May 11, 2024
Chief Complaint: Pulmonary Follow Up and Dyspnea Follow Up
Subjective:
No acute events ON, remains on 5L NC
No new complaints
Objective Data
Data Reviewed
Vital Signs / I&O / Oxygen:
Vital Signs
Temp Pulse Resp BP Pulse Ox
98.4 F 82 20 157/75 95
05/11/24 08:04 05/11/24 08:04 05/11/24 08:04 05/11/24 08:04 05/11/24 08:04
Intake and Output
05/10/24 05/11/24 05/12/24
06:59 06:59 06:59
Intake Total 1500 / 1500 480 / 480
Output Total 140 / 140 75 / 75
Balance 1360 / 1360 405 / 405
SaO2 95
Nasal Cannula flow liters per 2
minute
Physical Exam
General: Respiratory Distress (n), Comfortable, Chills (negative) and Sweats (negative)
HEENT: Normocephalic, Anicteric and Moist Mucous Membranes
Cardiovascular: S1-S2, Regular Rhythm and Peripheral Edema (negative)
Respiratory: Wheeze (negative), Crackles (L sided), Rhonchi (negative), Non-Labored Respirations, Accessory Resp Muscle Use (n), Stridor (negative), Chest Tube (right posterior hemithorax with no air leak) and Other (absent BS on R base to midlung
field)
GI: Soft, Non Distended, Non Tender and Normal Bowel Sounds
Neurology: Awake, Alert, Oriented, No Motor Deficits and Tremors (negative)
Skin: Warm, Dry, Cyanosis (n) and Jaundice (n)
Labs/Micro/Reports
Lab Data
05/11/24 05:34
05/11/24 05:34
--- NOTE | 2024-05-11 13:06 | W.PN.PAL2 ---
Today's Communication
-
Patient seen for follow up. trudy present
Patient reports chest tube site pain. medication effective when given. at this point would not change opioid dosing untill plan for chest tube is clear -patient going for Xray today.
Patient tolerating new treatment
Assessment / Plan
-
Assessment/Plan:
goal are treatment oriented, chest tube will determine further decisions
Objective Data
-
Objective Data:
Vital Signs
Temp Pulse Resp BP Pulse Ox
98.4 F 82 20 157/75 95
05/11/24 08:04 05/11/24 08:04 05/11/24 08:04 05/11/24 08:04 05/11/24 08:04
Laboratory Results
05/11/24 05:34
05/11/24 05:34
PT 14.4 Sec (11.4-14.6) 04/28/24 12:56
INR 1.09 04/28/24 12:56
APTT 32.1 Sec (23.4-35.0) 04/28/24 12:56
Total Protein Cancelled 04/28/24 16:25
Albumin 3.6 g/dl (3.5-5.0) 04/28/24 12:56
Palliative Performance Scale
Palliative Performance Scale:
PPS Level Ambulation Activity & Evidence of Disease Self Care Intake Conscious Level
100% Full Normal Activity & Work; Full Intake Full
No Evidence of Disease
90% Full Normal Activity & Work; Full Normal Full
Some Evidence of Disease
80% Full Normal Activity with Effort Full Normal or Full
Some Evidence of Disease Reduced
70% Reduced Unable Normal Job/Work Full Normal or Full
Significant Disease Reduced
60% Reduced Unable Hobby/Housework Occasional Normal or Full or Confusion
Significant Disease Assistance Reduced
50% Mainly Sit/Lie Unable to do Any Work Considerable Normal or Full or Confusion
Extensive Disease Assistance Req'd Reduced
40% Mainly in Bed Unable to do Most Activity Mainly Assistance Normal or Full or Drowsy;
Extensive Disease Reduced +/- Confusion
30% Totally Bed Unable to do Any Activity Total Care Normal or Full or Drowsy;
Bound Extensive Disease Reduced +/- Confusion
20% Totally Bed Bound Unable to do Any Activity Total Care Minimal to Full or Drowsy;
Extensive Disease Sips +/- Confusion
10% Totally Bed Bound Unable to do Any Activity Total Care Mouth Care Drowsy or Coma;
Extensive Disease Only +/- Confusion
0%
PPS Score Level:
Palliative Performance Score Response
Palliative Performance Score Response: 40%
Physical Exam
-
General: Well Developed, Well Nourished, No Apparent Distress and Comfortable
appears comfortable seated in chair, talking with grandson .
[2024-05-11] MEDS: TYLENOL 650 MG PO ×2 (13:22→17:05)
--- NOTE | 2024-05-11 14:50 | PN.IRAD.UPD ---
Update Note - IRAD
- -
Cleaned right sided chest tube with chloraprep and removed bedside. Site dressed with vaseline gauze and an optifoam dressing.
Meet Yoo RT(R)()
--- NOTE | 2024-05-11 15:29 | W.PN.ONC ---
Today's Communication / Plan
-
chest tube out
monitor for votrient side effects
cont supportive care
Impression
Impression
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
lung mets, pleural effusion, s/p thoracentesis [id number], 04/29/24 - w/ reaccumulation - chest tube placed 05/03 - removed 05/10
Pain
Plan
Plan
1. Stage IV dedifferentiated liposarcoma
-Votrient started
-Monitor for Votrient side effects including but not limited to HTN, electrolyte abnormalities, diarrhea, nausea/vomiting, cytopenia, LFT elevations, fatigue, headache, myalgias, cough
2. Recurrent right pleural effusion- chest tube removed today - pulmonary following
3. DVT - on eliquis
4. pain mgmt, continue opioids were increased 04/30/24 & bowel regimen - senna, colace, miralax
Resume palliative RT after discharge
Subjective/Objective
Subjective/Objective
some discomfort at chest tube site
Vital Signs:
Vital Signs
Temp Pulse Resp BP Pulse Ox
98.4 F 82 20 157/75 97
05/11/24 08:04 05/11/24 08:04 05/11/24 08:04 05/11/24 08:04 05/11/24 10:20
Lab Results:
Laboratory Data
WBC 7.5 10^3/uL (4.8-10.8) 05/11/24 05:34
Hgb 10.5 g/dL (12.0-16.0) L 05/11/24 05:34
Plt Count 278 10^3/uL (130-400) 05/11/24 05:34
PT 14.4 Sec (11.4-14.6) 04/28/24 12:56
INR 1.09 04/28/24 12:56
APTT 32.1 Sec (23.4-35.0) 04/28/24 12:56
eGFR > 60.00 05/11/24 05:34
--- NOTE | 2024-05-11 15:42 | PTCARENOTE ---
Chest tube removed at bedside. Patient with silicone border foam at site where chest tube removed.
[2024-05-11 15:44] VITALS: BP 190/80
[2024-05-11] MEDS: NEURONTIN 600 MG PO (21:02)
[2024-05-11] MEDS: ZOLOFT 50 MG PO (21:02)
[2024-05-11] MEDS: NORVASC 5 MG PO (22:12)
[2024-05-11 23:51] VITALS: BP 174/74
[2024-05-12] MEDS: TYLENOL PO (01:49)
[2024-05-12] MEDS: TYLENOL 650 MG PO ×3 (05:36→17:02)
[2024-05-12] MEDS: MORPHINE SULFATE 2 MG IV ×4 (05:37→21:20)
[2024-05-12 06:00] VITALS: BMI 33.2
[2024-05-12 07:45] VITALS: BP 167/91
[2024-05-12 08:43] LABS: Hematocrit 35.5 % (37.0-47.0); Hemoglobin 11.7 g/dL (12.0-16.0); Mean Corpuscular Hgb 30.3 pg (27.0-31.0); Mean Platelet Volume 11.5 fL (7.4-10.4); Platelet Count 302 10^3/uL (130-400); Red Blood Cell Count 3.86 10^6/uL (4.20-5.40); Red Cell Dist. Width 14.4 % (11.5-14.5); White Blood Cell Count 7.8 10^3/uL (4.8-10.8)
[2024-05-12] MEDS: LIDOCAINE 4% PATCH 1 PATCH TOPICAL (08:52)
[2024-05-12] MEDS: ROXICODONE 5 MG PO (08:52)
[2024-05-12 09:10] LABS: Blood Urea Nitrogen 8 mg/dl (7-17); Calcium 9.8 mg/dl (8.4-10.2); Carbon Dioxide 34 mmol/L (22-30); Chloride 95 mmol/L (98-107); Estimated Creatinine Clearance 84 ml/min; Glucose 112 mg/dl (70-99); Potassium 4.6 mmol/L (3.5-5.1); Sodium 136 mmol/L (135-145); eGFR > 60.00
[2024-05-12] MEDS: MIRALAX 17 GRAMS PO (09:24)
[2024-05-12] MEDS: ELIQUIS 5 MG PO ×2 (09:24→19:21)
[2024-05-12] MEDS: COLACE 100 MG PO (09:24)
[2024-05-12] MEDS: BENICAR 40 MG PO (09:24)
[2024-05-12] MEDS: DITROPAN 5 MG PO ×2 (09:24→19:21)
[2024-05-12] MEDS: SENOKOT 8.6 MG PO ×2 (09:24→19:21)
[2024-05-12] MEDS: NON-FORMULARY ITEM 2 UNIT PO (09:25)
[2024-05-12] MEDS: DESENEX/MITRAZOL/ZEASORB 1 APPLIC TOPICAL ×2 (09:26→19:22)
--- NOTE | 2024-05-12 10:42 | W.PN.HOSP.TC ---
Today's Communication/Plan
-
CT scan abdomen/pelvis
Assessment / Plan
Assessment / Plan
Pt is a 78 year old female
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
thoracentesis 04/29- removal of 1050mL straw colored fluid, negative for cytology--recurrence requiring chest tube 05/03 with lytic therapy 05/06 --will need PleurX/Asept cath at d/c but concern re: need for lytic therapy, afraid tube may
clog--spoke with pulm, not ready to change to PleurX/Asept, chest tube OUT 05/11---plan for tubes as per pullisandra
RUQ abdominal pain--think related to cancer, pleural mets--x-ray with ileus, no obstruction, chest tube out without improvement in pain--will check CT a/p
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 Grayson)--on 4th line treatment--apprec onc--pt wants continued therapy to treat (Palliative care indicating the same)--cannot get cancer
treatment at SNF....started hospice conversation with patient as she is on 4th line therapy AND no intervention possible for DVT in left leg due to compression by mass.....plan is for palliative XRT (also can't get at SNF) followed by oral
Votrient--spoke with onc--can start med here in hospital....and stop when goes to SNF
Persistent/Worsening Left Lower Extremity DVT --was discharged on SQ lovenox last admission--now on Eliquis- Of note: Unfortunately, there may not be any AC that is effective in this scenario because of the mass itself causing vascular blockage- Per
vascular surgery consult on last admission - no vascular intervention can be done
Chronic anemia, likely anemia of chronic disease- Hgb 11.6 on admission, appears at baseline- No signs of acute blood loss or ongoing bleeding/bruising
Constipation- Continue home bowel regimen, would increase given chronic pain meds
Essential Hypertension- Continue home amlodipine and olmesartan with parameters
Anxiety/Depression- Continue home sertraline
Overactive Bladder- Continue home Oxybutynin
Hx Symptomatic Bradycardia s/p Permanent Pacemaker
Code status: full (confirmed with patient 04/29)--would strongly consider DNR as if she gets intubated, likely will not come off ventilator....
DVT proph-- Eliquis BID
Anticipated Discharge: > 48 hours
Subjective/Interval History
-
Date of Service: May 12, 2024
chest tube out--still with RUQ abdominal pain
Objective Data
-
Labs:
Laboratory Results
05/12/24
08:33
WBC 7.8
Hgb 11.7 L
Hct 35.5 L
Plt Count 302
Sodium 136
Potassium 4.6
Chloride 95 L
Carbon Dioxide 34 H
BUN 8
Creatinine 0.5 L
Glucose 112 H
Calcium 9.8
Vital Signs:
max temp for 24 hours
05/11/24
15:44
Temp 99 F
Vital Signs
Temp Pulse Resp BP Pulse Ox
98.3 F 80 20 167/91 96
05/12/24 07:45 05/12/24 07:45 05/12/24 07:45 05/12/24 07:45 05/12/24 07:45
I&O
05/11/24 05/12/24 05/13/24
06:59 06:59 06:59
Intake Total 480 / 480 0 / 0
Output Total 75 / 75 50 / 50
Balance 405 / 405 -50 / -50
Review of Systems
-
All other systems: Reviewed and negative
Abdomen/GI: Reports Abdominal Pain (RUQ)
Physical Exam
-
General: Well Developed, Well Nourished, No Apparent Distress and Morbidly Obese
HEENT: Normocephalic, Atraumatic and Oxygen
Respiratory: Decreased Breath Sounds (right base)
Cardiac: Regular Rhythm and S1/S2; Negative Murmur
GI: Soft and Tender (RUQ, no guarding or rebound)
Musculoskeletal: No Clubbing, No Cyanosis and No Edema
Neuro: Awake and Alert
[2024-05-12] MEDS: OMNIPAQUE 50 ML PO (11:15)
--- NOTE | 2024-05-12 13:02 | W.PN.PUL.V3 ---
Today's Communication / Plan
-
Supplemental oxygen as needed
CT abdomen and pelvis per primary service for right upper quadrant abdominal pain
Monitor for pleural fluid reaccumulation
Again discussed if rapid reaccumulation and consideration towards Pleurx catheter
Assessment
-
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
status post drainage-pulmonary consulted for pleural effusion 05/03/2024.
Impression:
Right pleural effusion-large and symptomatic
Status post thoracentesis 04/29/24--1 L straw-colored fluid, cytology pending; Cx show NGTD
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
Acute on chronic respiratory failure
[id number]-[id number]-gzhamahxwn 10.3
Hyponatremia
Hyperglycemia
Conditions present prior to admission:
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
Metastatic disease to lungs, pleura.
Hypertension.
GERD.
Depression.
Bradycardia/permanent pacemaker.
Appendectomy. Hysterectomy. Left breast lumpectomy. Left knee meniscus surgery.
Plan
Respiratory decompensation, likely due to fairly rapidly reaccumulating malignant pleural effusion.
Supplement oxygen to keep SpO2 >90-94%
Maintained on 5 L but could wean this down
Encouraged IS, OOB
Home O2 eval eventually
VBG with evidence for hypercapnia-nursing reports some somnolence, however not somnolence since 05/05/2024
ABG checked morning of 05/06/2024 showing stable hypercapnia with pH 7.42, pCO2 52
BiPAP as needed-has not needed yet
Nebulizers if needed.
Aspiration precautions.
Recurrent pleural fluid, presumed malignant but cyto negative
Chest tube placed 05/03/24
Pleural fluid cytology 11/11 negative
Pleural fluid Cx--NG >72 hours
Monitor chest tube output ---> output stopped AM of 05/05, CT chest on 05/06/2024 shows appropriately positioned chest tube
S/P Lytic therapy placement 05/06 x 2, 750 output noted in past 24 hours, continue to monitor
Can hold off on additional doses for now, if her output diminishes further
Repeat CXR appears improved
Follow chest x-ray --> re-check CXR on 05/08 seems worsened with new opacities
Consideration for repeat lytic vs tube repositioning, discussed case with IR--lytic placed 05/09/24
Minimal output, <200 mL, repeat CXR appears improved/she has chronic RHD noted
Repeat CXR showing fluid in fissure but overall still reduced
We can discontinue tube for now and if fluid reaccumulates plan for ASEPT placement
Chest tube discontinued 05/11/2024
She needs aggressive rehab but is likely prohibited due to chest tube
Follow hemoglobin.
Transfuse if needed to keep Hb>7
Oncology following-correspondence reviewed-outpatient follow-up with Dr. Grayson
DVT prophylaxis-on Eliquis
Nutrition
Bedside range of motion/physical therapy
PT/OT ongoing
Reviewed with nursing, and primary team
Pall care following as well
Would not be unreasonable to begin GOC discussions if this does not improve
Diagnostic data:
Chest x-ray 04/29/2024-no pneumothorax following right thoracentesis
CT chest 02/17/2024-severe bilateral pulmonary nodules suspicious for metastatic disease
CT chest 04/28/2024-no evidence for pulm embolism, new large malignant right pleural effusion with large amount of malignant pleural metastatic disease
CT chest 04/30/2024-improved moderate right pleural effusion, pleural-based right-sided pulmonary mass suggesting metastatic disease, mild right lower lobe consolidation
CT Chest 05/06/2024: There is slightly increased size of the moderate right-sided pleural effusion when compared with prior CT chest. The right-sided chest tube appears to be situated within the posterior pleural space. There is associated tear
total collapse of the right lower lobe with right middle and right upper lobe atelectasis. There are numerous prominent pleural nodules which are unchanged and appearance and likely represent pleural metastasis.
Thoracentesis 04/29/24--1050 mL straw-colored pleural fluid
Echocardiogram 05/02/2024-EF 65-70%, PA systolic 47
Subjective Data
-
Date of Service:
Date of Service: May 12, 2024
Chief Complaint: Pulmonary Follow Up and Dyspnea Follow Up
Subjective:
Complains of chronic shortness of breath, no worse, no chest pain or abdominal pain
Review of Systems
General: Other (Per HPI)
Objective Data
Data Reviewed
Vital Signs / I&O:
Vital Signs
Temp Pulse Resp BP Pulse Ox
98.3 F 80 20 167/91 95
05/12/24 07:45 05/12/24 07:45 05/12/24 07:45 05/12/24 07:45 05/12/24 08:00
Intake and Output
05/11/24 05/12/24 05/13/24
06:59 06:59 06:59
Intake Total 480 / 480 0 / 0
Output Total 75 / 75 50 / 50
Balance 405 / 405 -50 / -50
SaO2: 95
Nasal Cannula flow liters per minute: 5
Physical Exam
General: Respiratory Distress (n), Comfortable, Chills (negative) and Sweats (negative)
HEENT: Normocephalic, Anicteric and Moist Mucous Membranes
Cardiovascular: Regular Rhythm and Peripheral Edema (negative)
Respiratory: Wheeze (negative), Crackles (L sided), Rhonchi (negative), Non-Labored Respirations, Accessory Resp Muscle Use (n), Stridor (negative), Chest Tube (right posterior hemithorax with no air leak) and Other (absent BS on R base to midlung
field)
GI: Soft, Non Distended, Non Tender and Normal Bowel Sounds
Neurology: Awake, Alert, No Motor Deficits and Tremors (negative)
Skin: Warm, Good Color, Cyanosis (n) and Jaundice (n)
Labs/Micro/Reports
Lab Data
05/12/24 08:33
05/12/24 08:33
[2024-05-12 15:35] VITALS: BP 185/99
[2024-05-12] MEDS: ZOFRAN 4 MG IV (16:07)
[2024-05-12 17:56] VITALS: BP 176/93
[2024-05-12] MEDS: NEURONTIN 600 MG PO (21:17)
[2024-05-12] MEDS: ZOLOFT 50 MG PO (21:17)
[2024-05-12] MEDS: NORVASC 5 MG PO (21:19)
[2024-05-13 00:08] VITALS: BP 170/85
[2024-05-13] MEDS: TYLENOL PO ×2 (01:01→11:40)
[2024-05-13] MEDS: MORPHINE SULFATE 2 MG IV ×5 (02:07→21:31)
[2024-05-13] MEDS: TYLENOL 650 MG PO (05:36)
[2024-05-13 06:00] VITALS: BMI 32.2
[2024-05-13 07:50] VITALS: BP 159/82
[2024-05-13] MEDS: MIRALAX PO (08:08)
[2024-05-13] MEDS: ELIQUIS 5 MG PO ×2 (08:08→21:24)
[2024-05-13] MEDS: DITROPAN 5 MG PO ×2 (08:09→21:23)
[2024-05-13] MEDS: COLACE 100 MG PO (08:09)
[2024-05-13] MEDS: LIDOCAINE 4% PATCH 1 PATCH TOPICAL (08:10)
[2024-05-13] MEDS: BENICAR 40 MG PO (08:10)
[2024-05-13] MEDS: DESENEX/MITRAZOL/ZEASORB 1 APPLIC TOPICAL ×2 (08:11→21:17)
[2024-05-13] MEDS: NON-FORMULARY ITEM 2 UNIT PO (08:12)
[2024-05-13] MEDS: SENOKOT PO ×2 (08:12→21:18)
[2024-05-13 08:17] LABS: Hematocrit 35.2 % (37.0-47.0); Hemoglobin 11.9 g/dL (12.0-16.0); Mean Corp Hgb Conc. 33.8 g/dL (33.0-37.0); Mean Corpuscular Hgb 30.9 pg (27.0-31.0); Mean Corpuscular Volume 91.4 fL (81.0-99.0); Mean Platelet Volume 12.4 fL (7.4-10.4); Platelet Count 314 10^3/uL (130-400); Red Blood Cell Count 3.85 10^6/uL (4.20-5.40); Red Cell Dist. Width 14.1 % (11.5-14.5); White Blood Cell Count 6.6 10^3/uL (4.8-10.8)
[2024-05-13 08:19] LABS: ALT (SGPT) 11 U/L (0-35); AST (SGOT) 21 U/L (14-36); Albumin 3.3 g/dl (3.5-5.0); Alkaline Phosphatase 112 U/L (38-126); Blood Urea Nitrogen 9 mg/dl (7-17); Carbon Dioxide 33 mmol/L (22-30); Chloride 94 mmol/L (98-107); Estimated Creatinine Clearance 83 ml/min; Glucose 109 mg/dl (70-99); Magnesium 2.2 mg/dl (1.6-2.3); Potassium 4.7 mmol/L (3.5-5.1); Sodium 133 mmol/L (135-145); Total Bilirubin 0.2 mg/dl (0.2-1.3); Total Protein 6.6 g/dl (6.3-8.2); eGFR > 60.00
[2024-05-13] MEDS: ROXICODONE 5 MG PO ×2 (08:29→18:30)
[2024-05-13 10:48] VITALS: BP 163/83
--- NOTE | 2024-05-13 14:11 | W.PN.PUL.V3 ---
Today's Communication / Plan
-
Respiratory status relatively stable
Supplemental oxygen as needed
Suspect fairly rapid reaccumulation of malignant pleural fluid
Pleurx catheter has been discussed with patient
CT abdomen and pelvis reviewed-findings reviewed with patient and family members including large gallstone noted at the neck of the gallbladder
Assessment
-
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
status post drainage-pulmonary consulted for pleural effusion 05/03/2024.
Impression:
Right pleural effusion-large and symptomatic
Status post thoracentesis 04/29/24--1 L straw-colored fluid, cytology pending; Cx show NGTD
Chest tube discontinued 05/11/2024
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
Acute on chronic respiratory failure
[id number] 10.3
Hyponatremia
Hyperglycemia
Conditions present prior to admission:
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
Metastatic disease to lungs, pleura.
Hypertension.
GERD.
Depression.
Bradycardia/permanent pacemaker.
Appendectomy. Hysterectomy. Left breast lumpectomy. Left knee meniscus surgery.
Plan
Respiratory status relatively stable-decompensation due to her fairly rapid reaccumulating malignant pleural effusion
Supplement oxygen to keep SpO2 >90-94%
Maintained on 5 L-attempt to wean
Encouraged IS, OOB
Home O2 eval eventually
VBG with evidence for hypercapnia-nursing reports some somnolence, however not somnolence since 05/05/2024
ABG checked morning of 05/06/2024 showing stable hypercapnia with pH 7.42, pCO2 52
BiPAP as needed-has not needed yet
Nebulizers if needed.
Aspiration precautions.
Recurrent pleural fluid, presumed malignant but cyto negative
Chest tube placed 05/03/24
Pleural fluid cytology 04/30 negative
Pleural fluid Cx--NG >72 hours
Monitor chest tube output ---> output stopped AM of 05/05, CT chest on 05/06/2024 shows appropriately positioned chest tube
S/P Lytic therapy placement 05/06 x 2, 750 output noted in past 24 hours, continue to monitor
Can hold off on additional doses for now, if her output diminishes further
Repeat CXR appears improved
Follow chest x-ray --> re-check CXR on 05/08 seems worsened with new opacities
Consideration for repeat lytic vs tube repositioning, discussed case with IR--lytic placed 05/09/24
Minimal output, <200 mL, repeat CXR appears improved/she has chronic RHD noted
Repeat CXR showing fluid in fissure but overall still reduced
We can discontinue tube for now and if fluid reaccumulates plan for ASEPT placement
Chest tube discontinued 05/11/2024
She needs aggressive rehab but is likely prohibited due to chest tube
CT abdomen and pelvis 05/12/2024 ordered by primary team-personally reviewed-persistent loculated posterior lower lobe effusion, extensive right-sided pleural metastases, posterior mediastinal lymphadenopathy which also increased in size, large left
inguinal lymph node, large gallstone which is now present in the neck of the gallbladder, no acute cholecystitis findings, diverticulosis-findings briefly reviewed with patient and family members
Follow hemoglobin.
Transfuse if needed to keep Hb>7
Oncology following-correspondence reviewed-outpatient follow-up with Dr. Grayson
DVT prophylaxis-on Eliquis
Nutrition
Bedside range of motion/physical therapy
PT/OT ongoing
Reviewed with nursing, and primary team
Pall care following as well
Would not be unreasonable to begin GOC discussions if this does not improve
Diagnostic data:
Chest x-ray 04/29/2024-no pneumothorax following right thoracentesis
CT chest 02/17/2024-severe bilateral pulmonary nodules suspicious for metastatic disease
CT chest 04/28/2024-no evidence for pulm embolism, new large malignant right pleural effusion with large amount of malignant pleural metastatic disease
CT chest 04/30/2024-improved moderate right pleural effusion, pleural-based right-sided pulmonary mass suggesting metastatic disease, mild right lower lobe consolidation
CT Chest 05/06/2024: There is slightly increased size of the moderate right-sided pleural effusion when compared with prior CT chest. The right-sided chest tube appears to be situated within the posterior pleural space. There is associated tear
total collapse of the right lower lobe with right middle and right upper lobe atelectasis. There are numerous prominent pleural nodules which are unchanged and appearance and likely represent pleural metastasis.
Thoracentesis 04/29/24--1050 mL straw-colored pleural fluid
Echocardiogram 05/02/2024-EF 65-70%, PA systolic 47
Subjective Data
-
Date of Service:
Date of Service: May 13, 2024
Chief Complaint: Pulmonary Follow Up and Dyspnea Follow Up
Subjective:
, no complaints of worsening shortness of breath, chest pain or abdominal pain
Review of Systems
General: Other (Per HPI)
Objective Data
Data Reviewed
Vital Signs / I&O:
Vital Signs
Temp Pulse Resp BP Pulse Ox
97.6 F 75 22 163/83 94
05/13/24 07:50 05/13/24 10:48 05/13/24 07:50 05/13/24 10:48 05/13/24 10:48
Intake and Output
05/12/24 05/13/24 05/14/24
06:59 06:59 06:59
Intake Total 0 / 0 960 / 960
Output Total 50 / 50
Balance -50 / -50 960 / 960
SaO2: 94
Nasal Cannula flow liters per minute: 4
Physical Exam
General: Respiratory Distress (n), Comfortable, Chills (negative) and Sweats (negative)
HEENT: Normocephalic, Anicteric and Moist Mucous Membranes
Cardiovascular: Regular Rhythm and Peripheral Edema (negative)
Respiratory: Wheeze (negative), Crackles (L sided), Rhonchi (negative), Non-Labored Respirations, Accessory Resp Muscle Use (n), Stridor (negative), Chest Tube (right posterior hemithorax with no air leak) and Other (absent BS on R base to midlung
field)
GI: Soft, Non Distended, Non Tender and Normal Bowel Sounds
Neurology: Awake, Alert, No Motor Deficits and Tremors (negative)
Skin: Warm, Good Color, Cyanosis (n) and Jaundice (n)
Labs/Micro/Reports
Lab Data
05/13/24 07:43
05/13/24 07:43
--- NOTE | 2024-05-13 15:01 | W.PN.HOSP.TC ---
Today's Communication/Plan
-
await surgery input
await onc input now with worsening cancer since 02/15/24....
pain control
would strongly recommend continuing GOC discussions......
Assessment / Plan
Assessment / Plan
Pt is a 78 year old female
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
thoracentesis 04/29- removal of 1050mL straw colored fluid, negative for cytology--recurrence requiring chest tube 05/03 with lytic therapy 05/06 --will need PleurX/Asept cath at d/c but concern re: need for lytic therapy, afraid tube may
clog--spoke with pulm, not ready to change to PleurX/Asept, chest tube OUT 05/11---plan for tubes as per pullisandra
RUQ abdominal pain--initially thought due to cancer, pleural mets, chest tube, constipation-- continued with removal of chest tube and having BMs--got CT scan a/p which shows gallstone stuck in neck of gallbladder--consult general surgery--still
requiring IV morphine
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 Grayson)--on 4th line treatment--apprec onc--pt wants continued therapy to treat (Palliative care indicating the same)--cannot get cancer
treatment at SNF....started hospice conversation with patient as she is on 4th line therapy AND no intervention possible for DVT in left leg due to compression by mass.....plan is for palliative XRT (also can't get at SNF) followed by oral
Votrient--spoke with onc--can start med here in hospital....and stop when goes to SNF--CT a/p shows progressive cancer since 02/15/2024--told daughter Leydi--no changes in code status or treatment goals....ongoing discussions
Persistent/Worsening Left Lower Extremity DVT --was discharged on SQ lovenox last admission--now on Eliquis- Of note: Unfortunately, there may not be any AC that is effective in this scenario because of the mass itself causing vascular blockage- Per
vascular surgery consult on last admission - no vascular intervention can be done
Chronic anemia, likely anemia of chronic disease- Hgb 11.6 on admission, appears at baseline- No signs of acute blood loss or ongoing bleeding/bruising
Constipation- Continue home bowel regimen, would increase given chronic pain meds
Essential Hypertension- Continue home amlodipine and olmesartan with parameters
Anxiety/Depression- Continue home sertraline
Overactive Bladder- Continue home Oxybutynin
Hx Symptomatic Bradycardia s/p Permanent Pacemaker
Code status: full (confirmed with patient 04/29)--would strongly consider DNR as if she gets intubated, likely will not come off ventilator....
DVT proph-- Eliquis BID
Anticipated Discharge: > 48 hours
Subjective/Interval History
-
Date of Service: May 13, 2024
pt has been c/o of RUQ pain for awhile now--CT shows stone in neck of GB
Objective Data
-
Labs:
Laboratory Results
05/13/24
07:43
WBC 6.6
Hgb 11.9 L
Hct 35.2 L
Plt Count 314
Sodium 133 L
Potassium 4.7
Chloride 94 L
Carbon Dioxide 33 H
BUN 9
Creatinine 0.5 L
Glucose 109 H
Calcium 10.0
Total Bilirubin 0.2
AST 21
ALT 11
Alkaline Phosphatase 112
Vital Signs:
max temp for 24 hours
05/12/24
15:35
Temp 98 F
Vital Signs
Temp Pulse Resp BP Pulse Ox
97.6 F 75 22 163/83 94
05/13/24 07:50 05/13/24 10:48 05/13/24 07:50 05/13/24 10:48 05/13/24 14:15
I&O
05/12/24 05/13/24 05/14/24
06:59 06:59 06:59
Intake Total 0 / 0 960 / 960
Output Total 50 / 50
Balance -50 / -50 960 / 960
Review of Systems
-
All other systems: Reviewed and negative
Physical Exam
-
General: Well Developed, Well Nourished, No Apparent Distress and Morbidly Obese
HEENT: Normocephalic, Atraumatic and Oxygen
Respiratory: Decreased Breath Sounds (right lung field)
Cardiac: Regular Rhythm and S1/S2; Negative Murmur
GI: Soft, Nondistended, Normal Bowel Sounds and Tender (RUQ without guarding or rebound)
Musculoskeletal: No Clubbing and No Cyanosis; Negative No Edema (left leg swollen)
Skin: Warm and Dry
Neuro: Awake and Alert
Psych: Calm
--- NOTE | 2024-05-13 15:43 | CON.GS ---
Consultation
-
Date/Time Consultation Requested: 05/13/2024, 13:44
Date/Time Consultation Performed: 05/13/2024, 14:45
Requesting Provider: Penny Roman MD
Performing Provider: Tera Rausch MD
Reason for Consultation: RUQ pain
Medical History
-
Chief Complaint: RUQ pain
History of Present Illness:
78-year-old female, with history of spindle cell metastatic sarcoma to the lung and pleural status postresection and currently on chemotherapy status post radiation with recent diagnosis of left proximal DVT and on Eliquis, presents on 04/28/2024
with right-sided chest pain and back pain. She was found to be in acute hypoxemic respiratory failure due to a large pleural effusion with progression of malignant pleural effusion metastatic disease in the right hemothorax, right anterior
pericardial metastatic lymphadenopathy and had a chest tube placed that has been out since 05/11/2024. She is currently under the care of of Dr. Grayson and on fourth line treatment. Given her right upper quadrant pain, she had a CT of the
abdomen pelvis which shows extensive right-sided pleural metastatic disease which is significantly increased in size from prior CT on 02/15/2024. There is cardiophrenic and posterior mediastinal lymphadenopathy which increased in size prior. There
is also increased size of large left inguinal lymph node which encases the left femoral vessels around the bifurcation. There is a large gallstone present at the neck of the gallbladder. There are no CT findings of acute cholecystitis. Given the
above finding, we have been consulted for further surgical recommendations.
Past Medical History
Past Medical History: Other (Spindle cell sarcoma, hypertension, GERD, anxiety, depression, overactive bladder, bradycardia status post permanent pacemaker)
Past Surgical History: Other (Left lower extremity sarcoma resection, appendectomy, hysterectomy, left breast lumpectomy, left knee meniscus repair)
Social History
Tobacco: Non-Smoker
Alcohol: None
Drug: None
Family History
Family History: Reviewed & Not Pertinent
Allergies / Home Medications
Allergy/AdvReac Type Severity Reaction Status Date / Time
doxorubicin [From Doxil] Allergy Unknown Verified 02/14/24 11:50
erythromycin base Allergy Nausea Verified 02/14/24 11:49
vitamin E (d-alpha Allergy Hives Verified 02/14/24 11:49
tocopherol)
[vitamin E]
�Medication �Instructions �Recorded �Confirmed �Type
sertraline 50 mg tablet 50 mg PO HS Depression 03/18/11 04/28/24 History
amlodipine 5 mg tablet 5 mg PO HS Blood Pressure 12/29/21 04/28/24 History
olmesartan 40 mg tablet 40 mg PO HS Blood Pressure 11/12/22 04/28/24 History
oxybutynin chloride 10 mg 10 mg PO HS Urinary Issue 11/12/22 04/28/24 History
tablet,extended release 24 hr
oxycodone 5 mg tablet 5 mg PO Q6HPRN PRN break though 02/14/24 04/28/24 History
pains
docusate sodium 100 mg capsule 100 mg PO DAILY #0 caps 02/17/24 04/28/24 Rx
(Colace)
polyethylene glycol 3350 17 gram 17 g PO DAILY #0 ea 02/17/24 04/28/24 Rx
oral powder packet (Miralax)
sennosides 8.6 mg tablet (senna) 8.6 mg PO DAILY #0 tabs 02/17/24 04/28/24 Rx
apixaban 5 mg tablet (Eliquis) 5 mg PO BID Blood Clot 04/28/24 04/28/24 History
Prevention/Tx
gabapentin 300 mg capsule 600 mg PO HS Neurological Condition 04/28/24 04/28/24 History
morphine 15 mg tablet,extended 15 mg PO [id number] PRN severe pain 04/28/24 04/28/24 History
release
ondansetron HCl 8 mg tablet 8 mg PO Q8HPRN PRN nausea 04/28/24 04/28/24 History
Review of Systems
-
History Source: Patient
Abdomen/GI: Abdominal Pain (RUQ) and Vomiting
A 10 point review of systems was completed, and was negative except as per HPI.
Physical Exam
Vital Signs
Temp Pulse Resp BP Pulse Ox
97.6 F 75 22 163/83 94
05/13/24 07:50 05/13/24 10:48 05/13/24 07:50 05/13/24 10:48 05/13/24 14:15
05/12/24 05/13/24 05/14/24
06:59 06:59 06:59
Actual Weight 87.742 kg 84.935 kg
Body Mass Index (BMI) 32.2
Lab Results
05/13/24 07:43
05/13/24 07:43
WBC 6.6 10^3/uL (4.8-10.8) 05/13/24 07:43
Hgb 11.9 g/dL (12.0-16.0) L 05/13/24 07:43
Hct 35.2 % (37.0-47.0) L 05/13/24 07:43
Plt Count 314 10^3/uL (130-400) 05/13/24 07:43
Abs Immat Gran (auto) 0.0 10^3/uL (0-0.05) 05/08/24 03:58
Neutrophils % 79.4 % (42.2-75.2) H 05/08/24 03:58
Physical Exam
General: Well Developed, Well Nourished and No Apparent Distress
GI: Soft, Non Distended and Tender (RUQ - moderate on palpation to Right lower rib)
Skin: Warm and Dry
Neuro: AO x 3
Psych: Calm
Data Reviewed
-
CT Scan: Image Personally Visualized and interpreted, Report Reviewed by me and Discussed with Patient
Labs: Labs Reviewed by me, Discussed with Physician and Discussed with Patient
Old Records: Reviewed
Assessment / Plan
-
Assessment: 78-year-old female with a past medical history of spindle cell metastatic sarcoma presents with worsening right upper quadrant abdominal pain and found to have a gallbladder stone in the neck of the gallbladder
Plan:
The patient's right upper quadrant pain is likely due to her rib pain given her worsening metastatic disease. It is unlikely gallbladder in origin. There is no plan for surgery at this time. Will sign off. Please contact us if further surgical
issues arise.
[2024-05-13 15:50] VITALS: BP 171/82
[2024-05-13] MEDS: NEURONTIN 600 MG PO (21:24)
[2024-05-13] MEDS: ZOLOFT 50 MG PO (21:29)
[2024-05-13] MEDS: NORVASC 10 MG PO (21:30)
[2024-05-13 23:47] VITALS: BP 165/88
[2024-05-14] MEDS: MORPHINE SULFATE 2 MG IV ×4 (02:40→18:29)
[2024-05-14] MEDS: ZOFRAN 4 MG IV ×3 (02:49→18:07)
[2024-05-14 05:18] LABS: Hematocrit 37.1 % (37.0-47.0); Hemoglobin 11.9 g/dL (12.0-16.0); Mean Corp Hgb Conc. 32.1 g/dL (33.0-37.0); Mean Corpuscular Hgb 29.9 pg (27.0-31.0); Mean Corpuscular Volume 93.2 fL (81.0-99.0); Mean Platelet Volume 12.4 fL (7.4-10.4); Platelet Count 322 10^3/uL (130-400); Red Blood Cell Count 3.98 10^6/uL (4.20-5.40)
[2024-05-14 06:00] VITALS: BMI 32.1
[2024-05-14] MEDS: ROXICODONE 5 MG PO ×2 (06:12→13:07)
[2024-05-14 06:25] LABS: ALT (SGPT) 12 U/L (0-35); AST (SGOT) 25 U/L (14-36); Albumin 3.2 g/dl (3.5-5.0); Alkaline Phosphatase 108 U/L (38-126); Blood Urea Nitrogen 10 mg/dl (7-17); Calcium 9.6 mg/dl (8.4-10.2); Carbon Dioxide 31 mmol/L (22-30); Chloride 95 mmol/L (98-107); Estimated Creatinine Clearance 83 ml/min; Glucose 104 mg/dl (70-99); Magnesium 2.1 mg/dl (1.6-2.3); Potassium 4.8 mmol/L (3.5-5.1); Sodium 134 mmol/L (135-145); Total Bilirubin 0.3 mg/dl (0.2-1.3); eGFR > 60.00
[2024-05-14 08:21] VITALS: BP 173/90
--- NOTE | 2024-05-14 08:55 | W.PN.HOSP.TC ---
Today's Communication/Plan
-
Continue current management
Wean oxygen as tolerated
Assessment / Plan
Assessment / Plan
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
status post drainage, chest tube in place since 05/03 and received tPA/dornase on 05/06/24 and 05/09/24
#Acute hypoxemic respiratory failure (4L O2) requiring supplemental O2 due to large pleural effusion (exudative) with progression of malignant pleural metastatic disease of R hemithorax, right anterior pericardial metastatic lymphadenopathy
- S/p R thoracentesis 04/29-removal of 1050mL straw colored fluid, negative for cytology
- recurrence requiring chest tube 05/03 with lytic therapy 05/06, 05/09
- chest tube OUT 05/11---plan for tubes as per pulm
#RUQ abdominal pain-initially thought due to cancer, pleural mets, chest tube, constipation
-continued with removal of chest tube and having BMs
-CT scan a/p shows gallstone stuck in neck of gallbladder
-surgery:no plans for cholecystectomy
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 Grayson)
-on 4th line treatment
-apprec onc
-pt wants continued therapy to treat (Palliative care indicating the same)
-cannot get cancer treatment at SNF..started hospice conversation with patient as she is on 4th line therapy AND no intervention possible for DVT in left leg due to compression by mass...plan is for palliative XRT (also can't get at SNF) followed by
oral Votrient
-spoke with onc;can start med here in hospita.and stop when goes to SNF--CT a/p shows progressive cancer since 02/15/2024-told daughter Leydi--no changes in code status or treatment goals.ongoing discussions
#Persistent/Worsening Left Lower Extremity DVT-was discharged on SQ lovenox last admission
-now on Eliquis- Of note: Unfortunately, there may not be any AC that is effective in this scenario because of the mass itself causing vascular blockage- Per vascular surgery consult on last admission - no vascular intervention can be done
#Chronic anemia, likely anemia of chronic disease- Hgb 11.6 on admission, appears at baseline
-No signs of acute blood loss or ongoing bleeding/bruising
#Constipation
-Continue home bowel regimen, would increase given chronic pain meds
#Essential Hypertension
- Continue home amlodipine(increased to 10) and olmesartan with parameters
#Anxiety/Depression
-Continue home sertraline
#Overactive Bladder
-Continue home Oxybutynin
#Hx Symptomatic Bradycardia s/p Permanent Pacemaker
Code status: full (confirmed with patient 11/)-would strongly consider DNR as if she gets intubated, likely will not come off ventilator....
DVT proph-- Eliquis BID
Anticipated Discharge: > 48 hours
Subjective/Interval History
-
Date of Service: May 14, 2024
Interval events: No new complaints
Objective Data
-
Labs:
Laboratory Results
05/14/24
04:28
WBC 7.0
Hgb 11.9 L
Hct 37.1
Plt Count 322
Sodium 134 L
Potassium 4.8
Chloride 95 L
Carbon Dioxide 31 H
BUN 10
Creatinine 0.5 L
Glucose 104 H
Calcium 9.6
Total Bilirubin 0.3
AST 25
ALT 12
Alkaline Phosphatase 108
Vital Signs:
Vital Signs
Temp Pulse Resp BP Pulse Ox
97.7 F 85 18 173/90 95
05/14/24 08:21 05/14/24 08:21 05/14/24 08:21 05/14/24 08:21 05/14/24 08:21
I&O
05/13/24 05/14/24 05/15/24
06:59 06:59 06:59
Intake Total 960 / 960 1260 / 1260
Balance 960 / 960 1260 / 1260
Review of Systems
-
History Source: Patient
Constitutional: Reports No Symptoms
Respiratory: Reports No Symptoms
Cardiac: Reports No Symptoms
Abdomen/GI: Reports Abdominal Pain; Denies Nausea, Vomiting or Diarrhea
Genitourinary: Reports No Symptoms
Neuro: Reports No Symptoms
Physical Exam
-
General: Well Developed, Well Nourished, No Apparent Distress and Morbidly Obese
HEENT: Normocephalic, Atraumatic and Oxygen (4 L via nasal cannula)
Respiratory: Decreased Breath Sounds (right lung field)
Cardiac: Regular Rhythm and S1/S2; Negative Murmur
GI: Soft, Nondistended, Normal Bowel Sounds and Tender (RUQ without guarding or rebound)
Musculoskeletal: No Clubbing and No Cyanosis; Negative No Edema (left leg swollen)
Skin: Warm and Dry
Neuro: Awake and Alert
Psych: Calm
Data Reviewed
-
CT Scan: Report Reviewed by me
Labs: Labs Reviewed by me, Discussed with Physician and Discussed with Patient
[2024-05-14] MEDS: BENICAR 40 MG PO (09:23)
[2024-05-14] MEDS: COLACE 100 MG PO (09:24)
[2024-05-14] MEDS: DITROPAN 5 MG PO ×2 (09:24→20:29)
[2024-05-14] MEDS: ELIQUIS 5 MG PO ×2 (09:24→20:28)
[2024-05-14] MEDS: LIDOCAINE 4% PATCH 1 PATCH TOPICAL (09:25)
[2024-05-14] MEDS: NON-FORMULARY ITEM 2 UNIT PO (09:26)
[2024-05-14] MEDS: MIRALAX PO (09:26)
[2024-05-14] MEDS: SENOKOT PO ×2 (09:26→20:29)
[2024-05-14] MEDS: DESENEX/MITRAZOL/ZEASORB 1 APPLIC TOPICAL ×2 (09:27→20:28)
--- NOTE | 2024-05-14 11:42 | W.PN.PUL3 ---
Today's Communication / Plan
-
Continue current care
Chest x-ray if patient symptomatic
Oxygen supplementation to maintain pulse ox above 90%
Avoid sedatives if possible
No additional recommendation from the pulmonary perspective
Goals of care discussions
Sign off
Assessment
-
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
status post drainage-pulmonary consulted for pleural effusion 05/03/2024.
Impression:
Right pleural effusion-large and symptomatic
Status post thoracentesis 04/29/24--1 L straw-colored fluid, cytology pending; Cx show NGTD
Chest tube discontinued 05/11/2024
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
Acute on chronic respiratory failure
Sdgdpq-[id number] 10.3
Hyponatremia
Hyperglycemia
Conditions present prior to admission:
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
Metastatic disease to lungs, pleura.
Hypertension.
GERD.
Depression.
Bradycardia/permanent pacemaker.
Appendectomy. Hysterectomy. Left breast lumpectomy. Left knee meniscus surgery.
Plan
Overnight pulmonary status stable. Remains on supplemental oxygen.
Supplement oxygen to keep SpO2 >90-94%
Maintained on 5 L-attempt to wean as able.
Encouraged IS, OOB
May need oxygen upon discharge.
Compensated chronic hypercapnic respiratory failure.
VBG with evidence for hypercapnia-nursing reports some somnolence, however not somnolence since 05/05/2024
ABG - 05/06/2024 compensated hypercapnia with pH 7.42, pCO2 52
BiPAP as needed-has not needed yet
Nebulizers if needed. Not bronchospastic on exam.
Avoid sedatives
Aspiration precautions.
Recurrent pleural fluid, presumed malignant but cyto negative
Chest tube placed 05/03/24
Pleural fluid cytology 04/30 negative
Pleural fluid Cx--NG >72 hours
Monitor chest tube output ---> output stopped AM of 05/05, CT chest on 05/06/2024 shows appropriately positioned chest tube
S/P Lytic therapy placement 05/06 x 2, 750 output noted in past 24 hours, continue to monitor
Follow chest x-ray --> re-check CXR on 05/08 seems worsened with new opacities
Status post lytic placed 05/09/24
Minimal output, <200 mL, repeat CXR appears improved/she has chronic RHD noted
Latest CXR showing fluid in fissure but overall still reduced
Chest tube was discontinued. 05/11/2024
If there is rapid recommendation with symptoms then we can consider intrapleural catheter.
Chest x-ray as needed depending on symptoms.
CT abdomen and pelvis 05/12/2024 ordered by primary team-personally reviewed-persistent loculated posterior lower lobe effusion, extensive right-sided pleural metastases, posterior mediastinal lymphadenopathy which also increased in size, large left
inguinal lymph node, large gallstone which is now present in the neck of the gallbladder, no acute cholecystitis findings, diverticulosis-
Per surgery no acute intervention was necessary.
Oncology following-correspondence reviewed-outpatient follow-up with Dr. Grayson
DVT prophylaxis-on Eliquis
Bedside range of motion/physical therapy
PT/OT ongoing-patient is very deconditioned
Palliative care following the patient.
No additional recommendation from the pulmonary perspective.
Chest x-ray as needed if patient is symptomatic.
Again, if there is rapid recommendation can consider intrapleural catheter for palliative reasons. Please call back if condition changes.

Diagnostic data:
Chest x-ray 04/29/2024-no pneumothorax following right thoracentesis
CT chest 02/17/2024-severe bilateral pulmonary nodules suspicious for metastatic disease
CT chest 04/28/2024-no evidence for pulm embolism, new large malignant right pleural effusion with large amount of malignant pleural metastatic disease
CT chest 04/30/2024-improved moderate right pleural effusion, pleural-based right-sided pulmonary mass suggesting metastatic disease, mild right lower lobe consolidation
CT Chest 05/06/2024: There is slightly increased size of the moderate right-sided pleural effusion when compared with prior CT chest. The right-sided chest tube appears to be situated within the posterior pleural space. There is associated tear
total collapse of the right lower lobe with right middle and right upper lobe atelectasis. There are numerous prominent pleural nodules which are unchanged and appearance and likely represent pleural metastasis.
Thoracentesis 04/29/24--1050 mL straw-colored pleural fluid
Echocardiogram 05/02/2024-EF 65-70%, PA systolic 47
Subjective Data
-
Date of Service:
Date of Service: May 14, 2024
Chief Complaint: Pulmonary Follow Up and Dyspnea Follow Up
Subjective:
No new pulmonary complaints
Review of Systems
General: Fever (n)
Cardiopulmonary: Dyspnea (none at rest)
GI: Abdominal Pain (n) and Nausea (n)
Objective Data
Data Reviewed
Vital Signs / I&O / Oxygen:
Vital Signs
Temp Pulse Resp BP Pulse Ox
97.7 F 85 18 173/90 95
05/14/24 08:21 05/14/24 08:21 05/14/24 08:21 05/14/24 08:21 05/14/24 08:21
Intake and Output
05/13/24 05/14/24 05/15/24
06:59 06:59 06:59
Intake Total 960 / 960 1260 / 1260
Balance 960 / 960 1260 / 1260
SaO2 95
Nasal Cannula flow liters per 4
minute
Physical Exam
General: Respiratory Distress (n), Comfortable, Chills (negative) and Sweats (negative)
HEENT: Normocephalic, Anicteric and Moist Mucous Membranes
Cardiovascular: Regular Rhythm and Peripheral Edema (negative)
Respiratory: Wheeze (negative), Crackles (L sided), Rhonchi (negative), Non-Labored Respirations, Accessory Resp Muscle Use (n), Stridor (negative), Chest Tube (right posterior hemithorax with no air leak) and Other (absent BS on R base to midlung
field)
GI: Soft, Non Distended, Non Tender and Normal Bowel Sounds
Neurology: Awake, Alert, No Motor Deficits and Tremors (negative)
Skin: Warm, Good Color, Cyanosis (n) and Jaundice (n)
Labs/Micro/Reports
Lab Data
05/14/24 04:28
05/14/24 04:28
[2024-05-14 12:13] VITALS: BP 168/88
--- NOTE | 2024-05-14 12:44 | W.PN.ONC2 ---
Today's Communication / Plan
-
-Continue Votrient
-Monitor for Votrient side effects including but not limited to HTN, electrolyte abnormalities, diarrhea, nausea/vomiting, cytopenia, LFT elevations, fatigue, headache, myalgias, cough
Impression
Impression
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
lung mets, pleural effusion, s/p thoracentesis [id number], 04/29/24 - w/ reaccumulation - chest tube placed 05/03 - removed 05/10
Pain
Plan
Plan
1. Stage IV dedifferentiated liposarcoma
-Continue Votrient
-Monitor for Votrient side effects including but not limited to HTN, electrolyte abnormalities, diarrhea, nausea/vomiting, cytopenia, LFT elevations, fatigue, headache, myalgias, cough
2. Recurrent right pleural effusion- chest tube removed 05/10 - pulmonary following
3. DVT - on eliquis
4. pain mgmt, continue opioids were increased 04/30/24 & bowel regimen - senna, colace, miralax
Resume palliative RT after discharge
Subjective/Objective
Chief Complaint
no new complaints
Subjective
Vital Signs:
Vital Signs
Temp Pulse Resp BP Pulse Ox
97.7 F 79 18 168/88 95
05/14/24 08:21 05/14/24 12:13 05/14/24 08:21 05/14/24 12:13 05/14/24 08:21
Lab Results:
Laboratory Data
WBC 7.0 10^3/uL (4.8-10.8) 05/14/24 04:28
Hgb 11.9 g/dL (12.0-16.0) L 05/14/24 04:28
Plt Count 322 10^3/uL (130-400) 05/14/24 04:28
PT 14.4 Sec (11.4-14.6) 04/28/24 12:56
INR 1.09 04/28/24 12:56
APTT 32.1 Sec (23.4-35.0) 04/28/24 12:56
eGFR > 60.00 05/14/24 04:28
--- NOTE | 2024-05-14 12:52 | CM ---
Chart reviewed and CM met with Connie at bedside. Likely plan is for SNF when medically stable. Pt and family discussed hospice and palliative care options; cancer has progressed over the past 3 months, however per daughter Leydi, they are not
currently interested in hospice care. Dr. Min, Palliative Care MD following.
Attending advised pt/family that cancer treatment and XRT will not be available at SNF (chemo and radiation therapy cannot be done in SNF) these therapies would need to pause if transferred to SNF. Medical plan is for palliative XRT.
CM will continue to follow to provide support and coordinate transfer to SNF when medically ready.
Referrals sent and patient accepted for transfer to:
[facility] - SNF contact: Treasure [phone]
[facility] [phone]
[facility]
--- NOTE | 2024-05-14 14:09 | W.PN.PAL2 ---
Today's Communication
-
chest tube removed Tuesday, appears comfortable
POD on scans over weekend - family aware
pain management
rehab placement
Assessment / Plan
-
Assessment/Plan:
- chest tube removed tuesday. Assess for continued recurrence and consideration of pleurX catheter if so
- started on oral immunotherapy in the hospital this week, with plans for continued outpatient radiation after hospital
- rehab placement
Objective Data
-
Objective Data:
Vital Signs
Temp Pulse Resp BP Pulse Ox
97.7 F 79 18 168/88 95
05/14/24 08:21 05/14/24 12:13 05/14/24 08:21 05/14/24 12:13 05/14/24 08:21
Laboratory Results
05/14/24 04:28
05/14/24 04:28
PT 14.4 Sec (11.4-14.6) 04/28/24 12:56
INR 1.09 04/28/24 12:56
APTT 32.1 Sec (23.4-35.0) 04/28/24 12:56
Total Protein 6.0 g/dl (6.3-8.2) L 05/14/24 04:28
Albumin 3.2 g/dl (3.5-5.0) L 05/14/24 04:28
Palliative Performance Scale
Palliative Performance Scale:
PPS Level Ambulation Activity & Evidence of Disease Self Care Intake Conscious Level
100% Full Normal Activity & Work; Full Intake Full
No Evidence of Disease
90% Full Normal Activity & Work; Full Normal Full
Some Evidence of Disease
80% Full Normal Activity with Effort Full Normal or Full
Some Evidence of Disease Reduced
70% Reduced Unable Normal Job/Work Full Normal or Full
Significant Disease Reduced
60% Reduced Unable Hobby/Housework Occasional Normal or Full or Confusion
Significant Disease Assistance Reduced
50% Mainly Sit/Lie Unable to do Any Work Considerable Normal or Full or Confusion
Extensive Disease Assistance Req'd Reduced
40% Mainly in Bed Unable to do Most Activity Mainly Assistance Normal or Full or Drowsy;
Extensive Disease Reduced +/- Confusion
30% Totally Bed Unable to do Any Activity Total Care Normal or Full or Drowsy;
Bound Extensive Disease Reduced +/- Confusion
20% Totally Bed Bound Unable to do Any Activity Total Care Minimal to Full or Drowsy;
Extensive Disease Sips +/- Confusion
10% Totally Bed Bound Unable to do Any Activity Total Care Mouth Care Drowsy or Coma;
Extensive Disease Only +/- Confusion
0%
PPS Score Level:
Physical Exam
-
General: No Apparent Distress and Appears Chronically Ill
HEENT: Normocephalic
Respiratory: Clear to Auscultation
Cardiac: Regular Rhythm
Skin: Warm
Care Reviewed
Data Reviewed
Radiology procedure: Image Reviewed
Medical Tests: I reviewed
[2024-05-14 14:23] VITALS: BP 147/84; PULSE 79; O2SAT 95
[2024-05-14 14:28] VITALS: BP 147/84; PULSE 80; O2SAT 95
[2024-05-14 16:00] VITALS: BP 125/76
--- NOTE | 2024-05-14 18:00 | PTCARENOTE ---
Pt's daughter - Cassia would like an update [phone]. TT Dr. Clarek
[2024-05-14] MEDS: NORVASC 10 MG PO (20:35)
[2024-05-14] MEDS: ZOLOFT 50 MG PO (20:35)
[2024-05-14] MEDS: NEURONTIN 600 MG PO (20:35)
[2024-05-14 23:46] VITALS: BP 147/81
[2024-05-15] MEDS: MORPHINE SULFATE 2 MG IV ×4 (01:13→21:31)
[2024-05-15 05:18] LABS: Hematocrit 37.7 % (37.0-47.0); Mean Corp Hgb Conc. 31.8 g/dL (33.0-37.0); Mean Corpuscular Hgb 29.6 pg (27.0-31.0); Mean Corpuscular Volume 93.1 fL (81.0-99.0); Mean Platelet Volume 12.1 fL (7.4-10.4); Platelet Count 331 10^3/uL (130-400); Red Blood Cell Count 4.05 10^6/uL (4.20-5.40); Red Cell Dist. Width 14.2 % (11.5-14.5)
[2024-05-15 06:00] VITALS: BMI 31.8
[2024-05-15 06:47] LABS: Blood Urea Nitrogen 11 mg/dl (7-17); Calcium 9.8 mg/dl (8.4-10.2); Carbon Dioxide 30 mmol/L (22-30); Chloride 95 mmol/L (98-107); Estimated Creatinine Clearance 83 ml/min; Glucose 104 mg/dl (70-99); Potassium 4.8 mmol/L (3.5-5.1); Sodium 133 mmol/L (135-145); eGFR > 60.00
--- NOTE | 2024-05-15 07:25 | W.PN.HOSP.TC ---
Addendum entered and electronically signed by Sol Bar MD 05/15/24 14:40:
I saw and evaluated the patient independently. I reviewed the resident�s note and agree with findings and plan as documented by Dr. Christensen.
GENERAL: well developed, well nourished, female in no apparent distress--
HEENT: NC/AT--still requiring 5L O2 NC
HEART: regular rate and rhythm, +S1, +S2
LUNGS : decreased BS on right
ABDOM: soft, tender RUQ, nondistended, + bowel sounds
EXT: no cyanosis, clubbing-- left leg with 2-3+ LE edema
NEUROLOGIC: grossly intact
daughter asked for meeting with us and onc--explained progression of disease since 02/15/24--explained my rationale for hospice again, family now seems understanding that this is stage 4 metastatic cancer--wishes to hear education for hospice--still
wants to hear from onc
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
thoracentesis 04/29- removal of 1050mL straw colored fluid, negative for cytology--recurrence requiring chest tube 05/03 with lytic therapy 05/06 --will need PleurX/Asept cath at d/c but concern re: need for lytic therapy, afraid tube may
clog--spoke with pulm, not ready to change to PleurX/Asept, chest tube OUT 05/11---plan for tubes as per pulm
RUQ abdominal pain--initially thought due to cancer, pleural mets, chest tube, constipation-- continued with removal of chest tube and having BMs--got CT scan a/p which shows gallstone stuck in neck of gallbladder--consult general surgery--still
requiring IV morphine
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 Grayson)--on 4th line treatment--apprec onc--pt wants continued therapy to treat (Palliative care indicating the same)--cannot get cancer
treatment at SNF....started hospice conversation with patient as she is on 4th line therapy AND no intervention possible for DVT in left leg due to compression by mass.....plan is for palliative XRT (also can't get at SNF) followed by oral
Votrient--spoke with onc--can start med here in hospital....and stop when goes to SNF--CT a/p shows progressive cancer since 02/15/2024--told daughter Leydi--now wants to hear from onc....ongoing discussions--hospice consult placed
Persistent/Worsening Left Lower Extremity DVT --was discharged on SQ lovenox last admission--now on Eliquis- Of note: Unfortunately, there may not be any AC that is effective in this scenario because of the mass itself causing vascular blockage- Per
vascular surgery consult on last admission - no vascular intervention can be done
Chronic anemia, likely anemia of chronic disease- Hgb 11.6 on admission, appears at baseline- No signs of acute blood loss or ongoing bleeding/bruising
Constipation- Continue home bowel regimen, would increase given chronic pain meds
Essential Hypertension- Continue home amlodipine and olmesartan with parameters
Anxiety/Depression- Continue home sertraline
Overactive Bladder- Continue home Oxybutynin
Hx Symptomatic Bradycardia s/p Permanent Pacemaker
Code status: full (confirmed with patient 04/29)--would strongly consider DNR as if she gets intubated, likely will not come off ventilator....
DVT proph-- Eliquis BID
Original Note:
Today's Communication/Plan
-
d/c to SNF today; no further recommendations from pulmonology and surgery.
Assessment / Plan
Assessment / Plan
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
status post drainage, chest tube in place since 05/03 and received tPA/dornase on 05/06/24 and 05/09/24
#Acute hypoxemic respiratory failure (5 O2) requiring supplemental O2 due to large pleural effusion (exudative) with progression of malignant pleural metastatic disease of R hemithorax, right anterior pericardial metastatic lymphadenopathy
- S/p R thoracentesis 04/29-removal of 1050mL straw colored fluid, negative for cytology
- recurrence requiring chest tube 05/03 with lytic therapy 05/06, 05/09
- chest tube OUT 05/11- No additional recommendation from the pulmonary
#RUQ abdominal pain-initially thought due to cancer, pleural mets, chest tube, constipation
-continued with removal of chest tube and having BMs
-CT scan a/p shows gallstone stuck in neck of gallbladder
-surgery:no plans for cholecystectomy
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 Grayson)
-on 4th line treatment
-apprec onc
-pt wants continued therapy to treat (Palliative care indicating the same)
-cannot get cancer treatment at SNF..started hospice conversation with patient as she is on 4th line therapy AND no intervention possible for DVT in left leg due to compression by mass...plan is for palliative XRT (also can't get at SNF) followed by
oral Votrient
-spoke with onc;can start med here in hospita.and stop when goes to SNF
-CT a/p shows progressive cancer since 02/15/2024-told daughter Leydi--no changes in code status or treatment goals.ongoing discussions
#Persistent/Worsening Left Lower Extremity DVT-was discharged on SQ lovenox last admission
-now on Eliquis- Of note: Unfortunately, there may not be any AC that is effective in this scenario because of the mass itself causing vascular blockage
- Per vascular surgery consult on last admission - no vascular intervention can be done
#Chronic anemia, likely anemia of chronic disease- Hgb 11.6 on admission, appears at baseline
-No signs of acute blood loss or ongoing bleeding/bruising
#Constipation
-Continue home bowel regimen, would increase given chronic pain meds
#Essential Hypertension
- Continue home amlodipine(increased to 10) and olmesartan with parameters
#Anxiety/Depression
-Continue home sertraline
#Overactive Bladder
-Continue home Oxybutynin
#Hx Symptomatic Bradycardia s/p Permanent Pacemaker
Code status: full (confirmed with patient 04/29)-would strongly consider DNR as if she gets intubated, likely will not come off ventilator....
DVT proph-- Eliquis BID
Anticipated Discharge: Today
Subjective/Interval History
-
Date of Service: May 15, 2024
Interval: No new complaint
Objective Data
-
Labs:
Laboratory Results
05/15/24
04:48
WBC 7.0
Hgb 12.0
Hct 37.7
Plt Count 331
Sodium 133 L
Potassium 4.8
Chloride 95 L
Carbon Dioxide 30
BUN 11
Creatinine 0.5 L
Glucose 104 H
Calcium 9.8
Vital Signs:
Vital Signs
Temp Pulse Resp BP Pulse Ox
98.8 F 80 18 147/81 97
05/14/24 23:46 05/14/24 23:46 05/14/24 23:46 05/14/24 23:46 05/14/24 23:46
I&O
05/14/24 05/15/24 05/16/24
06:59 06:59 06:59
Intake Total 1260 / 1260 240 / 240
Balance 1260 / 1260 240 / 240
Review of Systems
-
History Source: Patient
Constitutional: Reports No Symptoms
Respiratory: Reports No Symptoms
Cardiac: Reports No Symptoms
Abdomen/GI: Reports Abdominal Pain and Bloated; Denies Nausea, Vomiting or Diarrhea
Genitourinary: Reports No Symptoms
Neuro: Reports No Symptoms
Physical Exam
-
General: Well Developed, Well Nourished, No Apparent Distress and Morbidly Obese
HEENT: Normocephalic, Atraumatic and Oxygen (5 L via nasal cannula)
Respiratory: Decreased Breath Sounds (right lung field: improved since yesterday)
Cardiac: Regular Rhythm and S1/S2; Negative Murmur
GI: Soft, Nondistended, Normal Bowel Sounds and Tender (RUQ without guarding or rebound)
Musculoskeletal: No Clubbing and No Cyanosis; Negative No Edema (left leg swollen)
Skin: Warm and Dry
Neuro: Awake and Alert
Psych: Calm
Data Reviewed
-
Labs: Labs Reviewed by me, Discussed with Physician and Discussed with Patient
[2024-05-15 07:45] VITALS: BP 158/86
[2024-05-15] MEDS: MIRALAX 17 GRAMS PO (08:31)
[2024-05-15] MEDS: LIDOCAINE 4% PATCH 1 PATCH TOPICAL (08:31)
[2024-05-15] MEDS: COLACE 100 MG PO (08:31)
[2024-05-15] MEDS: SENOKOT 8.6 MG PO (08:32)
[2024-05-15] MEDS: ELIQUIS 5 MG PO ×2 (08:32→21:23)
[2024-05-15] MEDS: DITROPAN 5 MG PO ×2 (08:32→21:23)
[2024-05-15] MEDS: BENICAR 40 MG PO (08:32)
[2024-05-15] MEDS: NON-FORMULARY ITEM 2 UNIT PO (08:33)
[2024-05-15] MEDS: DESENEX/MITRAZOL/ZEASORB 1 APPLIC TOPICAL ×2 (08:33→21:23)
[2024-05-15] MEDS: MYLICON 80 MG PO (10:20)
[2024-05-15] MEDS: ROXICODONE 5 MG PO ×2 (10:20→14:33)
--- NOTE | 2024-05-15 10:22 | W.PN.ONC2 ---
Today's Communication / Plan
-
Continue Votrient
-Monitor for Votrient side effects including but not limited to HTN, electrolyte abnormalities, diarrhea, nausea/vomiting, cytopenia, LFT elevations, fatigue, headache, myalgias, cough
Impression
Impression
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
lung mets, pleural effusion, s/p thoracentesis [id number], 04/29/24 - w/ reaccumulation - chest tube placed 05/03 - removed 05/10
Pain
Plan
Plan
1. Stage IV dedifferentiated liposarcoma
-Continue Votrient
-Monitor for Votrient side effects including but not limited to HTN, electrolyte abnormalities, diarrhea, nausea/vomiting, cytopenia, LFT elevations, fatigue, headache, myalgias, cough
-continue pain management, bowel regimen -resume palliative XRT upon discharge when able
-appreciate palliative care input
2. Recurrent right pleural effusion- chest tube removed 05/10 - pulmonary following
3. DVT - on eliquis
Subjective/Objective
Subjective
no new complaints
Vital Signs:
Vital Signs
Temp Pulse Resp BP Pulse Ox
98.4 F 85 20 158/86 96
05/15/24 07:45 05/15/24 07:45 05/15/24 07:45 05/15/24 07:45 05/15/24 07:45
Lab Results:
Laboratory Data
WBC 7.0 10^3/uL (4.8-10.8) 05/15/24 04:48
Hgb 12.0 g/dL (12.0-16.0) 05/15/24 04:48
Plt Count 331 10^3/uL (130-400) 05/15/24 04:48
PT 14.4 Sec (11.4-14.6) 04/28/24 12:56
INR 1.09 04/28/24 12:56
APTT 32.1 Sec (23.4-35.0) 04/28/24 12:56
eGFR > 60.00 05/15/24 04:48
Physical Exam
HEENT: Moist Mucous Membranes; No Jaundice
Cardiology: S1 and S2
GI: Soft
Neuro: Other (speech clear, A&O3)
--- NOTE | 2024-05-15 15:03 | HOSPNOTE ---
Spoke with patient and daughter Leydi. All information was given about hospice care and the philosophy. The patient would like to discuss hospice care this evening with other children. The patient is also contemplating rehab and then may transition to
hospice. The patient is also waiting to hear from oncology. Will continue to follow.
[2024-05-15 15:10] VITALS: BP 183/87
[2024-05-15] MEDS: ZOLOFT 50 MG PO (21:20)
[2024-05-15] MEDS: NEURONTIN 600 MG PO (21:22)
[2024-05-15] MEDS: SENOKOT PO (21:22)
[2024-05-15] MEDS: NORVASC 10 MG PO (21:22)
[2024-05-15 23:28] VITALS: BP 159/83
--- NOTE | 2024-05-16 04:02 | DOWNTIME ---
There was a [employer] Client Mental Health Social Worker Downtime on 05/16/2024 from 0100 to 05/16/2024 at 0350. Downtime documentation of patient's care, including medication administrations, has been reconciled in the electronic record per guidelines. Refer to the
patient's paper chart under the miscellaneous tab to see printed paper medication records and downtime forms.
[2024-05-16] MEDS: MORPHINE SULFATE 2 MG IV ×3 (04:35→17:19)
[2024-05-16 05:11] LABS: Hematocrit 37.3 % (37.0-47.0); Hemoglobin 12.1 g/dL (12.0-16.0); Mean Corp Hgb Conc. 32.4 g/dL (33.0-37.0); Mean Corpuscular Hgb 30.3 pg (27.0-31.0); Mean Corpuscular Volume 93.3 fL (81.0-99.0); Mean Platelet Volume 12.2 fL (7.4-10.4); Platelet Count 327 10^3/uL (130-400); Red Cell Dist. Width 14.3 % (11.5-14.5); White Blood Cell Count 6.8 10^3/uL (4.8-10.8)
[2024-05-16 05:31] LABS: Blood Urea Nitrogen 10 mg/dl (7-17); Carbon Dioxide 32 mmol/L (22-30); Chloride 94 mmol/L (98-107); Estimated Creatinine Clearance 82 ml/min; Glucose 109 mg/dl (70-99); Potassium 4.5 mmol/L (3.5-5.1); Sodium 133 mmol/L (135-145); eGFR > 60.00
[2024-05-16 06:00] VITALS: BMI 31.9
--- NOTE | 2024-05-16 07:25 | W.PN.HOSP.TC ---
Today's Communication/Plan
-
Family considering hospice
Assessment / Plan
Assessment / Plan
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
status post drainage, chest tube in place since 05/03 and received tPA/dornase on 05/06/24 and 05/09/24
#Acute hypoxemic respiratory failure (5 O2 via NC) requiring supplemental O2 due to large pleural effusion (exudative) with progression of malignant pleural metastatic disease of R hemithorax, right anterior pericardial metastatic lymphadenopathy
- S/p R thoracentesis 04/29-removal of 1050mL straw colored fluid, negative for cytology
- recurrence requiring chest tube 05/03 with lytic therapy 05/06, 05/09
- chest tube OUT 05/11- No additional recommendation from the pulmonary
#RUQ abdominal pain-initially thought due to cancer, pleural mets, chest tube, constipation
-continued with removal of chest tube and having BMs; -still requiring IV morphine
-CT scan a/p shows gallstone stuck in neck of gallbladder
-surgery:no plans for cholecystectomy
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 Grayson)
-on 4th line treatment
-apprec onc
-pt wants continued therapy to treat (Palliative care indicating the same)
-cannot get cancer treatment at SNF..started hospice conversation with patient as she is on 4th line therapy AND no intervention possible for DVT in left leg due to compression by mass...plan is for palliative XRT (also can't get at SNF) followed by
oral Votrient
-spoke with onc;can start med here in hospita.and stop when goes to SNF
-CT a/p shows progressive cancer since 02/15/2024
-05/15 explained my rationale for hospice again, family now seems understanding that this is stage 4 metastatic cancer-hospice nurse provided education-
-still wants to hear from onc. Dr. Manzano tried to call daughter left VM. discussion again today with onc and hospice
#Persistent/Worsening Left Lower Extremity DVT-was discharged on SQ lovenox last admission
-now on Eliquis- Of note: Unfortunately, there may not be any AC that is effective in this scenario because of the mass itself causing vascular blockage
- Per vascular surgery consult on last admission - no vascular intervention can be done
#Chronic anemia, likely anemia of chronic disease- Hgb 11.6 on admission, appears at baseline
-No signs of acute blood loss or ongoing bleeding/bruising
#Constipation
-Continue home bowel regimen, would increase given chronic pain meds
#Essential Hypertension
- Continue home amlodipine(increased to 10) and olmesartan with parameters
#Anxiety/Depression
-Continue home sertraline
#Overactive Bladder
-Continue home Oxybutynin
#Hx Symptomatic Bradycardia s/p Permanent Pacemaker
Code status: full (confirmed with patient 04/29)-would strongly consider DNR as if she gets intubated, likely will not come off ventilator....
DVT proph-- Eliquis BID
Anticipated Discharge: Today
Subjective/Interval History
-
Date of Service: May 16, 2024
Interval events: no new complaints
Objective Data
-
Labs:
Laboratory Results
05/16/24
04:51
WBC 6.8
Hgb 12.1
Hct 37.3
Plt Count 327
Sodium 133 L
Potassium 4.5
Chloride 94 L
Carbon Dioxide 32 H
BUN 10
Creatinine 0.6
Glucose 109 H
Calcium 10.0
Vital Signs:
Vital Signs
Temp Pulse Resp BP Pulse Ox
97.9 F 74 20 159/83 97
05/15/24 23:28 05/15/24 23:28 05/15/24 23:28 05/15/24 23:28 05/15/24 23:28
I&O
05/15/24 05/16/24 05/17/24
06:59 06:59 06:59
Intake Total 240 / 240 1380 / 1380
Balance 240 / 240 1380 / 1380
Review of Systems
-
History Source: Patient
Constitutional: Reports No Symptoms
Respiratory: Reports No Symptoms
Cardiac: Reports No Symptoms
Abdomen/GI: Reports Abdominal Pain and Bloated; Denies Nausea, Vomiting or Diarrhea
Genitourinary: Reports No Symptoms
Neuro: Reports No Symptoms
Physical Exam
-
General: Well Developed, Well Nourished, No Apparent Distress and Morbidly Obese
HEENT: Normocephalic, Atraumatic and Oxygen (5 L via nasal cannula)
Respiratory: Decreased Breath Sounds (right lung field: improved since yesterday)
Cardiac: Regular Rhythm and S1/S2; Negative Murmur
GI: Soft, Nondistended, Normal Bowel Sounds and Tender (RUQ without guarding or rebound)
Musculoskeletal: No Clubbing and No Cyanosis; Negative No Edema (left leg swollen)
Skin: Warm and Dry
Neuro: Awake and Alert
Psych: Calm
Data Reviewed
-
Labs: Labs Reviewed by me, Discussed with Physician and Discussed with Patient
--- NOTE | 2024-05-16 07:44 | W.PN.ONC2 ---
Today's Communication / Plan
-
Patient with POD and poor PS.
DNR / hospice appropriate.
Votrient unlikely to be beneficial at this stage of her disease process (end stage) and can be stopped if family agrees. Will need to stop if on hospice.
Attempted to talk with daughter Leydi but got voicemail.
Coordinated with Dr. Bar.
Impression
Impression
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
lung mets, pleural effusion, s/p thoracentesis [id number], 04/29/24 - w/ reaccumulation - chest tube placed 05/03 - removed 05/10
Pain
Plan
Plan
Stage IV dedifferentiated liposarcoma with POD
Recurrent right pleural effusion- chest tube removed
DVT - on eliquis
Subjective/Objective
Chief Complaint
ACS Heme Onc
Subjective
'I'm doing bad. I was told I have 2 months to live.' Going onto hopsice.
Vital Signs:
Vital Signs
Temp Pulse Resp BP Pulse Ox
97.9 F 74 20 159/83 97
05/15/24 23:28 05/15/24 23:28 05/15/24 23:28 05/15/24 23:28 05/15/24 23:28
Lab Results:
Laboratory Data
WBC 6.8 10^3/uL (4.8-10.8) 05/16/24 04:51
Hgb 12.1 g/dL (12.0-16.0) 05/16/24 04:51
Plt Count 327 10^3/uL (130-400) 05/16/24 04:51
PT 14.4 Sec (11.4-14.6) 04/28/24 12:56
INR 1.09 04/28/24 12:56
APTT 32.1 Sec (23.4-35.0) 04/28/24 12:56
eGFR > 60.00 05/16/24 04:51
CT Scan:
There is extensive right-sided pleural metastatic disease which has significantly increased in size from prior CT dated 02/15/2024. There is cardiophrenic and posterior mediastinal lymphadenopathy which have increased in size from prior. Additionally
there is increased size of the large left inguinal lymph node conglomerate which encases the left femoral vessels around the bifurcation. Constellation of findings likely represents worsening metastatic disease.
Physical Exam
PS 4
[2024-05-16] MEDS: LIDOCAINE 4% PATCH 1 PATCH TOPICAL (08:13)
[2024-05-16] MEDS: NON-FORMULARY ITEM 2 UNIT PO (08:16)
[2024-05-16] MEDS: MIRALAX 17 GRAMS PO (08:17)
[2024-05-16] MEDS: BENICAR 40 MG PO (08:17)
[2024-05-16] MEDS: MYLICON 80 MG PO (08:17)
[2024-05-16] MEDS: DITROPAN 5 MG PO ×2 (08:17→21:19)
[2024-05-16] MEDS: DESENEX/MITRAZOL/ZEASORB 1 APPLIC TOPICAL ×2 (08:17→21:26)
[2024-05-16] MEDS: ELIQUIS 5 MG PO ×2 (08:17→21:18)
[2024-05-16] MEDS: COLACE 100 MG PO (08:17)
[2024-05-16] MEDS: SENOKOT 8.6 MG PO ×2 (08:17→21:18)
[2024-05-16 08:22] VITALS: BP 146/75
[2024-05-16] MEDS: ROXICODONE 5 MG PO (10:11)
[2024-05-16] MEDS: ROXICODONE 10 MG PO ×2 (12:08→21:22)
--- NOTE | 2024-05-16 14:47 | HOSPNOTE ---
Spoke with Leydi the daughter and discussed hospice. The family will be discussing options about home hospice vs hospice at [facility] The family needs to look at financial information to determine about facility or hiring private caregivers. I
suggested that the patient make a decision about her code status and make herself a DNR. She will let the physician know once a decision is made. Will continue to follow.
[2024-05-16 15:47] VITALS: BP 128/70
--- NOTE | 2024-05-16 16:03 | CM ---
CHRISTOS spoke with Connie's daughter regarding discharge plans. Family has not discussed a plan, but have asked that [facility] be contacted for admission with hospice care. She was on her way out of the hospital and was not able to discuss further at
the time; she stated that she and her siblings will be discussing things and should have a plan by 05/21/2024.
CM to follow up with family to further discuss, as going to [facility] (or other SNF) with hospice would be private pay. CM reached out to [facility] to inquire about daily rate; await response.
Plan: Pt appropriate for hospice care; at this time still unsure of plan.
--- NOTE | 2024-05-16 17:08 | W.PN.UPDATE ---
Update Note
Progress Note Update
After reviewing hospice and oncology notes, I tried to speak with Leydi(her daughter) and Connie in the room, however Leydi already left the hospital for the day. I spoke with her on the phone call at length and discussed goals of care and and
Connie's prognosis and current treatment options. They are still exploring different hospice options. We also discussed her CODE STATUS given the consideration for hospice. Leydi verified understanding and states that her mother is competent and
what ever Connie decides they will respect that.
I went to Connie's room to get her decision, I explained everything that involved in full code, including chest compressions, need for intubation and others. She verified understanding and states ' no compressions and no tubes'. I explained it
again to her to confirm her consent for DNR DNI. She states the same answer.
Dr. Cherry was also present during the discussion and witnessed Connie's wishes.
I have changed the CODE STATUS for Connie as of 05/16/2024 , 1720 p.m.
Nurse was also made aware of the discussion and the changes.
[2024-05-16 20:31] VITALS: BP 144/77
[2024-05-16] MEDS: NEURONTIN 600 MG PO (21:19)
[2024-05-16] MEDS: ZOLOFT 50 MG PO (21:19)
[2024-05-16] MEDS: NORVASC 10 MG PO (21:26)
[2024-05-16 23:20] VITALS: BP 144/77
[2024-05-17] MEDS: MORPHINE SULFATE 2 MG IV ×2 (04:24→08:46)
[2024-05-17 04:33] LABS: Hematocrit 37.2 % (37.0-47.0); Hemoglobin 11.9 g/dL (12.0-16.0); Mean Corpuscular Hgb 29.7 pg (27.0-31.0); Mean Corpuscular Volume 92.8 fL (81.0-99.0); Mean Platelet Volume 11.7 fL (7.4-10.4); Platelet Count 321 10^3/uL (130-400); Red Blood Cell Count 4.01 10^6/uL (4.20-5.40); Red Cell Dist. Width 14.2 % (11.5-14.5); White Blood Cell Count 7.1 10^3/uL (4.8-10.8)
[2024-05-17 04:59] LABS: Carbon Dioxide 32 mmol/L (22-30); Chloride 92 mmol/L (98-107); Estimated Creatinine Clearance 71 ml/min; Sodium 133 mmol/L (135-145); eGFR > 60.00
[2024-05-17 05:09] LABS: Blood Urea Nitrogen 12 mg/dl (7-17); Glucose 111 mg/dl (70-99); Potassium 4.5 mmol/L (3.5-5.1)
[2024-05-17 06:00] VITALS: BMI 32.3
[2024-05-17] MEDS: ROXICODONE 10 MG PO ×3 (06:04→18:12)
[2024-05-17 07:17] VITALS: BP 141/72
[2024-05-17] MEDS: LIDOCAINE 4% PATCH 1 PATCH TOPICAL (08:41)
[2024-05-17] MEDS: MIRALAX 17 GRAMS PO (08:41)
[2024-05-17] MEDS: ELIQUIS 5 MG PO ×2 (08:42→20:33)
[2024-05-17] MEDS: BENICAR 40 MG PO (08:42)
[2024-05-17] MEDS: COLACE 100 MG PO (08:43)
[2024-05-17] MEDS: MYLICON 80 MG PO (08:43)
[2024-05-17] MEDS: SENOKOT 8.6 MG PO ×2 (08:43→20:34)
[2024-05-17] MEDS: DITROPAN 5 MG PO ×2 (08:43→20:33)
[2024-05-17] MEDS: DESENEX/MITRAZOL/ZEASORB 1 APPLIC TOPICAL ×2 (08:44→20:35)
[2024-05-17] MEDS: NON-FORMULARY ITEM 2 UNIT PO (08:44)
--- NOTE | 2024-05-17 08:57 | W.PN.HOSP.TC ---
Today's Communication/Plan
-
Family exploring hospice placement options
Assessment / Plan
Assessment / Plan
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
status post drainage, chest tube in place since 05/03 and received tPA/dornase on 05/06/24 and 05/09/24
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
- S/p R thoracentesis 04/29-removal of 1050mL straw colored fluid, negative for cytology
- recurrence requiring chest tube 05/03 with lytic therapy 05/06, 05/09
- chest tube OUT 05/11- No additional recommendation from the pulmonary
#RUQ abdominal pain-initially thought due to cancer, pleural mets, chest tube, constipation
-continued with removal of chest tube and having BMs; -still requiring IV morphine increased to 3mg, oxycodone was increased to 10mg but she continues to c/o discomfort.
-CT scan a/p shows gallstone stuck in neck of gallbladder
-surgery:no plans for cholecystectomy
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 Grayson)
-on 4th line treatment
-apprec onc
-pt wants continued therapy to treat (Palliative care indicating the same)
-cannot get cancer treatment at SNF..started hospice conversation with patient as she is on 4th line therapy AND no intervention possible for DVT in left leg due to compression by mass...plan is for palliative XRT (also can't get at SNF) followed by
oral Votrient
-spoke with onc;can start med here in hospita.and stop when goes to SNF
-CT a/p shows progressive cancer since 02/15/2024
-05/15 explained my rationale for hospice again, family now seems understanding that this is stage 4 metastatic cancer-hospice nurse provided education-
-still wants to hear from onc. Dr. Manzano tried to call daughter left VM. discussion again today with onc and hospice
#Persistent/Worsening Left Lower Extremity DVT-was discharged on SQ lovenox last admission
-now on Eliquis- Of note: Unfortunately, there may not be any AC that is effective in this scenario because of the mass itself causing vascular blockage
- Per vascular surgery consult on last admission - no vascular intervention can be done
#Chronic anemia, likely anemia of chronic disease- Hgb 11.6 on admission, appears at baseline
-No signs of acute blood loss or ongoing bleeding/bruising
#Constipation
-Continue home bowel regimen, would increase given chronic pain meds
#Essential Hypertension
- Continue home amlodipine(increased to 10) and olmesartan with parameters
#Anxiety/Depression
-Continue home sertraline
#Overactive Bladder
-Continue home Oxybutynin
#Hx Symptomatic Bradycardia s/p Permanent Pacemaker
Code status: DNR/DNI
DVT proph-- Eliquis BID
Family exploring Hospice options.
Anticipated Discharge: 24 - 48 hours
Subjective/Interval History
-
Date of Service: May 17, 2024
Interval events: no new complaints
Objective Data
-
Labs:
Laboratory Results
05/17/24
04:19
WBC 7.1
Hgb 11.9 L
Hct 37.2
Plt Count 321
Sodium 133 L
Potassium 4.5
Chloride 92 L
Carbon Dioxide 32 H
BUN 12
Creatinine 0.7
Glucose 111 H
Calcium 10.0
Vital Signs:
Vital Signs
Temp Pulse Resp BP Pulse Ox
97.5 F 77 18 141/72 93
05/17/24 07:17 05/17/24 07:17 05/17/24 07:17 05/17/24 07:17 05/17/24 07:17
I&O
05/16/24 05/17/24 05/18/24
06:59 06:59 06:59
Intake Total 1380 / 1380 240 / 240
Balance 1380 / 1380 240 / 240
Review of Systems
-
History Source: Patient
Constitutional: Reports No Symptoms
Respiratory: Reports No Symptoms
Cardiac: Reports No Symptoms
Abdomen/GI: Reports Abdominal Pain and Bloated; Denies Nausea, Vomiting or Diarrhea
Genitourinary: Reports No Symptoms
Neuro: Reports No Symptoms
Physical Exam
-
General: Well Developed, Well Nourished, No Apparent Distress and Morbidly Obese
HEENT: Normocephalic, Atraumatic and Oxygen (5 L via nasal cannula)
Respiratory: Decreased Breath Sounds (right lung field: improved since yesterday)
Cardiac: Regular Rhythm and S1/S2; Negative Murmur
GI: Soft, Nondistended, Normal Bowel Sounds and Tender (RUQ without guarding or rebound)
Musculoskeletal: No Clubbing and No Cyanosis; Negative No Edema (left leg swollen)
Skin: Warm and Dry
Neuro: Awake and Alert
Psych: Calm
Data Reviewed
-
Labs: Labs Reviewed by me, Discussed with Physician and Discussed with Patient
[2024-05-17] MEDS: ZOFRAN 4 MG IV (11:13)
[2024-05-17] MEDS: TYLENOL 650 MG PO (12:47)
[2024-05-17] MEDS: MORPHINE SULFATE 3 MG IV ×2 (14:48→22:00)
[2024-05-17 15:05] VITALS: BP 149/87
[2024-05-17] MEDS: NEURONTIN 600 MG PO (21:59)
[2024-05-17] MEDS: ZOLOFT 50 MG PO (21:59)
[2024-05-17] MEDS: NORVASC 10 MG PO (22:05)
[2024-05-17 23:47] VITALS: BP 127/64
[2024-05-18] MEDS: ROXICODONE 10 MG PO ×3 (04:11→17:11)
[2024-05-18 05:19] VITALS: BMI 32.2
[2024-05-18] MEDS: MORPHINE SULFATE 3 MG IV ×3 (05:59→23:51)
[2024-05-18 06:09] LABS: Hematocrit 37.1 % (37.0-47.0); Hemoglobin 11.7 g/dL (12.0-16.0); Mean Corp Hgb Conc. 31.5 g/dL (33.0-37.0); Mean Corpuscular Hgb 29.6 pg (27.0-31.0); Mean Corpuscular Volume 93.9 fL (81.0-99.0); Mean Platelet Volume 12.3 fL (7.4-10.4); Platelet Count 296 10^3/uL (130-400); Red Blood Cell Count 3.95 10^6/uL (4.20-5.40); Red Cell Dist. Width 14.3 % (11.5-14.5); White Blood Cell Count 8.7 10^3/uL (4.8-10.8)
--- NOTE | 2024-05-18 07:18 | W.PN.HOSP.TC ---
Today's Communication/Plan
-
Family exploring hospice placement options
Assessment / Plan
Assessment / Plan
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
status post drainage, chest tube in place since 05/03 and received tPA/dornase on 05/06/24 and 05/09/24
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
- S/p R thoracentesis 04/29-removal of 1050mL straw colored fluid, negative for cytology
- recurrence requiring chest tube 05/03 with lytic therapy 05/06, 05/09
- chest tube OUT 05/11- No additional recommendation from the pulmonary
#RUQ abdominal pain-initially thought due to cancer, pleural mets, chest tube, constipation
-continued with removal of chest tube and having BMs; -still requiring IV morphine, better pain control with 3mg, oxycodone was increased to 10mg.
-CT scan a/p shows gallstone stuck in neck of gallbladder
-surgery:no plans for cholecystectomy
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 Grayson)
-on 4th line treatment
-apprec onc
-pt wants continued therapy to treat (Palliative care indicating the same)
-cannot get cancer treatment at SNF. hospice conversation with patient as she is on 4th line therapy AND no intervention possible for DVT in left leg due to compression by mass...plan is for palliative XRT (also can't get at SNF) followed by oral
Votrient
-spoke with onc;can start med here in hospita.and stop when goes to SNF
-CT a/p shows progressive cancer since 02/15/2024
-05/15 explained my rationale for hospice again, family now seems understanding that this is stage 4 metastatic cancer-hospice nurse provided education-
-discussion again today with onc and hospice; requested hospice nurse to again reach out to the pt and family
#Persistent/Worsening Left Lower Extremity DVT-was discharged on SQ lovenox last admission
-now on Eliquis- Of note: Unfortunately, there may not be any AC that is effective in this scenario because of the mass itself causing vascular blockage
- Per vascular surgery consult on last admission - no vascular intervention can be done
#Chronic anemia, likely anemia of chronic disease- Hgb 11.6 on admission, appears at baseline
-No signs of acute blood loss or ongoing bleeding/bruising
#Constipation
-Continue home bowel regimen, would increase given chronic pain meds
#Essential Hypertension
- Continue home amlodipine(increased to 10) and olmesartan with parameters
#Anxiety/Depression
-Continue home sertraline
#Overactive Bladder
-Continue home Oxybutynin
#Hx Symptomatic Bradycardia s/p Permanent Pacemaker
Code status: DNR/DNI
DVT proph-- Eliquis BID
Family exploring Hospice options.
Anticipated Discharge: 24 - 48 hours
Subjective/Interval History
-
Date of Service: May 18, 2024
Reports improvement in abd pain.
Objective Data
-
Labs:
Laboratory Results
05/18/24
05:47
WBC 8.7
Hgb 11.7 L
Hct 37.1
Plt Count 296
Vital Signs:
Vital Signs
Temp Pulse Resp BP Pulse Ox
97.8 F 71 18 127/64 95
05/17/24 23:47 05/17/24 23:47 05/17/24 23:47 05/17/24 23:47 05/17/24 23:47
I&O
05/17/24 05/18/24 05/19/24
06:59 06:59 06:59
Intake Total 240 / 240
Balance 240 / 240
Review of Systems
-
History Source: Patient
Constitutional: Reports No Symptoms
Respiratory: Reports No Symptoms
Cardiac: Reports No Symptoms
Abdomen/GI: Reports Abdominal Pain and Bloated; Denies Nausea, Vomiting or Diarrhea
Genitourinary: Reports No Symptoms
Neuro: Reports No Symptoms
Physical Exam
-
General: Well Developed, Well Nourished, No Apparent Distress and Morbidly Obese
HEENT: Normocephalic, Atraumatic and Oxygen (5 L via nasal cannula)
Respiratory: Decreased Breath Sounds (right lung field: improved since yesterday)
Cardiac: Regular Rhythm and S1/S2; Negative Murmur
GI: Soft, Nondistended, Normal Bowel Sounds and Tender (RUQ without guarding or rebound)
Musculoskeletal: No Clubbing and No Cyanosis; Negative No Edema (left leg swollen)
Skin: Warm and Dry
Neuro: Awake and Alert
Psych: Calm
Data Reviewed
-
Labs: Labs Reviewed by me, Discussed with Physician and Discussed with Patient
[2024-05-18 07:20] VITALS: BP 113/64
--- NOTE | 2024-05-18 08:30 | W.PN.ONC2 ---
Today's Communication / Plan
-
comfort care appropriate, continue symptoms support and pain management
Continue Votrient
Impression
Impression
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
lung mets, pleural effusion, s/p thoracentesis [id number], 04/29/24 - w/ reaccumulation - chest tube placed 05/03 - removed 05/10
Pain
Plan
Plan
Stage IV dedifferentiated liposarcoma with POD
Recurrent right pleural effusion- chest tube removed
DVT - on eliquis
Subjective/Objective
Subjective
no new complaints
GOC -discharge dispo pending
Vital Signs:
Vital Signs
Temp Pulse Resp BP Pulse Ox
97.9 F 80 22 113/64 96
05/18/24 07:20 05/18/24 07:20 05/18/24 07:20 05/18/24 07:20 05/18/24 07:20
Lab Results:
Laboratory Data
WBC 8.7 10^3/uL (4.8-10.8) 05/18/24 05:47
Hgb 11.7 g/dL (12.0-16.0) L 05/18/24 05:47
Plt Count 296 10^3/uL (130-400) 05/18/24 05:47
PT 14.4 Sec (11.4-14.6) 04/28/24 12:56
INR 1.09 04/28/24 12:56
APTT 32.1 Sec (23.4-35.0) 04/28/24 12:56
eGFR > 60.00 05/17/24 04:19
[2024-05-18] MEDS: MIRALAX 17 GRAMS PO (09:01)
[2024-05-18] MEDS: LIDOCAINE 4% PATCH 1 PATCH TOPICAL (09:01)
[2024-05-18] MEDS: SENOKOT 8.6 MG PO ×2 (09:02→20:47)
[2024-05-18] MEDS: COLACE 100 MG PO (09:02)
[2024-05-18] MEDS: ELIQUIS 5 MG PO ×2 (09:03→20:47)
[2024-05-18] MEDS: DESENEX/MITRAZOL/ZEASORB 1 APPLIC TOPICAL ×2 (09:03→20:48)
[2024-05-18] MEDS: BENICAR 40 MG PO (09:03)
[2024-05-18] MEDS: DITROPAN 5 MG PO ×2 (09:05→20:47)
[2024-05-18] MEDS: NON-FORMULARY ITEM 2 UNIT PO (09:07)
--- NOTE | 2024-05-18 12:36 | W.PN.PAL2 ---
Today's Communication
-
having pain
family discussing plans for possible hospice over the weekend - patient now agreeable to hospice
Assessment / Plan
-
Assessment/Plan:
- family discussing hospice this weekend - home vs facility. Hoping for [facility] if needed
- patient now agreeable to hospice
- having pain - using PRN IV morphine and PO oxycodone ATC.
- consider adding back MSER 15mg BID - was previously on. Doubt delirium was due to this as she was taking for a while previous to this hospitalization.
- discussed with team
Pain & Symptom Assessment
[place] Symptom Scale 0=none, 10=worst
Pain: 5
Objective Data
-
Objective Data:
Vital Signs
Temp Pulse Resp BP Pulse Ox
97.9 F 80 22 113/64 96
05/18/24 07:20 05/18/24 07:20 05/18/24 07:20 05/18/24 07:20 05/18/24 07:20
Laboratory Results
05/18/24 05:47
05/17/24 04:19
PT 14.4 Sec (11.4-14.6) 04/28/24 12:56
INR 1.09 04/28/24 12:56
APTT 32.1 Sec (23.4-35.0) 04/28/24 12:56
Total Protein 6.0 g/dl (6.3-8.2) L 05/14/24 04:28
Albumin 3.2 g/dl (3.5-5.0) L 05/14/24 04:28
Palliative Performance Scale
Palliative Performance Scale:
PPS Level Ambulation Activity & Evidence of Disease Self Care Intake Conscious Level
100% Full Normal Activity & Work; Full Intake Full
No Evidence of Disease
90% Full Normal Activity & Work; Full Normal Full
Some Evidence of Disease
80% Full Normal Activity with Effort Full Normal or Full
Some Evidence of Disease Reduced
70% Reduced Unable Normal Job/Work Full Normal or Full
Significant Disease Reduced
60% Reduced Unable Hobby/Housework Occasional Normal or Full or Confusion
Significant Disease Assistance Reduced
50% Mainly Sit/Lie Unable to do Any Work Considerable Normal or Full or Confusion
Extensive Disease Assistance Req'd Reduced
40% Mainly in Bed Unable to do Most Activity Mainly Assistance Normal or Full or Drowsy;
Extensive Disease Reduced +/- Confusion
30% Totally Bed Unable to do Any Activity Total Care Normal or Full or Drowsy;
Bound Extensive Disease Reduced +/- Confusion
20% Totally Bed Bound Unable to do Any Activity Total Care Minimal to Full or Drowsy;
Extensive Disease Sips +/- Confusion
10% Totally Bed Bound Unable to do Any Activity Total Care Mouth Care Drowsy or Coma;
Extensive Disease Only +/- Confusion
0%
PPS Score Level:
Palliative Performance Score Response
Palliative Performance Score Response: 50%
Physical Exam
-
General: No Apparent Distress, Pain and Obese
HEENT: Normocephalic
Respiratory: Clear to Auscultation
Cardiac: Regular Rhythm
Peripheral Vascular: No Edema
GI: Soft
Skin: Warm
Neuro: AO x 3
Psych: Calm
Care Reviewed
Data Reviewed
Medical Tests: I reviewed
Reviewed with: Patient and Physician
[2024-05-18] MEDS: DULCOLAX 10 MG RECTAL (13:47)
[2024-05-18 15:40] VITALS: BP 139/59
--- NOTE | 2024-05-18 17:20 | CM ---
Spoke with pt in room .
She said she was not sure if she wanted to go to SNF.
As per Care [facility] Some SNF have accepted her.
LM with son Mike to contact CM on plan .
Hospice saw pt and involved.
PLAN SNF VS Hospice
[2024-05-18] MEDS: NEURONTIN 600 MG PO (21:34)
[2024-05-18] MEDS: ZOLOFT 50 MG PO (21:35)
[2024-05-18] MEDS: NORVASC 10 MG PO (21:35)
[2024-05-18 23:02] VITALS: BP 144/67
[2024-05-19] MEDS: ROXICODONE 10 MG PO ×2 (05:03→11:10)
[2024-05-19 06:00] VITALS: BMI 32.5
[2024-05-19 07:40] VITALS: BP 118/62
[2024-05-19 08:34] LABS: Hematocrit 35.9 % (37.0-47.0); Hemoglobin 11.9 g/dL (12.0-16.0); Mean Corp Hgb Conc. 33.1 g/dL (33.0-37.0); Mean Corpuscular Hgb 30.5 pg (27.0-31.0); Mean Corpuscular Volume 92.1 fL (81.0-99.0); Mean Platelet Volume 12.4 fL (7.4-10.4); Platelet Count 280 10^3/uL (130-400); Red Cell Dist. Width 14.4 % (11.5-14.5); White Blood Cell Count 7.6 10^3/uL (4.8-10.8)
[2024-05-19] MEDS: MORPHINE SULFATE 3 MG IV ×2 (08:45→19:40)
[2024-05-19] MEDS: ELIQUIS 5 MG PO ×2 (08:45→19:36)
[2024-05-19] MEDS: DITROPAN 5 MG PO ×2 (08:45→19:36)
[2024-05-19] MEDS: BENICAR 40 MG PO (08:45)
[2024-05-19] MEDS: LIDOCAINE 4% PATCH 1 PATCH TOPICAL (08:46)
[2024-05-19] MEDS: MIRALAX 17 GRAMS PO (08:46)
[2024-05-19] MEDS: SENOKOT 8.6 MG PO ×2 (08:46→19:36)
[2024-05-19] MEDS: COLACE 100 MG PO (08:46)
[2024-05-19] MEDS: NON-FORMULARY ITEM 1 UNIT PO (08:46)
[2024-05-19] MEDS: DESENEX/MITRAZOL/ZEASORB 1 APPLIC TOPICAL ×2 (08:49→19:35)
--- NOTE | 2024-05-19 09:17 | W.PN.ONC2 ---
Today's Communication / Plan
-
dispo planning, considering comfort care
Impression
Impression
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
lung mets, pleural effusion, s/p thoracentesis [id number], 04/29/24 - w/ reaccumulation - chest tube placed 05/03 - removed 05/10
Pain
Plan
Plan
Stage IV dedifferentiated liposarcoma with POD - hospice appropriate
Recurrent right pleural effusion- chest tube removed
DVT - on eliquis
Subjective/Objective
Subjective
appears comfortable
Vital Signs:
Vital Signs
Temp Pulse Resp BP Pulse Ox
98.2 F 85 18 118/62 94
05/19/24 07:40 05/19/24 07:40 05/19/24 07:40 05/19/24 07:40 05/19/24 07:40
Lab Results:
Laboratory Data
WBC 7.6 10^3/uL (4.8-10.8) 05/19/24 08:15
Hgb 11.9 g/dL (12.0-16.0) L 05/19/24 08:15
Plt Count 280 10^3/uL (130-400) 05/19/24 08:15
PT 14.4 Sec (11.4-14.6) 04/28/24 12:56
INR 1.09 04/28/24 12:56
APTT 32.1 Sec (23.4-35.0) 04/28/24 12:56
eGFR > 60.00 05/17/24 04:19
--- NOTE | 2024-05-19 10:58 | W.PN.HOSP.TC ---
Today's Communication/Plan
-
Analgesia
Monitor respiratory status
Family discussion for hospice selection on Tuesday
Assessment / Plan
Assessment / Plan
#Acute hypoxemic respiratory failure
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
-Has been stable on 4 L of oxygen via nasal cannula since her thoracentesis
-Status post removal of 1050 mL straw-colored fluid with negative cytology
-Status post lytic therapy on 05/03, 05/06, 05/09
-Previously had chest tube from 05/03 through 05/11
-Continue to monitor SpO2 and wean for goal >90%
-Consider repeat chest x-ray if dyspneic on current level of O2
#RUQ abdominal pain versus right-sided rib pain
-Was reportedly a gallstone in neck of the bladder, determined not to be surgical candidate
-Suspect that the pain is more related to metastases into the pleura and right sided ribs
-Has improved since escalating her morphine regimen
-Continue morphine 15 mg twice daily, IV as needed for breakthrough pain
#Metastatic spindle Cell Sarcoma
-S/P Resection and Radiation in 2021 with recurrence in late 2022 ( Primary oncology/Dr. Grayson)
-Currently on fourth line therapy with TKI which likely has limited efficacy
-Family and patient are amenable to hospice, taking the weekend to discuss options
-CT A/P while here showed progression of cancer from previous scan and
#Persistent Left Lower Extremity DVT
-was discharged on SQ lovenox last admission, now on Eliquis though unclear if mass effect from tumor is interfering with efficacy
-Per vascular surgery consult on last admission - no vascular intervention can be done
#Chronic anemia, likely anemia of chronic disease- Hgb 11.6 on admission, appears at baseline
-No signs of acute blood loss or ongoing bleeding/bruising
#Constipation
-Continue home bowel regimen, would increase given chronic pain meds
#Essential Hypertension
- Continue home amlodipine(increased to 10) and olmesartan with parameters
#Anxiety/Depression
-Continue home sertraline
#Overactive Bladder
-Continue home Oxybutynin
#Hx Symptomatic Bradycardia s/p Permanent Pacemaker
Code status: DNR/DNI
DVT PPhx: Eliquis BID
Family exploring Hospice options
Anticipated Discharge: > 48 hours
Subjective/Interval History
-
Date of Service: May 19, 2024
Seen and examined at the bedside. No acute events reported overnight. AFVSS this morning
She states that her pain is improved since being started back on 15 mg morphine twice daily as needed
Denies any other acute complaints including dyspnea, chest pain, fevers or chills
Objective Data
-
Labs:
Laboratory Results
05/19/24
08:15
WBC 7.6
Hgb 11.9 L
Hct 35.9 L
Plt Count 280
Vital Signs:
Vital Signs
Temp Pulse Resp BP Pulse Ox
98.2 F 85 18 118/62 94
05/19/24 07:40 05/19/24 07:40 05/19/24 07:40 05/19/24 07:40 05/19/24 08:40
I&O
05/18/24 05/19/24 05/20/24
06:59 06:59 06:59
Intake Total 930 / 930
Balance 930 / 930
Review of Systems
-
History Source: Patient
All other systems: Reviewed and negative
Physical Exam
-
General: No Apparent Distress, Comfortable and Appears Chronically Ill
HEENT: Normocephalic, Atraumatic and Moist Mucous Membranes
Respiratory: Crackles (Right base) and Non Labored Respirations; Negative Accessory Resp Muscle Use
Cardiac: Regular Rhythm and S1/S2; Negative Murmur, Rub or Gallop
GI: Soft, Nontender, Nondistended and Normal Bowel Sounds
Musculoskeletal: No Clubbing, No Cyanosis, No Edema and Other (Discomfort to right ribs/RUQ)
Skin: Warm, Dry and Normal Turgor; Negative Rash or Jaundice
Neuro: AO x 3, Nonfocal/Grossly Intact and Central Nerve's Intact
Psych: Calm
Data Reviewed
-
Labs: Labs Reviewed by me and Discussed with Patient
[2024-05-19 15:40] VITALS: BP 125/62
[2024-05-19] MEDS: ZOLOFT 50 MG PO (19:37)
[2024-05-19] MEDS: NEURONTIN 600 MG PO (19:37)
[2024-05-19] MEDS: NORVASC 10 MG PO (19:37)
[2024-05-19 23:08] VITALS: BP 127/65
[2024-05-20 06:00] VITALS: BMI 32.0
[2024-05-20] MEDS: MORPHINE SULFATE 3 MG IV (06:27)
[2024-05-20 07:40] VITALS: BP 132/63
[2024-05-20] MEDS: LIDOCAINE 4% PATCH 1 PATCH TOPICAL (07:58)
[2024-05-20] MEDS: BENICAR 40 MG PO (07:58)
[2024-05-20] MEDS: SENOKOT 8.6 MG PO ×2 (07:59→20:21)
[2024-05-20] MEDS: ROXICODONE 10 MG PO ×3 (07:59→20:39)
[2024-05-20] MEDS: NON-FORMULARY ITEM 1 UNIT PO (08:00)
[2024-05-20] MEDS: COLACE 100 MG PO (08:00)
[2024-05-20] MEDS: MIRALAX 17 GRAMS PO (08:00)
[2024-05-20] MEDS: ELIQUIS 5 MG PO ×2 (08:00→20:22)
[2024-05-20] MEDS: DITROPAN 5 MG PO ×2 (08:00→20:22)
[2024-05-20] MEDS: DESENEX/MITRAZOL/ZEASORB 1 APPLIC TOPICAL ×2 (08:02→20:20)
--- NOTE | 2024-05-20 12:32 | W.PN.HOSP.TC ---
Today's Communication/Plan
-
Continue with analgesia
Goals of care/hospice discussion with family tomorrow
Assessment / Plan
Assessment / Plan
#Acute hypoxemic respiratory failure
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
-Has been stable on 4 L of oxygen via nasal cannula since her thoracentesis
-Status post removal of 1050 mL straw-colored fluid with negative cytology
-Status post lytic therapy on 05/03, 05/06, 05/09
-Previously had chest tube from 05/03 through 05/11
-Continue to monitor SpO2 and wean for goal >90%
-Consider repeat chest x-ray if dyspneic on current level of O2
#RUQ abdominal pain versus right-sided rib pain
-Was reportedly a gallstone in neck of the bladder, determined not to be surgical candidate
-Suspect that the pain is more related to metastases into the pleura and right sided ribs
-Has improved since escalating her morphine regimen
-Continue morphine 15 mg twice daily, IV as needed for breakthrough pain
#Metastatic spindle Cell Sarcoma
-S/P Resection and Radiation in 2021 with recurrence in late 2022 ( Primary oncology/Dr. Grayson)
-Currently on fourth line therapy with TKI which likely has limited efficacy
-Family and patient are amenable to hospice, taking the weekend to discuss options
-CT A/P while here showed progression of cancer from previous scan and
#Persistent Left Lower Extremity DVT
-was discharged on SQ lovenox last admission, now on Eliquis though unclear if mass effect from tumor is interfering with efficacy
-Per vascular surgery consult on last admission - no vascular intervention can be done
#Chronic anemia, likely anemia of chronic disease- Hgb 11.6 on admission, appears at baseline
-No signs of acute blood loss or ongoing bleeding/bruising
#Constipation
-Continue home bowel regimen, would increase given chronic pain meds
#Essential Hypertension
- Continue home amlodipine(increased to 10) and olmesartan with parameters
#Anxiety/Depression
-Continue home sertraline
#Overactive Bladder
-Continue home Oxybutynin
#Hx Symptomatic Bradycardia s/p Permanent Pacemaker
Code status: DNR/DNI
DVT PPhx: Eliquis BID
Family exploring Hospice options, to come to formal decision on Monday 05/21
Anticipated Discharge: 24 - 48 hours
Subjective/Interval History
-
Date of Service: May 20, 2024
Seen and examined at the bedside. No acute events reported overnight. AFVSS this morning.
As of this morning she states she is a little bit lethargic, from pain meds in her opinion but pain is well-controlled
Denies any acute including dyspnea, fevers or chills, chest pain, vomiting or diarrhea, paresthesias or weakness, bleeding or
Objective Data
-
Vital Signs:
Vital Signs
Temp Pulse Resp BP Pulse Ox
98.7 F 80 18 132/63 95
05/20/24 07:40 05/20/24 07:40 05/20/24 07:40 05/20/24 07:40 05/20/24 08:00
I&O
05/19/24 05/20/24 05/21/24
06:59 06:59 06:59
Intake Total 930 / 930 1080 / 1080
Balance 930 / 930 1080 / 1080
Review of Systems
-
History Source: Patient
All other systems: Reviewed and negative
Physical Exam
-
General: Well Developed, Comfortable, Appears Chronically Ill and Obese
HEENT: Normocephalic, Atraumatic, Moist Mucous Membranes and Anicteric
Respiratory: Crackles (Right lung base) and Non Labored Respirations; Negative Accessory Resp Muscle Use
Cardiac: Regular Rhythm and S1/S2; Negative Murmur, Rub or Gallop
GI: Soft, Nontender, Nondistended and Normal Bowel Sounds
Musculoskeletal: No Clubbing, No Cyanosis and No Edema
Skin: Warm and Dry; Negative Rash
Neuro: AO x 3 and Nonfocal/Grossly Intact
Psych: Calm
--- NOTE | 2024-05-20 14:03 | CM ---
CM met with Connie and her daughter Cassia today to check in. Daughter states they are overwhelmed with trying to make a plan due to pt's pain, financial concerns and family work schedules. They are meeting with the physician tomorrow to further
discuss.
CM continues to follow to coordinate discharge plan pending family decision. Possible transfer to SNF with hospice care, to SNF for Rehab, although Connie has refused therapy the past several days.
CM will continue to follow to coordinate needs once d/c plan is identified.
[2024-05-20 15:30] VITALS: BP 146/66
[2024-05-20] MEDS: NEURONTIN 600 MG PO (20:20)
[2024-05-20] MEDS: ZOLOFT 50 MG PO (20:21)
[2024-05-20] MEDS: NORVASC 10 MG PO (20:22)
[2024-05-20 23:26] VITALS: BP 122/65
[2024-05-21] MEDS: ROXICODONE 10 MG PO ×2 (04:37→21:35)
[2024-05-21 05:16] VITALS: BMI 31.8
[2024-05-21 08:12] VITALS: BP 128/65
--- NOTE | 2024-05-21 08:28 | W.PN.HOSP.TC ---
Addendum entered and electronically signed by Yara Askew MD 05/21/24 15:15:
I saw and evaluated the patient. I reviewed the resident�s note and agree with findings and plan as documented in the resident�s note except for changes in my documentation.
78-year-old female with metastatic spindle cell sarcoma to lungs and pleura on chemo presented with right-sided chest pain and back pain
Echo-normal LV size and function. EF 65 to 70%. Stage I diastolic dysfunction. Normal RV size and function. Mild to moderate TR. PA pressure [address] chest 04/30/2024-improved moderate right effusion. Pleural-based right sided pulmonary masses suggestive of metastatic disease. Stable mild right lower lobe consolidation probably atelectasis.
CT abdomen and pelvis 05/12/2024-loculated right effusion. Extensive right-sided pleural metastatic disease increase since January. Cardiophrenic and posterior mediastinal lymphadenopathy increased. Large left inguinal lymph node encasing left
femoral vessels. Large cystic right adnexal lesion. Large gallstone in the neck of the gallbladder with no findings of acute cholecystitis. Diverticulosis
CVS: S1-S2 normal
Chest: decreased at bases
Abdomen: Soft, NT / Bowel sounds present
Extremities: mild edema
# Acute hypoxic respiratory failure secondary to right pleural effusion
Symptomatic right-sided pleural effusion likely malignant. Cytology negative
Significant progression of malignant pleural metastatic disease in the right hemithorax
Right anterior pericardial metastatic disease
Initial CT chest with right effusion and no PE
Status post thoracentesis 04-29 24-1050 mL exudative fluid-culture negative-
CT chest 04/30/2024 with right pleural effusion
05/03/2020 for worsening hypoxia chest x-ray with large effusion chest tube placed 05/03/2024 and discontinued 05/11/2024.
# Right upper quadrant abdominal pain versus right rib pain-unlikely gallbladder stone but pain likely from metastasis-continue morphine for breakthrough pain. Will start patient on OxyContin for baseline pain control. Oxycodone for breakthrough
pain for moderate pain.
# Left lower extremity spindle cell carcinoma diagnosed in 2021 status post excision with recurrence in 2023
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
Persistent worsening of left lower extremity DVT
On fourth line chemotherapy with TKI now on radiation therapy for left lower extremity mass ([facility])
Unfortunately tumor compressing the veins causing DVT-continue anticoagulation
Vascular evaluated last admission-no vascular intervention
Continue Eliquis
# TME-likely narcotic induced. Back to baseline.
# Hypertension-was on olmesartan and Norvasc-now on Norvasc.
# Anemia of chronic disease
# Mild hyponatremia-resolved
# Hyperkalemia-resolved
# Diverticulosis
# History of symptomatic bradycardia with pacemaker placement
# Gallstone
# Constipation-continue bile regimen
# History of TIA/CVA
# Anxiety and depression-continue sertraline
# Overactive bladder-continue oxybutynin
# Chronic pain narcotic dependent
# GERD
# Obesity with a BMI of 31
# DVT prophylaxis-Eliquis
# DNR
Patient is okay with either rehab or hospice wherever is continuing with the family. Discussed with nursing and case management
Spoke to patient's daughter Leydi who stated that because the holidays they were not able to come up with a plan. Discussed with her that they come up with a plan soon for her. I asked if they need any information regarding hospice which she
declined stated that she has. She will be in tonight to talk to mom and give me an answer tomorrow.
Part of this note was created using voice recognition system. Occasional wrong word or��sound alike� substitutions may have inadvertently occurred due to the inherent limitations of voice recognition software. If noted kindly bring it to my
attention for correction.
Time spent over 50 min
Original Note:
Today's Communication/Plan
-
Family exploring Hospice options, to come to formal decision
Assessment / Plan
Assessment / Plan
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
status post drainage, chest tube in place since 05/03 and received tPA/dornase on 05/06/24 and 05/09/24
#Acute hypoxemic respiratory failure
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
-Has been stable on 4 L of oxygen via nasal cannula since her thoracentesis
-Status post removal of 1050 mL straw-colored fluid with negative cytology- 04/29/24
-Status post lytic therapy on 05/06, 05/09
-Previously had chest tube from 05/03 through 05/11
-Continue to monitor SpO2 and wean for goal >90%
-Consider repeat chest x-ray if dyspneic on current level of O2
#RUQ abdominal pain versus right-sided rib pain
-Was reportedly a gallstone in neck of the bladder, determined not to be surgical candidate
-Suspect that the pain is more related to metastases into the pleura and right sided ribs
-Has improved since escalating her morphine regimen
-Continue morphine IV as needed for breakthrough pain
#Metastatic spindle Cell Sarcoma
-S/P Resection and Radiation in 2021 with recurrence in late 2022 ( Primary oncology/Dr. Grayson)
-Currently on fourth line therapy with TKI which likely has limited efficacy
-Family and patient are amenable to hospice, taking the weekend to discuss options
-CT A/P while here showed progression of cancer from previous scan and
#Persistent Left Lower Extremity DVT
-was discharged on SQ lovenox last admission, now on Eliquis though unclear if mass effect from tumor is interfering with efficacy
-Per vascular surgery consult on last admission - no vascular intervention can be done
#Chronic anemia, likely anemia of chronic disease- Hgb 11.6 on admission, appears at baseline
-No signs of acute blood loss or ongoing bleeding/bruising
#Constipation
-Continue home bowel regimen, would increase given chronic pain meds
#Essential Hypertension
- Continue home amlodipine(increased to 10) and olmesartan with parameters
#Anxiety/Depression
-Continue home sertraline
#Overactive Bladder
-Continue home Oxybutynin
#Hx Symptomatic Bradycardia s/p Permanent Pacemaker
Code status: DNR/DNI
DVT PPhx: Eliquis BID
Family exploring Hospice options, to come to formal decision on Monday 05/21
Anticipated Discharge: Within 24 hours
Subjective/Interval History
-
Date of Service: May 21, 2024
No acute events reported overnight. AFVSS this morning.
Objective Data
-
Vital Signs:
Vital Signs
Temp Pulse Resp BP Pulse Ox
97.9 F 76 20 128/65 94
05/21/24 08:12 05/21/24 08:12 05/21/24 08:12 05/21/24 08:12 05/21/24 08:12
I&O
05/20/24 05/21/24 05/22/24
06:59 06:59 06:59
Intake Total 1080 / 1080 960 / 960
Balance 1080 / 1080 960 / 960
Review of Systems
-
History Source: Patient
All other systems: Reviewed and negative
Physical Exam
-
General: Well Developed, Comfortable, Appears Chronically Ill and Obese
HEENT: Normocephalic, Atraumatic, Moist Mucous Membranes and Anicteric
Respiratory: Crackles (Right lung base) and Non Labored Respirations; Negative Accessory Resp Muscle Use
Cardiac: Regular Rhythm and S1/S2; Negative Murmur, Rub or Gallop
GI: Soft, Nontender, Nondistended and Normal Bowel Sounds
Musculoskeletal: No Clubbing, No Cyanosis and No Edema
Skin: Warm and Dry; Negative Rash
Neuro: AO x 3 and Nonfocal/Grossly Intact
Psych: Calm
Data Reviewed
-
Labs: Labs Reviewed by me
[2024-05-21] MEDS: MORPHINE SULFATE 3 MG IV ×2 (09:22→20:25)
[2024-05-21] MEDS: LIDOCAINE 4% PATCH 1 PATCH TOPICAL (09:25)
[2024-05-21] MEDS: COLACE 100 MG PO (09:35)
[2024-05-21] MEDS: NON-FORMULARY ITEM 1 UNIT PO (09:35)
[2024-05-21] MEDS: MIRALAX PO (09:36)
[2024-05-21] MEDS: DITROPAN 5 MG PO ×2 (09:36→20:35)
[2024-05-21] MEDS: BENICAR 40 MG PO (09:36)
[2024-05-21] MEDS: ELIQUIS 5 MG PO ×2 (09:36→20:35)
[2024-05-21] MEDS: SENOKOT 8.6 MG PO (09:36)
[2024-05-21] MEDS: DESENEX/MITRAZOL/ZEASORB 1 APPLIC TOPICAL ×2 (09:36→20:34)
[2024-05-21 10:08] VITALS: BP 133/64; PULSE 75; O2SAT 94
--- NOTE | 2024-05-21 13:37 | CM ---
Case discussed with MD team. Pt has agreed to hospice care, however family has been stalling on making a decision for plan of care due to financial concerns and do not feel that caring for her at home is an option for them. List of private
caregiver services provided, option of family taking intermittent FMLA so they can each assist with pt care at home, and transfer to SNF with hospice discussed.
Discharge planning at a standstill due to lack of family ability to agree on a plan. MD to speak with Connie and then contact family regarding discharge.
CM will continue to follow.
--- NOTE | 2024-05-21 15:19 | CM ---
Referral sent to [facility] again today with updated therapy notes. Connie participated in PT; due to lack of activity she is greatly weak.
Await response re: acceptance and bed availability.
--- NOTE | 2024-05-21 15:21 | W.PN.PAL2 ---
Today's Communication
-
Total floor time 40 mins.
spoke with derek today. she is leaning towards hospice, but not sure where. She would need caregiviers if she went home, altnerative would be SNF.
patient understands that starting hospice means stopping cancer directed treatmetns.
Her pain is managed, no new symptoms today. breathing stable on 4-5L, chest tube out.
Spoke with son Rd 3-3:20. they have not had a chance to discuss as a family due to holiday. Asked him to please speak with sisters today. reviewed services that hospice offers, option 1 would be home with caregiviers and hopsice vs. a facility.
they are leaning towards facility. If they are not ready yet to make a decision on hospice can go to a facility for therapy/rehab and then switch to hospice if not making progress. discussed room and board requirments. He needs to discuss further
with sisters and will let us know.
Assessment / Plan
-
Assessment/Plan:
Ellen has not yet had a chance to discuss hospice and discharge planning - asked them to do so and let us know dannie. at this time leaning towards snf +/- hospice.
Reason for Admission
Illness Course/HPI
78 year old F with history of left lower extremity spindle cell sarcoma diagnosed 12/29/2021 s/p excision. Pathology + for dedifferentiated liposarcoma. Found this year to have recurrence of sarcoma as well as mets to pleura/lungs s/p salvage chemo
07/26/2023. Subsequent surveillance scans noting slow progression of both pulmonary mets as well as her sarcoma.
Admitted with complaints of progressive pleuritic type chest pain x3 days uncontrolled by her pain medications. Upon admission, CT scan with large right pleural effusion with new [address] also showed significant progression of malignant
pleural metastatic disease of R hemithorax and right anterior pericardial metastatic lymphadenopathy. Underwent thoracentesis 04/29 with relief of pain. Previously dx with vascular compression due to LLE mass, known DVT and imaging this admission
shows persistent/worsening of DVT. Per vascular, AC would not be effective for this.
Oncology following - considering palliative pleural drain placement. Patient wishes to continue with her oncology treatment, currently undergoing radiation to LLE mass with plans to start targeted oral therapy thereafter.
Goals of Care Discussion
-
Patient able to participate in discussion at time of visit: Yes
Patient Goals
patient leaning towards hospice, decision on where tbd
Pain & Symptom Assessment
-
symptoms managed at present time
Objective Data
-
Objective Data:
Vital Signs
Temp Pulse Resp BP Pulse Ox
97.9 F 76 20 128/65 94
05/21/24 08:12 05/21/24 08:12 05/21/24 08:12 05/21/24 08:12 05/21/24 09:40
Laboratory Results
05/19/24 08:15
05/17/24 04:19
PT 14.4 Sec (11.4-14.6) 04/28/24 12:56
INR 1.09 04/28/24 12:56
APTT 32.1 Sec (23.4-35.0) 04/28/24 12:56
Total Protein 6.0 g/dl (6.3-8.2) L 05/14/24 04:28
Albumin 3.2 g/dl (3.5-5.0) L 05/14/24 04:28
Palliative Performance Scale
Palliative Performance Scale:
PPS Level Ambulation Activity & Evidence of Disease Self Care Intake Conscious Level
100% Full Normal Activity & Work; Full Intake Full
No Evidence of Disease
90% Full Normal Activity & Work; Full Normal Full
Some Evidence of Disease
80% Full Normal Activity with Effort Full Normal or Full
Some Evidence of Disease Reduced
70% Reduced Unable Normal Job/Work Full Normal or Full
Significant Disease Reduced
60% Reduced Unable Hobby/Housework Occasional Normal or Full or Confusion
Significant Disease Assistance Reduced
50% Mainly Sit/Lie Unable to do Any Work Considerable Normal or Full or Confusion
Extensive Disease Assistance Req'd Reduced
40% Mainly in Bed Unable to do Most Activity Mainly Assistance Normal or Full or Drowsy;
Extensive Disease Reduced +/- Confusion
30% Totally Bed Unable to do Any Activity Total Care Normal or Full or Drowsy;
Bound Extensive Disease Reduced +/- Confusion
20% Totally Bed Bound Unable to do Any Activity Total Care Minimal to Full or Drowsy;
Extensive Disease Sips +/- Confusion
10% Totally Bed Bound Unable to do Any Activity Total Care Mouth Care Drowsy or Coma;
Extensive Disease Only +/- Confusion
0%
PPS Score Level:
Palliative Performance Score Response
Palliative Performance Score Response: 40%
Physical Exam
-
Psych: Calm
[2024-05-21] MEDS: OXYCONTIN (CONTROLLED RELEASE) 10 MG PO (15:37)
[2024-05-21 16:06] VITALS: BP 135/71
[2024-05-21] MEDS: ZOFRAN 4 MG IV (16:15)
[2024-05-21 16:46] VITALS: BP 132/77
[2024-05-21 18:00] LABS: Troponin I < 0.012 ng/ml
[2024-05-21 20:17] VITALS: BP 127/76
[2024-05-21] MEDS: SENOKOT 17.2 MG PO (20:34)
[2024-05-21] MEDS: NEURONTIN 600 MG PO (20:35)
[2024-05-21] MEDS: NORVASC 10 MG PO (20:36)
[2024-05-21] MEDS: ZOLOFT 50 MG PO (20:36)
--- NOTE | 2024-05-21 21:42 | PTCARENOTE ---
pt complaining of 10/10 chest pain and trouble taking deep breaths. administered morphine 3mg IV at 2030 without relief of pain. EKG completed at this time, resulting in NSR. SEAT [employer]IMMER made aware. no new orders at this time, IR consult to be placed for
tomorrow. plan of care ongoing, will continue to monitor.
[2024-05-21 23:24] VITALS: BP 132/77
--- NOTE | 2024-05-22 04:11 | W.PN.UPDATE ---
Update Note
Progress Note Update
cxr with mod pleural effusion. will consult IR for thoracentesis.
[2024-05-22 05:18] LABS: Hematocrit 36.2 % (37.0-47.0); Hemoglobin 11.8 g/dL (12.0-16.0); Mean Corp Hgb Conc. 32.6 g/dL (33.0-37.0); Mean Corpuscular Hgb 30.1 pg (27.0-31.0); Mean Corpuscular Volume 92.3 fL (81.0-99.0); Mean Platelet Volume 12.4 fL (7.4-10.4); Platelet Count 249 10^3/uL (130-400); Red Blood Cell Count 3.92 10^6/uL (4.20-5.40); Red Cell Dist. Width 14.6 % (11.5-14.5); White Blood Cell Count 16.8 10^3/uL (4.8-10.8)
[2024-05-22 05:42] LABS: Blood Urea Nitrogen 13 mg/dl (7-17); Calcium 9.9 mg/dl (8.4-10.2); Carbon Dioxide 35 mmol/L (22-30); Chloride 89 mmol/L (98-107); Estimated Creatinine Clearance 82 ml/min; Glucose 120 mg/dl (70-99); Potassium 4.8 mmol/L (3.5-5.1); Sodium 128 mmol/L (135-145); eGFR > 60.00
[2024-05-22 06:00] VITALS: BMI 31.7
[2024-05-22 07:09] VITALS: BP 128/61
--- NOTE | 2024-05-22 08:45 | W.PN.HOSP.TC ---
Addendum entered and electronically signed by Yara Askew MD 05/22/24 15:54:
Patient was seen earlier today. Late documentation.
She was slightly drowsy this morning arousable. She was agreeable to hospice. Spoke to 2 daughters at bedside, who waited for 2 other siblings to come in. All of them made decision together to make make the patient hospice. Since she needs
symptom control currently will placed on comfort measures.
Active treatments discontinued and she was placed on morphine as needed along with Ativan as needed.
She was moved to a private room and hospice was consulted. Discussed with hospice regarding eligibility for GIP. Will hold off today and reassess tomorrow. If she is needs medicines for symptom management may need to do GIP.
Discussed with nursing on fourth floor as well as second floor
Orders placed
Total time spent over 50 minutes.
Original Note:
Today's Communication/Plan
-
Patient elected hospice. on comfort measures
Assessment / Plan
Assessment / Plan
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
status post drainage, chest tube in place since 05/03 and received tPA/dornase on 05/06/24 and 05/09/24
#Acute hypoxemic respiratory failure
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
-Has been stable on 4 L of oxygen via nasal cannula since her thoracentesis
-Status post removal of 1050 mL straw-colored fluid with negative cytology- 04/29/24
-Status post lytic therapy on 05/06, 05/09
-Previously had chest tube from 05/03 through 05/11
-repeat chest x-ray suspecious of pna, however her o2sat is 97% and family has decided to opt for hospice
#RUQ abdominal pain versus right-sided rib pain
-Was reportedly a gallstone in neck of the bladder, determined not to be surgical candidate
-Suspect that the pain is more related to metastases into the pleura and right sided ribs
-Has improved since escalating her morphine regimen
-Continue morphine IV as needed for breakthrough pain; patient on hospice
#Metastatic spindle Cell Sarcoma
-S/P Resection and Radiation in 2021 with recurrence in late 2022 ( Primary oncology/Dr. Grayson)
-Currently on fourth line therapy with TKI which likely has limited efficacy
-Family and patient are amenable to hospice, taking the weekend to discuss options
-CT A/P while here showed progression of cancer from previous scan and
#Persistent Left Lower Extremity DVT
-was discharged on SQ lovenox last admission, now on Eliquis though unclear if mass effect from tumor is interfering with efficacy
-Per vascular surgery consult on last admission - no vascular intervention can be done
#Chronic anemia, likely anemia of chronic disease- Hgb 11.6 on admission, appears at baseline
-No signs of acute blood loss or ongoing bleeding/bruising
#Constipation
-Continue home bowel regimen, would increase given chronic pain meds
#Essential Hypertension
- Continue home amlodipine(increased to 10) and olmesartan with parameters
#Anxiety/Depression
-Continue home sertraline
#Overactive Bladder
-Continue home Oxybutynin
#Hx Symptomatic Bradycardia s/p Permanent Pacemaker
Code status: DNR/DNI
DVT PPhx: Eliquis BID
Family exploring Hospice options, to come to formal decision on Monday 05/21
Anticipated Discharge: Within 24 hours
Subjective/Interval History
-
Date of Service: May 22, 2024
sleep. c/o abdominal pain and discomfort with breathing
Objective Data
-
Labs:
Laboratory Results
05/22/24
05:05
WBC 16.8 H
Hgb 11.8 L
Hct 36.2 L
Plt Count 249
Sodium 128 L
Potassium 4.8
Chloride 89 L
Carbon Dioxide 35 H
BUN 13
Creatinine 0.6
Glucose 120 H
Calcium 9.9
Vital Signs:
Vital Signs
Temp Pulse Resp BP Pulse Ox
97.6 F 97 18 132/77 92
05/21/24 23:24 05/21/24 23:24 05/21/24 23:24 05/21/24 23:24 05/21/24 23:24
I&O
05/21/24 05/22/24 05/23/24
06:59 06:59 06:59
Intake Total 960 / 960 0 / 0
Balance 960 / 960 0 / 0
Review of Systems
-
History Source: Patient
Respiratory: Reports Trouble Breathing
Abdomen/GI: Reports Abdominal Pain
Physical Exam
-
General: Well Developed, Appears Chronically Ill, Obese and Other (sleepy)
HEENT: Normocephalic, Atraumatic, Moist Mucous Membranes and Anicteric
Respiratory: Crackles (Right lung base) and Non Labored Respirations; Negative Accessory Resp Muscle Use
Cardiac: Regular Rhythm and S1/S2; Negative Murmur, Rub or Gallop
GI: Soft, Nontender, Nondistended and Normal Bowel Sounds
Musculoskeletal: No Clubbing, No Cyanosis and No Edema
Skin: Warm and Dry; Negative Rash
Neuro: AO x 3 and Nonfocal/Grossly Intact
Psych: Calm
Data Reviewed
-
Labs: Labs Reviewed by me
[2024-05-22] MEDS: COLACE PO (09:02)
[2024-05-22] MEDS: BENICAR PO (09:02)
[2024-05-22] MEDS: DESENEX/MITRAZOL/ZEASORB TOPICAL (09:04)
[2024-05-22] MEDS: DITROPAN PO (09:04)
[2024-05-22] MEDS: SENOKOT PO (09:05)
[2024-05-22] MEDS: LIDOCAINE 4% PATCH TOPICAL (09:05)
[2024-05-22] MEDS: NON-FORMULARY ITEM PO (09:05)
[2024-05-22] MEDS: ELIQUIS PO (09:05)
[2024-05-22] MEDS: MIRALAX PO (09:05)
[2024-05-22] MEDS: MORPHINE SULFATE 3 MG IV (09:59)
--- NOTE | 2024-05-22 10:28 | HOSPNOTE ---
Asked to speak to family regarding inpatient hospice. Reviewed inpatient hospice and criteria with family. They understand that at this time patient does not meet inpatient criteria but will be followed by hospice and evaluated in 24 hours for
eligibility. Reviewed records and patient has only needed iv morphine 2 x yesterday and 1 time this morning. Recommended to place patient on comfort care and move to [address] [place] [address]. Admissions called and are aware of bed request on [address] [place] [address]. Hospice will
then review case in 24 hours to see if patient meets inpatient hospice criteria. Hospice remains available for support and will continue to follow. Emotional support provided.
--- NOTE | 2024-05-22 11:20 | W.PN.PAL2 ---
Today's Communication
-
Patient seen at bedside, family meeting with hospice today.
Patient more lethargic today, did not participate in conversation like she did yesterday
Family pursuing hospice care.
Assessment / Plan
-
Assessment/Plan:
Plan for hospice evaluation today.
DNR code status
Reason for Admission
Illness Course/HPI
Initial Consult:
78 year old F with history of left lower extremity spindle cell sarcoma diagnosed 12/29/2021 s/p excision. Pathology + for dedifferentiated liposarcoma. Found this year to have recurrence of sarcoma as well as mets to pleura/lungs s/p salvage chemo
07/26/2023. Subsequent surveillance scans noting slow progression of both pulmonary mets as well as her sarcoma.
Admitted with complaints of progressive pleuritic type chest pain x3 days uncontrolled by her pain medications. Upon admission, CT scan with large right pleural effusion with new [address] also showed significant progression of malignant
pleural metastatic disease of R hemithorax and right anterior pericardial metastatic lymphadenopathy. Underwent thoracentesis 04/29 with relief of pain. Previously dx with vascular compression due to LLE mass, known DVT and imaging this admission
shows persistent/worsening of DVT. Per vascular, AC would not be effective for this.
Oncology following - considering palliative pleural drain placement. Patient wishes to continue with her oncology treatment, currently undergoing radiation to LLE mass with plans to start targeted oral therapy thereafter.
Goals of Care Discussion
-
Patient able to participate in discussion at time of visit: No
Patient Goals
Hospice eval
Objective Data
-
Objective Data:
Vital Signs
Temp Pulse Resp BP Pulse Ox
98.2 F 83 18 128/61 94
05/22/24 07:09 05/22/24 07:09 05/22/24 07:09 05/22/24 07:09 05/22/24 09:00
Laboratory Results
05/22/24 05:05
05/22/24 05:05
PT 14.4 Sec (11.4-14.6) 04/28/24 12:56
INR 1.09 04/28/24 12:56
APTT 32.1 Sec (23.4-35.0) 04/28/24 12:56
Total Protein 6.0 g/dl (6.3-8.2) L 05/14/24 04:28
Albumin 3.2 g/dl (3.5-5.0) L 05/14/24 04:28
Palliative Performance Scale
Palliative Performance Scale:
PPS Level Ambulation Activity & Evidence of Disease Self Care Intake Conscious Level
100% Full Normal Activity & Work; Full Intake Full
No Evidence of Disease
90% Full Normal Activity & Work; Full Normal Full
Some Evidence of Disease
80% Full Normal Activity with Effort Full Normal or Full
Some Evidence of Disease Reduced
70% Reduced Unable Normal Job/Work Full Normal or Full
Significant Disease Reduced
60% Reduced Unable Hobby/Housework Occasional Normal or Full or Confusion
Significant Disease Assistance Reduced
50% Mainly Sit/Lie Unable to do Any Work Considerable Normal or Full or Confusion
Extensive Disease Assistance Req'd Reduced
40% Mainly in Bed Unable to do Most Activity Mainly Assistance Normal or Full or Drowsy;
Extensive Disease Reduced +/- Confusion
30% Totally Bed Unable to do Any Activity Total Care Normal or Full or Drowsy;
Bound Extensive Disease Reduced +/- Confusion
20% Totally Bed Bound Unable to do Any Activity Total Care Minimal to Full or Drowsy;
Extensive Disease Sips +/- Confusion
10% Totally Bed Bound Unable to do Any Activity Total Care Mouth Care Drowsy or Coma;
Extensive Disease Only +/- Confusion
0%
PPS Score Level:
Palliative Performance Score Response
Palliative Performance Score Response: 20%
Physical Exam
-
Neuro: Other (lethargic)
Psych: Confused
--- NOTE | 2024-05-22 11:28 | CM ---
CM continues to follow for discharge planning. [facility] evaluated for hospice care and currently pt does not meet criteria for hospice. Palliative Care evaluated Connie today. She is more lethargic and not conversant as she has been the past
few days.
Oncology is considering palliative pleural drain placement. Patient wishes to continue with her oncology treatment, currently undergoing radiation to LLE mass with plans to start targeted oral therapy thereafter.
Plan: CM will continue to follow to coordinate all discharge needs pending family decision for home vs. SNF
[2024-05-22 12:54] VITALS: BP 99/59
--- NOTE | 2024-05-22 13:08 | PTCARENOTE ---
Pt transferred from the 4th floor to 2N on comfort, 4Lo2, oral care completed, VSS, pt resting comfortably in bed with family at bedside at this time. Comfort box ordered for family. Reached out to MD and resident for comfort orders to be placed.
--- NOTE | 2024-05-22 13:32 | PTOTSP ---
Reviewed chart and noted pt on hospice care. Pt unable to participate in skilled PT. PT will sign off.
--- NOTE | 2024-05-22 16:46 | PTCARENOTE ---
No urine output during the shift with this RN, pt bladder scanned for 245. No new orders at this time.
[2024-05-22] MEDS: MORPHINE SULFATE 1 MG IV (18:30)
[2024-05-22] MEDS: FLUSH (NSS) 2 FLUSH IV (18:31)
[2024-05-22 19:00] VITALS: BP 121/62
[2024-05-23] MEDS: MORPHINE SULFATE 1 MG IV ×5 (01:39→10:07)
--- NOTE | 2024-05-23 07:22 | W.PN.HOSP.TC ---
Addendum entered and electronically signed by Yara Askew MD 05/23/24 12:56:
Patient was seen during rounds with residents
I saw and evaluated the patient. I reviewed the resident�s note and agree with findings and plan as documented in the resident�s note.
Patient appears to be comfortable.
Multiple family members at bedside. She was awake and alert and talking to them but pain was not controlled therefore transitioned to morphine drip step 1 advance as needed
Also as needed meds for anxiety and pain long with bowel regimen.
Original Note:
Today's Communication/Plan
-
Currently on comfort emasures
re eval for GIP by hospice
Assessment / Plan
Assessment / Plan
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
status post drainage, chest tube in place since 05/03 and received tPA/dornase on 05/06/24 and 05/09/24
#Acute hypoxemic respiratory failure
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
-Has been stable on 4 L of oxygen via nasal cannula since her thoracentesis
-Status post removal of 1050 mL straw-colored fluid with negative cytology- 04/29/24
-Status post lytic therapy on 05/06, 05/09
-Previously had chest tube from 05/03 through 05/11
-repeat chest x-ray suspecious of pna, however her o2sat is 97% and family has decided to opt for hospice
- currently on comfort measures
#RUQ abdominal pain versus right-sided rib pain
-Was reportedly a gallstone in neck of the bladder, determined not to be surgical candidate
-Suspect that the pain is more related to metastases into the pleura and right sided ribs
-Continue morphine IV as needed for breakthrough pain; patient on hospice
#Metastatic spindle Cell Sarcoma
-S/P Resection and Radiation in 2021 with recurrence in late 2022 ( Primary oncology/Dr. Grayson)
-Tki held and currently on comfort measures.
-CT A/P while here showed progression of cancer from previous scan and
#Persistent Left Lower Extremity DVT
-was discharged on SQ lovenox last admission, now on Eliquis though unclear if mass effect from tumor is interfering with efficacy
-Per vascular surgery consult on last admission - no vascular intervention can be done
#Chronic anemia, likely anemia of chronic disease- Hgb 11.6 on admission, appears at baseline
-No signs of acute blood loss or ongoing bleeding/bruising
#Constipation
-Continue bowel regimen
#Essential Hypertension
- stop home amlodipine and olmesartan;on comfort measure
#Anxiety/Depression
-stop home sertraline;on comfort measure
#Overactive Bladder
-stop home Oxybutynin; on comfort measures
#Hx Symptomatic Bradycardia s/p Permanent Pacemaker
Code status: DNR/DNI
DVT PPhx: Eliquis BID
Anticipated Discharge: 24 - 48 hours
Subjective/Interval History
-
Date of Service: May 23, 2024
no new complaints
Objective Data
-
Vital Signs:
Vital Signs
Temp Pulse Resp BP Pulse Ox
98 F 87 18 121/62 89
05/22/24 19:00 05/22/24 19:00 05/22/24 19:00 05/22/24 19:00 05/22/24 19:00
I&O
05/22/24 05/23/24 05/24/24
06:59 06:59 06:59
Intake Total 0 / 0 80 / 80
Output Total 0 / 0
Balance 0 / 0 80 / 80
Review of Systems
-
History Source: Patient
Respiratory: Reports Trouble Breathing (stable on 4L o2 NC)
Abdomen/GI: Reports Abdominal Pain (better than yesterday)
Physical Exam
-
General: Well Developed, Appears Chronically Ill, Obese and Other (sleepy)
HEENT: Normocephalic, Atraumatic, Moist Mucous Membranes and Anicteric
Respiratory: Crackles (Right lung base) and Non Labored Respirations; Negative Accessory Resp Muscle Use
Cardiac: Regular Rhythm and S1/S2; Negative Murmur, Rub or Gallop
GI: Soft, Nontender, Nondistended and Normal Bowel Sounds
Musculoskeletal: No Clubbing, No Cyanosis and No Edema
Skin: Warm and Dry; Negative Rash
Neuro: AO x 3 and Nonfocal/Grossly Intact
Psych: Calm
Data Reviewed
-
Diagnostic Radiology: Report Reviewed by me
[2024-05-23 08:06] VITALS: BP 134/68
[2024-05-23] MEDS: ATIVAN 1 MG IV (10:08)
[2024-05-23] MEDS: MORPHINE 100 IV (10:49)
--- NOTE | 2024-05-23 11:43 | PTCARENOTE ---
Morphine gtt started on this pt at 1mg/hr per protocol.
--- NOTE | 2024-05-23 12:42 | CM ---
Patient seen at bedside.
Morphine gtt started - patient on comfort care.
PLAN: Comfort care
--- NOTE | 2024-05-23 18:28 | HOSPNOTE ---
Hospice continues to follow. Symptoms are currently managed on morphine infusion. We believe today was patients rally. Will reassess inpatient hospice eligibility tomorrow. More information to follow.
[2024-05-23 19:50] VITALS: BP 116/73
--- NOTE | 2024-05-24 06:05 | PTCARENOTE ---
Pt hasn't voided overnight. Pt denies complaints of pain or need to void. Pt bladder scanned for 700 ccs. [employer] notified and placed order for end of life bird. Bird cath placed without complication.
[2024-05-24 07:00] VITALS: BP 116/71
--- NOTE | 2024-05-24 07:06 | W.PN.HOSP.TC ---
Addendum entered and electronically signed by Yara Askew MD 05/24/24 15:00:
seen earlier . Late documentation
I saw and evaluated the patient. I reviewed the resident�s note and agree with findings and plan as documented in the resident�s note. ( Correction pt not on Eliquis).
Patient was comfortable on morphine drip and able to communicate. Mostly pain was controlled. When patient was washed later on she had pain for which as needed morphine was ordered.
Hospice also following
Currently on comfort measures for symptom management.
Original Note:
Today's Communication/Plan
-
Currently on comfort emasures
re eval for GIP by hospice
Assessment / Plan
Assessment / Plan
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
status post drainage, chest tube in place since 05/03 and received tPA/dornase on 05/06/24 and 05/09/24
#Acute hypoxemic respiratory failure
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
-Has been stable on 4 L of oxygen via nasal cannula since her thoracentesis
-Status post removal of 1050 mL straw-colored fluid with negative cytology- 04/29/24
-Status post lytic therapy on 05/06, 05/09
-Previously had chest tube from 05/03 through 05/11
-repeat chest x-ray suspecious of pna, however her o2sat is 97% and family has decided to opt for hospice
- currently on comfort measures; GIP hospice eval today
#RUQ abdominal pain versus right-sided rib pain
-Was reportedly a gallstone in neck of the bladder, determined not to be surgical candidate
-Suspect that the pain is more related to metastases into the pleura and right sided ribs
-Continue morphine IV as needed for pain
#Metastatic spindle Cell Sarcoma
-S/P Resection and Radiation in 2021 with recurrence in late 2022 ( Primary oncology/Dr. Grayson)
-Tki held and currently on comfort measures.
-CT A/P while here showed progression of cancer from previous scan and
#Persistent Left Lower Extremity DVT
-was discharged on SQ lovenox last admission, now on Eliquis though unclear if mass effect from tumor is interfering with efficacy
-Per vascular surgery consult on last admission - no vascular intervention can be done
#Chronic anemia, likely anemia of chronic disease- Hgb 11.6 on admission, appears at baseline
-No signs of acute blood loss or ongoing bleeding/bruising
#Constipation
-Continue bowel regimen
#Essential Hypertension
- stop home amlodipine and olmesartan;on comfort measure
#Anxiety/Depression
-stop home sertraline;on comfort measure
#Overactive Bladder
-stop home Oxybutynin; on comfort measures
#Hx Symptomatic Bradycardia s/p Permanent Pacemaker
Code status: DNR/DNI
DVT PPhx: Eliquis BID
Anticipated Discharge: 24 - 48 hours
Subjective/Interval History
-
Date of Service: May 24, 2024
No new complaints, comfortable.
Objective Data
-
Vital Signs:
Vital Signs
Temp Pulse Resp BP Pulse Ox
99.0 F 95 20 116/73 92
05/23/24 19:50 05/23/24 19:50 05/23/24 19:50 05/23/24 19:50 05/23/24 19:50
I&O
05/23/24 05/24/24 05/25/24
06:59 06:59 06:59
Intake Total 80 / 80 74 / 74
Output Total 0 / 0 115 / 115
Balance 80 / 80 -41 / -41
Review of Systems
-
History Source: Patient
All other systems: Reviewed and negative
Physical Exam
-
General: Well Developed, Appears Chronically Ill and Obese
HEENT: Normocephalic and Atraumatic
Respiratory: Crackles (Right lung base) and Non Labored Respirations; Negative Accessory Resp Muscle Use
Cardiac: Regular Rhythm and S1/S2; Negative Murmur, Rub or Gallop
GI: Soft, Nontender, Nondistended and Normal Bowel Sounds
Musculoskeletal: No Clubbing, No Cyanosis and No Edema
Skin: Warm and Dry; Negative Rash
Neuro: AO x 3 and Nonfocal/Grossly Intact
Psych: Calm
Data Reviewed
-
Old Records: Reviewed
--- NOTE | 2024-05-24 14:42 | HOSPNOTE ---
Patient remains on comfort care, will continue to follow.
--- NOTE | 2024-05-24 15:34 | CM ---
Patient seen at bedside with family
Patient on comfort care
CM made available for emotional support
PLAN: Continue on comfort care
[2024-05-24] MEDS: ATIVAN 1 MG IV (15:52)
[2024-05-24] MEDS: MORPHINE SULFATE 2 MG IV (15:53)
[2024-05-24 19:17] VITALS: BP 127/67
--- NOTE | 2024-05-24 19:48 | PTCARENOTE ---
pt on step 1 gtt going through R SQ port. pt anxious and verbalizing R rib/ abd pain. prn ativan and breakthrough of morphine given. see MAR for proper documentation. daughters remain at bedside at this time.
[2024-05-25 07:23] VITALS: BP 133/77
--- NOTE | 2024-05-25 07:27 | W.PN.HOSP.TC ---
Addendum entered and electronically signed by Yara Askew MD 05/25/24 15:41:
I saw and evaluated the patient. I reviewed the resident�s note and agree with findings and plan as documented in the resident�s note.
Patient was uncomfortable earlier.
Discussed with nursing advised to use as needed morphine
Discussed with family and hospice at bedside
continue drip and PRN
Original Note:
Today's Communication/Plan
-
continue comfort measures
Assessment / Plan
Assessment / Plan
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
status post drainage, chest tube in place since 05/03 and received tPA/dornase on 05/06/24 and 05/09/24
#Acute hypoxemic respiratory failure
# Malignant pleural effusion is still a likely, suspected, probable diagnosis s/p thoracocentesis
-Has been stable on 3L of oxygen via nasal cannula since her thoracentesis
-Status post removal of 1050 mL straw-colored fluid with negative cytology- 04/29/24
-Status post lytic therapy on 05/06, 05/09
-Previously had chest tube from 05/03 through 05/11
-repeat chest x-ray suspecious of pna, however her o2sat is 97% and family has decided to opt for hospice
- currently on comfort measures; GIP hospice eval today
#RUQ abdominal pain versus right-sided rib pain
-Was reportedly a gallstone in neck of the bladder, determined not to be surgical candidate
-Suspect that the pain is more related to metastases into the pleura and right sided ribs
-Continue morphine IV as needed for pain
#Metastatic spindle Cell Sarcoma
-S/P Resection and Radiation in 2021 with recurrence in late 2022 ( Primary oncology/Dr. Grayson)
-Tki held and currently on comfort measures.
-CT A/P while here showed progression of cancer from previous scan and
#Persistent Left Lower Extremity DVT
-was discharged on SQ lovenox last admission, now on Eliquis though unclear if mass effect from tumor is interfering with efficacy
-Per vascular surgery consult on last admission - no vascular intervention can be done
#Chronic anemia, likely anemia of chronic disease- Hgb 11.6 on admission, appears at baseline
-No signs of acute blood loss or ongoing bleeding/bruising
#Constipation
-Continue bowel regimen
#Essential Hypertension
- stop home amlodipine and olmesartan;on comfort measure
#Anxiety/Depression
-stop home sertraline;on comfort measure
#Overactive Bladder
-stop home Oxybutynin; on comfort measures
#Hx Symptomatic Bradycardia s/p Permanent Pacemaker
Code status: DNR/DNI
DVT PPhx: Eliquis BID
Anticipated Discharge: 24 - 48 hours
Subjective/Interval History
-
Date of Service: May 25, 2024
c/o increased abdominal pain
Objective Data
-
Vital Signs:
Vital Signs
Temp Pulse Resp BP Pulse Ox
98.1 F 101 16 133/77 92
05/25/24 07:23 05/25/24 07:23 05/25/24 07:23 05/25/24 07:23 05/25/24 07:23
I&O
05/24/24 05/25/24 05/26/24
06:59 06:59 06:59
Intake Total 74 / 74 492 / 492
Output Total 115 / 115 350 / 350
Balance -41 / -41 142 / 142
Review of Systems
-
History Source: Patient
Abdomen/GI: Reports Abdominal Pain
Physical Exam
-
General: Appears Chronically Ill and Obese
HEENT: Normocephalic
Respiratory: Crackles (Right lung base) and Non Labored Respirations (on O2 3 L NC); Negative Accessory Resp Muscle Use
Cardiac: Regular Rhythm and S1/S2; Negative Murmur, Rub or Gallop
GI: Soft, Nontender, Nondistended and Normal Bowel Sounds
Musculoskeletal: No Clubbing, No Cyanosis and No Edema
Skin: Warm and Dry; Negative Rash
Neuro: AO x 3 and Nonfocal/Grossly Intact
Psych: Calm
Data Reviewed
-
Old Records: Reviewed
[2024-05-25] MEDS: MORPHINE SULFATE 2 MG IV ×4 (08:12→17:01)
--- NOTE | 2024-05-25 09:19 | PN.CDI ---
CDI
- -
CDI:
Physician Documentation Request
Admit Date: 04/28/24 15:28
Dear Doctor Amparo,
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
Pathology results of pleural fluid is negative for malignant cells.
Please clarify the following:
____ - Malignant pleural effusion is valid diagnosis
____ - Malignant pleural effusion was ruled out
____ - Malignant pleural effusion is still a likely, suspected, probable diagnosis
____ - Other
Use of terms such as suspected, likely, concern for, or probable (associated with a specific diagnosis that is being evaluated, monitored, or treated as if it exists) are acceptable and can be coded in the inpatient setting, when documented at the
time of discharge.
Thank you,
Valarie Rocha RN, BSN
CDI Specialist
tiger text
Please use your independent medical judgment in providing your response.
[2024-05-25] MEDS: MORPHINE 100 IV (10:34)
--- NOTE | 2024-05-25 12:46 | HOSPNOTE ---
Patient remains on comfort and we will continue to follow.
--- NOTE | 2024-05-25 13:19 | CM ---
Patient seen at bedside.
Remains on comfort care
Hospice follows
CM made available for support
PLAN: comfort care
--- NOTE | 2024-05-25 18:47 | W.PN.UPDATE ---
Update Note
Progress Note Update
Malignant pleural effusion
[2024-05-25 19:39] VITALS: BP 126/76
[2024-05-26] MEDS: MORPHINE SULFATE 2 MG IV ×8 (01:21→18:29)
[2024-05-26 07:40] VITALS: BP 121/87
--- NOTE | 2024-05-26 08:44 | W.PN.HOSP.TC ---
Addendum entered and electronically signed by Yara Askew MD 05/26/24 15:30:
I saw and evaluated the patient. I reviewed the resident�s note and agree with findings and plan as documented in the resident�s note.
Continue morphine drip and as needed morphine. Go to step 2 if patient needs frequent morphine.
Discussed with daughter at bedside
Original Note:
Today's Communication/Plan
-
continue comfort measures.
Assessment / Plan
Assessment / Plan
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
status post drainage, chest tube in place since 05/03 and received tPA/dornase on 05/06/24 and 05/09/24
#Acute hypoxemic respiratory failure
# Malignant pleural effusion is still a likely, suspected, probable diagnosis s/p thoracocentesis
-Has been stable on 5L of oxygen via nasal cannula since her thoracentesis
-Status post removal of 1050 mL straw-colored fluid with negative cytology- 04/29/24
-Status post lytic therapy on 05/06, 05/09
-Previously had chest tube from 05/03 through 05/11
-repeat chest x-ray suspecious of pna, however her o2sat is 97% and family has decided to opt for hospice
- currently on comfort measures; [facility] hospice eval
-irrigation for blood in the bird
#RUQ abdominal pain versus right-sided rib pain
-Was reportedly a gallstone in neck of the bladder, determined not to be surgical candidate
-Suspect that the pain is more related to metastases into the pleura and right sided ribs
-Continue morphine IV as needed for pain
#Metastatic spindle Cell Sarcoma
-S/P Resection and Radiation in 2021 with recurrence in late 2022 ( Primary oncology/Dr. Grayson)
-Tki held and currently on comfort measures.
-CT A/P while here showed progression of cancer from previous scan and
#Persistent Left Lower Extremity DVT
-was discharged on SQ lovenox last admission, now on Eliquis though unclear if mass effect from tumor is interfering with efficacy
-Per vascular surgery consult on last admission - no vascular intervention can be done
#Chronic anemia, likely anemia of chronic disease- Hgb 11.6 on admission, appears at baseline
-No signs of acute blood loss or ongoing bleeding/bruising
#Constipation
-Continue bowel regimen
#Essential Hypertension
- stop home amlodipine and olmesartan;on comfort measure
#Anxiety/Depression
-stop home sertraline;on comfort measure
#Overactive Bladder
-stop home Oxybutynin; on comfort measures
#Hx Symptomatic Bradycardia s/p Permanent Pacemaker
Code status: DNR/DNI
DVT PPhx: Eliquis BID
Anticipated Discharge: 24 - 48 hours
Subjective/Interval History
-
Date of Service: May 26, 2024
Blood in the urine, trouble breathing
Objective Data
-
Vital Signs:
Vital Signs
Temp Pulse Resp BP Pulse Ox
97.5 F 108 20 121/87 95
05/26/24 07:40 05/26/24 07:40 05/26/24 07:40 05/26/24 07:40 05/26/24 07:40
I&O
05/25/24 05/26/24 05/27/24
06:59 06:59 06:59
Intake Total 492 / 492 120 / 120
Output Total 350 / 350
Balance 142 / 142 120 / 120
Review of Systems
-
History Source: Patient
Respiratory: Reports Trouble Breathing
Abdomen/GI: Reports Abdominal Pain
Physical Exam
-
General: Appears Chronically Ill and Obese
HEENT: Normocephalic
Respiratory: Crackles (Right lung base) and Non Labored Respirations (on O2 5L NC); Negative Accessory Resp Muscle Use
Cardiac: Regular Rhythm and S1/S2; Negative Murmur, Rub or Gallop
GI: Soft, Nontender, Nondistended and Normal Bowel Sounds
Genito-urinary: Bloody Urine
Musculoskeletal: No Clubbing, No Cyanosis and No Edema
Skin: Warm and Dry; Negative Rash
Neuro: AO x 3 and Nonfocal/Grossly Intact
Psych: Calm
Data Reviewed
-
Old Records: Reviewed
--- NOTE | 2024-05-26 11:46 | HOSPNOTE ---
Patient is on comfort care. We are following for support. Spoke to primary RN who is working towards increasing Morphine drip to Step 2. Reviewed to reach out if support and guidance is needed from Hospice. She agreed. Emotional support provided.
--- NOTE | 2024-05-26 16:28 | CM ---
Remains on comfort care
Morphine infusion
Hospice following
Plan - continue comfort care, hospice following
[2024-05-26 19:50] VITALS: BP 121/72
--- NOTE | 2024-05-27 07:00 | W.PN.HOSP.TC ---
Addendum entered and electronically signed by Yara Askew MD 05/27/24 12:38:
continue Morphine gtt step 2
she was looking comfortable on that
D/W RN AT BED SIDE
Original Note:
Today's Communication/Plan
-
continue current comfort measures
Assessment / Plan
Assessment / Plan
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
status post drainage, chest tube in place since 05/03 and received tPA/dornase on 05/06/24 and 05/09/24
#Acute hypoxemic respiratory failure
# Malignant pleural effusion is still a likely, suspected, probable diagnosis s/p thoracocentesis
-Has been stable on 5L of oxygen via nasal cannula
-Status post removal of 1050 mL straw-colored fluid with negative cytology- 04/29/24
-Status post lytic therapy on 05/06, 05/09
-Previously had chest tube from 05/03 through 05/11
-repeat chest x-ray suspecious of pna, however her o2sat is 97% and family has decided to opt for hospice
- currently on comfort measures MOrphine Iv step 2; [facility] hospice eval
-irrigation for blood in the bird
#RUQ abdominal pain versus right-sided rib pain
-Was reportedly a gallstone in neck of the bladder, determined not to be surgical candidate
-Suspect that the pain is more related to metastases into the pleura and right sided ribs
-Continue morphine IV as needed for pain
#Metastatic spindle Cell Sarcoma
-S/P Resection and Radiation in 2021 with recurrence in late 2022 ( Primary oncology/Dr. Grayson)
-Tki held and currently on comfort measures.
-CT A/P while here showed progression of cancer from previous scan and
#Persistent Left Lower Extremity DVT
-was discharged on SQ lovenox last admission, now on Eliquis though unclear if mass effect from tumor is interfering with efficacy
-Per vascular surgery consult on last admission - no vascular intervention can be done
#Chronic anemia, likely anemia of chronic disease- Hgb 11.6 on admission, appears at baseline
-No signs of acute blood loss or ongoing bleeding/bruising
#Constipation
-Continue bowel regimen
#Essential Hypertension
- stop home amlodipine and olmesartan;on comfort measure
#Anxiety/Depression
-stop home sertraline;on comfort measure
#Overactive Bladder
-stop home Oxybutynin; on comfort measures
#Hx Symptomatic Bradycardia s/p Permanent Pacemaker
Code status: DNR/DNI
Anticipated Discharge: 24 - 48 hours
Subjective/Interval History
-
Date of Service: May 27, 2024
no new complaints
Objective Data
-
Vital Signs:
Vital Signs
Temp Pulse Resp BP Pulse Ox
97.9 F 99 18 121/72 95
05/26/24 19:50 05/26/24 19:50 05/26/24 19:50 05/26/24 19:50 05/26/24 20:10
I&O
05/26/24 05/27/24 05/28/24
06:59 06:59 06:59
Intake Total 120 / 120 144 / 144
Output Total 180 / 180
Balance 120 / 120 -36 / -36
Review of Systems
-
History Source: Patient
Abdomen/GI: Reports Abdominal Pain (improved)
Physical Exam
-
General: Appears Chronically Ill and Obese
HEENT: Normocephalic
Respiratory: Crackles (Right lung base) and Non Labored Respirations (on O2 5L NC); Negative Accessory Resp Muscle Use
Cardiac: Regular Rhythm and S1/S2; Negative Murmur, Rub or Gallop
GI: Soft, Nondistended, Normal Bowel Sounds and Tender
Genito-urinary: Bloody Urine
Musculoskeletal: No Clubbing, No Cyanosis and No Edema
Skin: Warm and Dry; Negative Rash
Neuro: AO x 3 and Nonfocal/Grossly Intact
Psych: Calm
Data Reviewed
-
Old Records: Reviewed
[2024-05-27 07:30] VITALS: BP 115/71
--- NOTE | 2024-05-27 11:12 | HOSPNOTE ---
Patient remains on comfort care. Hospice nurse at bedside to offer support to family. Patient is very comfortable on current regimen. She does not qualify for inpatient hospice at this time. Hospice will continue to follow for support.
--- NOTE | 2024-05-27 13:45 | CM ---
Remains on comfort care
Morphine infusion
Hospice following
Plan - continue comfort care, hospice following
[2024-05-27] MEDS: MORPHINE SULFATE 2 MG IV ×4 (13:46→15:57)
[2024-05-27] MEDS: MORPHINE 100 IV (16:20)
--- NOTE | 2024-05-27 16:30 | PTCARENOTE ---
Patient with existing bird in repeatedly c/o of trying to urinate. I explained that she has a tube in her bladder and can urinate. This was somewhat of an ongoing issue today. Bird was irrigate several times as per MD order. Bladder scanned
patient and is showing 490 cc. Removed old bird and placed new one. Scant amount of blood tinged urine came out upon insertion. Previously, old bird was draining moderate amounts of blood-tinged urine with blood clots and moderate amounts of
sediment.
[2024-05-27] MEDS: MORPHINE SULFATE 4 MG IV ×4 (16:46→21:50)
[2024-05-27 19:14] VITALS: BP 108/62
[2024-05-28] MEDS: MORPHINE SULFATE 4 MG IV ×4 (00:36→07:55)
[2024-05-28] MEDS: ROBINUL 0.2 MG IV ×2 (00:37→05:01)
[2024-05-28 07:26] VITALS: BP 103/64
[2024-05-28] MEDS: ATIVAN 1 MG IV (07:56)
--- NOTE | 2024-05-28 08:02 | PTCARENOTE ---
This RN went into patient's room to medicate patient with PRN ativan and morphine - see MAR - for apneic, irregular breathing, gurgling, eyes open. Patient turned and provided hygiene. MD at bedside, patient with no spontaneous breath or heart
sounds on auscultation. Family at bedside.
--- NOTE | 2024-05-28 08:47 | W.PN.DEATH ---
Addendum entered and electronically signed by Yara Askew MD 05/28/24 09:28:
Dictation- [id number]
Original Note:
Pronouncement of
-
Called to see patient to pronounce.
No spontaneous heart tones or respirations noted.
Patient not responsive to verbal stimuli.
Patient is pronounced .
Time of : 08:02
Date of : 05/28/24
Cause of : Metastatic spindle Cell Sarcoma
Family Notified: Yes
--- NOTE | 2024-05-28 12:10 | PTCARENOTE ---
Postmortem care provided by Camelia HERNDON. [facility] notified. Morphine gtt wasted with Chantal HERNDON. No belongings at bedside.
== END 2024-05-28 12:01 | disposition expired | DRG 542 ==
LOC: 2 NORTH 15:28
PROVIDERS: Internal Medicine; Internal Medicine Critical Care Medicine; Radiology Vascular & Interventional Radiology; Student in an Organized Health Care Education/Training Program; ADMITTING PHYSICIAN Internal Medicine; ATTENDING PHYSICIAN Hospitalist; CONSULT PHYSICIAN Internal Medicine Critical Care Medicine; CONSULT PHYSICIAN Internal Medicine Hematology & Oncology; CONSULT PHYSICIAN Surgery; EMERGENCY PHYSICIAN Emergency Medicine; FAMILY PHYSICIAN Physician Assistant; OTHER PHYSICIAN Nurse Practitioner Gerontology
PROC: 0W993ZZ Drainage of Right Pleural Cavity, Percutaneous Approach (ICD-10-PCS; 2024-04-29)
PROC: 0W9930Z Drainage of Right Pleural Cavity with Drainage Device, Percutaneous Approach (ICD-10-PCS; 2024-05-03)
PROC: 3E0L3GC Introduction of Other Therapeutic Substance into Pleural Cavity, Percutaneous Approach (ICD-10-PCS; 2024-05-09)
PROC: 3E0L317 Introduction of Other Thrombolytic into Pleural Cavity, Percutaneous Approach (ICD-10-PCS; 2024-05-09)
DX: C49.9 Malignant neoplasm of connective and soft tissue, unspecified (principal); G92.9 Unspecified toxic encephalopathy; J96.01 Acute respiratory failure with hypoxia; C78.2 Secondary malignant neoplasm of pleura; C78.00 Secondary malignant neoplasm of unspecified lung; C77.9 Secondary and unspecified malignant neoplasm of lymph node, unspecified; I82.402 Acute embolism and thrombosis of unspecified deep veins of left lower extremity; N17.9 Acute kidney failure, unspecified; E87.1 Hypo-osmolality and hyponatremia; F11.20 Opioid dependence, uncomplicated; J91.0 Malignant pleural effusion; G89.3 Neoplasm related pain (acute) (chronic); Z51.5 Encounter for palliative care; R05.9 Cough, unspecified; E78.00 Pure hypercholesterolemia, unspecified; I10 Essential (primary) hypertension; K59.00 Constipation, unspecified; K21.9 Gastro-esophageal reflux disease without esophagitis; F32.A Depression, unspecified; F41.9 Anxiety disorder, unspecified; R73.9 Hyperglycemia, unspecified; K80.20 Calculus of gallbladder without cholecystitis without obstruction; N32.81 Overactive bladder; D63.8 Anemia in other chronic diseases classified elsewhere; E66.09 Other obesity due to excess calories; E87.5 Hyperkalemia; I08.1 Rheumatic disorders of both mitral and tricuspid valves; M54.50 Low back pain, unspecified; Z66 Do not resuscitate; Z90.710 Acquired absence of both cervix and uterus; Z95.0 Presence of cardiac pacemaker; Z98.51 Tubal ligation status; Z82.49 Family history of ischemic heart disease and other diseases of the circulatory system; Z82.3 Family history of stroke; Z86.718 Personal history of other venous thrombosis and embolism; Z79.01 Long term (current) use of anticoagulants; Z88.1 Allergy status to other antibiotic agents; Z88.8 Allergy status to other drugs, medicaments and biological substances; Z92.3 Personal history of irradiation; Z68.31 Body mass index [BMI] 31.0-31.9, adult; Z92.21 Personal history of antineoplastic chemotherapy; Z85.528 Personal history of other malignant neoplasm of kidney
CPT/HCPCS: 88305; 32555; 32557; 32561; 71045; 71046; 71250; 71275; 74018; 74177; 80048; 80053; 82150; 82805; 82945; 83615; 83735; 83986; 84157; 84478; 84484; 85014; 85025; 85027; 85610; 85730; 87015; 87070; 87205; 88112; 89051; 93005; 93306; 96374; 97110; 97116; 97163; 97167; 97530; 97535; 99291; J2997; Q9967